=== PATIENT | male | born 1940 | race Caucasian/White ===

== ENCOUNTER 2019-08-05 12:11 | Inpatient (IN) | payer MEDICARE, OTHER ==
[2019-08-05] MEDS ORDERED: Albuterol/Ipratropium 3.0-0.5 MG/3 ML Neb Soln ONE (12:22)
[2019-08-05] MEDS ORDERED: Sodium Chloride 0.9% 10 ML Syringe FLUSH PRN (12:24)
[2019-08-05] MEDS ORDERED: Albuterol/Ipratropium 3.0-0.5 MG/3 ML Neb Soln NEB ONE (12:27)
--- NOTE | 2019-08-05 12:33 | EDM.PDOC ---
ED HPI GENERAL MEDICAL PROBLEM - General Chief Complaint: Respiratory Problem Stated Complaint: SHORTNESS OF BREATH Time Seen by Provider: 08/05/19 12:15 Source of Information: Reports: Patient, EMS History Limitations: Reports: No Limitations - History of Present Illness INITIAL COMMENTS - FREE TEXT/NARRATIVE: 79 YO WM presents to ER by EMS with progressive shortness of breath. Pt reports he began to develop upper respiratory tract symptoms 3 days ago with cough and congestion. Pt denies any known fever/chills. Pt reports he started taking Mucinex yesterday as the symptoms began to get worse. Pt with history of COPD/ asthma but states it's well controlled without medications. Pt denies chest pain , diaphoresis, no nausea/vomiting. Duration: Day(s): (3) Location: Reports: Generalized Severity: Moderate Improves with: Reports: Rest Worsens with: Reports: Movement Associated Symptoms: Reports: Cough, Shortness of Breath, Weakness. Denies: Chest Pain, Fever/Chills, Nausea/Vomiting - Related Data Allergies Allergy/AdvReac Type Severity Reaction Status Date / Time No Known Drug Allergies Allergy Cannot Verified 08/05/19 13:06 Remember Home Meds: Home Meds Calcium Carbonate/Vitamin D3 [Calcium 250+D] 2 tab PO BID 08/05/19 [History] Carbidopa/Levodopa [Carbidopa-Levodopa 10-100] 1 tab PO TID 08/05/19 [History] FLUoxetine HCl [Fluoxetine HCl] 40 mg PO QAM 08/05/19 [History] Isosorbide Mononitrate [Isosorbide Mononitrate ER] 30 mg PO QAM 08/05/19 [ History] LORazepam [Ativan] 0.5 mg PO BID PRN 08/05/19 [History] LORazepam [Ativan] 1 mg PO BEDTIME PRN 08/05/19 [History] Lisinopril [Zestril] 40 mg PO DAILY 08/05/19 [History] Polyethylene Glycol 3350 [Miralax] 17 gm PO BEDTIME 08/05/19 [History] Sennosides/Docusate Sodium [Senna Plus 8.6-50 mg Softgel] 2 tab PO BID 08/05/19 [History] Simvastatin 40 mg PO BEDTIME 08/05/19 [History] Tamsulosin HCl [Flomax] 0.4 mg PO DAILY 08/05/19 [History] amLODIPine Besylate [Norvasc] 10 mg PO DAILY 08/05/19 [History] hydrALAZINE HCl [Hydralazine HCl] 25 mg PO TID 08/05/19 [History] levETIRAcetam [Keppra] 500 mg PO BID 08/05/19 [History] metFORMIN HCl [Glucophage] 500 mg PO BID 08/05/19 [History] ED ROS GENERAL - Review of Systems Review Of Systems: See Below Constitutional: Reports: Weakness HEENT: Reports: Rhinitis Respiratory: Reports: Shortness of Breath, Cough Cardiovascular: Reports: No Symptoms Endocrine: Reports: No Symptoms GI/Abdominal: Reports: No Symptoms : Reports: No Symptoms Musculoskeletal: Reports: No Symptoms Skin: Reports: No Symptoms Neurological: Reports: No Symptoms Psychiatric: Reports: No Symptoms Hematologic/Lymphatic: Reports: No Symptoms Immunologic: Reports: No Symptoms ED EXAM, GENERAL - Physical Exam Exam: See Below Exam Limited By: No Limitations General Appearance: Alert, WD/WN, No Apparent Distress Nose: Normal Inspection, Normal Mucosa, No Blood Throat/Mouth: Normal Inspection, Normal Lips, Normal Teeth, Normal Gums, Normal Oropharynx, Normal Voice, No Airway Compromise Head: Atraumatic, Normocephalic Neck: Normal Inspection, Supple, Non-Tender, Full Range of Motion Respiratory/Chest: No Respiratory Distress, No Accessory Muscle Use, Wheezing Cardiovascular: Normal Peripheral Pulses, Regular Rate, Rhythm, No Edema, No Gallop, No JVD, No Murmur, No Rub GI/Abdominal: Normal Bowel Sounds, Soft, Non-Tender, No Organomegaly, No Distention, No Abnormal Bruit, No Mass Back Exam: Normal Inspection, Full Range of Motion, NT Extremities: Normal Inspection, Normal Range of Motion, Non-Tender, Normal Capillary Refill, No Pedal Edema Neurological: Alert, Oriented, CN II-XII Intact, Normal Cognition, Normal Gait, Normal Reflexes, No Motor/Sensory Deficits Psychiatric: Normal Affect, Normal Mood Skin Exam: Warm, Dry, Intact, Normal Color, No Rash Lymphatic: No Adenopathy EKG INTERPRETATION EKG Date: 08/05/19 Time: 12:34 Rhythm: NSR Rate (Beats/Min): 73 [place]: Normal P-Wave: Present QRS: RBBB ST-T: Normal QT: Normal Comparison: NA - No Prior EKG Course - Vital Signs Last Recorded V/S: Last Vital Signs Temp 37.1 C 08/05/19 12:37 Pulse 74 08/05/19 12:37 Resp 22 H 08/05/19 12:37 BP 143/58 H 08/05/19 12:37 Pulse Ox 85 L 08/05/19 12:37 - Orders/Labs/Meds Orders: Active Orders 24 hr Category Date Time Status EKG Documentation Completion [RC] ASDIRECTED Care 08/05/19 12:27 Active Oxygen Therapy [RC] PRN Care 08/05/19 12:24 Active Peripheral IV Care [RC] . DIRECTED Care 08/05/19 12:25 Active Pulse Oximetry [RC] CONTINUOUS Care 08/05/19 12:24 Active RT Aerosol Therapy [RC] ASDIRECTED Care 08/05/19 12:27 Active CULTURE BLOOD [BC] Stat Lab 08/05/19 12:30 Received CULTURE BLOOD [BC] Stat Lab 08/05/19 12:56 Received INFLUENZA A+B AG SCREEN [RM] Stat Lab 08/05/19 12:24 Received Sodium Chloride 0.9% [Saline Flush] Med 08/05/19 12:24 Active 10 ml FLUSH Q8HR PRN Blood Culture x2 Reflex Set [OM.PC] Stat Oth 08/05/19 12:26 Ordered Peripheral IV Insertion Adult [OM.PC] Urgent Oth 08/05/19 12:24 Ordered EKG 12 Lead [EK] Routine Ther 08/05/19 12:27 Ordered Medication Orders Sodium Chloride (Saline Flush) 10 ml FLUSH Q8HR PRN PRN Reason: keep vein open Labs: Laboratory Tests 08/05/19 08/05/19 Range/Units 12:30 12:30 WBC 7.15 (5.00-10.00) 10^3/uL RBC 4.25 L (4.50-6.00) 10^6/uL Hgb 13.3 (13.0-17.0) g/dL Hct 39.3 L (40.0-52.0) % MCV 92.5 H (82.0-92.0) fL MCH 31.3 H (27.0-31.0) pg MCHC 33.8 (32.0-36.0) g/dL RDW 13.6 (11.5-14.5) % Plt Count 172 (150-400) 10^3/uL MPV 9.6 (7.4-10.4) fL Immature Gran % (Auto) 0.3 (0.0-5.0) % Neut % (Auto) 74.5 H (50.0-70.0) % Lymph % (Auto) 14.8 L (20.0-40.0) % Dickson % (Auto) 10.1 H (2.0-8.0) % Eos % (Auto) 0.0 L (1.0-3.0) % Baso % (Auto) 0.3 (0.0-1.0) % Immature Gran # (Auto) 0.02 (0.00-0.50) 10^3/uL Neut # (Auto) 5.33 (2.50-7.00) 10^3/uL Lymph # (Auto) 1.06 (1.00-4.00) 10^3/uL Dickson # (Auto) 0.72 (0.10-0.80) 10^3/uL Eos # (Auto) 0.00 L (0.10-0.30) 10^3/uL Baso # (Auto) 0.02 (0.00-0.10) 10^3/uL Sodium 133 L (136-145) mmol/L Potassium 4.2 (3.3-5.3) mmol/L Chloride 96 L (98-115) mmol/L Carbon Dioxide 25.8 (21.0-32.0) mmol/L Anion Gap 15.4 H (5-15) mmol/L BUN 17 (6-25) mg/dL Creatinine 0.71 (0.51-1.17) mg/dL Est Cr Clr Drug Dosing 84.30 mL/min Estimated GFR (MDRD) > 60 mL/min Glucose 151 H (75 - 99) mg/dL Calcium 8.8 (8.7-10.3) mg/dL Total Bilirubin 0.3 (0.2-1.0) mg/dL AST 23 (15-37) U/L ALT 10 L (12-78) U/L Alkaline Phosphatase 43 L (46-116) IU/L Creatine Kinase 147 (26-276) U/L CK-MB (CK-2) 1.60 (0.00-4.30) ng/mL Troponin I 0.05 (0.00-0.070) ng/mL B-Natriuretic Peptide 564 H (0-100) pg/mL Total Protein 6.5 (6.4-8.2) g/dL Albumin 2.86 L (3.00-4.80) g/dL Meds: Medications Generic Name Dose Route Start Last Admin Trade Name Freq PRN Reason Stop Dose Admin Sodium Chloride 10 ml 08/05/19 12:24 Saline Flush FLUSH Q8HR PRN keep vein open Discontinued Medications Generic Name Dose Route Start Last Admin Trade Name Freq PRN Reason Stop Dose Admin Albuterol/Ipratropium Confirm 08/05/19 12:22 08/05/19 12:42 Duoneb 3.0-0.5 Mg/3 Ml Administered 08/05/19 12:23 Not Given Dose 3 ml .ROUTE .STK-MED ONE Albuterol/Ipratropium 3 ml 08/05/19 12:27 08/05/19 12:25 Duoneb 3.0-0.5 Mg/3 Ml NEB 08/05/19 12:28 3 ml ONETIME ONE Administration - Radiology Interpretation Free Text/Narrative:: CXR- small left pleural effusion - Re-Assessments/Exams Free Text/Narrative Re-Assessment/Exam: 08/05/19 13:32 admit to medicine- Will OLGUIN Departure - Departure Time of Disposition: 13:32 Disposition: Admitted As Inpatient 68 Condition: Fair Clinical Impression: COPD with exacerbation Congestive heart failure Qualifiers: Heart failure chronicity: unspecified - Discharge Information Referrals: Aylin Vasquez MD [Primary Care Provider] - Forms: ED Department Discharge Sepsis Event Note - Focused Exam Vital Signs: Vital Signs Temp Pulse Resp BP Pulse Ox Pulse Ox 08/05/19 12:37 37.1 C 74 22 H 143/58 H 85 L 08/05/19 12:35 75 22 H 142/61 H 97 08/05/19 12:24 94 L Date Exam was Performed: 08/05/19 Time Exam was Performed: 13:12 - My Orders Last 24 Hours: My Active Orders 08/05/19 12:24 Oxygen Therapy [RC] PRN Pulse Oximetry [RC] CONTINUOUS INFLUENZA A+B AG SCREEN [RM] Stat Sodium Chloride 0.9% [Saline Flush] 10 ml FLUSH Q8HR PRN Peripheral IV Insertion Adult [OM.PC] Urgent 08/05/19 12:25 Peripheral IV Care [RC] . DIRECTED 08/05/19 12:26 Blood Culture x2 Reflex Set [OM.PC] Stat 08/05/19 12:27 EKG Documentation Completion [RC] ASDIRECTED RT Aerosol Therapy [RC] ASDIRECTED EKG 12 Lead [EK] Routine 08/05/19 12:30 CULTURE BLOOD [BC] Stat 08/05/19 12:56 CULTURE BLOOD [BC] Stat - Assessment/Plan Last 24 Hours: My Active Orders 08/05/19 12:24 Oxygen Therapy [RC] PRN Pulse Oximetry [RC] CONTINUOUS INFLUENZA A+B AG SCREEN [RM] Stat Sodium Chloride 0.9% [Saline Flush] 10 ml FLUSH Q8HR PRN Peripheral IV Insertion Adult [OM.PC] Urgent 08/05/19 12:25 Peripheral IV Care [RC] . DIRECTED 08/05/19 12:26 Blood Culture x2 Reflex Set [OM.PC] Stat 08/05/19 12:27 EKG Documentation Completion [RC] ASDIRECTED RT Aerosol Therapy [RC] ASDIRECTED EKG 12 Lead [EK] Routine 08/05/19 12:30 CULTURE BLOOD [BC] Stat 08/05/19 12:56 CULTURE BLOOD [BC] Stat Assessment:: 1. COPD exacerbation 2. Mild CHF 3. Hypoxemia Plan: 1. admit to medicine- Will Hennessy 2. duonebs Q4 and PRN 3. lasix 40mg IV one time 4. repeat trop I Q6 x 1 5. oxygen 6. supportive care
[2019-08-05 13:07] LABS: ANION GAP 15.4 mmol/L (5-15); CHLORIDE,CL 96 mmol/L (98-115); SODIUM,NA 133 mmol/L (136-145)
--- NOTE | 2019-08-05 13:09 | CR ---
[id number] RAD/RAD Chest PA And Lateral EXAM: RAD Chest PA And Lateral INDICATION: SHORTNESS OF BREATH COMPARISON: None. DISCUSSION: Small left-sided pleural effusion, nonspecific in etiology. Right lung is clear. IMPRESSION: Small left pleural effusion uncertain etiology. Contrast-enhanced CT examination of the chest is recommended for further evaluation. Pasha Addison MD 08/05/19 [id number] Thank you for allowing us to participate in the care of your patient.
[2019-08-05] MEDS ORDERED: Furosemide 40 MG/4 ML VIAL ONE (13:23)
[2019-08-05] MEDS ORDERED: Furosemide 40 MG/4 ML VIAL IVPUSH ONE ×2 (13:39→18:10)
[2019-08-05] MEDS ORDERED: Albuterol/Ipratropium 3.0-0.5 MG/3 ML Neb Soln NEB SCH (13:45)
[2019-08-05] MEDS ORDERED: LORazepam 0.5 MG Tab PO PRN (16:30)
[2019-08-05 18:18] LABS: BASE EXCESS ARTERIAL 1 mmol/L (-2-3); BICARBONATE,ARTERIAL 26.7 mmol/L (22-26); O2 DELIVERY DEVICE NASAL CANNULA; O2 SATURATION ARTERIAL 92 % (95-98); PCO2 ARTERIAL 46 mmHG (35-45); PO2 ARTERIAL 66 mmHG (80-105)
[2019-08-05] MEDS: LORazepam 0.5 MG Tab PO PRN ×2 (18:19→21:51)
[2019-08-05] MEDS: Tamsulosin 0.4 MG Cap.ER PO SCH (18:30)
[2019-08-05] MEDS ORDERED: Potassium Chloride 20 MEQ Tab.ER PO ONE (19:00)
[2019-08-05] MEDS ORDERED: Bumetanide 1 MG/4 ML MDV IVPUSH STA (20:09)
[2019-08-05] MEDS: Albuterol/Ipratropium 3.0-0.5 MG/3 ML Neb Soln NEB SCH (20:47)
[2019-08-05] MEDS ORDERED: Furosemide 40 MG/4 ML VIAL IVPUSH SCH ×2 (21:30)
[2019-08-05] MEDS: Polyethylene Glycol 3350 Powder 17 GM Packet PO SCH (21:41)
[2019-08-05] MEDS: Simvastatin 20 MG Tab PO SCH (21:51)
[2019-08-05] MEDS: hydrALAZINE 50 MG Tab PO SCH (21:52)
[2019-08-05] MEDS: levETIRAcetam 500 MG Tab PO SCH (21:53)
[2019-08-05] MEDS: Carbidopa/Levodopa 10-100 MG Tab PO SCH (21:53)
[2019-08-05] MEDS: Furosemide 40 MG/4 ML VIAL IVPUSH SCH ×2 (22:01→23:08)
[2019-08-05] MEDS: Sodium Chloride 0.9% 10 ML Syringe FLUSH PRN (22:06)
[2019-08-06] MEDS: Albuterol/Ipratropium 3.0-0.5 MG/3 ML Neb Soln NEB SCH ×6 (00:34→20:03)
[2019-08-06] MEDS: Furosemide 40 MG/4 ML VIAL IVPUSH SCH (00:37)
[2019-08-06] MEDS: Sodium Chloride 0.9% 10 ML Syringe FLUSH PRN ×7 (00:50→19:56)
[2019-08-06] MEDS: Furosemide 40 MG/4 ML VIAL IV SCH ×6 (02:07→11:59)
[2019-08-06] MEDS: Acetaminophen 325 MG Tab PO PRN (02:17)
[2019-08-06 08:24] LABS: CHLORIDE,CL 97 mmol/L (98-115); SODIUM,NA 138 mmol/L (136-145)
[2019-08-06] MEDS ORDERED: Tamsulosin 0.4 MG Cap.ER PO SCH (09:00)
[2019-08-06] MEDS: Tamsulosin 0.4 MG Cap.ER PO SCH (09:32)
[2019-08-06] MEDS: Isosorbide Mononitrate 30 MG Tab.ER PO SCH (09:33)
[2019-08-06] MEDS: levETIRAcetam 500 MG Tab PO SCH ×2 (09:36→20:04)
[2019-08-06] MEDS: FLUoxetine 10 MG Cap PO SCH (09:36)
[2019-08-06] MEDS: hydrALAZINE 50 MG Tab PO SCH ×3 (09:37→20:05)
[2019-08-06] MEDS: Carbidopa/Levodopa 10-100 MG Tab PO SCH ×3 (09:37→20:05)
[2019-08-06] MEDS: amLODIPine 5 MG Tab PO SCH (09:37)
[2019-08-06] MEDS ORDERED: Sodium Chloride 0.9% 50 ML IV ONE (09:43)
[2019-08-06] MEDS ORDERED: Iopamidol 755 Mg/ML 100 ML Bottle IV ONE (09:43)
--- NOTE | 2019-08-06 09:48 | CT ---
[id number] CT/CT Chest W IV Exam: CT Chest W IV Clinical Data: SHORTNESS OF BREATH COMPARISON: CORRELATION IS MADE WITH YESTERDAY'S CHEST RADIOGRAPH FINDINGS: There is a small left pleural effusion There is a small left lung base There is no mediastinal mass There are subcentimeter lymph nodes in the mediastinum There are no pulmonary emboli There are atheromatous calcifications IMPRESSION: SMALL LEFT EFFUSION SMALL INFILTRATE LEFT BASE NO OTHER ACUTE ABNORMALITY FOLLOW-UP STUDIES SUGGESTED TO DOCUMENT RESOLUTION OF FINDINGS AT LEFT LUNG BASE Bobby Goodman MD 08/06/19 [id number] Thank you for allowing us to participate in the care of your patient.
[2019-08-06] MEDS: LORazepam 0.5 MG Tab PO PRN (09:58)
[2019-08-06] MEDS ORDERED: LORazepam 0.5 MG Tab PO PRN (10:17)
[2019-08-06] MEDS ORDERED: Potassium Chloride 20 MEQ in Premix Bag 1 BAG IV ONE ×2 (10:54→16:00)
[2019-08-06] MEDS ORDERED: Furosemide 40 MG/4 ML VIAL IV SCH (11:00)
[2019-08-06] MEDS: Furosemide 100 MG in Sodium Chloride 0.9% 90 ML IV SCH ×2 (11:27→21:40)
[2019-08-06] MEDS ORDERED: Potassium Bicarbonate 25 MEQ Tab.EFF PO ONE ×2 (12:00→17:00)
[2019-08-06] MEDS ORDERED: Potassium Bicarbonate 25 MEQ Tab.EFF PO SCH (12:00)
[2019-08-06] MEDS ORDERED: Sodium Chloride 0.9% 250 ML IV SCH (12:15)
[2019-08-06] MEDS: LORazepam 0.5 MG Tab PO SCH ×3 (12:16→20:11)
--- NOTE | 2019-08-06 12:58 | PCM.HP.2 ---
H&P History of Present Illness - General Date of Service: 08/06/19 Admit Problem/Dx: Admission Diagnosis/Problem Admission Diagnosis/Problem COPD, Mild chronic obstructive pulmonary disease Source of Information: Old Records, Provider, RN History Limitations: Reports: No Limitations - Related Data Allergies/Adverse Reactions: Allergies Allergy/AdvReac Type Severity Reaction Status Date / Time No Known Drug Allergies Allergy Cannot Verified 08/05/19 13:06 Remember Home Medications: Home Meds Calcium Carbonate/Vitamin D3 [Calcium 250+D] 2 tab PO BID 08/05/19 [History] Carbidopa/Levodopa [Carbidopa-Levodopa 10-100] 1 tab PO TID 08/05/19 [History] FLUoxetine HCl [Fluoxetine HCl] 40 mg PO QAM 08/05/19 [History] Isosorbide Mononitrate [Isosorbide Mononitrate ER] 30 mg PO QAM 08/05/19 [ History] LORazepam [Ativan] 0.5 mg PO BID PRN 08/05/19 [History] LORazepam [Ativan] 1 mg PO BEDTIME PRN 08/05/19 [History] Lisinopril [Zestril] 40 mg PO DAILY 08/05/19 [History] Polyethylene Glycol 3350 [Miralax] 17 gm PO BEDTIME 08/05/19 [History] Sennosides/Docusate Sodium [Senna Plus 8.6-50 mg Softgel] 2 tab PO BID 08/05/19 [History] Simvastatin 40 mg PO BEDTIME 08/05/19 [History] Tamsulosin HCl [Flomax] 0.4 mg PO DAILY 08/05/19 [History] amLODIPine Besylate [Norvasc] 10 mg PO DAILY 08/05/19 [History] hydrALAZINE HCl [Hydralazine HCl] 25 mg PO TID 08/05/19 [History] levETIRAcetam [Keppra] 500 mg PO BID 08/05/19 [History] metFORMIN HCl [Glucophage] 500 mg PO BID 08/05/19 [History] Past Medical History HEENT History: Reports: Hard of Hearing Other HEENT History: asymmetrical sensoneur hearing loss. subjective tinnitus Cardiovascular History: Reports: High Cholesterol, Hypertension, SOB on Exertion Respiratory History: Reports: COPD, Sleep Apnea, SOB Gastrointestinal History: Reports: Chronic Constipation, Colon Polyp Genitourinary History: Reports: None Musculoskeletal History: Reports: Arthritis, Back Pain, Chronic Neurological History: Reports: Brain Injury, Parkinson's Other Neuro History: subdural hematoma in 2013 with craniotomy , skull not replaced due to high infection possibility Psychiatric History: Reports: Anxiety, Depression Endocrine/Metabolic History: Reports: Diabetes, Type II, Obesity/BMI 30+ Other Oncologic History: squamous cell carcinoma of skin- face Dermatologic History: Reports: Eczema - Infectious Disease History Infectious Disease History: Reports: Chicken Pox - Past Surgical History Head Surgeries/Procedures: Reports: Craniotomy Cardiovascular Surgical History: Reports: None Respiratory Surgical History: Reports: None GI Surgical History: Reports: Colonoscopy, Hernia, Abdominal Endocrine Surgical History: Reports: None Neurological Surgical History: Reports: None Musculoskeletal Surgical History: Reports: None Dermatological Surgical History: Reports: None Social & Family History - Tobacco Use Smoking Status *Q: Former Smoker Years of Tobacco use: 50 Packs/Tins Daily: 3 Used Tobacco, but Quit: Yes Month/Year Tobacco Last Used: 10 - Caffeine Use Caffeine Use: Reports: Coffee, Soda - Recreational Drug Use Recreational Drug Use: No H&P Review of Systems - Review of Systems: Review Of Systems: See Below General: Reports: Malaise, Weight Loss. Denies: Night Sweats HEENT: Reports: No Symptoms Pulmonary: Reports: Shortness of Breath, Wheezing, Cough, Sputum. Denies: Pleuritic Chest Pain, Hemoptysis Cardiovascular: Reports: Dyspnea on Exertion, Orthopnea, Edema. Denies: Chest Pain, Palpitations, Lightheadedness, Blood Pressure Problem Genitourinary: Reports: Other (Rahseed catheter placement) Musculoskeletal: Reports: No Symptoms Skin: Reports: Dryness. Denies: Rash Psychiatric: Denies: Confusion Neurological: Denies: Confusion Hematologic/Lymphatic: Reports: No Symptoms Immunologic: Reports: No Symptoms Exam - Exam Exam: See Below - Vital Signs Vital Signs: Last Vital Signs Temp 97.5 F 08/06/19 11:00 Pulse 71 08/06/19 11:00 Resp 20 08/06/19 11:00 BP 145/75 H 08/06/19 11:00 Pulse Ox 87 L 08/06/19 11:00 Weight: 268 lb - Exam Quality Assessment: Supplemental Oxygen General: Alert, Oriented, Mild Distress HEENT: EACs Clear. No: Mucosa Moist & [place] Neck: JVD Lungs: Crackles, Rales, Wheezing. No: Clear to Auscultation, Normal Respiratory Effort Cardiovascular: Regular Rate, Regular Rhythm, Normal S1. No: Diastolic Murmur, Gallop/S3 GI/Abdominal Exam: No: Distended (Male) Exam: Deferred Rectal (Males) Exam: Deferred Back Exam: No: CVA Tenderness (L), CVA Tenderness (R) Extremities: Pedal Edema Skin: Dry Neurological: Cranial Nerves Intact, Reflexes Equal Bilateral Neuro Extensive - Mental Status: Alert, Oriented x3, Normal Mood/Affect, Normal Cognition Neuro Extensive - Motor, Sensory, Reflexes: CN II-XII Intact Psychiatric: Alert, Anxious. No: Depressed, Agitated - Patient Data Lab Results Last 24 hrs: Laboratory Results - last 24 hr 08/05/19 08/05/19 08/05/19 Range/Units 05:45 06:10 12:30 WBC (5.00-10.00) 10^3/uL RBC (4.50-6.00) 10^6/uL Hgb (13.0-17.0) g/dL Hct (40.0-52.0) % MCV (82.0-92.0) fL MCH (27.0-31.0) pg MCHC (32.0-36.0) g/dL RDW (11.5-14.5) % Plt Count (150-400) 10^3/uL MPV (7.4-10.4) fL Immature Gran % (Auto) (0.0-5.0) % Neut % (Auto) (50.0-70.0) % Lymph % (Auto) (20.0-40.0) % [place] % (Auto) (2.0-8.0) % Eos % (Auto) (1.0-3.0) % Baso % (Auto) (0.0-1.0) % Immature Gran # (Auto) (0.00-0.50) 10^3/uL Neut # (Auto) (2.50-7.00) 10^3/uL Lymph # (Auto) (1.00-4.00) 10^3/uL [place] # (Auto) (0.10-0.80) 10^3/uL Eos # (Auto) (0.10-0.30) 10^3/uL Baso # (Auto) (0.00-0.10) 10^3/uL ABG pH 7.37 (7.35-7.45) ABG pCO2 46 H (35-45) mmHG ABG pO2 66 L (80-105) mmHG ABG HCO3 26.7 H (22-26) mmol/L ABG Total CO2 28 H (23-27) mmol/L ABG O2 Saturation 92 L (95-98) % ABG Base Excess 1 (-2-3) mmol/L O2 Delivery Device Nasal cannula Sodium 133 L (136-145) mmol/L Potassium 4.2 (3.3-5.3) mmol/L Chloride 96 L (98-115) mmol/L Carbon Dioxide 25.8 (21.0-32.0) mmol/L Anion Gap 15.4 H (5-15) mmol/L BUN 17 (6-25) mg/dL Creatinine 0.71 (0.51-1.17) mg/dL Est Cr Clr Drug Dosing 84.30 mL/min Estimated GFR (MDRD) > 60 mL/min Glucose 151 H (75 - 99) mg/dL Calcium 8.8 (8.7-10.3) mg/dL Total Bilirubin 0.3 (0.2-1.0) mg/dL AST 23 (15-37) U/L ALT 10 L (12-78) U/L Alkaline Phosphatase 43 L (46-116) IU/L Creatine Kinase 147 (26-276) U/L CK-MB (CK-2) 1.60 (0.00-4.30) ng/mL Troponin I < 0.04 0.05 (0.00-0.070) ng/mL B-Natriuretic Peptide 564 H (0-100) pg/mL Total Protein 6.5 (6.4-8.2) g/dL Albumin 2.86 L (3.00-4.80) g/dL 08/06/19 08/06/19 Range/Units 07:26 07:26 WBC 7.08 (5.00-10.00) 10^3/uL RBC 4.38 L (4.50-6.00) 10^6/uL Hgb 13.5 (13.0-17.0) g/dL Hct 40.8 (40.0-52.0) % MCV 93.2 H (82.0-92.0) fL MCH 30.8 (27.0-31.0) pg MCHC 33.1 (32.0-36.0) g/dL RDW 13.6 (11.5-14.5) % Plt Count 212 (150-400) 10^3/uL MPV 9.6 (7.4-10.4) fL Immature Gran % (Auto) 0.4 (0.0-5.0) % Neut % (Auto) 71.4 H (50.0-70.0) % Lymph % (Auto) 17.1 L (20.0-40.0) % [place] % (Auto) 10.6 H (2.0-8.0) % Eos % (Auto) 0.1 L (1.0-3.0) % Baso % (Auto) 0.4 (0.0-1.0) % Immature Gran # (Auto) 0.03 (0.00-0.50) 10^3/uL Neut # (Auto) 5.05 (2.50-7.00) 10^3/uL Lymph # (Auto) 1.21 (1.00-4.00) 10^3/uL [place] # (Auto) 0.75 (0.10-0.80) 10^3/uL Eos # (Auto) 0.01 L (0.10-0.30) 10^3/uL Baso # (Auto) 0.03 (0.00-0.10) 10^3/uL ABG pH (7.35-7.45) ABG pCO2 (35-45) mmHG ABG pO2 (80-105) mmHG ABG HCO3 (22-26) mmol/L ABG Total CO2 (23-27) mmol/L ABG O2 Saturation (95-98) % ABG Base Excess (-2-3) mmol/L O2 Delivery Device Sodium 138 (136-145) mmol/L Potassium 3.2 L (3.3-5.3) mmol/L Chloride 97 L (98-115) mmol/L Carbon Dioxide 31.2 (21.0-32.0) mmol/L Anion Gap 13.0 (5-15) mmol/L BUN 12 (6-25) mg/dL Creatinine 0.70 (0.51-1.17) mg/dL Est Cr Clr Drug Dosing 85.50 mL/min Estimated GFR (MDRD) > 60 mL/min Glucose 128 H (75 - 99) mg/dL Calcium 7.9 L (8.7-10.3) mg/dL Total Bilirubin (0.2-1.0) mg/dL AST (15-37) U/L ALT (12-78) U/L Alkaline Phosphatase (46-116) IU/L Creatine Kinase (26-276) U/L CK-MB (CK-2) (0.00-4.30) ng/mL Troponin I (0.00-0.070) ng/mL B-Natriuretic Peptide 399 H (0-100) pg/mL Total Protein (6.4-8.2) g/dL Albumin (3.00-4.80) g/dL Result Diagrams: 08/06/19 07:26 08/06/19 07:26 Zachary Results Last 24 hrs: Microbiology 08/05/19 12:30 Aerobic Blood Culture - Preliminary Blood - Venous NO GROWTH AFTER 1 DAY Anaerobic Blood Culture - Preliminary NO GROWTH AFTER 1 DAY 08/05/19 12:24 Influenza Type A Antigen Screen - Final Nasal, Unspecified NEGATIVE INFLUENZA A VIRUS AG REFERENCE RANGE: NEGATIVE Influenza Type B Antigen Screen - Final NEGATIVE INFLUENZA B VIRUS AG REFERENCE RANGE: NEGATIVE Sepsis Event Note - Evaluation Sepsis Screening Result: No Definite Risk - Focused Exam Vital Signs: Vital Signs Temp Pulse Resp BP BP Pulse Ox Pulse Ox 08/06/19 11:00 97.5 F 71 20 145/75 H 87 L 08/06/19 09:37 140/60 08/06/19 09:33 140/70 08/06/19 06:38 98.2 F 67 24 H 145/72 H 94 L 08/06/19 04:20 65 94 L 08/06/19 03:00 97.9 F 68 24 H 156/74 H 93 L 08/06/19 00:50 74 94 L Date Exam was Performed: 08/06/19 Time Exam was Performed: 13:18 Problem List Initiated/Reviewed/Updated: Yes Orders Last 24hrs: Active Orders 24 hr Category Date Time Status Patient Status [ADT] Routine ADT 08/05/19 13:43 Active Cardiac Monitoring [RC] 0300,0700,1100,1500,1900,2300 Care 08/05/19 13:43 Active Insert Rasheed Catheter [Insert Urinary Catheter] [OM.PC] Care 08/05/19 20:15 Ordered Stat Oxygen Therapy [RC] PRN Care 08/05/19 13:43 Active Peripheral IV Care [RC] . DIRECTED Care 08/05/19 12:25 Inactive Pulse Oximetry [RC] PRN Care 08/05/19 13:43 Active RT Aerosol Therapy [RC] ASDIRECTED Care 08/05/19 13:44 Active Up With Assistance [RC] ASDIRECTED Care 08/05/19 13:43 Active Urinary Catheter Assessment [RC] ASDIRECTED Care 08/05/19 20:50 Active VTE/DVT Education [RC] PER UNIT ROUTINE Care 08/05/19 13:43 Active Vital Signs [RC] 0300,0700,1100,1500,1900,2300 Care 08/05/19 13:43 Active [employer] Diet [DIET] Diet 08/05/19 Lunch Active CULTURE BLOOD [BC] Stat Lab 08/05/19 12:30 Results CULTURE BLOOD [BC] Stat Lab 08/05/19 12:56 Received Acetaminophen [Tylenol] Med 08/05/19 13:43 Active 650 mg PO Q4H PRN Albuterol/Ipratropium [DuoNeb 3.0-0.5 MG/3 ML] Med 08/05/19 20:00 Active 3 ml NEB Q4H Carbidopa/Levodopa [Sinemet 10-100 mg] Med 08/05/19 21:00 Active 1 tab PO TID Docusate Sodium/Sennosides [Senna Plus] Med 08/05/19 21:00 Active 2 tab PO BID FLUoxetine [PROzac] Med 08/06/19 09:00 Active 40 mg PO DAILY Furosemide [Lasix] 100 mg Med 08/06/19 10:45 Active Sodium Chloride 0.9% [Normal Saline] 90 ml IV CONTINUOUS Isosorbide Mononitrate [Imdur] Med 08/06/19 09:00 Active 30 mg PO QAM LORazepam [Ativan] Med 08/06/19 10:17 Active 0.5 mg PO BEDTIME PRN LORazepam [Ativan] Med 08/06/19 12:00 Active 0.5 mg PO TID@0700,1200,1900 LORazepam [Ativan] Med 08/06/19 21:00 Active 1 mg PO BEDTIME Potassium Bicarbonate [Klor-Con EF] Med 08/06/19 17:00 Once 25 meq PO ONETIME ONE Potassium Chloride [KCL 20 MEQ in Water 100 ML] 20 meq Med 08/06/19 10:54 Active Premix Bag 1 bag IV ONETIME Potassium Chloride [KCL 20 MEQ in Water 100 ML] 20 meq Med 08/06/19 16:00 Active Premix Bag 1 bag IV ONETIME Simvastatin [Zocor] Med 08/05/19 21:00 Active 40 mg PO BEDTIME Sodium Chloride 0.9% [Normal Saline] 250 ml Med 08/06/19 12:15 Active IV ASDIRECTED Sodium Chloride 0.9% [Saline Flush] Med 08/05/19 13:43 Active 10 ml FLUSH Q8HR PRN Tamsulosin [Flomax] Med 08/05/19 18:00 Active 0.4 mg PO DAILY amLODIPine [Norvasc] Med 08/06/19 09:00 Active 10 mg PO DAILY hydrALAZINE [Apresoline] Med 08/05/19 21:00 Active 25 mg PO TID levETIRAcetam [Keppra] Med 08/05/19 21:00 Active 500 mg PO BID polyethylene glycoL 3350 [MiraLAX] Med 08/05/19 21:00 Active 17 gm PO BEDTIME Saline Lock Insert [OM.PC] Routine Oth 08/05/19 13:43 Ordered Resuscitation Status Routine Resus Stat 08/05/19 13:43 Ordered EKG 12 Lead [EK] Routine Ther 08/05/19 12:27 Stop Req Medication Orders Acetaminophen (Tylenol) 650 mg PO Q4H PRN PRN Reason: Pain (Mild 1-3)/fever Last Admin: 08/06/19 02:17 Dose: 650 mg Albuterol/Ipratropium (Duoneb 3.0-0.5 Mg/3 Ml) 3 ml NEB Q4H [facility] Last Admin: 08/06/19 12:39 Dose: 3 ml Admin: 08/06/19 09:49 Dose: 3 ml Admin: 08/06/19 04:06 Dose: 3 ml Admin: 08/06/19 00:34 Dose: 3 ml Admin: 08/05/19 20:47 Dose: 3 ml Amlodipine Besylate (Norvasc) 10 mg PO DAILY [facility] Last Admin: 08/06/19 09:37 Dose: 10 mg Carbidopa/Levodopa (Sinemet 10-100 Mg) 1 tab PO TID [facility] Last Admin: 08/06/19 09:37 Dose: 1 tab Admin: 08/05/19 21:53 Dose: 1 tab Fluoxetine HCl (Prozac) 40 mg PO DAILY [facility] Last Admin: 08/06/19 09:36 Dose: 40 mg Hydralazine HCl (Apresoline) 25 mg PO TID [facility] Last Admin: 08/06/19 09:37 Dose: 25 mg Admin: 08/05/19 21:52 Dose: 25 mg Furosemide 100 mg/ Sodium (Chloride) 100 mls @ 10 mls/hr IV CONTINUOUS [facility] Last Admin: 08/06/19 11:27 Dose: 10 mg/hr, 10 mls/hr Potassium Chloride 20 meq/ (Premix) 100 mls @ 50 mls/hr IV ONETIME ONE Stop: 08/06/19 12:53 Potassium Chloride 20 meq/ (Premix) 100 mls @ 50 mls/hr IV ONETIME ONE Stop: 08/06/19 17:59 Sodium Chloride (Normal Saline) 250 mls @ 100 mls/hr IV ASDIRECTED [facility] Isosorbide Mononitrate (Imdur) 30 mg PO QAM [facility] Last Admin: 08/06/19 09:33 Dose: 30 mg Levetiracetam (Keppra) 500 mg PO BID [facility] Last Admin: 08/06/19 09:36 Dose: 500 mg Admin: 08/05/19 21:53 Dose: 500 mg Lorazepam (Ativan) 0.5 mg PO TID@0700,1200,1900 [facility] Last Admin: 08/06/19 12:16 Dose: 0.5 mg Lorazepam (Ativan) 1 mg PO BEDTIME [facility] Lorazepam (Ativan) 0.5 mg PO BEDTIME PRN PRN Reason: Anxiety Polyethylene Glycol (Miralax) 17 gm PO BEDTIME [facility] Last Admin: 08/05/19 21:41 Dose: 17 gm Potassium Bicarbonate (Klor-Con Ef) 25 meq PO ONETIME ONE Stop: 08/06/19 17:01 Senna/Docusate Sodium (Senna Plus) 2 tab PO BID [facility] Last Admin: 08/06/19 09:37 Dose: 2 tab Admin: 08/05/19 21:51 Dose: 2 tab Simvastatin (Zocor) 40 mg PO BEDTIME [facility] Last Admin: 08/05/19 21:51 Dose: 40 mg Sodium Chloride (Saline Flush) 10 ml FLUSH Q8HR PRN PRN Reason: keep vein open Last Admin: 08/06/19 11:24 Dose: 10 ml Admin: 08/06/19 06:43 Dose: 10 ml Admin: 08/06/19 02:13 Dose: 10 ml Admin: 08/06/19 00:50 Dose: 10 ml Admin: 08/05/19 22:06 Dose: 10 ml Tamsulosin HCl (Flomax) 0.4 mg PO DAILY [facility] Last Admin: 08/06/19 09:32 Dose: 0.4 mg Admin: 08/05/19 18:30 Dose: 0.4 mg Assessment/Plan Comment:: History of present illness Mr. 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 Patient states he has had some sort of upper respiratory infection and has been sick for 3-4 days with cough and congestion ever did not have any documented fevers or chills. He was taken some OTC Mucinex however his symptoms seem to worsen. He had no chest pain however was short of breath upon entering the ED. Along with his obesity he does have a COPD/asthma component. Pertinent ED workup/findings Chest x-ray, small left pleural effusion BNP 565 Negative influenza A/B Blood cultures Shortly after accepting patient for hospital admission, nurses notified me concerning significant shortness of breath with hypoxia in the 70s upon standing and they were concerned the patient would not be able to make it through the night due to his significant laboring. I arrived at the hospital to examine the patient and therefore initiated furosemide drip--significant output throughout the night. prophylactic potassium supplementation given, ordered CT of the chest however the patient had eaten. ABG reassuring, orders were placed, Rasheed catheter placed. This morning on rounds patient in chair improved from overnight however far from baseline. Repeated BNP down to 400. Update; CT of the chest consistent with chest x-ray with pleural effusion left side however no other concerning findings Primary hospital problems Heart failure, clinical, significant fluid overload, no echo on file, request records from [place] Hypokalemia, supplementation Obesity, morbid, contributory Chronic/stable problems Hypertension, controlled, hold lisinopril Hyperlipidemia, statin therapy Obesity, morbid, confounding Seasonal allergies, controlled BPH, Flomax Anxiety/Depression, benzodiazepine dependent, Prozac Disposition/overall plan --Patient meets ongoing inpatient criteria --Gentle continuous furosemide infusion, daily weights --Ongoing potassium supplementation --Continue with Rasheed catheter for strict I/O 2/2 significant hypoxia upon standing --Oxygen support, TKS up to 93% --DVT prophylaxis, weightbased LMWH --Nursing, please obtain records from [place] --Mucinex - Mortality Measure Prognosis:: Good
[2019-08-06] MEDS: Enoxaparin 40 MG/0.4 ML Syringe SUBCUT SCH (13:58)
[2019-08-06] MEDS: guaiFENesin 600 MG Tab.ER PO SCH ×2 (13:59→20:10)
[2019-08-06] MEDS: Carboxymethylcellulose Sodium 0.5% Ophth Soln 15 ML Bottle EYEBOTH PRN (18:07)
[2019-08-06] MEDS: Polyethylene Glycol 3350 Powder 17 GM Packet PO SCH (20:04)
[2019-08-06] MEDS: Simvastatin 20 MG Tab PO SCH (20:09)
[2019-08-07] MEDS: Albuterol/Ipratropium 3.0-0.5 MG/3 ML Neb Soln NEB SCH ×6 (00:28→21:00)
[2019-08-07] MEDS: Enoxaparin 40 MG/0.4 ML Syringe SUBCUT SCH ×2 (00:30→13:23)
[2019-08-07] MEDS: Furosemide 100 MG in Sodium Chloride 0.9% 90 ML IV SCH (06:26)
[2019-08-07] MEDS: LORazepam 0.5 MG Tab PO SCH ×4 (06:29→21:03)
[2019-08-07 08:16] LABS: ANION GAP 23.8 mmol/L (5-15); CHLORIDE,CL 91 mmol/L (98-115); SODIUM,NA 146 mmol/L (136-145)
[2019-08-07] MEDS: FLUoxetine 10 MG Cap PO SCH (09:14)
[2019-08-07] MEDS: guaiFENesin 600 MG Tab.ER PO SCH ×2 (09:14→21:04)
[2019-08-07] MEDS: Tamsulosin 0.4 MG Cap.ER PO SCH (09:15)
[2019-08-07] MEDS: Isosorbide Mononitrate 30 MG Tab.ER PO SCH (09:15)
[2019-08-07] MEDS: hydrALAZINE 50 MG Tab PO SCH ×3 (09:15→21:01)
[2019-08-07] MEDS: levETIRAcetam 500 MG Tab PO SCH ×2 (09:15→21:04)
[2019-08-07] MEDS: amLODIPine 5 MG Tab PO SCH (09:16)
[2019-08-07] MEDS: Carbidopa/Levodopa 10-100 MG Tab PO SCH ×3 (09:16→21:04)
[2019-08-07] MEDS ORDERED: methylPREDNISolone Sodium Succinate 125 MG/2 ML SDV IVPUSH ONE (12:47)
[2019-08-07] MEDS ORDERED: Potassium Chloride 20 MEQ Tab.ER PO ONE (12:49)
[2019-08-07] MEDS ORDERED: Magnesium Oxide 500 MG Tab PO ONE (13:00)
[2019-08-07] MEDS ORDERED: Furosemide 40 MG/4 ML VIAL IVPUSH ONE (14:00)
--- NOTE | 2019-08-07 14:47 | PCM.PN ---
- General Info Date of Service: 08/07/19 Functional Status: Reports: Pain Controlled, Tolerating Diet, Ambulating, Urinating. Denies: New Symptoms - Review of Systems General: Reports: Weakness, Fatigue. Denies: Fever, Chills HEENT: Reports: Sinus Congestion. Denies: Headaches, Sore Throat Pulmonary: Reports: Shortness of Breath, Cough, Wheezing. Denies: Sputum Cardiovascular: Reports: Dyspnea on Exertion, Edema. Denies: Chest Pain Gastrointestinal: Denies: Abdominal Pain Genitourinary: Reports: No Symptoms Neurological: Reports: Weakness. Denies: Confusion, Dizziness, Headache Psychiatric: Reports: No Symptoms - Patient Data Vitals - Most Recent: Last Vital Signs Temp 96.9 F 08/07/19 11:00 Pulse 71 08/07/19 11:00 Resp 24 H 08/07/19 11:00 BP 139/72 08/07/19 13:35 Pulse Ox 92 L 08/07/19 13:00 Weight - Most Recent: 261 lb 5 oz I&O - Last 24 Hours: Intake & Output 08/06/19 08/07/19 08/07/19 22:59 06:59 14:59 Intake Total 1180 377 700 Output Total 2600 1100 700 Balance -1420 -723 0 Lab Results Last 24 Hours: Laboratory Results - last 24 hr 08/07/19 08/07/19 08/07/19 Range/Units 07:00 07:00 07:15 WBC 7.90 (5.00-10.00) 10^3/uL RBC 4.62 (4.50-6.00) 10^6/uL Hgb 14.2 (13.0-17.0) g/dL Hct 43.0 (40.0-52.0) % MCV 93.1 H (82.0-92.0) fL MCH 30.7 (27.0-31.0) pg MCHC 33.0 (32.0-36.0) g/dL RDW 13.5 (11.5-14.5) % Plt Count 225 (150-400) 10^3/uL MPV 9.8 (7.4-10.4) fL Immature Gran % (Auto) 0.5 (0.0-5.0) % Neut % (Auto) 70.2 H (50.0-70.0) % Lymph % (Auto) 19.6 L (20.0-40.0) % [place] % (Auto) 9.4 H (2.0-8.0) % Eos % (Auto) 0.0 L (1.0-3.0) % Baso % (Auto) 0.3 (0.0-1.0) % Immature Gran # (Auto) 0.04 (0.00-0.50) 10^3/uL Neut # (Auto) 5.55 (2.50-7.00) 10^3/uL Lymph # (Auto) 1.55 (1.00-4.00) 10^3/uL [place] # (Auto) 0.74 (0.10-0.80) 10^3/uL Eos # (Auto) 0.00 L (0.10-0.30) 10^3/uL Baso # (Auto) 0.02 (0.00-0.10) 10^3/uL Sodium 146 H (136-145) mmol/L Potassium 3.2 L (3.3-5.3) mmol/L Chloride 91 L (98-115) mmol/L Carbon Dioxide 34.4 H (21.0-32.0) mmol/L Anion Gap 23.8 H (5-15) mmol/L BUN 11 (6-25) mg/dL Creatinine 0.70 (0.51-1.17) mg/dL Est Cr Clr Drug Dosing 85.50 mL/min Estimated GFR (MDRD) > 60 mL/min Glucose 127 H (75 - 99) mg/dL Calcium 8.3 L (8.7-10.3) mg/dL Magnesium 1.7 L (1.8-2.4) mg/dL Zachary Results Last 24 Hours: Microbiology 08/05/19 12:56 Aerobic Blood Culture - Preliminary Blood - Venous - Lab Draw NO GROWTH AFTER 2 DAYS Anaerobic Blood Culture - Preliminary NO GROWTH AFTER 2 DAYS 08/05/19 12:30 Aerobic Blood Culture - Preliminary Blood - Venous NO GROWTH AFTER 2 DAYS Anaerobic Blood Culture - Preliminary NO GROWTH AFTER 2 DAYS Med Orders - Current: Current Medications Acetaminophen (Tylenol) 650 mg PO Q4H PRN PRN Reason: Pain (Mild 1-3)/fever Last Admin: 08/06/19 02:17 Dose: 650 mg Albuterol/Ipratropium (Duoneb 3.0-0.5 Mg/3 Ml) 3 ml NEB Q4H [facility] Last Admin: 08/07/19 13:26 Dose: Not Given Amlodipine Besylate (Norvasc) 10 mg PO DAILY [facility] Last Admin: 08/07/19 09:16 Dose: 10 mg Artificial Tears (Refresh Tears 0.5%) 0 ml EYEBOTH ASDIRECTED PRN PRN Reason: Dry Eyes Last Admin: 08/06/19 18:07 Dose: 1 drop Carbidopa/Levodopa (Sinemet 10-100 Mg) 1 tab PO TID [facility] Last Admin: 08/07/19 13:35 Dose: 1 tab Enoxaparin Sodium (Lovenox) 40 mg SUBCUT Q12H [facility] Last Admin: 08/07/19 13:23 Dose: 40 mg Fluoxetine HCl (Prozac) 40 mg PO DAILY [facility] Last Admin: 08/07/19 09:14 Dose: 40 mg Guaifenesin (Mucinex) 600 mg PO BID [facility] Last Admin: 08/07/19 09:14 Dose: 600 mg Hydralazine HCl (Apresoline) 25 mg PO TID [facility] Last Admin: 08/07/19 13:35 Dose: 25 mg Isosorbide Mononitrate (Imdur) 30 mg PO QAM [facility] Last Admin: 08/07/19 09:15 Dose: 30 mg Levetiracetam (Keppra) 500 mg PO BID [facility] Last Admin: 08/07/19 09:15 Dose: 500 mg Lorazepam (Ativan) 0.5 mg PO TID@0700,1200,1900 [facility] Last Admin: 08/07/19 11:53 Dose: 0.5 mg Lorazepam (Ativan) 1 mg PO BEDTIME [facility] Last Admin: 08/06/19 20:11 Dose: 1 mg Lorazepam (Ativan) 0.5 mg PO BEDTIME PRN PRN Reason: Anxiety Polyethylene Glycol (Miralax) 17 gm PO BEDTIME [facility] Last Admin: 08/06/19 20:04 Dose: 17 gm Senna/Docusate Sodium (Senna Plus) 2 tab PO BID [facility] Last Admin: 08/07/19 09:15 Dose: 2 tab Simvastatin (Zocor) 40 mg PO BEDTIME [facility] Last Admin: 08/06/19 20:09 Dose: 40 mg Sodium Chloride (Saline Flush) 10 ml FLUSH Q8HR PRN PRN Reason: keep vein open Last Admin: 08/06/19 19:56 Dose: 10 ml Tamsulosin HCl (Flomax) 0.4 mg PO DAILY [facility] Last Admin: 08/07/19 09:15 Dose: 0.4 mg Discontinued Medications Albuterol/Ipratropium (Duoneb 3.0-0.5 Mg/3 Ml) Confirm Administered Dose 3 ml .ROUTE .STK-MED ONE Stop: 08/05/19 12:23 Last Admin: 08/05/19 12:42 Dose: Not Given Albuterol/Ipratropium (Duoneb 3.0-0.5 Mg/3 Ml) 3 ml NEB ONETIME ONE Stop: 08/05/19 12:28 Last Admin: 08/05/19 12:25 Dose: 3 ml Albuterol/Ipratropium (Duoneb 3.0-0.5 Mg/3 Ml) 3 ml NEB Q4H [facility] Last Admin: 08/05/19 15:59 Dose: 3 ml Bumetanide (Bumex) 1 mg IVPUSH ONETIME STA Stop: 08/05/19 20:10 Last Admin: 08/05/19 20:48 Dose: Not Given Furosemide (Lasix) Confirm Administered Dose 40 mg .ROUTE .STK-MED ONE Stop: 08/05/19 13:24 Last Admin: 08/05/19 14:33 Dose: Not Given Furosemide (Lasix) 40 mg IVPUSH NOW ONE Stop: 08/05/19 13:40 Last Admin: 08/05/19 13:45 Dose: 40 mg Furosemide (Lasix) 40 mg IVPUSH ONETIME ONE Stop: 08/05/19 18:11 Last Admin: 08/05/19 18:12 Dose: 40 mg Furosemide (Lasix) 10 mg IVPUSH CONTINUOUS [facility] Furosemide (Lasix) 10 mg IVPUSH 5XDAY@0030,2130,2300 [facility] Stop: 08/06/19 06:00 Furosemide (Lasix) 10 mg IVPUSH TID@0030,2130,2300 [facility] Stop: 08/06/19 01:30 Last Admin: 08/06/19 00:37 Dose: 10 mg Furosemide (Lasix) 10 mg IV TID@0200,0330,0500 [facility] Stop: 08/06/19 06:00 Last Admin: 08/06/19 05:32 Dose: 10 mg Furosemide (Lasix) 10 mg IV TID@0630,0800,0930 [facility] Stop: 08/06/19 10:30 Last Admin: 08/06/19 11:59 Dose: Not Given Furosemide (Lasix) 10 mg IV BID@1100,1230 [facility] Stop: 08/06/19 13:30 Furosemide (Lasix) 40 mg IVPUSH NOW ONE Stop: 08/07/19 14:01 Last Admin: 08/07/19 13:23 Dose: 40 mg Sodium Chloride (Normal Saline) 50 mls @ 200 mls/min IV ONETIME ONE Stop: 08/06/19 09:44 Last Admin: 08/06/19 09:53 Dose: 200 mls/min Furosemide 100 mg/ Sodium (Chloride) 100 mls @ 10 mls/hr IV CONTINUOUS [facility] Last Admin: 08/07/19 06:26 Dose: 10 mg/hr, 10 mls/hr Potassium Chloride 20 meq/ (Premix) 100 mls @ 50 mls/hr IV ONETIME ONE Stop: 08/06/19 12:53 Last Admin: 08/06/19 13:20 Dose: 50 mls/hr Potassium Chloride 20 meq/ (Premix) 100 mls @ 50 mls/hr IV ONETIME ONE Stop: 08/06/19 17:59 Last Admin: 08/06/19 16:46 Dose: 50 mls/hr Sodium Chloride (Normal Saline) 250 mls @ 100 mls/hr IV ASDIRECTED [facility] Last Admin: 08/06/19 13:16 Dose: 100 mls/hr Iopamidol (Isovue-370 (76%)) 100 ml IV ONETIME ONE Stop: 08/06/19 09:44 Last Admin: 08/06/19 09:52 Dose: 100 ml Lorazepam (Ativan) 0.5 mg PO BID PRN PRN Reason: ANXIETY Last Admin: 08/06/19 09:58 Dose: 0.5 mg Lorazepam (Ativan) 1 mg PO BEDTIME PRN PRN Reason: ANXIETY Last Admin: 08/06/19 02:06 Dose: 1 mg Magnesium Oxide (Magnesium Oxide) 500 mg PO ONETIME ONE Stop: 08/07/19 13:01 Last Admin: 08/07/19 13:35 Dose: 500 mg Methylprednisolone Sodium Succinate (Solu-Medrol) 80 mg IVPUSH ONETIME ONE Stop: 08/07/19 12:48 Last Admin: 08/07/19 13:23 Dose: 80 mg Potassium Bicarbonate (Klor-Con Ef) 25 meq PO DAILY [facility] Potassium Bicarbonate (Klor-Con Ef) 25 meq PO ONETIME ONE Stop: 08/06/19 17:01 Last Admin: 08/06/19 16:45 Dose: 25 meq Potassium Bicarbonate (Klor-Con Ef) 25 meq PO ONETIME ONE Stop: 08/06/19 12:01 Last Admin: 08/06/19 12:17 Dose: 25 meq Potassium Chloride (Klor-Con M20) 20 meq PO ONETIME ONE Stop: 08/05/19 19:01 Last Admin: 08/05/19 19:57 Dose: 20 meq Potassium Chloride (Klor-Con M20) 40 meq PO ONETIME ONE Stop: 08/07/19 12:50 Last Admin: 08/07/19 13:35 Dose: 40 meq Sodium Chloride (Saline Flush) 10 ml FLUSH Q8HR PRN PRN Reason: keep vein open Tamsulosin HCl (Flomax) 0.4 mg PO DAILY [facility] - Exam Quality Assessment: Supplemental Oxygen (92 on 3 lpm nasal cannula), Urine Catheter (jolley-clear yellow returns), DVT Prophylaxis (on lovenox) General: Alert, Oriented, Cooperative, Mild Distress Lungs: Rhonchi (coarse throughout lung zepeda), Wheezing (expiratory wheezes throughout lung zepeda), Other (mild tachypnea without retractions, audible wheezes) Cardiovascular: Regular Rate, Regular Rhythm, No Murmurs Extremities: Other (trace edema to BLE) Skin: Warm, Dry Neurological: Normal Speech Psy/Mental Status: Alert, Normal Affect, Normal Mood Sepsis Event Note - Evaluation Sepsis Screening Result: No Definite Risk - Focused Exam Vital Signs: Vital Signs Temp Pulse Resp BP BP BP Pulse Ox 08/07/19 13:35 139/72 08/07/19 13:00 08/07/19 11:00 96.9 F 71 24 H 123/68 95 08/07/19 09:19 75 08/07/19 09:16 150/79 H 08/07/19 09:15 150/79 H 02/01/20 06:37 97.7 F 72 24 H 151/78 H 91 L 08/07/19 04:35 61 08/07/19 03:00 97.2 F 74 28 H 132/69 93 L Pulse Ox Pulse Ox 08/07/19 13:35 08/07/19 13:00 92 L 08/07/19 11:00 08/07/19 09:19 92 L 08/07/19 09:16 08/07/19 09:15 08/07/19 06:37 08/07/19 04:35 94 L 08/07/19 03:00 Date Exam was Performed: 08/07/19 Time Exam was Performed: 14:48 - Problem List Review Problem List Initiated/Reviewed/Updated: Yes - My Orders Last 24 Hours: My Active Orders 08/06/19 19:38 Daily Weight [Height and Weight] [RC] DAILY Intake and Output [RC] 1400,2200,0600 08/07/19 12:46 Accu Check [Blood Glucose Check, Bedside] [RC] 0730,1730 08/08/19 05:11 BASIC METABOLIC PANEL,BMP [CHEM] AM CBC WITH AUTO DIFF [HEME] AM MAGNESIUM [CHEM] AM - Assessment Assessment:: HPI: This is a 79 yo male who presented to the ED d/t progressive shortness of breath. Reportedly developed URI symptoms 3 days prior with cough and congestion. Started taking Mucinex, but symptoms progressively worsened prompting evaluation. Has known history of COPD, but doesn't take medications for it. Pertinent ED work-up: WBC 7.1 with neutrophilia Na 133 Troponin <0.04 BNP 564 Negative influenza swab CXR-small left pleural effusion recommend CT chest Lasix 40 mg IV x 1 Primary assessment/plan: Heart failure exacerbation, unspecified. No ECHO on file or available from [facility]. Down 7 pounds. Minimal edema. Discontinue IV lasix drip. Give lasix 40 mg IV at 1400 today. Continue daily weights and accurate I & O. Continue jolley catheter given poor respiratory status, however will likely remove tomorrow. Creatinine 0.70. COPD, exacerbation. Solumedrol 80 mg IV today. Continue DuoNebs q4h. Continue oxygen to keep saturations between 90-92%. Continue mucinex. Small left pleural effusion as noted on CT chest. Review of [place] records notes that patient required a thoracentesis in 2018 d/t a moderate left pleural effusion. Approximately 1100 mL drained with pathology negative for malignancy, however did note benign mesothelial cells and inflammatory cells. Small left base infiltrate. WBC 7.90 with nearly resolved neutrophilia. Afebrile. Preliminary BC x 2 negative. Hypernatremia. Na 146. Hypokalemia. K 3.2. Potassium 40 mEq po x 1 Hypomagnesemia. Mg 1.7. Magnesium 500 mg po x 1. Secondary assessment/plan: HTN. Continue norvasc, hydralazine. CAD. Continue Imdur. HLD. Continue simvastatin. Obesity. T2DM. Accu checks BID. Metformin on hold for 48 hours d/t CT. RESHMA. Noncompliant with CPAP. Parkinson's disease. Continue sinemet. Seizures. Continue Keppra. History of subdural hematoma. History of squamous cell carcinoma of skin. Depression. Continue prozac. Anxiety. Continue lorazepam. Environmental/seasonal allergies. Constipation. Continue Miralax, senna-S. BPH. Continue flomax. DVT prophylaxis. On lovenox. Overall plan: Discontinue lasix drip and give one time IV dose this afternoon. Give 1 time dose of solumedrol to see if this will improve respiratory status. Correct electrolyte abnormalities. Recheck labs in AM.
[2019-08-07] MEDS: Acetaminophen 325 MG Tab PO PRN (15:56)
[2019-08-07] MEDS: Sodium Chloride 0.9% 10 ML Syringe FLUSH PRN ×2 (21:04→21:06)
[2019-08-07] MEDS: Simvastatin 20 MG Tab PO SCH (21:04)
[2019-08-07] MEDS: Polyethylene Glycol 3350 Powder 17 GM Packet PO SCH (21:08)
[2019-08-08] MEDS: Albuterol/Ipratropium 3.0-0.5 MG/3 ML Neb Soln NEB SCH ×5 (01:18→23:20)
[2019-08-08] MEDS: Enoxaparin 40 MG/0.4 ML Syringe SUBCUT SCH ×2 (01:19→12:42)
[2019-08-08] MEDS: LORazepam 0.5 MG Tab PO SCH ×4 (06:17→21:15)
[2019-08-08 08:03] LABS: ANION GAP 9.2 mmol/L (5-15); CHLORIDE,CL 94 mmol/L (98-115); SODIUM,NA 134 mmol/L (136-145)
[2019-08-08] MEDS: FLUoxetine 10 MG Cap PO SCH (09:01)
[2019-08-08] MEDS: guaiFENesin 600 MG Tab.ER PO SCH ×2 (09:01→23:18)
[2019-08-08] MEDS: Carbidopa/Levodopa 10-100 MG Tab PO SCH ×3 (09:01→21:15)
[2019-08-08] MEDS: levETIRAcetam 500 MG Tab PO SCH ×2 (09:02→21:15)
[2019-08-08] MEDS: Tamsulosin 0.4 MG Cap.ER PO SCH (09:02)
[2019-08-08] MEDS: Isosorbide Mononitrate 30 MG Tab.ER PO SCH (09:03)
[2019-08-08] MEDS: amLODIPine 5 MG Tab PO SCH (09:03)
[2019-08-08] MEDS: hydrALAZINE 50 MG Tab PO SCH ×3 (09:03→21:14)
[2019-08-08] MEDS ORDERED: Furosemide 40 MG/4 ML VIAL IVPUSH ONE ×2 (09:54→14:00)
[2019-08-08] MEDS: Potassium Chloride 20 MEQ Tab.ER PO SCH (10:26)
[2019-08-08] MEDS: Carboxymethylcellulose Sodium 0.5% Ophth Soln 15 ML Bottle EYEBOTH PRN ×4 (10:26→21:13)
[2019-08-08] MEDS ORDERED: guaiFENesin/Dextromethorphan 100-10 MG/5 ML Soln 5 ML Cup PO PRN (11:02)
--- NOTE | 2019-08-08 11:48 | PCM.PN ---
- General Info Date of Service: 08/08/19 Functional Status: Reports: Pain Controlled, Tolerating Diet, Ambulating, Urinating (blood noted in jolley catheter) - Review of Systems General: Reports: Fatigue. Denies: Fever, Weakness, Chills HEENT: Denies: Headaches, Sinus Congestion Pulmonary: Reports: Shortness of Breath (improved), Cough, Sputum, Wheezing ( improved) Cardiovascular: Reports: Dyspnea on Exertion (improved). Denies: Chest Pain, Edema Gastrointestinal: Denies: Abdominal Pain, Constipation, Decreased Appetite, Diarrhea, Nausea, Vomiting Genitourinary: Reports: Hematuria. Denies: Dysuria, Incontinence Neurological: Denies: Dizziness, Headache Psychiatric: Reports: No Symptoms - Patient Data Vitals - Most Recent: Last Vital Signs Temp 97.6 F 08/08/19 11:00 Pulse 22 L 08/08/19 11:00 Resp 22 H 08/08/19 11:00 BP 125/68 08/08/19 11:00 Pulse Ox 86 L 08/08/19 11:00 Weight - Most Recent: 263 lb 4.8 oz I&O - Last 24 Hours: Intake & Output 08/07/19 08/08/19 08/08/19 22:59 06:59 14:59 Intake Total 450 150 Output Total 500 500 Balance -50 -350 Lab Results Last 24 Hours: Laboratory Results - last 24 hr 08/07/19 08/07/19 08/08/19 Range/Units 07:15 18:02 07:08 WBC 8.04 (5.00-10.00) 10^3/uL RBC 4.57 (4.50-6.00) 10^6/uL Hgb 14.0 (13.0-17.0) g/dL Hct 42.7 (40.0-52.0) % MCV 93.4 H (82.0-92.0) fL MCH 30.6 (27.0-31.0) pg MCHC 32.8 (32.0-36.0) g/dL RDW 13.1 (11.5-14.5) % Plt Count 242 (150-400) 10^3/uL MPV 9.5 (7.4-10.4) fL Immature Gran % (Auto) 1.4 (0.0-5.0) % Neut % (Auto) 81.4 H (50.0-70.0) % Lymph % (Auto) 10.3 L (20.0-40.0) % Mckinley % (Auto) 6.7 (2.0-8.0) % Eos % (Auto) 0.0 L (1.0-3.0) % Baso % (Auto) 0.2 (0.0-1.0) % Immature Gran # (Auto) 0.11 (0.00-0.50) 10^3/uL Neut # (Auto) 6.54 (2.50-7.00) 10^3/uL Lymph # (Auto) 0.83 L (1.00-4.00) 10^3/uL Mckinley # (Auto) 0.54 (0.10-0.80) 10^3/uL Eos # (Auto) 0.00 L (0.10-0.30) 10^3/uL Baso # (Auto) 0.02 (0.00-0.10) 10^3/uL Sodium (136-145) mmol/L Potassium (3.3-5.3) mmol/L Chloride (98-115) mmol/L Carbon Dioxide (21.0-32.0) mmol/L Anion Gap (5-15) mmol/L BUN (6-25) mg/dL Creatinine (0.51-1.17) mg/dL Est Cr Clr Drug Dosing mL/min Estimated GFR (MDRD) mL/min Glucose (75 - 99) mg/dL POC Glucose 179 H (74-106) mg/dl Calcium (8.7-10.3) mg/dL Magnesium 1.7 L (1.8-2.4) mg/dL 08/08/19 08/08/19 Range/Units 07:08 08:13 WBC (5.00-10.00) 10^3/uL RBC (4.50-6.00) 10^6/uL Hgb (13.0-17.0) g/dL Hct (40.0-52.0) % MCV (82.0-92.0) fL MCH (27.0-31.0) pg MCHC (32.0-36.0) g/dL RDW (11.5-14.5) % Plt Count (150-400) 10^3/uL MPV (7.4-10.4) fL Immature Gran % (Auto) (0.0-5.0) % Neut % (Auto) (50.0-70.0) % Lymph % (Auto) (20.0-40.0) % Mckinley % (Auto) (2.0-8.0) % Eos % (Auto) (1.0-3.0) % Baso % (Auto) (0.0-1.0) % Immature Gran # (Auto) (0.00-0.50) 10^3/uL Neut # (Auto) (2.50-7.00) 10^3/uL Lymph # (Auto) (1.00-4.00) 10^3/uL Mckinley # (Auto) (0.10-0.80) 10^3/uL Eos # (Auto) (0.10-0.30) 10^3/uL Baso # (Auto) (0.00-0.10) 10^3/uL Sodium 134 L D (136-145) mmol/L Potassium 3.6 (3.3-5.3) mmol/L Chloride 94 L (98-115) mmol/L Carbon Dioxide 34.4 H (21.0-32.0) mmol/L Anion Gap 9.2 (5-15) mmol/L BUN 17 (6-25) mg/dL Creatinine 0.58 (0.51-1.17) mg/dL Est Cr Clr Drug Dosing 103.19 mL/min Estimated GFR (MDRD) > 60 mL/min Glucose 229 H (75 - 99) mg/dL POC Glucose 223 H (74-106) mg/dl Calcium 8.6 L (8.7-10.3) mg/dL Magnesium 2.0 (1.8-2.4) mg/dL Zachary Results Last 24 Hours: Microbiology 08/05/19 12:56 Aerobic Blood Culture - Preliminary Blood - Venous - Lab Draw NO GROWTH AFTER 2 DAYS Anaerobic Blood Culture - Preliminary NO GROWTH AFTER 2 DAYS 08/05/19 12:30 Aerobic Blood Culture - Preliminary Blood - Venous NO GROWTH AFTER 2 DAYS Anaerobic Blood Culture - Preliminary NO GROWTH AFTER 2 DAYS Med Orders - Current: Current Medications Acetaminophen (Tylenol) 650 mg PO Q4H PRN PRN Reason: Pain (Mild 1-3)/fever Last Admin: 02/01/20 15:56 Dose: 650 mg Albuterol/Ipratropium (Duoneb 3.0-0.5 Mg/3 Ml) 3 ml NEB Q6HRRT [facility] Amlodipine Besylate (Norvasc) 10 mg PO DAILY [facility] Last Admin: 08/08/19 09:03 Dose: 10 mg Artificial Tears (Refresh Tears 0.5%) 0 ml EYEBOTH ASDIRECTED PRN PRN Reason: Dry Eyes Last Admin: 08/08/19 10:26 Dose: 1 drop Carbidopa/Levodopa (Sinemet 10-100 Mg) 1 tab PO TID [facility] Last Admin: 08/08/19 09:01 Dose: 1 tab Enoxaparin Sodium (Lovenox) 40 mg SUBCUT Q12H [facility] Last Admin: 08/08/19 01:19 Dose: 40 mg Fluoxetine HCl (Prozac) 40 mg PO DAILY [facility] Last Admin: 08/08/19 09:01 Dose: 40 mg Furosemide (Lasix) 40 mg IVPUSH NOW ONE Stop: 08/08/19 14:01 Furosemide (Lasix) 40 mg PO 0900,1400 [facility] Guaifenesin (Mucinex) 600 mg PO BID [facility] Last Admin: 08/08/19 09:01 Dose: 600 mg Guaifenesin/Phenylephrine HCl (Robitussin Dm) 10 ml PO Q4H PRN PRN Reason: Cough Hydralazine HCl (Apresoline) 25 mg PO TID [facility] Last Admin: 08/08/19 09:03 Dose: 25 mg Isosorbide Mononitrate (Imdur) 30 mg PO QAM [facility] Last Admin: 08/08/19 09:03 Dose: 30 mg Levetiracetam (Keppra) 500 mg PO BID [facility] Last Admin: 08/08/19 09:02 Dose: 500 mg Lorazepam (Ativan) 0.5 mg PO TID@0700,1200,1900 [facility] Last Admin: 08/08/19 06:17 Dose: 0.5 mg Lorazepam (Ativan) 1 mg PO BEDTIME [facility] Last Admin: 08/07/19 21:03 Dose: 1 mg Lorazepam (Ativan) 0.5 mg PO BEDTIME PRN PRN Reason: Anxiety Metformin HCl (Glucophage) 500 mg PO BID [facility] Nystatin (Nystop) 0 gm TOP BID [facility] Polyethylene Glycol (Miralax) 17 gm PO BEDTIME [facility] Last Admin: 08/07/19 21:08 Dose: 17 gm Potassium Chloride (Klor-Con M20) 20 meq PO DAILY [facility] Last Admin: 08/08/19 10:26 Dose: 20 meq Prednisone (Prednisone) 40 mg PO WITHBREAKFAST [facility] Senna/Docusate Sodium (Senna Plus) 2 tab PO BID [facility] Last Admin: 08/08/19 09:01 Dose: 2 tab Simvastatin (Zocor) 40 mg PO BEDTIME [facility] Last Admin: 08/07/19 21:04 Dose: 40 mg Sodium Chloride (Saline Flush) 10 ml FLUSH Q8HR PRN PRN Reason: keep vein open Last Admin: 08/07/19 21:06 Dose: 10 ml Tamsulosin HCl (Flomax) 0.4 mg PO DAILY [facility] Last Admin: 08/08/19 09:02 Dose: 0.4 mg Discontinued Medications Albuterol/Ipratropium (Duoneb 3.0-0.5 Mg/3 Ml) Confirm Administered Dose 3 ml .ROUTE .STK-MED ONE Stop: 08/05/19 12:23 Last Admin: 08/05/19 12:42 Dose: Not Given Albuterol/Ipratropium (Duoneb 3.0-0.5 Mg/3 Ml) 3 ml NEB ONETIME ONE Stop: 08/05/19 12:28 Last Admin: 08/05/19 12:25 Dose: 3 ml Albuterol/Ipratropium (Duoneb 3.0-0.5 Mg/3 Ml) 3 ml NEB Q4H [facility] Last Admin: 08/05/19 15:59 Dose: 3 ml Albuterol/Ipratropium (Duoneb 3.0-0.5 Mg/3 Ml) 3 ml NEB Q4H [facility] Last Admin: 08/08/19 08:50 Dose: 3 ml Bumetanide (Bumex) 1 mg IVPUSH ONETIME STA Stop: 08/05/19 20:10 Last Admin: 08/05/19 20:48 Dose: Not Given Furosemide (Lasix) Confirm Administered Dose 40 mg .ROUTE .STK-MED ONE Stop: 08/05/19 13:24 Last Admin: 08/05/19 14:33 Dose: Not Given Furosemide (Lasix) 40 mg IVPUSH NOW ONE Stop: 08/05/19 13:40 Last Admin: 08/05/19 13:45 Dose: 40 mg Furosemide (Lasix) 40 mg IVPUSH ONETIME ONE Stop: 08/05/19 18:11 Last Admin: 08/05/19 18:12 Dose: 40 mg Furosemide (Lasix) 10 mg IVPUSH CONTINUOUS [facility] Furosemide (Lasix) 10 mg IVPUSH 5XDAY@0030,2130,2300 [facility] Stop: 08/06/19 06:00 Furosemide (Lasix) 10 mg IVPUSH TID@0030,2130,2300 [facility] Stop: 08/06/19 01:30 Last Admin: 08/06/19 00:37 Dose: 10 mg Furosemide (Lasix) 10 mg IV TID@0200,0330,0500 [facility] Stop: 08/06/19 06:00 Last Admin: 08/06/19 05:32 Dose: 10 mg Furosemide (Lasix) 10 mg IV TID@0630,0800,0930 [facility] Stop: 08/06/19 10:30 Last Admin: 08/06/19 11:59 Dose: Not Given Furosemide (Lasix) 10 mg IV BID@1100,1230 [facility] Stop: 08/06/19 13:30 Furosemide (Lasix) 40 mg IVPUSH NOW ONE Stop: 08/07/19 14:01 Last Admin: 08/07/19 13:23 Dose: 40 mg Furosemide (Lasix) 40 mg IVPUSH NOW ONE Stop: 08/08/19 09:55 Last Admin: 08/08/19 10:26 Dose: 40 mg Sodium Chloride (Normal Saline) 50 mls @ 200 mls/min IV ONETIME ONE Stop: 08/06/19 09:44 Last Admin: 08/06/19 09:53 Dose: 200 mls/min Furosemide 100 mg/ Sodium (Chloride) 100 mls @ 10 mls/hr IV CONTINUOUS [facility] Last Admin: 08/07/19 06:26 Dose: 10 mg/hr, 10 mls/hr Potassium Chloride 20 meq/ (Premix) 100 mls @ 50 mls/hr IV ONETIME ONE Stop: 08/06/19 12:53 Last Admin: 08/06/19 13:20 Dose: 50 mls/hr Potassium Chloride 20 meq/ (Premix) 100 mls @ 50 mls/hr IV ONETIME ONE Stop: 08/06/19 17:59 Last Admin: 08/06/19 16:46 Dose: 50 mls/hr Sodium Chloride (Normal Saline) 250 mls @ 100 mls/hr IV ASDIRECTED [facility] Last Admin: 08/06/19 13:16 Dose: 100 mls/hr Iopamidol (Isovue-370 (76%)) 100 ml IV ONETIME ONE Stop: 08/06/19 09:44 Last Admin: 08/06/19 09:52 Dose: 100 ml Lorazepam (Ativan) 0.5 mg PO BID PRN PRN Reason: ANXIETY Last Admin: 08/06/19 09:58 Dose: 0.5 mg Lorazepam (Ativan) 1 mg PO BEDTIME PRN PRN Reason: ANXIETY Last Admin: 08/06/19 02:06 Dose: 1 mg Magnesium Oxide (Magnesium Oxide) 500 mg PO ONETIME ONE Stop: 08/07/19 13:01 Last Admin: 08/07/19 13:35 Dose: 500 mg Methylprednisolone Sodium Succinate (Solu-Medrol) 80 mg IVPUSH ONETIME ONE Stop: 08/07/19 12:48 Last Admin: 08/07/19 13:23 Dose: 80 mg Potassium Bicarbonate (Klor-Con Ef) 25 meq PO DAILY [facility] Potassium Bicarbonate (Klor-Con Ef) 25 meq PO ONETIME ONE Stop: 08/06/19 17:01 Last Admin: 08/06/19 16:45 Dose: 25 meq Potassium Bicarbonate (Klor-Con Ef) 25 meq PO ONETIME ONE Stop: 08/06/19 12:01 Last Admin: 08/06/19 12:17 Dose: 25 meq Potassium Chloride (Klor-Con M20) 20 meq PO ONETIME ONE Stop: 08/05/19 19:01 Last Admin: 08/05/19 19:57 Dose: 20 meq Potassium Chloride (Klor-Con M20) 40 meq PO ONETIME ONE Stop: 08/07/19 12:50 Last Admin: 08/07/19 13:35 Dose: 40 meq Prednisone (Prednisone) 40 mg PO WITHBREAKFAST [facility] Sodium Chloride (Saline Flush) 10 ml FLUSH Q8HR PRN PRN Reason: keep vein open Tamsulosin HCl (Flomax) 0.4 mg PO DAILY [facility] - Exam Quality Assessment: Supplemental Oxygen (94% on 3 lpm nasal cannula), Urine Catheter (clear yellow in tubing with hematuria noted in bag), DVT Prophylaxis ( lovenox) General: Alert, Oriented, Cooperative, No Acute Distress, Other (morbidly obese) Lungs: Wheezing (faint expiratory wheezes throughout lung zepeda), Other (mild tachypnea with intercostal retractions). No: Crackles, Rhonchi Cardiovascular: Regular Rate, Regular Rhythm, No Murmurs GI/Abdominal Exam: Normal Bowel Sounds, Soft, Non-Tender, No Distention Extremities: Other (1+ pitting edema to RLE, trace edema to LLE) Skin: Warm, Dry Neurological: Normal Speech Psy/Mental Status: Alert, Normal Affect, Normal Mood Sepsis Event Note - Evaluation Sepsis Screening Result: No Definite Risk - Focused Exam Vital Signs: Vital Signs Temp Pulse Resp BP BP BP Pulse Ox 08/08/19 11:00 97.6 F 22 L 22 H 125/68 86 L 08/08/19 09:08 69 08/08/19 09:03 141/72 H 08/08/19 05:14 96.1 F 64 20 146/72 H 94 L 08/08/19 01:23 97.5 F 63 20 156/76 H 94 L Pulse Ox 08/08/19 11:00 08/08/19 09:08 93 L 08/08/19 09:03 08/08/19 05:14 08/08/19 01:23 Date Exam was Performed: 08/08/19 Time Exam was Performed: 11:49 - Problem List Review Problem List Initiated/Reviewed/Updated: Yes - My Orders Last 24 Hours: My Active Orders 08/07/19 12:46 Accu Check [Blood Glucose Check, Bedside] [RC] 0730,1730 08/08/19 10:00 Potassium Chloride [Klor-Con M20] 20 meq PO DAILY 08/08/19 11:02 Dextromethorphan/guaiFENesin [Robitussin DM] 10 ml PO Q4H PRN 08/08/19 11:08 RT Aerosol Therapy [RC] ASDIRECTED 08/08/19 11:15 Nystatin [Nystop] 0 gm TOP BID 08/08/19 11:38 Vital Signs [RC] Q8H 08/08/19 12:00 predniSONE 40 mg PO WITHBREAKFAST 08/08/19 14:00 Furosemide [Lasix] 40 mg IVPUSH NOW ONE 08/08/19 17:00 Albuterol/Ipratropium [DuoNeb 3.0-0.5 MG/3 ML] 3 ml NEB Q6HRRT 08/09/19 05:11 BMP [BASIC METABOLIC PANEL,BMP] [CHEM] AM 08/09/19 09:00 Furosemide [Lasix] 40 mg PO 0900,1400 08/09/19 11:15 metFORMIN [Glucophage] 500 mg PO BID - Assessment Assessment:: HPI: This is a 79 yo male who presented to the ED d/t progressive shortness of breath. Reportedly developed URI symptoms 3 days prior with cough and congestion. Started taking Mucinex, but symptoms progressively worsened prompting evaluation. Has known history of COPD, but doesn't take medications for it. Pertinent ED work-up: WBC 7.1 with neutrophilia Na 133 Troponin <0.04 BNP 564 Negative influenza swab CXR-small left pleural effusion recommend CT chest Lasix 40 mg IV x 1 Primary assessment/plan: Heart failure exacerbation, unspecified, improving. No ECHO on file or available from [facility]. Up 2 pounds overnight. Lasix 40 mg IV 0900 & 1400, then switch to lasix 40 mg po BID tomorrow. Continue daily weights & accurate I & O. Discontinue jolley catheter. Creatinine 0.58. COPD, exacerbation, improving. Prednisone 40 mg po daily. DuoNebs QID. Continue oxygen to keep sats between 90-92%. Continue mucinex. Small left pleural effusion as noted on CT chest. [facility] notes that patient required a thoracentesis in 2018 d/t a moderate left pleural effusion. Approximately 1100 mL drained with pathology negative for malignancy, however did note benign mesothelial cells and inflammatory cells. Small left base infiltrate. WBC 8.0 with nearly resolved neutrophilia. Afebrile. Preliminary BC x 2 negative. Hypernatremia, resolved. Na 134. Hypokalemia, resolved. K 3.6. Potassium 20 mEq po daily. Hypomagnesemia, resolved. Mg 2.0. Hematuria with jolley, asymptomatic. DC jolley today and monitor for symptoms. If symptoms persist, will obtain UA. Secondary assessment/plan: HTN. Continue norvasc, hydralazine. CAD. Continue Imdur. HLD. Continue simvastatin. Obesity. T2DM. Accu checks TID. Metformin on hold for 48 hours d/t CT. Resume on 08/09/19 PM dose. Will give low dose novolog SS to cover steroid induced hyperglycemia. RESHMA. Noncompliant with CPAP. Parkinson's disease. Continue sinemet. Seizures. Continue Keppra. History of subdural hematoma. History of squamous cell carcinoma of skin. Depression. Continue prozac. Anxiety. Continue lorazepam. Environmental/seasonal allergies. Constipation. Continue Miralax, senna-S. BPH. Continue flomax. DVT prophylaxis. On lovenox. Overall plan: Patient had notable improvement in respiratory status after IV steroids. Transition this to oral prednisone today. Continue IV lasix x 1 more day, then transition to oral. Patient will need to be set up for home oxygen. He will also need close follow-up locally or [facility] as well as outpatient ECHO. Possible discharge in the AM pending clinical picture.
[2019-08-08] MEDS: predniSONE 20 MG Tab PO SCH (12:43)
[2019-08-08] MEDS: Nystatin Topical Powder 15 GM Bottle TOP SCH ×2 (12:52→21:13)
[2019-08-08] MEDS: Insulin Aspart 100 Units/ML 3 ML Pen SUBCUT SCH ×2 (13:08→17:56)
[2019-08-08] MEDS: Simvastatin 20 MG Tab PO SCH (21:14)
[2019-08-08] MEDS: Polyethylene Glycol 3350 Powder 17 GM Packet PO SCH (21:15)
[2019-08-08] MEDS: Sodium Chloride 0.9% 10 ML Syringe FLUSH PRN ×2 (23:21→23:24)
[2019-08-09] MEDS: Enoxaparin 40 MG/0.4 ML Syringe SUBCUT SCH ×2 (00:43→13:52)
[2019-08-09] MEDS: LORazepam 0.5 MG Tab PO SCH ×4 (06:19→20:30)
[2019-08-09] MEDS: Albuterol/Ipratropium 3.0-0.5 MG/3 ML Neb Soln NEB SCH ×4 (06:26→22:43)
[2019-08-09] MEDS: Carboxymethylcellulose Sodium 0.5% Ophth Soln 15 ML Bottle EYEBOTH PRN (06:51)
[2019-08-09] MEDS ORDERED: predniSONE 20 MG Tab PO SCH (08:00)
[2019-08-09 08:01] LABS: ANION GAP 6.2 mmol/L (5-15); CHLORIDE,CL 96 mmol/L (98-115); SODIUM,NA 131 mmol/L (136-145)
[2019-08-09] MEDS: Insulin Aspart 100 Units/ML 3 ML Pen SUBCUT SCH ×3 (08:05→18:06)
[2019-08-09] MEDS: metFORMIN 500 MG Tab PO SCH ×2 (08:06→20:31)
[2019-08-09] MEDS: levETIRAcetam 500 MG Tab PO SCH ×2 (08:06→20:30)
[2019-08-09] MEDS: Tamsulosin 0.4 MG Cap.ER PO SCH (08:06)
[2019-08-09] MEDS: Carbidopa/Levodopa 10-100 MG Tab PO SCH ×3 (08:06→20:30)
[2019-08-09] MEDS: FLUoxetine 10 MG Cap PO SCH (08:06)
[2019-08-09] MEDS: predniSONE 20 MG Tab PO SCH (08:06)
[2019-08-09] MEDS: Nystatin Topical Powder 15 GM Bottle TOP SCH ×2 (08:08→20:30)
[2019-08-09] MEDS: Furosemide 40 MG Tab PO SCH ×2 (09:06→13:52)
[2019-08-09] MEDS: amLODIPine 5 MG Tab PO SCH (09:06)
[2019-08-09] MEDS: guaiFENesin 600 MG Tab.ER PO SCH ×2 (09:06→20:28)
[2019-08-09] MEDS: Potassium Chloride 20 MEQ Tab.ER PO SCH (09:06)
[2019-08-09] MEDS: Isosorbide Mononitrate 30 MG Tab.ER PO SCH (09:07)
[2019-08-09] MEDS: hydrALAZINE 50 MG Tab PO SCH ×3 (09:07→20:28)
--- NOTE | 2019-08-09 10:43 | PCM.PN ---
- General Info Date of Service: 08/09/19 Functional Status: Reports: Pain Controlled, Tolerating Diet, Ambulating, Urinating. Denies: New Symptoms - Review of Systems General: Reports: Weakness, Fatigue. Denies: Fever, Chills HEENT: Denies: Headaches, Sinus Congestion Pulmonary: Reports: Shortness of Breath (improving), Cough, Wheezing. Denies: Pleuritic Chest Pain Cardiovascular: Reports: Dyspnea on Exertion. Denies: Chest Pain, Edema, Lightheadedness Gastrointestinal: Denies: Abdominal Pain, Constipation, Diarrhea, Nausea, Vomiting Genitourinary: Reports: No Symptoms. Denies: Hematuria Skin: Reports: Rash (under left breast) Neurological: Denies: Dizziness, Headache Psychiatric: Reports: No Symptoms - Patient Data Vitals - Most Recent: Last Vital Signs Temp 96.8 F 08/09/19 06:49 Pulse 65 08/09/19 06:49 Resp 22 H 08/09/19 06:49 BP 137/70 08/09/19 09:07 Pulse Ox 90 L 08/09/19 10:15 Weight - Most Recent: 261 lb 2 oz I&O - Last 24 Hours: Intake & Output 08/08/19 08/09/19 08/09/19 22:59 06:59 14:59 Intake Total 220 400 Output Total 400 700 Balance -180 -300 Lab Results Last 24 Hours: Laboratory Results - last 24 hr 08/08/19 08/08/19 08/09/19 Range/Units 13:02 17:42 07:06 Sodium 131 L (136-145) mmol/L Potassium 4.0 (3.3-5.3) mmol/L Chloride 96 L (98-115) mmol/L Carbon Dioxide 32.8 H (21.0-32.0) mmol/L Anion Gap 6.2 (5-15) mmol/L BUN 20 (6-25) mg/dL Creatinine 0.61 (0.51-1.17) mg/dL Est Cr Clr Drug Dosing 98.11 mL/min Estimated GFR (MDRD) > 60 mL/min Glucose 180 H (75 - 99) mg/dL POC Glucose 272 H 230 H (74-106) mg/dl Calcium 8.5 L (8.7-10.3) mg/dL 08/09/19 Range/Units 07:47 Sodium (136-145) mmol/L Potassium (3.3-5.3) mmol/L Chloride (98-115) mmol/L Carbon Dioxide (21.0-32.0) mmol/L Anion Gap (5-15) mmol/L BUN (6-25) mg/dL Creatinine (0.51-1.17) mg/dL Est Cr Clr Drug Dosing mL/min Estimated GFR (MDRD) mL/min Glucose (75 - 99) mg/dL POC Glucose 161 H (74-106) mg/dl Calcium (8.7-10.3) mg/dL Zachary Results Last 24 Hours: Microbiology 08/05/19 12:56 Aerobic Blood Culture - Final Blood - Venous - Lab Draw Anaerobic Blood Culture - Preliminary NO GROWTH AFTER 3 DAYS 08/05/19 12:30 Aerobic Blood Culture - Preliminary Blood - Venous NO GROWTH AFTER 3 DAYS Anaerobic Blood Culture - Preliminary NO GROWTH AFTER 3 DAYS Med Orders - Current: Current Medications Acetaminophen (Tylenol) 650 mg PO Q4H PRN PRN Reason: Pain (Mild 1-3)/fever Last Admin: 08/07/19 15:56 Dose: 650 mg Albuterol/Ipratropium (Duoneb 3.0-0.5 Mg/3 Ml) 3 ml NEB Q6HRRT [facility] Last Admin: 08/09/19 06:26 Dose: 3 ml Amlodipine Besylate (Norvasc) 10 mg PO DAILY [facility] Last Admin: 08/09/19 09:06 Dose: 10 mg Artificial Tears (Refresh Tears 0.5%) 0 ml EYEBOTH ASDIRECTED PRN PRN Reason: Dry Eyes Last Admin: 08/09/19 06:51 Dose: 1 drop Carbidopa/Levodopa (Sinemet 10-100 Mg) 1 tab PO TID [facility] Last Admin: 08/09/19 08:06 Dose: 1 tab Enoxaparin Sodium (Lovenox) 40 mg SUBCUT Q12H [facility] Last Admin: 08/09/19 00:43 Dose: 40 mg Fluoxetine HCl (Prozac) 40 mg PO DAILY [facility] Last Admin: 08/09/19 08:06 Dose: 40 mg Furosemide (Lasix) 40 mg PO 0900,1400 [facility] Last Admin: 08/09/19 09:06 Dose: 40 mg Guaifenesin (Mucinex) 600 mg PO BID [facility] Last Admin: 08/09/19 09:06 Dose: 600 mg Guaifenesin/Phenylephrine HCl (Robitussin Dm) 10 ml PO Q4H PRN PRN Reason: Cough Hydralazine HCl (Apresoline) 25 mg PO TID [facility] Last Admin: 08/09/19 09:07 Dose: 25 mg Insulin Aspart (Novolog) 0 unit SUBCUT TIDMEALS [facility]; Protocol Last Admin: 08/09/19 08:05 Dose: 1 units Isosorbide Mononitrate (Imdur) 30 mg PO QAM [facility] Last Admin: 08/09/19 09:07 Dose: 30 mg Levetiracetam (Keppra) 500 mg PO BID [facility] Last Admin: 08/09/19 08:06 Dose: 500 mg Lorazepam (Ativan) 0.5 mg PO TID@0700,1200,1900 [facility] Last Admin: 08/09/19 06:19 Dose: 0.5 mg Lorazepam (Ativan) 1 mg PO BEDTIME [facility] Last Admin: 08/08/19 21:15 Dose: 1 mg Lorazepam (Ativan) 0.5 mg PO BEDTIME PRN PRN Reason: Anxiety Metformin HCl (Glucophage) 500 mg PO BID [facility] Last Admin: 08/09/19 08:06 Dose: 500 mg Nystatin (Nystop) 0 gm TOP BID [facility] Last Admin: 08/09/19 08:08 Dose: Not Given Polyethylene Glycol (Miralax) 17 gm PO BEDTIME [facility] Last Admin: 08/08/19 21:15 Dose: 17 gm Potassium Chloride (Klor-Con M20) 20 meq PO DAILY [facility] Last Admin: 08/09/19 09:06 Dose: 20 meq Prednisone (Prednisone) 40 mg PO WITHBREAKFAST [facility] Last Admin: 08/09/19 08:06 Dose: 40 mg Senna/Docusate Sodium (Senna Plus) 2 tab PO BID [facility] Last Admin: 08/09/19 08:06 Dose: 2 tab Simvastatin (Zocor) 40 mg PO BEDTIME [facility] Last Admin: 08/08/19 21:14 Dose: 40 mg Sodium Chloride (Saline Flush) 10 ml FLUSH Q8HR PRN PRN Reason: keep vein open Last Admin: 08/08/19 23:24 Dose: 10 ml Tamsulosin HCl (Flomax) 0.4 mg PO DAILY [facility] Last Admin: 08/09/19 08:06 Dose: 0.4 mg Discontinued Medications Albuterol/Ipratropium (Duoneb 3.0-0.5 Mg/3 Ml) Confirm Administered Dose 3 ml .ROUTE .STK-MED ONE Stop: 08/05/19 12:23 Last Admin: 08/05/19 12:42 Dose: Not Given Albuterol/Ipratropium (Duoneb 3.0-0.5 Mg/3 Ml) 3 ml NEB ONETIME ONE Stop: 08/05/19 12:28 Last Admin: 08/05/19 12:25 Dose: 3 ml Albuterol/Ipratropium (Duoneb 3.0-0.5 Mg/3 Ml) 3 ml NEB Q4H [facility] Last Admin: 08/05/19 15:59 Dose: 3 ml Albuterol/Ipratropium (Duoneb 3.0-0.5 Mg/3 Ml) 3 ml NEB Q4H [facility] Last Admin: 08/08/19 08:50 Dose: 3 ml Bumetanide (Bumex) 1 mg IVPUSH ONETIME STA Stop: 08/05/19 20:10 Last Admin: 08/05/19 20:48 Dose: Not Given Furosemide (Lasix) Confirm Administered Dose 40 mg .ROUTE .STK-MED ONE Stop: 08/05/19 13:24 Last Admin: 08/05/19 14:33 Dose: Not Given Furosemide (Lasix) 40 mg IVPUSH NOW ONE Stop: 08/05/19 13:40 Last Admin: 08/05/19 13:45 Dose: 40 mg Furosemide (Lasix) 40 mg IVPUSH ONETIME ONE Stop: 08/05/19 18:11 Last Admin: 08/05/19 18:12 Dose: 40 mg Furosemide (Lasix) 10 mg IVPUSH CONTINUOUS [facility] Furosemide (Lasix) 10 mg IVPUSH 5XDAY@0030,2130,2300 [facility] Stop: 08/06/19 06:00 Furosemide (Lasix) 10 mg IVPUSH TID@0030,2130,2300 [facility] Stop: 08/06/19 01:30 Last Admin: 08/06/19 00:37 Dose: 10 mg Furosemide (Lasix) 10 mg IV TID@0200,0330,0500 [facility] Stop: 08/06/19 06:00 Last Admin: 08/06/19 05:32 Dose: 10 mg Furosemide (Lasix) 10 mg IV TID@0630,0800,0930 [facility] Stop: 08/06/19 10:30 Last Admin: 08/06/19 11:59 Dose: Not Given Furosemide (Lasix) 10 mg IV BID@1100,1230 [facility] Stop: 08/06/19 13:30 Furosemide (Lasix) 40 mg IVPUSH NOW ONE Stop: 08/07/19 14:01 Last Admin: 08/07/19 13:23 Dose: 40 mg Furosemide (Lasix) 40 mg IVPUSH NOW ONE Stop: 08/08/19 09:55 Last Admin: 08/08/19 10:26 Dose: 40 mg Furosemide (Lasix) 40 mg IVPUSH NOW ONE Stop: 08/08/19 14:01 Last Admin: 08/08/19 13:44 Dose: 40 mg Sodium Chloride (Normal Saline) 50 mls @ 200 mls/min IV ONETIME ONE Stop: 08/06/19 09:44 Last Admin: 08/06/19 09:53 Dose: 200 mls/min Furosemide 100 mg/ Sodium (Chloride) 100 mls @ 10 mls/hr IV CONTINUOUS [facility] Last Admin: 08/07/19 06:26 Dose: 10 mg/hr, 10 mls/hr Potassium Chloride 20 meq/ (Premix) 100 mls @ 50 mls/hr IV ONETIME ONE Stop: 08/06/19 12:53 Last Admin: 08/06/19 13:20 Dose: 50 mls/hr Potassium Chloride 20 meq/ (Premix) 100 mls @ 50 mls/hr IV ONETIME ONE Stop: 08/06/19 17:59 Last Admin: 08/06/19 16:46 Dose: 50 mls/hr Sodium Chloride (Normal Saline) 250 mls @ 100 mls/hr IV ASDIRECTED [facility] Last Admin: 08/06/19 13:16 Dose: 100 mls/hr Iopamidol (Isovue-370 (76%)) 100 ml IV ONETIME ONE Stop: 08/06/19 09:44 Last Admin: 08/06/19 09:52 Dose: 100 ml Lorazepam (Ativan) 0.5 mg PO BID PRN PRN Reason: ANXIETY Last Admin: 08/06/19 09:58 Dose: 0.5 mg Lorazepam (Ativan) 1 mg PO BEDTIME PRN PRN Reason: ANXIETY Last Admin: 08/06/19 02:06 Dose: 1 mg Magnesium Oxide (Magnesium Oxide) 500 mg PO ONETIME ONE Stop: 08/07/19 13:01 Last Admin: 08/07/19 13:35 Dose: 500 mg Methylprednisolone Sodium Succinate (Solu-Medrol) 80 mg IVPUSH ONETIME ONE Stop: 08/07/19 12:48 Last Admin: 08/07/19 13:23 Dose: 80 mg Potassium Bicarbonate (Klor-Con Ef) 25 meq PO DAILY [facility] Potassium Bicarbonate (Klor-Con Ef) 25 meq PO ONETIME ONE Stop: 08/06/19 17:01 Last Admin: 08/06/19 16:45 Dose: 25 meq Potassium Bicarbonate (Klor-Con Ef) 25 meq PO ONETIME ONE Stop: 08/06/19 12:01 Last Admin: 08/06/19 12:17 Dose: 25 meq Potassium Chloride (Klor-Con M20) 20 meq PO ONETIME ONE Stop: 08/05/19 19:01 Last Admin: 08/05/19 19:57 Dose: 20 meq Potassium Chloride (Klor-Con M20) 40 meq PO ONETIME ONE Stop: 08/07/19 12:50 Last Admin: 08/07/19 13:35 Dose: 40 meq Prednisone (Prednisone) 40 mg PO WITHBREAKFAST [facility] Sodium Chloride (Saline Flush) 10 ml FLUSH Q8HR PRN PRN Reason: keep vein open Tamsulosin HCl (Flomax) 0.4 mg PO DAILY [facility] - Exam Quality Assessment: Supplemental Oxygen (92% on 2 liters per nasal cannula), DVT Prophylaxis (on lovenox). No: Central Line/PICC, Urine Catheter General: Alert, Oriented, Cooperative, No Acute Distress Lungs: Normal Respiratory Effort, Decreased Breath Sounds (throughout), Wheezing (bilateral upper lobes) Cardiovascular: Regular Rate, Regular Rhythm, No Murmurs GI/Abdominal Exam: Normal Bowel Sounds, Soft, Non-Tender, No Distention Extremities: Other (trace edema to BLE) Skin: Warm, Dry, Intact Neurological: Normal Speech Psy/Mental Status: Alert, Normal Affect, Normal Mood Sepsis Event Note - Evaluation Sepsis Screening Result: No Definite Risk - Focused Exam Vital Signs: Vital Signs Temp Pulse Resp BP BP Pulse Ox Pulse Ox 08/09/19 10:15 90 L 08/09/19 09:07 137/70 08/09/19 09:06 137/70 08/09/19 06:49 96.8 F 65 22 H 142/70 H 92 L 08/09/19 06:26 72 93 L 08/09/19 06:25 08/08/19 23:24 96.7 F 67 22 H 146/76 H 93 L 08/08/19 23:20 68 93 L Pulse Ox 08/09/19 10:15 08/09/19 09:07 08/09/19 09:06 08/09/19 06:49 08/09/19 06:26 08/09/19 06:25 93 L 08/08/19 23:24 08/08/19 23:20 Date Exam was Performed: 08/09/19 Time Exam was Performed: 10:44 - Problem List Review Problem List Initiated/Reviewed/Updated: Yes - My Orders Last 24 Hours: My Active Orders 08/08/19 10:00 Potassium Chloride [Klor-Con M20] 20 meq PO DAILY 08/08/19 11:02 Dextromethorphan/guaiFENesin [Robitussin DM] 10 ml PO Q4H PRN 08/08/19 11:08 RT Aerosol Therapy [RC] .PRN 08/08/19 11:15 Nystatin [Nystop] 0 gm TOP BID 08/08/19 11:38 Vital Signs [RC] 0700,1500,2300 08/08/19 11:47 Accu Check [Blood Glucose Check, Bedside] [RC] TIDMEALS 08/08/19 12:00 Insulin Aspart [NovoLOG] See Protocol SUBCUT TIDMEALS predniSONE 40 mg PO WITHBREAKFAST 08/08/19 17:00 Albuterol/Ipratropium [DuoNeb 3.0-0.5 MG/3 ML] 3 ml NEB Q6HRRT 08/09/19 08:35 CULTURE BLOOD [BC] Routine 08/09/19 09:00 Furosemide [Lasix] 40 mg PO 0900,1400 metFORMIN [Glucophage] 500 mg PO BID 08/09/19 09:37 Evaluate for Home Oxygen [RT Evaluate for Home Oxygen] [RC] Click to Edit Evaluate for Home Oxygen [RT Oxygen Therapy w/Exercise] [RC] ASDIRECTED 08/10/19 05:11 BMP [BASIC METABOLIC PANEL,BMP] [CHEM] AM - Assessment Assessment:: HPI: This is a 79 yo male who presented to the ED d/t progressive shortness of breath. Reportedly developed URI symptoms 3 days prior with cough and congestion. Started taking Mucinex, but symptoms progressively worsened prompting evaluation. Has known history of COPD, but doesn't take medications for it. Pertinent ED work-up: WBC 7.1 with neutrophilia Na 133 Troponin <0.04 BNP 564 Negative influenza swab CXR-small left pleural effusion recommend CT chest Lasix 40 mg IV x 1 Primary assessment/plan: Heart failure exacerbation, unspecified, improving. No ECHO on file or available from [facility]. Down 7 lbs from admission. Started oral lasix 40 mg 0900 and 1400 today. Continue daily weights and accurate I & O. Creatinine 0.61. COPD, exacerbation, improving. Continue oral prednisone, DuoNebs QID. Continue oxygen to keep sats between 90-92%. RT to perform home oxygen evaluation today. He has a CPAP at home so oxygen order will need to specify if the oxygen should bleed into CPAP machine. Positive aerobic blood culture x 1, likely a contaminate. On day 3, one aerobic culture noted gram positive cocci. Patient has been afebrile and does not appear to be bacteremic. No antibiotics have been given. Repeat blood culture x 1 today. Will continue to monitor. Deconditioning. PT consult today. May benefit from outpatient PT for strengthening. Small left pleural effusion as noted on CT chest. [facility] that patient required a thoracent[facility] in 2018 d/t a moderate left pleural effusion. Approximately 1100 mL drained with pathology negative for malignancy, however did note benign mesothelial cells and inflammatory cells. Small left base infiltrate. Hyponatremia. Na 131. BMP in AM. Hypokalemia, resolved. K 4.0. Continue potassium 20 mEq po daily. Hypomagnesemia, resolved. Mg 2.0. Hematuria with jolley, asymptomatic, resolved. No further issues since jolley catheter was discontinued. T2DM. Accu checks TID. Will give low dose novolog SS to cover steroid induced hyperglycemia. Resume metformin on 08/09/19 PM dose. Secondary assessment/plan: HTN. Continue norvasc, hydralazine. CAD. Continue Imdur. HLD. Continue simvastatin. Obesity. RESHMA. Noncompliant with CPAP. Parkinson's disease. Continue sinemet. Seizures. Continue Keppra. History of subdural hematoma. History of squamous cell carcinoma of skin. Depression. Continue prozac. Anxiety. Continue lorazepam. Environmental/seasonal allergies. Constipation. Continue Miralax, senna-S. BPH. Continue flomax. DVT prophylaxis. On lovenox. Overall plan: Patient improving and is on oral medications. Patient's family not available to take him home today, so will discharge in the morning. Will have RT perform home oxygen evaluation and PT evaluate for possible outpatient PT. Discussed options of home health and public health with patient for which he declines both. Will also monitor for signs and symptoms of bacteremia given one positive blood culture, however likely a contaminate.
[2019-08-09] MEDS: Polyethylene Glycol 3350 Powder 17 GM Packet PO SCH (20:28)
[2019-08-09] MEDS: Simvastatin 20 MG Tab PO SCH (20:30)
[2019-08-10] MEDS: Enoxaparin 40 MG/0.4 ML Syringe SUBCUT SCH ×2 (01:07→12:42)
[2019-08-10] MEDS: Albuterol/Ipratropium 3.0-0.5 MG/3 ML Neb Soln NEB SCH ×4 (05:31→22:31)
[2019-08-10] MEDS: LORazepam 0.5 MG Tab PO SCH ×4 (06:41→20:35)
[2019-08-10 07:44] LABS: ANION GAP 15.4 mmol/L (5-15); CHLORIDE,CL 94 mmol/L (98-115); SODIUM,NA 137 mmol/L (136-145)
[2019-08-10] MEDS: Insulin Aspart 100 Units/ML 3 ML Pen SUBCUT SCH ×3 (08:40→18:05)
[2019-08-10] MEDS: FLUoxetine 10 MG Cap PO SCH (08:41)
[2019-08-10] MEDS: Carbidopa/Levodopa 10-100 MG Tab PO SCH ×3 (08:41→20:36)
[2019-08-10] MEDS: levETIRAcetam 500 MG Tab PO SCH ×2 (08:41→20:35)
[2019-08-10] MEDS: Potassium Chloride 20 MEQ Tab.ER PO SCH (08:42)
[2019-08-10] MEDS: predniSONE 20 MG Tab PO SCH (08:42)
[2019-08-10] MEDS: Isosorbide Mononitrate 30 MG Tab.ER PO SCH (08:43)
[2019-08-10] MEDS: amLODIPine 5 MG Tab PO SCH (08:43)
[2019-08-10] MEDS: guaiFENesin 600 MG Tab.ER PO SCH ×2 (08:43→20:35)
[2019-08-10] MEDS: Furosemide 40 MG Tab PO SCH ×2 (08:44→13:59)
[2019-08-10] MEDS: hydrALAZINE 50 MG Tab PO SCH ×3 (08:44→20:34)
[2019-08-10] MEDS: Nystatin Topical Powder 15 GM Bottle TOP SCH ×2 (08:45→20:35)
[2019-08-10] MEDS: metFORMIN 500 MG Tab PO SCH ×2 (09:23→20:35)
[2019-08-10] MEDS: Tamsulosin 0.4 MG Cap.ER PO SCH (09:23)
[2019-08-10] MEDS: Acetaminophen 325 MG Tab PO PRN (10:00)
--- NOTE | 2019-08-10 11:06 | PCM.PN ---
- General Info Date of Service: 08/10/19 Functional Status: Reports: Pain Controlled, Tolerating Diet, Urinating. Denies : Ambulating, New Symptoms - Review of Systems General: Reports: Weakness. Denies: Fever HEENT: Denies: Dysphasia, Post Nasal Drip Pulmonary: Reports: Shortness of Breath, Cough, Sputum Cardiovascular: Reports: Dyspnea on Exertion, Edema Gastrointestinal: Reports: No Symptoms Genitourinary: Denies: Incontinence Musculoskeletal: Reports: No Symptoms Skin: Reports: Dryness Neurological: Reports: Difficulty Walking, Gait Disturbance. Denies: Confusion , Syncope Psychiatric: Denies: Confusion, Agitation - Patient Data Vitals - Most Recent: Last Vital Signs Temp 97.1 F 08/10/19 06:33 Pulse 65 08/10/19 06:33 Resp 24 H 08/10/19 06:33 BP 157/78 H 08/10/19 08:44 Pulse Ox 98 08/10/19 06:33 Weight - Most Recent: 268 lb 9 oz I&O - Last 24 Hours: Intake & Output 08/09/19 08/10/19 08/10/19 22:59 06:59 14:59 Intake Total 670 400 Output Total 1400 600 Balance -730 -200 Lab Results Last 24 Hours: Laboratory Results - last 24 hr 08/09/19 08/09/19 08/10/19 Range/Units 12:02 17:56 07:00 Sodium 137 (136-145) mmol/L Potassium 4.1 (3.3-5.3) mmol/L Chloride 94 L (98-115) mmol/L Carbon Dioxide 31.7 (21.0-32.0) mmol/L Anion Gap 15.4 H (5-15) mmol/L BUN 16 (6-25) mg/dL Creatinine 0.60 (0.51-1.17) mg/dL Est Cr Clr Drug Dosing 99.75 mL/min Estimated GFR (MDRD) > 60 mL/min Glucose 160 H (75 - 99) mg/dL POC Glucose 195 H 288 H (74-106) mg/dl Calcium 8.2 L (8.7-10.3) mg/dL Zachary Results Last 24 Hours: Microbiology 08/09/19 08:35 Aerobic Blood Culture - Final Blood Gram Positive Cocci Anaerobic Blood Culture - Final 08/05/19 12:56 Aerobic Blood Culture - Final Blood - Venous - Lab Draw Anaerobic Blood Culture - Preliminary NO GROWTH AFTER 4 DAYS 08/05/19 12:30 Aerobic Blood Culture - Preliminary Blood - Venous NO GROWTH AFTER 4 DAYS Anaerobic Blood Culture - Preliminary NO GROWTH AFTER 4 DAYS Med Orders - Current: Current Medications Acetaminophen (Tylenol) 650 mg PO Q4H PRN PRN Reason: Pain (Mild 1-3)/fever Last Admin: 08/10/19 10:00 Dose: 650 mg Albuterol/Ipratropium (Duoneb 3.0-0.5 Mg/3 Ml) 3 ml NEB Q6HRRT [facility] Last Admin: 08/10/19 05:31 Dose: 3 ml Amlodipine Besylate (Norvasc) 10 mg PO DAILY [facility] Last Admin: 08/10/19 08:43 Dose: 10 mg Artificial Tears (Refresh Tears 0.5%) 0 ml EYEBOTH ASDIRECTED PRN PRN Reason: Dry Eyes Last Admin: 08/09/19 06:51 Dose: 1 drop Carbidopa/Levodopa (Sinemet 10-100 Mg) 1 tab PO TID [facility] Last Admin: 08/10/19 08:41 Dose: 1 tab Enoxaparin Sodium (Lovenox) 40 mg SUBCUT Q12H [facility] Last Admin: 08/10/19 01:07 Dose: 40 mg Fluoxetine HCl (Prozac) 40 mg PO DAILY [facility] Last Admin: 08/10/19 08:41 Dose: 40 mg Furosemide (Lasix) 40 mg PO 0900,1400 [facility] Last Admin: 08/10/19 08:44 Dose: 40 mg Guaifenesin (Mucinex) 600 mg PO BID [facility] Last Admin: 08/10/19 08:43 Dose: 600 mg Guaifenesin/Phenylephrine HCl (Robitussin Dm) 10 ml PO Q4H PRN PRN Reason: Cough Hydralazine HCl (Apresoline) 25 mg PO TID [facility] Last Admin: 08/10/19 08:44 Dose: 25 mg Insulin Aspart (Novolog) 0 unit SUBCUT TIDMEALS [facility]; Protocol Last Admin: 08/10/19 08:40 Dose: Not Given Isosorbide Mononitrate (Imdur) 30 mg PO QAM [facility] Last Admin: 08/10/19 08:43 Dose: 30 mg Levetiracetam (Keppra) 500 mg PO BID [facility] Last Admin: 08/10/19 08:41 Dose: 500 mg Lorazepam (Ativan) 0.5 mg PO TID@0700,1200,1900 [facility] Last Admin: 08/10/19 06:41 Dose: 0.5 mg Lorazepam (Ativan) 1 mg PO BEDTIME [facility] Last Admin: 08/09/19 20:30 Dose: 1 mg Lorazepam (Ativan) 0.5 mg PO BEDTIME PRN PRN Reason: Anxiety Metformin HCl (Glucophage) 500 mg PO BID [facility] Last Admin: 08/10/19 09:23 Dose: 500 mg Nystatin (Nystop) 0 gm TOP BID [facility] Last Admin: 08/10/19 08:45 Dose: 1 applic Polyethylene Glycol (Miralax) 17 gm PO BEDTIME [facility] Last Admin: 08/09/19 20:28 Dose: 17 gm Potassium Chloride (Klor-Con M20) 20 meq PO DAILY [facility] Last Admin: 08/10/19 08:42 Dose: 20 meq Prednisone (Prednisone) 40 mg PO WITHBREAKFAST [facility] Last Admin: 08/10/19 08:42 Dose: 40 mg Senna/Docusate Sodium (Senna Plus) 2 tab PO BID [facility] Last Admin: 08/10/19 08:43 Dose: 2 tab Simvastatin (Zocor) 40 mg PO BEDTIME [facility] Last Admin: 08/09/19 20:30 Dose: 40 mg Sodium Chloride (Saline Flush) 10 ml FLUSH Q8HR PRN PRN Reason: keep vein open Last Admin: 08/08/19 23:24 Dose: 10 ml Tamsulosin HCl (Flomax) 0.4 mg PO DAILY [facility] Last Admin: 08/10/19 09:23 Dose: 0.4 mg Discontinued Medications Albuterol/Ipratropium (Duoneb 3.0-0.5 Mg/3 Ml) Confirm Administered Dose 3 ml .ROUTE .STK-MED ONE Stop: 08/05/19 12:23 Last Admin: 08/05/19 12:42 Dose: Not Given Albuterol/Ipratropium (Duoneb 3.0-0.5 Mg/3 Ml) 3 ml NEB ONETIME ONE Stop: 08/05/19 12:28 Last Admin: 08/05/19 12:25 Dose: 3 ml Albuterol/Ipratropium (Duoneb 3.0-0.5 Mg/3 Ml) 3 ml NEB Q4H [facility] Last Admin: 08/05/19 15:59 Dose: 3 ml Albuterol/Ipratropium (Duoneb 3.0-0.5 Mg/3 Ml) 3 ml NEB Q4H [facility] Last Admin: 08/08/19 08:50 Dose: 3 ml Bumetanide (Bumex) 1 mg IVPUSH ONETIME STA Stop: 08/05/19 20:10 Last Admin: 08/05/19 20:48 Dose: Not Given Furosemide (Lasix) Confirm Administered Dose 40 mg .ROUTE .STK-MED ONE Stop: 08/05/19 13:24 Last Admin: 08/05/19 14:33 Dose: Not Given Furosemide (Lasix) 40 mg IVPUSH NOW ONE Stop: 08/05/19 13:40 Last Admin: 08/05/19 13:45 Dose: 40 mg Furosemide (Lasix) 40 mg IVPUSH ONETIME ONE Stop: 08/05/19 18:11 Last Admin: 08/05/19 18:12 Dose: 40 mg Furosemide (Lasix) 10 mg IVPUSH CONTINUOUS [facility] Furosemide (Lasix) 10 mg IVPUSH 5XDAY@0030,2130,2300 [facility] Stop: 08/06/19 06:00 Furosemide (Lasix) 10 mg IVPUSH TID@0030,2130,2300 [facility] Stop: 08/06/19 01:30 Last Admin: 08/06/19 00:37 Dose: 10 mg Furosemide (Lasix) 10 mg IV TID@0200,0330,0500 [facility] Stop: 08/06/19 06:00 Last Admin: 08/06/19 05:32 Dose: 10 mg Furosemide (Lasix) 10 mg IV TID@0630,0800,0930 [facility] Stop: 08/06/19 10:30 Last Admin: 08/06/19 11:59 Dose: Not Given Furosemide (Lasix) 10 mg IV BID@1100,1230 [facility] Stop: 08/06/19 13:30 Furosemide (Lasix) 40 mg IVPUSH NOW ONE Stop: 08/07/19 14:01 Last Admin: 08/07/19 13:23 Dose: 40 mg Furosemide (Lasix) 40 mg IVPUSH NOW ONE Stop: 08/08/19 09:55 Last Admin: 08/08/19 10:26 Dose: 40 mg Furosemide (Lasix) 40 mg IVPUSH NOW ONE Stop: 08/08/19 14:01 Last Admin: 08/08/19 13:44 Dose: 40 mg Sodium Chloride (Normal Saline) 50 mls @ 200 mls/min IV ONETIME ONE Stop: 08/06/19 09:44 Last Admin: 08/06/19 09:53 Dose: 200 mls/min Furosemide 100 mg/ Sodium (Chloride) 100 mls @ 10 mls/hr IV CONTINUOUS [facility] Last Admin: 08/07/19 06:26 Dose: 10 mg/hr, 10 mls/hr Potassium Chloride 20 meq/ (Premix) 100 mls @ 50 mls/hr IV ONETIME ONE Stop: 08/06/19 12:53 Last Admin: 08/06/19 13:20 Dose: 50 mls/hr Potassium Chloride 20 meq/ (Premix) 100 mls @ 50 mls/hr IV ONETIME ONE Stop: 08/06/19 17:59 Last Admin: 08/06/19 16:46 Dose: 50 mls/hr Sodium Chloride (Normal Saline) 250 mls @ 100 mls/hr IV ASDIRECTED [facility] Last Admin: 08/06/19 13:16 Dose: 100 mls/hr Iopamidol (Isovue-370 (76%)) 100 ml IV ONETIME ONE Stop: 08/06/19 09:44 Last Admin: 08/06/19 09:52 Dose: 100 ml Lorazepam (Ativan) 0.5 mg PO BID PRN PRN Reason: ANXIETY Last Admin: 08/06/19 09:58 Dose: 0.5 mg Lorazepam (Ativan) 1 mg PO BEDTIME PRN PRN Reason: ANXIETY Last Admin: 08/06/19 02:06 Dose: 1 mg Magnesium Oxide (Magnesium Oxide) 500 mg PO ONETIME ONE Stop: 08/07/19 13:01 Last Admin: 08/07/19 13:35 Dose: 500 mg Methylprednisolone Sodium Succinate (Solu-Medrol) 80 mg IVPUSH ONETIME ONE Stop: 08/07/19 12:48 Last Admin: 08/07/19 13:23 Dose: 80 mg Potassium Bicarbonate (Klor-Con Ef) 25 meq PO DAILY [facility] Potassium Bicarbonate (Klor-Con Ef) 25 meq PO ONETIME ONE Stop: 08/06/19 17:01 Last Admin: 08/06/19 16:45 Dose: 25 meq Potassium Bicarbonate (Klor-Con Ef) 25 meq PO ONETIME ONE Stop: 08/06/19 12:01 Last Admin: 08/06/19 12:17 Dose: 25 meq Potassium Chloride (Klor-Con M20) 20 meq PO ONETIME ONE Stop: 08/05/19 19:01 Last Admin: 08/05/19 19:57 Dose: 20 meq Potassium Chloride (Klor-Con M20) 40 meq PO ONETIME ONE Stop: 08/07/19 12:50 Last Admin: 08/07/19 13:35 Dose: 40 meq Prednisone (Prednisone) 40 mg PO WITHBREAKFAST [facility] Sodium Chloride (Saline Flush) 10 ml FLUSH Q8HR PRN PRN Reason: keep vein open Tamsulosin HCl (Flomax) 0.4 mg PO DAILY [facility] - Exam Quality Assessment: Supplemental Oxygen, DVT Prophylaxis General: Alert, Oriented, No Acute Distress Lungs: Rhonchi Cardiovascular: Regular Rate, Regular Rhythm GI/Abdominal Exam: Soft Back Exam: No: CVA Tenderness (L), CVA Tenderness (R) Extremities: Pedal Edema Skin: Dry Neurological: No New Focal Deficit Psy/Mental Status: Alert, Normal Affect, Normal Mood Sepsis Event Note - Evaluation Sepsis Screening Result: No Definite Risk - Focused Exam Vital Signs: Vital Signs Temp Pulse Resp BP BP Pulse Ox 08/10/19 08:44 157/78 H 08/10/19 08:43 157/78 H 08/10/19 06:33 97.1 F 65 24 H 157/78 H 98 Date Exam was Performed: 08/10/19 Time Exam was Performed: 10:45 - Problem List Review Problem List Initiated/Reviewed/Updated: Yes - Assessment Assessment:: History summary Mr. 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 Patient states he has had upper respiratory infection and has been sick for 3-4 days with cough and congestion howver no documented fevers or chills. He was taken OTC Mucinex however his symptoms seem to worsen. He had no chest pain however was short of breath upon entering the ED. Along with his obesity he does have a COPD/asthma component. Pertinent ED work-up: WBC 7.1 with neutrophilia Na 133 Troponin <0.04 BNP 564 Negative influenza swab CXR-small left pleural effusion recommend CT chest Lasix 40 mg IV x 1 CT of the chest consistent with chest x-ray with pleural effusion left side however no other concerning findings Primary assessment/plan: --Heart failure exacerbation, unspecified, improving. No ECHO on file or available from [facility]. Reviewed wts, ears unreliable as it shows 7 pound creeks 48 hours ago however 8 pound increase overnight today. Diuresed ~8,000 mL's since admission. Started oral lasix 40 mg 0900 and 1400 today. Continue daily weights and accurate I & O. Creatinine 0.61. Add low-sodium diet --COPD, important he bring in CPAP to the hospital. --Deconditioning, profound. PT for strengthening and assess the need for ongoing oxygen requirements --Positive aerobic blood culture x 1, likely a contaminate. On day 3, one aerobic culture noted gram positive cocci. Patient has been afebrile and does not appear to be bacteremic. No antibiotics have been given. Repeat blood culture pending. Will continue to monitor. --Small left pleural effusion as noted on CT chest. [facility] that patient required a thoracentesis in 2018 d/t a moderate left pleural effusion. Approximately 1100 mL drained with pathology negative for malignancy, however did note benign mesothelial cells and inflammatory cells. --Small left base infiltrate. T2DM. Accu checks TID. Will give low dose novolog SS to cover steroid induced hyperglycemia. Resumed metformin on 08/09/19 PM dose. Secondary assessment/plan: HTN. Continue norvasc, hydralazine. CAD. Continue Imdur. HLD. Continue simvastatin. Obesity. RESHMA. Noncompliant with CPAP, Parkinson's disease. Continue sinemet. Seizures. Continue Keppra. History of subdural hematoma. History of squamous cell carcinoma of skin. Depression. Continue prozac. Anxiety. Continue lorazepam. Environmental/seasonal allergies. Constipation. Continue Miralax, senna-S. BPH. Continue flomax. DVT prophylaxis. On lovenox until satisfactory ambulation Overall plan: Since patient is a will not qualify for SNF here, and would have considerable [id number] under Medicare part A, [facility] notified and [facility] for [facility] status. He will need aggressive physical therapy due to significant comorbidities and deconditioning far below the central unknown baseline. Still requiring oxygen however he has not ambulated since admission so unsafe to be discharged at this time due to high risk for readmission.
[2019-08-10] MEDS: Polyethylene Glycol 3350 Powder 17 GM Packet PO SCH (20:35)
[2019-08-10] MEDS: Simvastatin 20 MG Tab PO SCH (20:36)
[2019-08-11] MEDS: Enoxaparin 40 MG/0.4 ML Syringe SUBCUT SCH ×2 (00:34→13:36)
[2019-08-11] MEDS: Albuterol/Ipratropium 3.0-0.5 MG/3 ML Neb Soln NEB SCH ×4 (05:23→23:16)
[2019-08-11] MEDS: Acetaminophen 325 MG Tab PO PRN (06:03)
[2019-08-11] MEDS: LORazepam 0.5 MG Tab PO SCH ×4 (06:03→20:31)
[2019-08-11] MEDS: predniSONE 20 MG Tab PO SCH (08:18)
[2019-08-11] MEDS: FLUoxetine 10 MG Cap PO SCH (08:20)
[2019-08-11] MEDS: Potassium Chloride 20 MEQ Tab.ER PO SCH (08:20)
[2019-08-11] MEDS: metFORMIN 500 MG Tab PO SCH ×2 (08:20→20:31)
[2019-08-11] MEDS: Furosemide 40 MG Tab PO SCH ×2 (08:20→13:36)
[2019-08-11] MEDS: hydrALAZINE 50 MG Tab PO SCH ×3 (08:21→20:31)
[2019-08-11] MEDS: Tamsulosin 0.4 MG Cap.ER PO SCH (08:21)
[2019-08-11] MEDS: Isosorbide Mononitrate 30 MG Tab.ER PO SCH (08:21)
[2019-08-11] MEDS: amLODIPine 5 MG Tab PO SCH (08:22)
[2019-08-11] MEDS: levETIRAcetam 500 MG Tab PO SCH ×2 (08:22→20:32)
[2019-08-11] MEDS: guaiFENesin 600 MG Tab.ER PO SCH ×2 (08:22→20:31)
[2019-08-11] MEDS: Carbidopa/Levodopa 10-100 MG Tab PO SCH ×3 (08:22→20:31)
[2019-08-11] MEDS: Insulin Aspart 100 Units/ML 3 ML Pen SUBCUT SCH ×3 (08:28→18:03)
[2019-08-11] MEDS: Nystatin Topical Powder 15 GM Bottle TOP SCH ×2 (08:29→20:33)
--- NOTE | 2019-08-11 09:56 | CR ---
[id number] RAD/RAD Chest PA And Lateral EXAM: RAD Chest PA And Lateral INDICATION: SHORTNESS OF BREATH. COMPARISON: August 05, 2019. DISCUSSION: Cardiomediastinal silhouette is stable in size and contour. Small left pleural effusion. Pulmonary infiltrate at the left lung base. Subsegmental atelectasis at the right lung base. No pneumothorax. IMPRESSION: 1. A small left pleural effusion with pulmonary infiltrate at the left lung base. Overall these findings are not significantly changed when compared to the prior. Alexi Zuñiga DO 08/11/19 0955 Thank you for allowing us to participate in the care of your patient.
--- NOTE | 2019-08-11 10:12 | PCM.PN ---
- General Info Date of Service: 08/11/19 Functional Status: Reports: Pain Controlled, Tolerating Diet. Denies: Ambulating - Review of Systems General: Reports: Weakness, Fatigue. Denies: Fever, Chills, Night Sweats HEENT: Denies: Headaches, Post Nasal Drip, Sinus Congestion, Sore Throat Pulmonary: Reports: Shortness of Breath, Wheezing. Denies: Cough, Sputum Cardiovascular: Reports: Dyspnea on Exertion, Edema. Denies: Orthopnea, PND Gastrointestinal: Reports: No Symptoms Genitourinary: Reports: No Symptoms Musculoskeletal: Denies: Back Pain Skin: Reports: Dryness Neurological: Reports: Difficulty Walking, Weakness, Gait Disturbance. Denies: Confusion Psychiatric: Denies: Confusion, Agitation - Patient Data Vitals - Most Recent: Last Vital Signs Temp 97.2 F 08/11/19 06:04 Pulse 69 08/11/19 06:04 Resp 24 H 08/11/19 06:04 BP 130/70 08/11/19 08:22 Pulse Ox 91 L 08/11/19 06:04 Weight - Most Recent: 266 lb 7 oz I&O - Last 24 Hours: Intake & Output 08/10/19 08/11/19 08/11/19 22:59 06:59 14:59 Intake Total 370 425 Output Total 1600 900 Balance -1230 -475 Lab Results Last 24 Hours: Laboratory Results - last 24 hr 08/10/19 08/10/19 08/11/19 Range/Units 12:20 16:55 07:36 POC Glucose 203 H 229 H 147 H (74-106) mg/dl Zachary Results Last 24 Hours: Microbiology 08/05/19 12:56 Bacterial Identification - Preliminary Other - Hand, Left 08/05/19 12:56 Aerobic Blood Culture - Final Blood - Venous - Lab Draw Anaerobic Blood Culture - Final NO GROWTH AFTER 5 DAYS 08/05/19 12:30 Aerobic Blood Culture - Final Blood - Venous NO GROWTH AFTER 5 DAYS Anaerobic Blood Culture - Final NO GROWTH AFTER 5 DAYS 08/09/19 08:35 Aerobic Blood Culture - Final Blood Gram Positive Cocci Anaerobic Blood Culture - Final Med Orders - Current: Current Medications Acetaminophen (Tylenol) 650 mg PO Q4H PRN PRN Reason: Pain (Mild 1-3)/fever Last Admin: 08/11/19 06:03 Dose: 650 mg Albuterol/Ipratropium (Duoneb 3.0-0.5 Mg/3 Ml) 3 ml NEB Q6HRRT [facility] Last Admin: 08/11/19 05:23 Dose: 3 ml Amlodipine Besylate (Norvasc) 10 mg PO DAILY [facility] Last Admin: 08/11/19 08:22 Dose: 10 mg Artificial Tears (Refresh Tears 0.5%) 0 ml EYEBOTH ASDIRECTED PRN PRN Reason: Dry Eyes Last Admin: 08/09/19 06:51 Dose: 1 drop Carbidopa/Levodopa (Sinemet 10-100 Mg) 1 tab PO TID [facility] Last Admin: 08/11/19 08:22 Dose: 1 tab Enoxaparin Sodium (Lovenox) 40 mg SUBCUT Q12H [facility] Last Admin: 08/11/19 00:34 Dose: 40 mg Fluoxetine HCl (Prozac) 40 mg PO DAILY [facility] Last Admin: 08/11/19 08:20 Dose: 40 mg Furosemide (Lasix) 40 mg PO 0900,1400 [facility] Last Admin: 08/11/19 08:20 Dose: 40 mg Guaifenesin (Mucinex) 600 mg PO BID [facility] Last Admin: 08/11/19 08:22 Dose: 600 mg Guaifenesin/Phenylephrine HCl (Robitussin Dm) 10 ml PO Q4H PRN PRN Reason: Cough Hydralazine HCl (Apresoline) 25 mg PO TID [facility] Last Admin: 08/11/19 08:21 Dose: 25 mg Insulin Aspart (Novolog) 0 unit SUBCUT TIDMEALS [facility]; Protocol Last Admin: 08/11/19 08:28 Dose: 1 units Isosorbide Mononitrate (Imdur) 30 mg PO QAM [facility] Last Admin: 08/11/19 08:21 Dose: 30 mg Levetiracetam (Keppra) 500 mg PO BID [facility] Last Admin: 08/11/19 08:22 Dose: 500 mg Lorazepam (Ativan) 0.5 mg PO TID@0700,1200,1900 [facility] Last Admin: 08/11/19 06:03 Dose: 0.5 mg Lorazepam (Ativan) 1 mg PO BEDTIME [facility] Last Admin: 08/10/19 20:35 Dose: 1 mg Lorazepam (Ativan) 0.5 mg PO BEDTIME PRN PRN Reason: Anxiety Metformin HCl (Glucophage) 500 mg PO BID [facility] Last Admin: 08/11/19 08:20 Dose: 500 mg Nystatin (Nystop) 0 gm TOP BID [facility] Last Admin: 08/11/19 08:29 Dose: Not Given Polyethylene Glycol (Miralax) 17 gm PO BEDTIME [facility] Last Admin: 08/10/19 20:35 Dose: 17 gm Potassium Chloride (Klor-Con M20) 20 meq PO DAILY [facility] Last Admin: 08/11/19 08:20 Dose: 20 meq Prednisone (Prednisone) 40 mg PO WITHBREAKFAST [facility] Last Admin: 08/11/19 08:18 Dose: 40 mg Senna/Docusate Sodium (Senna Plus) 2 tab PO BID [facility] Last Admin: 08/11/19 08:22 Dose: 2 tab Simvastatin (Zocor) 40 mg PO BEDTIME [facility] Last Admin: 08/10/19 20:36 Dose: 40 mg Sodium Chloride (Saline Flush) 10 ml FLUSH Q8HR PRN PRN Reason: keep vein open Last Admin: 08/08/19 23:24 Dose: 10 ml Tamsulosin HCl (Flomax) 0.4 mg PO DAILY [facility] Last Admin: 08/11/19 08:21 Dose: 0.4 mg Discontinued Medications Albuterol/Ipratropium (Duoneb 3.0-0.5 Mg/3 Ml) Confirm Administered Dose 3 ml .ROUTE .STK-MED ONE Stop: 08/05/19 12:23 Last Admin: 08/05/19 12:42 Dose: Not Given Albuterol/Ipratropium (Duoneb 3.0-0.5 Mg/3 Ml) 3 ml NEB ONETIME ONE Stop: 08/05/19 12:28 Last Admin: 08/05/19 12:25 Dose: 3 ml Albuterol/Ipratropium (Duoneb 3.0-0.5 Mg/3 Ml) 3 ml NEB Q4H [facility] Last Admin: 08/05/19 15:59 Dose: 3 ml Albuterol/Ipratropium (Duoneb 3.0-0.5 Mg/3 Ml) 3 ml NEB Q4H [facility] Last Admin: 08/08/19 08:50 Dose: 3 ml Bumetanide (Bumex) 1 mg IVPUSH ONETIME STA Stop: 08/05/19 20:10 Last Admin: 08/05/19 20:48 Dose: Not Given Furosemide (Lasix) Confirm Administered Dose 40 mg .ROUTE .[email or web address] ONE Stop: 08/05/19 13:24 Last Admin: 08/05/19 14:33 Dose: Not Given Furosemide (Lasix) 40 mg IVPUSH NOW ONE Stop: 08/05/19 13:40 Last Admin: 08/05/19 13:45 Dose: 40 mg Furosemide (Lasix) 40 mg IVPUSH ONETIME ONE Stop: 08/05/19 18:11 Last Admin: 08/05/19 18:12 Dose: 40 mg Furosemide (Lasix) 10 mg IVPUSH CONTINUOUS [facility] Furosemide (Lasix) 10 mg IVPUSH 5XDAY@0030,2130,2300 [facility] Stop: 08/06/19 06:00 Furosemide (Lasix) 10 mg IVPUSH TID@0030,2130,2300 [facility] Stop: 08/06/19 01:30 Last Admin: 08/06/19 00:37 Dose: 10 mg Furosemide (Lasix) 10 mg IV TID@0200,0330,0500 [facility] Stop: 08/06/19 06:00 Last Admin: 08/06/19 05:32 Dose: 10 mg Furosemide (Lasix) 10 mg IV TID@0630,0800,0930 [facility] Stop: 08/06/19 10:30 Last Admin: 08/06/19 11:59 Dose: Not Given Furosemide (Lasix) 10 mg IV BID@1100,1230 [facility] Stop: 08/06/19 13:30 Furosemide (Lasix) 40 mg IVPUSH NOW ONE Stop: 08/07/19 14:01 Last Admin: 08/07/19 13:23 Dose: 40 mg Furosemide (Lasix) 40 mg IVPUSH NOW ONE Stop: 08/08/19 09:55 Last Admin: 08/08/19 10:26 Dose: 40 mg Furosemide (Lasix) 40 mg IVPUSH NOW ONE Stop: 08/08/19 14:01 Last Admin: 08/08/19 13:44 Dose: 40 mg Sodium Chloride (Normal Saline) 50 mls @ 200 mls/min IV ONETIME ONE Stop: 08/06/19 09:44 Last Admin: 08/06/19 09:53 Dose: 200 mls/min Furosemide 100 mg/ Sodium (Chloride) 100 mls @ 10 mls/hr IV CONTINUOUS [facility] Last Admin: 08/07/19 06:26 Dose: 10 mg/hr, 10 mls/hr Potassium Chloride 20 meq/ (Premix) 100 mls @ 50 mls/hr IV ONETIME ONE Stop: 08/06/19 12:53 Last Admin: 08/06/19 13:20 Dose: 50 mls/hr Potassium Chloride 20 meq/ (Premix) 100 mls @ 50 mls/hr IV ONETIME ONE Stop: 08/06/19 17:59 Last Admin: 08/06/19 16:46 Dose: 50 mls/hr Sodium Chloride (Normal Saline) 250 mls @ 100 mls/hr IV ASDIRECTED [facility] Last Admin: 08/06/19 13:16 Dose: 100 mls/hr Iopamidol (Isovue-370 (76%)) 100 ml IV ONETIME ONE Stop: 08/06/19 09:44 Last Admin: 08/06/19 09:52 Dose: 100 ml Lorazepam (Ativan) 0.5 mg PO BID PRN PRN Reason: ANXIETY Last Admin: 08/06/19 09:58 Dose: 0.5 mg Lorazepam (Ativan) 1 mg PO BEDTIME PRN PRN Reason: ANXIETY Last Admin: 08/06/19 02:06 Dose: 1 mg Magnesium Oxide (Magnesium Oxide) 500 mg PO ONETIME ONE Stop: 08/07/19 13:01 Last Admin: 08/07/19 13:35 Dose: 500 mg Methylprednisolone Sodium Succinate (Solu-Medrol) 80 mg IVPUSH ONETIME ONE Stop: 08/07/19 12:48 Last Admin: 08/07/19 13:23 Dose: 80 mg Potassium Bicarbonate (Klor-Con Ef) 25 meq PO DAILY [facility] Potassium Bicarbonate (Klor-Con Ef) 25 meq PO ONETIME ONE Stop: 08/06/19 17:01 Last Admin: 08/06/19 16:45 Dose: 25 meq Potassium Bicarbonate (Klor-Con Ef) 25 meq PO ONETIME ONE Stop: 08/06/19 12:01 Last Admin: 08/06/19 12:17 Dose: 25 meq Potassium Chloride (Klor-Con M20) 20 meq PO ONETIME ONE Stop: 08/05/19 19:01 Last Admin: 08/05/19 19:57 Dose: 20 meq Potassium Chloride (Klor-Con M20) 40 meq PO ONETIME ONE Stop: 08/07/19 12:50 Last Admin: 08/07/19 13:35 Dose: 40 meq Prednisone (Prednisone) 40 mg PO WITHBREAKFAST [facility] Sodium Chloride (Saline Flush) 10 ml FLUSH Q8HR PRN PRN Reason: keep vein open Tamsulosin HCl (Flomax) 0.4 mg PO DAILY [facility] - Exam Quality Assessment: Supplemental Oxygen, DVT Prophylaxis General: Alert, Oriented, Cooperative, No Acute Distress Neck: Supple, No JVD Lungs: Wheezing. No: Decreased Breath Sounds Cardiovascular: Regular Rate, Regular Rhythm GI/Abdominal Exam: Other (Large body habitus) Back Exam: No: CVA Tenderness (R) Extremities: No: Pedal Edema Peripheral Pulses: 2+: Radial (L), Radial (R) Skin: Dry Neurological: Normal Speech, Cranial Nerves Intact Psy/Mental Status: Alert, Normal Affect. No: Agitated Sepsis Event Note - Evaluation Sepsis Screening Result: No Definite Risk - Focused Exam Vital Signs: Vital Signs Temp Pulse Resp BP BP Pulse Ox Pulse Ox 08/11/19 08:22 130/70 08/11/19 08:21 130/70 08/11/19 06:04 97.2 F 69 24 H 136/70 91 L 08/11/19 05:23 64 96 08/11/19 05:21 96 08/10/19 23:00 96.8 F 66 24 H 136/69 95 08/10/19 22:32 66 Date Exam was Performed: 08/11/19 Time Exam was Performed: 10:53 - Problem List Review Problem List Initiated/Reviewed/Updated: Yes - My Orders Last 24 Hours: My Active Orders 08/10/19 10:45 Incentive Spirometry [RT Incentive Spirometry] [RC] Q1HWA 08/10/19 Dinner Low Sodium [Sodium Restricted Diet] [DIET] 08/11/19 09:00 Communication Order [RC] 0900 08/11/19 09:08 CXR [Chest 2V] [CR] Routine 08/11/19 09:45 BASIC METABOLIC PANEL,BMP [CHEM] Routine CBC WITH AUTO DIFF [HEME] Routine - Assessment Assessment:: History summary Mr. Santana is a severely obese 79-year-old gentleman [facility] due to shortness of breath. Patient states he has had upper respiratory infection and has been sick for 3-4 days with cough and congestion howver no documented fevers or chills. He was taken OTC Mucinex however his symptoms seem to worsen. He had no chest pain however was short of breath upon entering the ED. Along with his obesity he does have a COPD/asthma component. Pertinent ED work-up: WBC 7.1 with neutrophilia Na 133 Troponin <0.04 BNP 564 Negative influenza swab CXR-small left pleural effusion recommend CT chest Lasix 40 mg IV x 1 [address] of the chest consistent with chest x-ray with pleural effusion left side however no other concerning findings - Plan Plan:: History summary Mr. 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 Patient states he has had upper respiratory infection and has been sick for 3-4 days with cough and congestion howver no documented fevers or chills. He was taken OTC Mucinex however his symptoms seem to worsen. He had no chest pain however was short of breath upon entering the ED. Along with his obesity he does have a COPD/asthma component. Pertinent ED work-up: WBC 7.1 with neutrophilia Na 133 Troponin <0.04 BNP 564 Negative influenza swab CXR-small left pleural effusion recommend CT chest Lasix 40 mg IV x 1 Hospital course Day 1: Shortly after accepting patient for hospital admission, nurses notified me concerning significant shortness of breath with hypoxia in the 70s upon standing and they were concerned the patient would not be able to make it through the night due to his significant laboring. I arrived at the hospital to examine the patient and therefore initiated furosemide drip--significant output throughout the night. prophylactic potassium supplementation given, ordered CT of the chest however the patient had eaten. ABG reassuring, orders were placed, Rasheed catheter placed he had significant diuresing output that first night. Day 2: Rounds the patient was OOB in chair improved from his respiratory distressed from overnight however far from baseline. Repeated BNP down to 400. CT of the chest consistent with chest x-ray with pleural effusion left side however no other concerning findings. His Lasix drip was discontinued one time IV dose that afternoon of 40 mg was given. He was also given 1 time dose of solumedrol. K+ was given due to hypokalemia and his magnesium was replaced. Continue to diurese quite well. WBC 7.90 with nearly resolved neutrophilia. He was afebrile and his preliminary BC x 2 were negative. Metformin was held for 48 hours d/t CT. low dose novolog SS to cover steroid induced hyperglycemia. Day 3: He continued to diurese however had slight weight gain despite significant diuresing, his prednisone was changed to p.o. His first blood culture came back gram-positive cocci thought to be contaminant and since no fever, normal white count with improved clinical condition no antibiotics were started. At this time it was felt the patient likely could be discharged and was awaiting a ride however RT had yet to evaluate patient's for home oxygen CT had not yet seen the patient. Day 4: It was becoming quite evident that the patient would not be able to go home due to ongoing diuresing, the need for oxygen and the fact the [facility] was [facility] and would not [facility] for [facility] facility here have considerable expense on part A. [facility] and [facility] did agree to inpatient stay for physical therapy and oxygen therapy with ongoing diuresing. ~10,000 mL neg o/p Primary assessment/plan: --Bacteremia, without identifiable source, gram-positive cocci without known clusters, placed on vancomycin at this time until more identifiable ID from [facility]. --Heart failure exacerbation, unspecified, improving. No ECHO on file or available from [facility] records. Reviewed wts, unreliable as it shows 7 pound creeks 48 hours ago however 8 pound increase overnight today. Diuresed ~10,000 ml, neg o/p's since admission. On PO lasix 40 mg BID. Continue daily weights and accurate I & O. Creatinine 0.61. low-sodium diet, sodium adequate so will forego fluid restriction --COPD, important he bring in CPAP to the hospital. CT of the chest consistent with chest x-ray with pleural effusion left side however no other concerning findings --Deconditioning, profound. PT for strengthening and assess the need for ongoing oxygen requirements --Positive aerobic blood culture x 1, likely a contaminate. On day 3, one aerobic culture noted gram positive cocci. Patient has been afebrile and does not appear to be bacteremic. No antibiotics have been given. Repeat blood culture pending. Will continue to monitor. --Small left pleural effusion as noted on CT chest. [facility] that [facility] required a [facility]acent[facility] in 2018 d/t a moderate left pleural effusion. Approximately 1100 mL drained with pathology negative for malignancy, however did note benign mesothelial cells and inflammatory cells. --Small left base infiltrate. Incentive Spirometer --T2DM. Accu checks TID. low dose novolog SS to cover steroid induced hyperglycemia. Resumed metformin on 08/09/19 PM dose. Secondary assessment/plan: HTN. Continue norvasc, hydralazine. CAD. Continue Imdur. HLD. Continue simvastatin. Obesity. RESHMA. Noncompliant with CPAP, Parkinson's disease. Continue sinemet. Seizures. Continue Keppra. History of subdural hematoma. History of squamous cell carcinoma of skin. Depression. Continue prozac. Anxiety. Continue lorazepam. Environmental/seasonal allergies. Constipation. Continue Miralax, senna-S. BPH. Continue flomax. DVT prophylaxis. On lovenox until satisfactory ambulation Overall plan: Since patient is a will not qualify for SNF here, and would have considerable [id number] under Medicare part A, [facility] notified and [facility] agree for ongoing inpatient status. He will need aggressive physical therapy due to significant comorbidities and deconditioning far below his baseline. Still requiring oxygen however he has not ambulated very much since admission.
[2019-08-11 10:14] LABS: ANION GAP 11.7 mmol/L (5-15); CHLORIDE,CL 95 mmol/L (98-115); SODIUM,NA 134 mmol/L (136-145)
[2019-08-11] MEDS: Sodium Chloride 0.9% 100 ML IV SCH (13:39)
[2019-08-11] MEDS: Polyethylene Glycol 3350 Powder 17 GM Packet PO SCH (20:30)
[2019-08-11] MEDS: Simvastatin 20 MG Tab PO SCH (20:32)
[2019-08-12] MEDS: Enoxaparin 40 MG/0.4 ML Syringe SUBCUT SCH ×2 (02:21→12:38)
[2019-08-12] MEDS: Albuterol/Ipratropium 3.0-0.5 MG/3 ML Neb Soln NEB SCH ×4 (05:42→21:59)
[2019-08-12] MEDS: LORazepam 0.5 MG Tab PO SCH ×4 (06:26→22:01)
[2019-08-12] MEDS: predniSONE 20 MG Tab PO SCH (08:11)
[2019-08-12] MEDS: Carbidopa/Levodopa 10-100 MG Tab PO SCH ×3 (08:11→22:00)
[2019-08-12] MEDS: FLUoxetine 10 MG Cap PO SCH (08:11)
[2019-08-12] MEDS: metFORMIN 500 MG Tab PO SCH ×2 (08:12→21:59)
[2019-08-12] MEDS: Furosemide 40 MG Tab PO SCH ×2 (08:12→14:15)
[2019-08-12] MEDS: guaiFENesin 600 MG Tab.ER PO SCH ×2 (08:12→21:59)
[2019-08-12] MEDS: levETIRAcetam 500 MG Tab PO SCH ×2 (08:12→22:01)
[2019-08-12] MEDS: Potassium Chloride 20 MEQ Tab.ER PO SCH (08:12)
[2019-08-12] MEDS: Tamsulosin 0.4 MG Cap.ER PO SCH (08:13)
[2019-08-12] MEDS: hydrALAZINE 50 MG Tab PO SCH ×3 (08:13→22:00)
[2019-08-12] MEDS: Isosorbide Mononitrate 30 MG Tab.ER PO SCH (08:20)
[2019-08-12] MEDS: amLODIPine 5 MG Tab PO SCH (08:21)
[2019-08-12] MEDS: Insulin Aspart 100 Units/ML 3 ML Pen SUBCUT SCH ×3 (08:23→18:17)
--- NOTE | 2019-08-12 09:07 | PCM.PN ---
- General Info Date of Service: 08/12/19 Functional Status: Reports: Tolerating Diet, Ambulating, Incentive Spirometry ( Patient stated he uses incentive spirometer twice yesterday). Denies: New Symptoms - Review of Systems General: Reports: Weakness, Appetite. Denies: Fever, Malaise, Chills, Night Sweats HEENT: Reports: No Symptoms Pulmonary: Reports: Shortness of Breath. Denies: Cough, Sputum, Wheezing Cardiovascular: Reports: Dyspnea on Exertion, Edema. Denies: Chest Pain, Palpitations, Orthopnea, PND, Lightheadedness Gastrointestinal: Reports: No Symptoms Genitourinary: Reports: No Symptoms Skin: Reports: Dryness Neurological: Denies: Confusion Psychiatric: Denies: Confusion - Patient Data Vitals - Most Recent: Last Vital Signs Temp 96.7 F 08/12/19 06:20 Pulse 67 08/12/19 06:20 Resp 24 H 08/12/19 06:20 BP 130/75 08/12/19 08:21 Pulse Ox 91 L 08/12/19 06:20 Weight - Most Recent: 268 lb I&O - Last 24 Hours: Intake & Output 08/11/19 08/12/19 08/12/19 22:59 06:59 14:59 Intake Total 700 528 Output Total 1375 600 Balance -675 -72 Lab Results Last 24 Hours: Laboratory Results - last 24 hr 08/11/19 08/11/19 08/11/19 Range/Units 09:45 09:45 11:24 WBC 8.86 (5.00-10.00) 10^3/uL RBC 4.60 (4.50-6.00) 10^6/uL Hgb 14.0 (13.0-17.0) g/dL Hct 42.6 (40.0-52.0) % MCV 92.6 H (82.0-92.0) fL MCH 30.4 (27.0-31.0) pg MCHC 32.9 (32.0-36.0) g/dL RDW 13.1 (11.5-14.5) % Plt Count 290 (150-400) 10^3/uL MPV 9.2 (7.4-10.4) fL Add Manual Diff Yes Neutrophils % (Manual) 70 (50-70) % Lymphocytes % (Manual) 17 L (20-40) % Immat Monocytes % (Man) 2 Monocytes % (Manual) 11 H (2-8) % Absolute Neutrophils 6.2020 Lymphocytes # (Manual) 1.5062 Monocytes # (Manual) 0.9746 Sodium 134 L (136-145) mmol/L Potassium 4.2 (3.3-5.3) mmol/L Chloride 95 L (98-115) mmol/L Carbon Dioxide 31.5 (21.0-32.0) mmol/L Anion Gap 11.7 (5-15) mmol/L BUN 16 (6-25) mg/dL Creatinine 0.56 (0.51-1.17) mg/dL Est Cr Clr Drug Dosing 106.88 mL/min Estimated GFR (MDRD) > 60 mL/min Glucose 254 H (75 - 99) mg/dL POC Glucose 240 H (74-106) mg/dl Calcium 8.4 L (8.7-10.3) mg/dL 08/11/19 08/12/19 Range/Units 17:39 07:33 WBC (5.00-10.00) 10^3/uL RBC (4.50-6.00) 10^6/uL Hgb (13.0-17.0) g/dL Hct (40.0-52.0) % MCV (82.0-92.0) fL MCH (27.0-31.0) pg MCHC (32.0-36.0) g/dL RDW (11.5-14.5) % Plt Count (150-400) 10^3/uL MPV (7.4-10.4) fL Add Manual Diff Neutrophils % (Manual) (50-70) % Lymphocytes % (Manual) (20-40) % Immat Monocytes % (Man) Monocytes % (Manual) (2-8) % Absolute Neutrophils Lymphocytes # (Manual) Monocytes # (Manual) Sodium (136-145) mmol/L Potassium (3.3-5.3) mmol/L Chloride (98-115) mmol/L Carbon Dioxide (21.0-32.0) mmol/L Anion Gap (5-15) mmol/L BUN (6-25) mg/dL Creatinine (0.51-1.17) mg/dL Est Cr Clr Drug Dosing mL/min Estimated GFR (MDRD) mL/min Glucose (75 - 99) mg/dL POC Glucose 257 H 142 H (74-106) mg/dl Calcium (8.7-10.3) mg/dL Zachary Results Last 24 Hours: Microbiology 08/05/19 12:56 Bacterial Identification - Preliminary Other - Hand, Left Med Orders - Current: Current Medications Acetaminophen (Tylenol) 650 mg PO Q4H PRN PRN Reason: Pain (Mild 1-3)/fever Last Admin: 08/11/19 06:03 Dose: 650 mg Albuterol/Ipratropium (Duoneb 3.0-0.5 Mg/3 Ml) 3 ml NEB Q6HRRT [facility] Last Admin: 08/12/19 05:42 Dose: 3 ml Amlodipine Besylate (Norvasc) 10 mg PO DAILY [facility] Last Admin: 08/12/19 08:21 Dose: 10 mg Artificial Tears (Refresh Tears 0.5%) 0 ml EYEBOTH ASDIRECTED PRN PRN Reason: Dry Eyes Last Admin: 08/09/19 06:51 Dose: 1 drop Carbidopa/Levodopa (Sinemet 10-100 Mg) 1 tab PO TID [facility] Last Admin: 08/12/19 08:11 Dose: 1 tab Enoxaparin Sodium (Lovenox) 40 mg SUBCUT Q12H [facility] Last Admin: 08/12/19 02:21 Dose: 40 mg Fluoxetine HCl (Prozac) 40 mg PO DAILY [facility] Last Admin: 08/12/19 08:11 Dose: 40 mg Furosemide (Lasix) 40 mg PO 0900,1400 [facility] Last Admin: 08/12/19 08:12 Dose: 40 mg Guaifenesin (Mucinex) 600 mg PO BID [facility] Last Admin: 08/12/19 08:12 Dose: 600 mg Guaifenesin/Phenylephrine HCl (Robitussin Dm) 10 ml PO Q4H PRN PRN Reason: Cough Hydralazine HCl (Apresoline) 25 mg PO TID [facility] Last Admin: 08/12/19 08:13 Dose: 25 mg Vancomycin HCl 1.25 gm/ Sodium (Chloride) 250 mls @ 120 mls/hr IV Q12H [facility] Last Admin: 08/11/19 23:12 Dose: 120 mls/hr Sodium Chloride (Normal Saline) 100 mls @ 100 mls/hr IV ASDIRECTED [facility] Last Admin: 08/11/19 13:39 Dose: 100 mls/hr Insulin Aspart (Novolog) 0 unit SUBCUT TIDMEALS [facility]; Protocol Last Admin: 08/12/19 08:23 Dose: Not Given Isosorbide Mononitrate (Imdur) 30 mg PO QAM [facility] Last Admin: 08/12/19 08:20 Dose: 30 mg Levetiracetam (Keppra) 500 mg PO BID [facility] Last Admin: 08/12/19 08:12 Dose: 500 mg Lorazepam (Ativan) 0.5 mg PO TID@0700,1200,1900 [facility] Last Admin: 08/12/19 06:26 Dose: 0.5 mg Lorazepam (Ativan) 1 mg PO BEDTIME [facility] Last Admin: 08/11/19 20:31 Dose: 1 mg Lorazepam (Ativan) 0.5 mg PO BEDTIME PRN PRN Reason: Anxiety Metformin HCl (Glucophage) 500 mg PO BID [facility] Last Admin: 08/12/19 08:12 Dose: 500 mg Nystatin (Nystop) 0 gm TOP BID [facility] Last Admin: 08/11/19 20:33 Dose: Not Given Polyethylene Glycol (Miralax) 17 gm PO BEDTIME [facility] Last Admin: 08/11/19 20:30 Dose: 17 gm Potassium Chloride (Klor-Con M20) 20 meq PO DAILY [facility] Last Admin: 08/12/19 08:12 Dose: 20 meq Prednisone (Prednisone) 40 mg PO WITHBREAKFAST [facility] Last Admin: 08/12/19 08:11 Dose: 40 mg Senna/Docusate Sodium (Senna Plus) 2 tab PO BID [facility] Last Admin: 08/12/19 08:11 Dose: 2 tab Simvastatin (Zocor) 40 mg PO BEDTIME [facility] Last Admin: 08/11/19 20:32 Dose: 40 mg Sodium Chloride (Saline Flush) 10 ml FLUSH Q8HR PRN PRN Reason: keep vein open Last Admin: 08/08/19 23:24 Dose: 10 ml Tamsulosin HCl (Flomax) 0.4 mg PO DAILY [facility] Last Admin: 08/12/19 08:13 Dose: 0.4 mg Vancomycin HCl (Pharmacy To Dose - Vancomycin) 1 dose .XX ASDIRECTED [facility] Discontinued Medications Albuterol/Ipratropium (Duoneb 3.0-0.5 Mg/3 Ml) Confirm Administered Dose 3 ml .ROUTE .STK-MED ONE Stop: 08/05/19 12:23 Last Admin: 08/05/19 12:42 Dose: Not Given Albuterol/Ipratropium (Duoneb 3.0-0.5 Mg/3 Ml) 3 ml NEB ONETIME ONE Stop: 08/05/19 12:28 Last Admin: 08/05/19 12:25 Dose: 3 ml Albuterol/Ipratropium (Duoneb 3.0-0.5 Mg/3 Ml) 3 ml NEB Q4H [facility] Last Admin: 08/05/19 15:59 Dose: 3 ml Albuterol/Ipratropium (Duoneb 3.0-0.5 Mg/3 Ml) 3 ml NEB Q4H [facility] Last Admin: 08/08/19 08:50 Dose: 3 ml Bumetanide (Bumex) 1 mg IVPUSH ONETIME STA Stop: 08/05/19 20:10 Last Admin: 08/05/19 20:48 Dose: Not Given Furosemide (Lasix) Confirm Administered Dose 40 mg .ROUTE .STK-MED ONE Stop: 08/05/19 13:24 Last Admin: 08/05/19 14:33 Dose: Not Given Furosemide (Lasix) 40 mg IVPUSH NOW ONE Stop: 08/05/19 13:40 Last Admin: 08/05/19 13:45 Dose: 40 mg Furosemide (Lasix) 40 mg IVPUSH ONETIME ONE Stop: 08/05/19 18:11 Last Admin: 08/05/19 18:12 Dose: 40 mg Furosemide (Lasix) 10 mg IVPUSH CONTINUOUS [facility] Furosemide (Lasix) 10 mg IVPUSH 5XDAY@0030,2130,2300 [facility] Stop: 08/06/19 06:00 Furosemide (Lasix) 10 mg IVPUSH TID@0030,2130,2300 [facility] Stop: 08/06/19 01:30 Last Admin: 08/06/19 00:37 Dose: 10 mg Furosemide (Lasix) 10 mg IV TID@0200,0330,0500 [facility] Stop: 08/06/19 06:00 Last Admin: 08/06/19 05:32 Dose: 10 mg Furosemide (Lasix) 10 mg IV TID@0630,0800,0930 [facility] Stop: 08/06/19 10:30 Last Admin: 08/06/19 11:59 Dose: Not Given Furosemide (Lasix) 10 mg IV BID@1100,1230 [facility] Stop: 08/06/19 13:30 Furosemide (Lasix) 40 mg IVPUSH NOW ONE Stop: 08/07/19 14:01 Last Admin: 08/07/19 13:23 Dose: 40 mg Furosemide (Lasix) 40 mg IVPUSH NOW ONE Stop: 08/08/19 09:55 Last Admin: 08/08/19 10:26 Dose: 40 mg Furosemide (Lasix) 40 mg IVPUSH NOW ONE Stop: 08/08/19 14:01 Last Admin: 08/08/19 13:44 Dose: 40 mg Sodium Chloride (Normal Saline) 50 mls @ 200 mls/min IV ONETIME ONE Stop: 08/06/19 09:44 Last Admin: 08/06/19 09:53 Dose: 200 mls/min Furosemide 100 mg/ Sodium (Chloride) 100 mls @ 10 mls/hr IV CONTINUOUS [facility] Last Admin: 08/07/19 06:26 Dose: 10 mg/hr, 10 mls/hr Potassium Chloride 20 meq/ (Premix) 100 mls @ 50 mls/hr IV ONETIME ONE Stop: 08/06/19 12:53 Last Admin: 08/06/19 13:20 Dose: 50 mls/hr Potassium Chloride 20 meq/ (Premix) 100 mls @ 50 mls/hr IV ONETIME ONE Stop: 08/06/19 17:59 Last Admin: 08/06/19 16:46 Dose: 50 mls/hr Sodium Chloride (Normal Saline) 250 mls @ 100 mls/hr IV ASDIRECTED [facility] Last Admin: 08/06/19 13:16 Dose: 100 mls/hr Iopamidol (Isovue-370 (76%)) 100 ml IV ONETIME ONE Stop: 08/06/19 09:44 Last Admin: 08/06/19 09:52 Dose: 100 ml Lorazepam (Ativan) 0.5 mg PO BID PRN PRN Reason: ANXIETY Last Admin: 08/06/19 09:58 Dose: 0.5 mg Lorazepam (Ativan) 1 mg PO BEDTIME PRN PRN Reason: ANXIETY Last Admin: 08/06/19 02:06 Dose: 1 mg Magnesium Oxide (Magnesium Oxide) 500 mg PO ONETIME ONE Stop: 08/07/19 13:01 Last Admin: 08/07/19 13:35 Dose: 500 mg Methylprednisolone Sodium Succinate (Solu-Medrol) 80 mg IVPUSH ONETIME ONE Stop: 08/07/19 12:48 Last Admin: 08/07/19 13:23 Dose: 80 mg Potassium Bicarbonate (Klor-Con Ef) 25 meq PO DAILY [facility] Potassium Bicarbonate (Klor-Con Ef) 25 meq PO ONETIME ONE Stop: 08/06/19 17:01 Last Admin: 08/06/19 16:45 Dose: 25 meq Potassium Bicarbonate (Klor-Con Ef) 25 meq PO ONETIME ONE Stop: 08/06/19 12:01 Last Admin: 08/06/19 12:17 Dose: 25 meq Potassium Chloride (Klor-Con M20) 20 meq PO ONETIME ONE Stop: 08/05/19 19:01 Last Admin: 08/05/19 19:57 Dose: 20 meq Potassium Chloride (Klor-Con M20) 40 meq PO ONETIME ONE Stop: 08/07/19 12:50 Last Admin: 08/07/19 13:35 Dose: 40 meq Prednisone (Prednisone) 40 mg PO WITHBREAKFAST [facility] Sodium Chloride (Saline Flush) 10 ml FLUSH Q8HR PRN PRN Reason: keep vein open Tamsulosin HCl (Flomax) 0.4 mg PO DAILY [facility] - Exam Quality Assessment: Supplemental Oxygen (2.5 L nasal cannula), DVT Prophylaxis. No: Skin Breakdown General: Alert, Oriented, Cooperative, No Acute Distress Neck: No JVD Lungs: Rhonchi (Light rhonchus). No: Crackles, Rales, Rub Cardiovascular: Regular Rate, Regular Rhythm, No Murmurs GI/Abdominal Exam: Soft. No: Distended (Male) Exam: Deferred Back Exam: No: CVA Tenderness (L), CVA Tenderness (R) Extremities: No Pedal Edema. No: Pedal Edema, Samantha's Sign, Leg Pain, Redness Peripheral Pulses: 2+: Radial (L), Radial (R) Skin: Dry Psy/Mental Status: Alert, Normal Affect, Normal Mood Sepsis Event Note - Evaluation Sepsis Screening Result: No Definite Risk - Focused Exam Vital Signs: Vital Signs Temp Pulse Resp BP BP Pulse Ox Pulse Ox 08/12/19 08:21 130/75 08/12/19 08:20 130/75 08/12/19 08:13 130/75 08/12/19 06:20 96.7 F 67 24 H 137/71 91 L 08/12/19 05:42 68 95 08/12/19 05:40 95 08/11/19 23:30 67 08/11/19 23:00 96.8 F 68 20 130/67 93 L Pulse Ox 08/12/19 08:21 08/12/19 08:20 08/12/19 08:13 08/12/19 06:20 08/12/19 05:42 08/12/19 05:40 08/11/19 23:30 91 L 08/11/19 23:00 Date Exam was Performed: 08/12/19 Time Exam was Performed: 09:10 - Problem List Review Problem List Initiated/Reviewed/Updated: Yes - My Orders Last 24 Hours: My Active Orders 08/11/19 09:00 Communication Order [RC] 0900 08/11/19 11:00 Pharmacy to Dose - Vancomycin 1 dose .XX ASDIRECTED 08/11/19 12:00 Vancomycin 1.25 gm Sodium Chloride 0.9% [Normal Saline] 250 ml IV Q12H 08/11/19 12:30 Sodium Chloride 0.9% [Normal Saline] 100 ml IV ASDIRECTED 08/13/19 11:30 VANCOMYCIN TROUGH [CHEM] Routine - Plan Plan:: History summary Mr. Santana is a severely obese 79-year-old gentleman [facility] due to shortness of breath. Patient states he has had upper respiratory infection and has been sick for 3-4 days with cough and congestion howver no documented fevers or chills. He was taken OTC Mucinex however his symptoms seem to worsen. He had no chest pain however was short of breath upon entering the ED. Along with his obesity he does have a COPD/asthma component. Pertinent ED work-up: WBC 7.1 with neutrophilia Na 133 Troponin <0.04 BNP 564 Negative influenza swab CXR-small left pleural effusion recommend CT chest Lasix 40 mg IV x 1 Hospital course Day 1: Shortly after accepting patient for hospital admission, nurses notified me concerning significant shortness of breath with hypoxia in the 70s upon standing and they were concerned the patient would not be able to make it through the night due to his significant laboring. I arrived at the hospital to examine the patient and therefore initiated furosemide drip--significant output throughout the night. prophylactic potassium supplementation given, ordered CT of the chest however the patient had eaten. ABG reassuring, orders were placed, Rasheed catheter placed he had significant diuresing output that first night. Day 2: Rounds the patient was OOB in chair improved from his respiratory distressed from overnight however far from baseline. Repeated BNP down to 400. CT of the chest consistent with chest x-ray with pleural effusion left side however no other concerning findings. His Lasix drip was discontinued one time IV dose that afternoon of 40 mg was given. He was also given 1 time dose of solumedrol. K+ was given due to hypokalemia and his magnesium was replaced. Continue to diurese quite well. WBC 7.90 with nearly resolved neutrophilia. He was afebrile and his preliminary BC x 2 were negative. Metformin was held for 48 hours d/t CT. low dose novolog SS to cover steroid induced hyperglycemia. Day 3: He continued to diurese however had slight weight gain despite significant diuresing, his prednisone was changed to p.o. His first blood culture came back gram-positive cocci thought to be contaminant and since no fever, normal white count with improved clinical condition no antibiotics were started. At this time it was felt the patient likely could be discharged and was awaiting a ride however RT had yet to evaluate patient's for home oxygen CT had not yet seen the patient. Day 4: It was becoming quite evident that the patient would not be able to go home due to ongoing diuresing, the need for oxygen and the fact the [facility] was a [facility] and would not qualify for custodial facility here have considerable expense on part A. [facility] was consulted and they did agree to inpatient stay for physical therapy and oxygen therapy with ongoing diuresing. ~10,000 mL neg o/p Day 5: Ongoing diuresing without complications, -1000 cc yesterday, ~11,000 mL total neg o/p since admission, much less edema in lower extremities however likely not at dry weight, not using incentive spirometer as instructed needs more frequency, vital signs stable, still requiring 2.5 L oxygen, vancomycin started yesterday definitive identification pending--unknown if clusters or chains therefore vancomycin was started to cover both--however gram-positive cocci Primary assessment/plan: --Bacteremia, without identifiable source, gram-positive cocci without known clusters, on vancomycin at this time until more identifiable ID from [facility]. --Heart failure exacerbation, unspecified, improving. No ECHO on file or available from [facility] records. Reviewed wts, unreliable bu t2 pounds up from yesterday, Diuresed ~11,000 ml, neg o/p's since admission. On PO lasix 40 mg BID. Continue daily weights and accurate I & O. Will monitor Creatinine and electrolytes, low-sodium diet, sodium level adequate so will forego fluid restriction --COPD, important he bring in CPAP to the hospital. CT of the chest consistent with chest x-ray with pleural effusion left side however no other concerning findings --Deconditioning, profound. PT for strengthening and assess the need for ongoing oxygen requirements --Small left pleural effusion as noted on CT chest. [facility] notes that patient required a [facility]acentesis in 2018 d/t a moderate left pleural effusion. Approximately 1100 mL drained with pathology negative for malignancy, however did note benign mesothelial cells and inflammatory cells. --Small left base infiltrate. Incentive Spirometer, need to use more. --T2DM. Accu checks TID. Much better control. Resumed metformin on 08/09/19 PM dose. Secondary assessment/plan: HTN. Continue norvasc, hydralazine. CAD. Continue Imdur. HLD. Continue simvastatin. Obesity. RESHMA. Noncompliant with CPAP, Parkinson's disease. Continue sinemet. Seizures. Continue Keppra. History of subdural hematoma. History of squamous cell carcinoma of skin. Depression. Continue prozac. Anxiety. Continue lorazepam. Environmental/seasonal allergies. Constipation. Continue Miralax, senna-S. BPH. Continue flomax. DVT prophylaxis. On lovenox until satisfactory ambulation, refuses TEDS Overall plan: Ongoing diuresing until optimal dry weight, to her electrolytes, sodium level, continue with physical therapy. Since patient is a will not qualify for SNF here, and would have considerable [id number] under Medicare part A, [facility] notified and they agree for ongoing inpatient status. He will need aggressive physical therapy due to significant comorbidities and deconditioning far below his baseline. Reviewed PT notes, appears patient can tolerate being up and moving while on 3 L of oxygen however at very low intensity level. Further distance of ambulation he requires up to 5L to keep sats 88-90%. Have physical therapy discussed with patient regarding bring in CPAP in the hospital.
[2019-08-12] MEDS: Acetaminophen 325 MG Tab PO PRN (09:36)
[2019-08-12] MEDS: Nystatin Topical Powder 15 GM Bottle TOP SCH ×2 (09:37→22:05)
[2019-08-12] MEDS: Sodium Chloride 0.9% 100 ML IV SCH (12:43)
[2019-08-12] MEDS: Oseltamivir 75 MG Cap PO SCH (15:45)
[2019-08-12] MEDS: Polyethylene Glycol 3350 Powder 17 GM Packet PO SCH (21:59)
[2019-08-12] MEDS: Simvastatin 20 MG Tab PO SCH (22:01)
[2019-08-12] MEDS: Carboxymethylcellulose Sodium 0.5% Ophth Soln 15 ML Bottle EYEBOTH PRN (22:13)
[2019-08-13] MEDS: Enoxaparin 40 MG/0.4 ML Syringe SUBCUT SCH ×2 (00:21→12:42)
[2019-08-13] MEDS: Sodium Chloride 0.9% 10 ML Syringe FLUSH PRN ×2 (00:37→12:40)
[2019-08-13] MEDS: Albuterol/Ipratropium 3.0-0.5 MG/3 ML Neb Soln NEB SCH ×4 (05:26→23:23)
[2019-08-13] MEDS: LORazepam 0.5 MG Tab PO SCH ×4 (06:43→22:05)
[2019-08-13 07:54] LABS: ANION GAP 8.3 mmol/L (5-15); CHLORIDE,CL 97 mmol/L (98-115); SODIUM,NA 132 mmol/L (136-145)
[2019-08-13] MEDS: Insulin Aspart 100 Units/ML 3 ML Pen SUBCUT SCH ×3 (07:57→18:04)
[2019-08-13] MEDS: Oseltamivir 75 MG Cap PO SCH (08:26)
[2019-08-13] MEDS: Potassium Chloride 20 MEQ Tab.ER PO SCH (08:26)
[2019-08-13] MEDS: Carbidopa/Levodopa 10-100 MG Tab PO SCH ×3 (08:26→22:06)
[2019-08-13] MEDS: FLUoxetine 10 MG Cap PO SCH (08:26)
[2019-08-13] MEDS: predniSONE 20 MG Tab PO SCH (08:27)
[2019-08-13] MEDS: metFORMIN 500 MG Tab PO SCH ×2 (08:27→22:07)
[2019-08-13] MEDS: amLODIPine 5 MG Tab PO SCH (08:27)
[2019-08-13] MEDS: levETIRAcetam 500 MG Tab PO SCH ×2 (08:27→22:05)
[2019-08-13] MEDS: Furosemide 40 MG Tab PO SCH ×2 (08:27→15:00)
[2019-08-13] MEDS: Tamsulosin 0.4 MG Cap.ER PO SCH (08:27)
[2019-08-13] MEDS: guaiFENesin 600 MG Tab.ER PO SCH ×2 (08:27→22:02)
[2019-08-13] MEDS: hydrALAZINE 50 MG Tab PO SCH ×3 (08:27→22:01)
[2019-08-13] MEDS: Isosorbide Mononitrate 30 MG Tab.ER PO SCH (08:27)
[2019-08-13] MEDS: Nystatin Topical Powder 15 GM Bottle TOP SCH ×2 (08:31→22:09)
--- NOTE | 2019-08-13 09:37 | PCM.PN ---
- General Info Date of Service: 08/13/19 Functional Status: Reports: Pain Controlled, Tolerating Diet, Ambulating, Incentive Spirometry. Denies: New Symptoms - Review of Systems General: Reports: Fatigue. Denies: Fever, Malaise, Chills HEENT: Reports: No Symptoms Pulmonary: Reports: Shortness of Breath. Denies: Cough, Sputum Cardiovascular: Reports: Dyspnea on Exertion Gastrointestinal: Reports: No Symptoms Genitourinary: Reports: No Symptoms Musculoskeletal: Reports: No Symptoms Skin: Reports: Dryness. Denies: Rash Neurological: Denies: Confusion Psychiatric: Denies: Confusion - Patient Data Vitals - Most Recent: Last Vital Signs Temp 96.6 F 08/13/19 05:27 Pulse 64 08/13/19 05:27 Resp 20 08/13/19 05:27 BP 147/73 H 08/13/19 08:27 Pulse Ox 95 08/13/19 05:29 Weight - Most Recent: 267 lb 5 oz I&O - Last 24 Hours: Intake & Output 08/12/19 08/13/19 08/13/19 22:59 06:59 14:59 Intake Total 500 655 Output Total 1100 1500 Balance -600 -845 Lab Results Last 24 Hours: Laboratory Results - last 24 hr 08/12/19 08/12/19 08/13/19 Range/Units 11:40 17:38 07:19 WBC (5.00-10.00) 10^3/uL RBC (4.50-6.00) 10^6/uL Hgb (13.0-17.0) g/dL Hct (40.0-52.0) % MCV (82.0-92.0) fL MCH (27.0-31.0) pg MCHC (32.0-36.0) g/dL RDW (11.5-14.5) % Plt Count (150-400) 10^3/uL MPV (7.4-10.4) fL Add Manual Diff Neutrophils % (Manual) (50-70) % Band Neutrophils % (4-12) % Lymphocytes % (Manual) (20-40) % Monocytes % (Manual) (2-8) % Eosinophils % (Manual) (1-3) % Absolute Neutrophils Band Neutrophils # Lymphocytes # (Manual) Monocytes # (Manual) Eosinophils # (Manual) Sodium 132 L (136-145) mmol/L Potassium 4.0 (3.3-5.3) mmol/L Chloride 97 L (98-115) mmol/L Carbon Dioxide 30.7 (21.0-32.0) mmol/L Anion Gap 8.3 (5-15) mmol/L BUN 13 (6-25) mg/dL Creatinine 0.55 (0.51-1.17) mg/dL Est Cr Clr Drug Dosing 108.82 mL/min Estimated GFR (MDRD) > 60 mL/min Glucose 135 H (75 - 99) mg/dL POC Glucose 192 H 300 H (74-106) mg/dl Calcium 8.8 (8.7-10.3) mg/dL 08/13/19 08/13/19 Range/Units 07:19 07:38 WBC 12.31 H (5.00-10.00) 10^3/uL RBC 4.73 (4.50-6.00) 10^6/uL Hgb 14.5 (13.0-17.0) g/dL Hct 43.8 (40.0-52.0) % MCV 92.6 H (82.0-92.0) fL MCH 30.7 (27.0-31.0) pg MCHC 33.1 (32.0-36.0) g/dL RDW 13.0 (11.5-14.5) % Plt Count 254 (150-400) 10^3/uL MPV 9.5 (7.4-10.4) fL Add Manual Diff Yes Neutrophils % (Manual) 73 H (50-70) % Band Neutrophils % 3 L (4-12) % Lymphocytes % (Manual) 16 L (20-40) % Monocytes % (Manual) 7 (2-8) % Eosinophils % (Manual) 1 (1-3) % Absolute Neutrophils 8.99 Band Neutrophils # 0.37 Lymphocytes # (Manual) 1.97 Monocytes # (Manual) 0.86 Eosinophils # (Manual) 0.12 Sodium (136-145) mmol/L Potassium (3.3-5.3) mmol/L Chloride (98-115) mmol/L Carbon Dioxide (21.0-32.0) mmol/L Anion Gap (5-15) mmol/L BUN (6-25) mg/dL Creatinine (0.51-1.17) mg/dL Est Cr Clr Drug Dosing mL/min Estimated GFR (MDRD) mL/min Glucose (75 - 99) mg/dL POC Glucose 127 H (74-106) mg/dl Calcium (8.7-10.3) mg/dL Zachary Results Last 24 Hours: Microbiology 08/09/19 08:35 Bacterial Identification - Preliminary Blood - Venous Staphylococcus Coagulase Neg Med Orders - Current: Current Medications Acetaminophen (Tylenol) 650 mg PO Q4H PRN PRN Reason: Pain (Mild 1-3)/fever Last Admin: 08/12/19 09:36 Dose: 650 mg Albuterol/Ipratropium (Duoneb 3.0-0.5 Mg/3 Ml) 3 ml NEB Q6HRRT [facility] Last Admin: 08/13/19 05:26 Dose: 3 ml Amlodipine Besylate (Norvasc) 10 mg PO DAILY [facility] Last Admin: 08/13/19 08:27 Dose: 10 mg Artificial Tears (Refresh Tears 0.5%) 0 ml EYEBOTH ASDIRECTED PRN PRN Reason: Dry Eyes Last Admin: 08/12/19 22:13 Dose: 1 drop Carbidopa/Levodopa (Sinemet 10-100 Mg) 1 tab PO TID [facility] Last Admin: 08/13/19 08:26 Dose: 1 tab Enoxaparin Sodium (Lovenox) 40 mg SUBCUT Q12H [facility] Last Admin: 08/13/19 00:21 Dose: 40 mg Fluoxetine HCl (Prozac) 40 mg PO DAILY [facility] Last Admin: 08/13/19 08:26 Dose: 40 mg Furosemide (Lasix) 40 mg PO 0900,1400 [facility] Last Admin: 08/13/19 08:27 Dose: 40 mg Guaifenesin (Mucinex) 600 mg PO BID [facility] Last Admin: 08/13/19 08:27 Dose: 600 mg Guaifenesin/Phenylephrine HCl (Robitussin Dm) 10 ml PO Q4H PRN PRN Reason: Cough Hydralazine HCl (Apresoline) 25 mg PO TID [facility] Last Admin: 08/13/19 08:27 Dose: 25 mg Vancomycin HCl 1.25 gm/ Sodium (Chloride) 250 mls @ 120 mls/hr IV Q12H [facility] Last Admin: 08/13/19 00:30 Dose: 120 mls/hr Sodium Chloride (Normal Saline) 100 mls @ 100 mls/hr IV ASDIRECTED [facility] Last Admin: 08/12/19 12:43 Dose: 100 mls/hr Insulin Aspart (Novolog) 0 unit SUBCUT TIDMEALS [facility]; Protocol Last Admin: 08/13/19 07:57 Dose: Not Given Isosorbide Mononitrate (Imdur) 30 mg PO QAM [facility] Last Admin: 08/13/19 08:27 Dose: 30 mg Levetiracetam (Keppra) 500 mg PO BID [facility] Last Admin: 08/13/19 08:27 Dose: 500 mg Lorazepam (Ativan) 0.5 mg PO TID@0700,1200,1900 [facility] Last Admin: 08/13/19 06:43 Dose: 0.5 mg Lorazepam (Ativan) 1 mg PO BEDTIME [facility] Last Admin: 08/12/19 22:01 Dose: 1 mg Lorazepam (Ativan) 0.5 mg PO BEDTIME PRN PRN Reason: Anxiety Metformin HCl (Glucophage) 500 mg PO BID [facility] Last Admin: 08/13/19 08:27 Dose: 500 mg Nystatin (Nystop) 0 gm TOP BID [facility] Last Admin: 08/13/19 08:31 Dose: Not Given Oseltamivir Phosphate (Tamiflu) 75 mg PO DAILY [facility] Stop: 08/22/19 15:01 Last Admin: 08/13/19 08:26 Dose: 75 mg Polyethylene Glycol (Miralax) 17 gm PO BEDTIME [facility] Last Admin: 08/12/19 21:59 Dose: 17 gm Potassium Chloride (Klor-Con M20) 20 meq PO DAILY [facility] Last Admin: 08/13/19 08:26 Dose: 20 meq Prednisone (Prednisone) 40 mg PO WITHBREAKFAST [facility] Last Admin: 08/13/19 08:27 Dose: 40 mg Senna/Docusate Sodium (Senna Plus) 2 tab PO BID [facility] Last Admin: 08/13/19 08:31 Dose: 2 tab Simvastatin (Zocor) 40 mg PO BEDTIME [facility] Last Admin: 08/12/19 22:01 Dose: 40 mg Sodium Chloride (Saline Flush) 10 ml FLUSH Q8HR PRN PRN Reason: keep vein open Last Admin: 08/13/19 00:37 Dose: 10 ml Tamsulosin HCl (Flomax) 0.4 mg PO DAILY [facility] Last Admin: 08/13/19 08:27 Dose: 0.4 mg Vancomycin HCl (Pharmacy To Dose - Vancomycin) 1 dose .XX ASDIRECTED [facility] Discontinued Medications Albuterol/Ipratropium (Duoneb 3.0-0.5 Mg/3 Ml) Confirm Administered Dose 3 ml .ROUTE .STK-MED ONE Stop: 08/05/19 12:23 Last Admin: 08/05/19 12:42 Dose: Not Given Albuterol/Ipratropium (Duoneb 3.0-0.5 Mg/3 Ml) 3 ml NEB ONETIME ONE Stop: 08/05/19 12:28 Last Admin: 08/05/19 12:25 Dose: 3 ml Albuterol/Ipratropium (Duoneb 3.0-0.5 Mg/3 Ml) 3 ml NEB Q4H [facility] Last Admin: 08/05/19 15:59 Dose: 3 ml Albuterol/Ipratropium (Duoneb 3.0-0.5 Mg/3 Ml) 3 ml NEB Q4H [facility] Last Admin: 08/08/19 08:50 Dose: 3 ml Bumetanide (Bumex) 1 mg IVPUSH ONETIME STA Stop: 08/05/19 20:10 Last Admin: 08/05/19 20:48 Dose: Not Given Furosemide (Lasix) Confirm Administered Dose 40 mg .ROUTE .STK-MED ONE Stop: 08/05/19 13:24 Last Admin: 08/05/19 14:33 Dose: Not Given Furosemide (Lasix) 40 mg IVPUSH NOW ONE Stop: 08/05/19 13:40 Last Admin: 08/05/19 13:45 Dose: 40 mg Furosemide (Lasix) 40 mg IVPUSH ONETIME ONE Stop: 08/05/19 18:11 Last Admin: 08/05/19 18:12 Dose: 40 mg Furosemide (Lasix) 10 mg IVPUSH CONTINUOUS [facility] Furosemide (Lasix) 10 mg IVPUSH 5XDAY@0030,2130,2300 [facility] Stop: 08/06/19 06:00 Furosemide (Lasix) 10 mg IVPUSH TID@0030,2130,2300 [facility] Stop: 08/06/19 01:30 Last Admin: 08/06/19 00:37 Dose: 10 mg Furosemide (Lasix) 10 mg IV TID@0200,0330,0500 [facility] Stop: 08/06/19 06:00 Last Admin: 08/06/19 05:32 Dose: 10 mg Furosemide (Lasix) 10 mg IV TID@0630,0800,0930 [facility] Stop: 08/06/19 10:30 Last Admin: 08/06/19 11:59 Dose: Not Given Furosemide (Lasix) 10 mg IV BID@1100,1230 [facility] Stop: 08/06/19 13:30 Furosemide (Lasix) 40 mg IVPUSH NOW ONE Stop: 08/07/19 14:01 Last Admin: 08/07/19 13:23 Dose: 40 mg Furosemide (Lasix) 40 mg IVPUSH NOW ONE Stop: 08/08/19 09:55 Last Admin: 08/08/19 10:26 Dose: 40 mg Furosemide (Lasix) 40 mg IVPUSH NOW ONE Stop: 08/08/19 14:01 Last Admin: 08/08/19 13:44 Dose: 40 mg Sodium Chloride (Normal Saline) 50 mls @ 200 mls/min IV ONETIME ONE Stop: 08/06/19 09:44 Last Admin: 08/06/19 09:53 Dose: 200 mls/min Furosemide 100 mg/ Sodium (Chloride) 100 mls @ 10 mls/hr IV CONTINUOUS [facility] Last Admin: 08/07/19 06:26 Dose: 10 mg/hr, 10 mls/hr Potassium Chloride 20 meq/ (Premix) 100 mls @ 50 mls/hr IV ONETIME ONE Stop: 08/06/19 12:53 Last Admin: 08/06/19 13:20 Dose: 50 mls/hr Potassium Chloride 20 meq/ (Premix) 100 mls @ 50 mls/hr IV ONETIME ONE Stop: 08/06/19 17:59 Last Admin: 08/06/19 16:46 Dose: 50 mls/hr Sodium Chloride (Normal Saline) 250 mls @ 100 mls/hr IV ASDIRECTED [facility] Last Admin: 08/06/19 13:16 Dose: 100 mls/hr Iopamidol (Isovue-370 (76%)) 100 ml IV ONETIME ONE Stop: 08/06/19 09:44 Last Admin: 08/06/19 09:52 Dose: 100 ml Lorazepam (Ativan) 0.5 mg PO BID PRN PRN Reason: ANXIETY Last Admin: 08/06/19 09:58 Dose: 0.5 mg Lorazepam (Ativan) 1 mg PO BEDTIME PRN PRN Reason: ANXIETY Last Admin: 08/06/19 02:06 Dose: 1 mg Magnesium Oxide (Magnesium Oxide) 500 mg PO ONETIME ONE Stop: 08/07/19 13:01 Last Admin: 08/07/19 13:35 Dose: 500 mg Methylprednisolone Sodium Succinate (Solu-Medrol) 80 mg IVPUSH ONETIME ONE Stop: 08/07/19 12:48 Last Admin: 08/07/19 13:23 Dose: 80 mg Potassium Bicarbonate (Klor-Con Ef) 25 meq PO DAILY [facility] Potassium Bicarbonate (Klor-Con Ef) 25 meq PO ONETIME ONE Stop: 08/06/19 17:01 Last Admin: 08/06/19 16:45 Dose: 25 meq Potassium Bicarbonate (Klor-Con Ef) 25 meq PO ONETIME ONE Stop: 08/06/19 12:01 Last Admin: 08/06/19 12:17 Dose: 25 meq Potassium Chloride (Klor-Con M20) 20 meq PO ONETIME ONE Stop: 08/05/19 19:01 Last Admin: 08/05/19 19:57 Dose: 20 meq Potassium Chloride (Klor-Con M20) 40 meq PO ONETIME ONE Stop: 08/07/19 12:50 Last Admin: 08/07/19 13:35 Dose: 40 meq Prednisone (Prednisone) 40 mg PO WITHBREAKFAST [facility] Sodium Chloride (Saline Flush) 10 ml FLUSH Q8HR PRN PRN Reason: keep vein open Tamsulosin HCl (Flomax) 0.4 mg PO DAILY [facility] - Exam Quality Assessment: DVT Prophylaxis. No: Supplemental Oxygen General: Alert, Oriented, Cooperative, No Acute Distress Neck: No JVD Lungs: Rhonchi Cardiovascular: Regular Rate, Regular Rhythm. No: Tachycardia, Murmurs GI/Abdominal Exam: Soft, Other (large body hab) Back Exam: No: CVA Tenderness (L), CVA Tenderness (R) Extremities: No Pedal Edema Skin: Dry Neurological: Normal Speech, Normal Tone Psy/Mental Status: Alert, Normal Affect, Normal Mood Sepsis Event Note - Evaluation Sepsis Screening Result: No Definite Risk - Focused Exam Vital Signs: Vital Signs Temp Pulse Resp BP BP Pulse Ox Pulse Ox 08/13/19 08:27 147/73 H 08/13/19 05:29 95 08/13/19 05:27 96.6 F 64 20 148/81 H 95 08/12/19 22:08 97.2 F 64 24 H 137/72 96 08/12/19 22:00 137/72 Date Exam was Performed: 08/13/19 Time Exam was Performed: 16:16 - Problem List Review Problem List Initiated/Reviewed/Updated: Yes - My Orders Last 24 Hours: My Active Orders 08/12/19 15:00 Oseltamivir [Tamiflu] 75 mg PO DAILY 08/13/19 11:30 VANCOMYCIN TROUGH [CHEM] Routine - Plan Plan:: History summary Mr. 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 Patient states he has had upper respiratory infection and has been sick for 3-4 days with cough and congestion howver no documented fevers or chills. He was taken OTC Mucinex however his symptoms seem to worsen. He had no chest pain however was short of breath upon entering the ED. Along with his obesity he does have a COPD/asthma component. Pertinent ED work-up: WBC 7.1 with neutrophilia Na 133 Troponin <0.04 BNP 564 Negative influenza swab CXR-small left pleural effusion recommend CT chest Lasix 40 mg IV x 1 Hospital course Day 1: Shortly after accepting patient for hospital admission, nurses notified me concerning significant shortness of breath with hypoxia in the 70s upon standing and they were concerned the patient would not be able to make it through the night due to his significant laboring. I arrived at the hospital to examine the patient and therefore initiated furosemide drip--significant output throughout the night. prophylactic potassium supplementation given, ordered CT of the chest however the patient had eaten. ABG reassuring, orders were placed, Rasheed catheter placed he had significant diuresing output that first night. Day 2: Rounds the patient was OOB in chair improved from his respiratory distressed from overnight however far from baseline. Repeated BNP down to 400. CT of the chest consistent with chest x-ray with pleural effusion left side however no other concerning findings. His Lasix drip was discontinued one time IV dose that afternoon of 40 mg was given. He was also given 1 time dose of solumedrol. K+ was given due to hypokalemia and his magnesium was replaced. Continue to diurese quite well. WBC 7.90 with nearly resolved neutrophilia. He was afebrile and his preliminary BC x 2 were negative. Metformin was held for 48 hours d/t CT. low dose novolog SS to cover steroid induced hyperglycemia. Day 3: He continued to diurese however had slight weight gain despite significant diuresing, his prednisone was changed to p.o. His first blood culture came back gram-positive cocci thought to be contaminant and since no fever, normal white count with improved clinical condition no antibiotics were started. At this time it was felt the patient likely could be discharged and was awaiting a ride however RT had yet to evaluate patient's for home oxygen CT had not yet seen the patient. Day 4: It was becoming quite evident that the patient would not be able to go home due to ongoing diuresing, the need for oxygen and the fact the [facility] was a [facility] and would not qualify for half-way facility here have considerable expense on part A. [facility] was consulted and they did agree to inpatient stay for physical therapy and oxygen therapy with ongoing diuresing. ~10,000 mL neg o/p Day 5: Ongoing diuresing without complications, -1000 cc yesterday, ~11,000 mL total neg o/p since admission, much less edema in lower extremities however likely not at dry weight, not using incentive spirometer as instructed needs more frequency, vital signs stable, still requiring 2.5 L oxygen, vancomycin started yesterday definitive identification pending--unknown if clusters or chains therefore vancomycin was started to cover both--however gram-positive cocci Day 6: Ongoing diuresing without complications, -1270 cc op yesterday, ~12,000 mL total neg o/p since admission, much less edema in lower extremities however likely not at dry weight, not using incentive spirometer as instructed needs more frequency use, vital signs stable, still requiring 2.5 L oxygen, vancomycin was started BC gram-positive cocci has come back with coagulase negative so doubtful staphylococcal aureus. Likely staphylococcal epidermidis. influenza B exposure, staff certified nurse midwife positive for influenza B, started on prophylactic Tamiflu treatment Primary assessment/plan: --Bacteremia, without identifiable source, gram-positive cocci has come back with coagulase negative Suspect staphylococcal epidermidis. at this time we'll keep on vancomycin as possible methicillin resistant--will have lab communicate with NPL regarding this so de-escalation to PO Batrim may be considered. Will need BC surveillance since gram-positive --Heart failure exacerbation, unspecified, improving. No ECHO on file or available from [facility] records. Reviewed wts, unreliable bu t2 pounds up from yesterday, Diuresed ~12,000 ml, neg o/p's since admission. On PO lasix 40 mg BID. Continue daily weights and accurate I & O. Will monitor Creatinine and electrolytes, low-sodium diet, sodium level >130 so will forego fluid restriction --COPD, important he bring in CPAP to the hospital. CT of the chest consistent with chest x-ray with pleural effusion left side however no other concerning findings --Deconditioning, profound. PT for strengthening and assess the need for ongoing oxygen requirements --influenza B exposure, staff certified nurse midwife positive for influenza B, started on prophylactic Tamiflu treatment --Small left pleural effusion as noted on CT chest. [facility] notes that patient required a thoracentesis in 2018 d/t a moderate left pleural effusion. Approximately 1100 mL drained with pathology negative for malignancy, however did note benign mesothelial cells and inflammatory cells. --Small left base infiltrate. Incentive Spirometer, need to use more. --T2DM. Accu checks TID. Much better control. Resumed metformin on 08/09/19 PM dose. Secondary assessment/plan: HTN. Continue norvasc, hydralazine. CAD. Continue Imdur. HLD. Continue simvastatin. Obesity. RESHMA. Noncompliant with CPAP, Parkinson's disease. Continue sinemet. Seizures. Continue Keppra. History of subdural hematoma. History of squamous cell carcinoma of skin. Depression. Continue prozac. Anxiety. Continue lorazepam. Environmental/seasonal allergies. Constipation. Continue Miralax, senna-S. BPH. Continue flomax. DVT prophylaxis. On lovenox until satisfactory ambulation, will encourage Jabari Overall plan: Ongoing diuresing until optimal dry weight, to her electrolytes, sodium level, continue with physical therapy. Since patient is a will not qualify for SNF here, and would have considerable [id number] under Medicare part A, [facility] notified and they agree for ongoing inpatient status. He will need aggressive physical therapy due to significant comorbidities and deconditioning far below his baseline. Reviewed PT notes, appears patient can tolerate being up and moving while on 3 L of oxygen however at very low intensity level. Further distance of ambulation he requires up to 5L to keep sats 88-90%. Have physical therapy discussed with patient regarding bring in CPAP in the hospital. nursing staff please --have patient CPAP brought in --ROBBIE barone, counseled patient on this, 8-1200 OKif tolerates, longer if tolerates --incentive spirometer every hour must encourage, patient lacking on this --Blood culture surveillance --Have lab: at this time we'll keep on vancomycin as possible methicillin resistant--Have Lab inquire/call NPL
[2019-08-13] MEDS: Sodium Chloride 0.9% 100 ML IV SCH (12:40)
[2019-08-13] MEDS: Polyethylene Glycol 3350 Powder 17 GM Packet PO SCH (22:01)
[2019-08-13] MEDS: Simvastatin 20 MG Tab PO SCH (22:04)
[2019-08-14] MEDS: Enoxaparin 40 MG/0.4 ML Syringe SUBCUT SCH ×2 (01:11→14:35)
[2019-08-14] MEDS: Albuterol/Ipratropium 3.0-0.5 MG/3 ML Neb Soln NEB SCH ×4 (05:02→22:52)
[2019-08-14] MEDS: LORazepam 0.5 MG Tab PO SCH ×4 (07:49→21:35)
[2019-08-14] MEDS: Insulin Aspart 100 Units/ML 3 ML Pen SUBCUT SCH ×3 (07:51→18:04)
[2019-08-14] MEDS: predniSONE 20 MG Tab PO SCH (07:54)
[2019-08-14] MEDS: Nystatin Topical Powder 15 GM Bottle TOP SCH ×2 (08:05→21:37)
[2019-08-14] MEDS: FLUoxetine 10 MG Cap PO SCH (08:10)
[2019-08-14] MEDS: Isosorbide Mononitrate 30 MG Tab.ER PO SCH (08:10)
[2019-08-14] MEDS: Tamsulosin 0.4 MG Cap.ER PO SCH (08:10)
[2019-08-14] MEDS: Carbidopa/Levodopa 10-100 MG Tab PO SCH ×3 (08:10→21:38)
[2019-08-14] MEDS: Potassium Chloride 20 MEQ Tab.ER PO SCH (08:10)
[2019-08-14] MEDS: Oseltamivir 75 MG Cap PO SCH (08:10)
[2019-08-14] MEDS: metFORMIN 500 MG Tab PO SCH ×2 (08:10→21:36)
[2019-08-14] MEDS: guaiFENesin 600 MG Tab.ER PO SCH ×2 (08:10→21:37)
[2019-08-14] MEDS: levETIRAcetam 500 MG Tab PO SCH ×2 (08:10→21:36)
[2019-08-14] MEDS: Furosemide 40 MG Tab PO SCH ×2 (08:10→14:36)
[2019-08-14] MEDS: hydrALAZINE 50 MG Tab PO SCH ×3 (08:11→21:34)
[2019-08-14] MEDS: amLODIPine 5 MG Tab PO SCH (08:11)
[2019-08-14] MEDS: Sodium Chloride 0.9% 10 ML Syringe FLUSH PRN (13:13)
--- NOTE | 2019-08-14 14:16 | PN ---
08/14/2019 PATIENT NAME: EILEEN JOHN SUBJECTIVE: This is a 79-year-old patient who was at home and he was having a productive cough. He was becoming short of breath. He was sick at home with his cough for about 3 to 4 days and at that point, he did go to the emergency room. 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 Upon admission, he was found to have where his oxygen saturations were in the 80s with any activity. He was just short of breath. He has a long history of COPD with asthma component. He was not having any fever or chills at home. He was not having any chest pain. He was admitted at that time with hypoxia. Today, now, the patient states he is doing pretty good. He was up to the bathroom right before I came in to see him. The patient was actually doing his incentive spirometer when I came in the room. He denies any pain today. He says that his strength is little better. He can tell that he is down some weight. He still has been coughing. Denies any chest pain. Appetite has been good. OBJECTIVE: VITAL SIGNS: Today, his weight is 261 pounds, temperature is 97.6, pulse is 62, blood pressure is 135/85, oxygen saturations are 93% on 3 L nasal cannula, respiratory rate is 20. The patient did not have any lab work drawn today. GENERAL: This is an elderly white male in no acute distress. The patient is generally obese. HEENT: He does have a left eye that droops somewhat, that he says is always red. 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 LUNGS: Sounds are diminished at lower bases, probably due to body habitus. No crackles or rales notified on exam. HEART: Tones are regular rate and rhythm. No murmurs identified. They were distant. Pedal edema was very minimal on exam. ABDOMEN: Very large, obese, soft, nontender, nondistended. Bowel sounds present x4. IMPRESSION AND PLAN: 1. Acute bronchitis with exacerbation of his chronic obstructive pulmonary disease. Plan: We will continue to try to get him the IS every 2 hours when he is awake. We will continue with DuoNeb every 6 hours. We will continue him on steroid therapy of prednisone 40 mg daily. He did have a CT of his chest, which showed left pleural effusion. No other concerning infiltrates within his lungs. He can have some Robitussin as needed for cough. We will continue him on the oxygen 3-4 L, try to titrate that oxygen down as tolerated. 2. Possible bacteremia. The patient did have a positive blood culture with coag-negative staph. I am highly suspected that this is a contaminant. We are going to continue him on vancomycin IV, pharmacy to dose 1.5 g every 12 hours until we can get identification to see if this is an MRSA or not. The patient is having a vancomycin trough drawn today at 11:30 a.m. 3. Exacerbation of patient's congestive heart failure. According to the nursing staff, the patient is down 19 pounds since admission, which is really good. His lower extremities, very little edema left to his lower extremities. We will continue him on Lasix. Aggressive therapy. His kidney function seems to be maintaining well. We will continue him on Lasix 40 mg twice a day. He gets at 9 in the morning, 2 in the afternoon. We will continue with daily weights, accurate I's and O. Also with Lasix therapy, we will continue him on potassium supplement 20 mEq daily. The patient seems to be doing well. 4. Deconditioning. Plan: The patient does have physical therapy ordered. We will continue to encourage activity and continue to wean oxygen as tolerated. 5. Influenza exposure. Plan: The patient wanders here at the hospital, apparently had tested positive for influenza, so we are treating the patient with Tamiflu prophylactically. 6. Diabetes mellitus type 2. Plan: We will continue with Accu-Cheks 4 times a day. He is on low-dose sliding scale insulin. We will also continue with metformin 500 mg twice a day, ADA diet. 7. History of hypertension. Plan: Continue with hydralazine 25 mg 3 times a day. I did decrease his amlodipine from 10 mg to 5 mg daily. Hopefully, this will help with further episodes of swelling to his lower extremities. His blood pressure seems to be well controlled. If we can get away with it at 5 mg would be much better than 10 mg daily. 8. History of coronary artery disease. Plan: Continue with Imdur 30 mg daily. 9. History of hyperlipidemia. Plan: Continue with simvastatin 40 mg daily. 10.History of Parkinson disease. Plan: Continue with Sinemet 1 tab 3 times a day scheduled. 11.DVT prophylaxis. Plan: Continue with Lovenox 40 mg every 12 hours. As he gets up and more active, we can discontinue this. We will continue at this time. 12.History of depression. Plan: Continue with Prozac 40 mg daily. 13.Seizure disorder. Plan: Continue with Keppra 500 mg twice a day. 14.History of benign prostatic hypertrophy. Plan: Continue Flomax 0.4 mg daily. OVERALL PLAN: Not many changes today. I did decrease his amlodipine from 10 mg to 5 mg daily. Otherwise, we will continue current treatment. He seems to be diuresing well. His kidney function that we checked yesterday, his BUN was 13, creatinine was 0.55, so he is handling the diuretic well. We will try to increase activity and slowly wean oxygen as tolerated. /[id number]/MODL
[2019-08-14] MEDS: Sodium Chloride 0.9% 100 ML IV SCH (16:24)
[2019-08-14] MEDS: Polyethylene Glycol 3350 Powder 17 GM Packet PO SCH (21:37)
[2019-08-14] MEDS: Simvastatin 20 MG Tab PO SCH (21:38)
[2019-08-15] MEDS: Enoxaparin 40 MG/0.4 ML Syringe SUBCUT SCH ×2 (00:44→13:33)
[2019-08-15] MEDS: Albuterol/Ipratropium 3.0-0.5 MG/3 ML Neb Soln NEB SCH ×4 (05:45→22:15)
[2019-08-15] MEDS: Insulin Aspart 100 Units/ML 3 ML Pen SUBCUT SCH ×3 (07:50→18:07)
[2019-08-15] MEDS: LORazepam 0.5 MG Tab PO SCH ×4 (07:50→22:06)
[2019-08-15] MEDS: predniSONE 20 MG Tab PO SCH (07:50)
[2019-08-15] MEDS: Nystatin Topical Powder 15 GM Bottle TOP SCH ×3 (07:52→22:07)
[2019-08-15] MEDS: Furosemide 40 MG Tab PO SCH ×2 (08:23→14:51)
[2019-08-15] MEDS: levETIRAcetam 500 MG Tab PO SCH ×2 (08:23→22:07)
[2019-08-15] MEDS: Potassium Chloride 20 MEQ Tab.ER PO SCH (08:23)
[2019-08-15] MEDS: guaiFENesin 600 MG Tab.ER PO SCH ×2 (08:23→22:07)
[2019-08-15] MEDS: Tamsulosin 0.4 MG Cap.ER PO SCH (08:23)
[2019-08-15] MEDS: metFORMIN 500 MG Tab PO SCH ×2 (08:23→22:06)
[2019-08-15] MEDS: Oseltamivir 75 MG Cap PO SCH (08:24)
[2019-08-15] MEDS: amLODIPine 5 MG Tab PO SCH (08:24)
[2019-08-15] MEDS: Isosorbide Mononitrate 30 MG Tab.ER PO SCH (08:24)
[2019-08-15] MEDS: hydrALAZINE 50 MG Tab PO SCH ×3 (08:24→22:05)
[2019-08-15] MEDS: FLUoxetine 10 MG Cap PO SCH (08:24)
[2019-08-15] MEDS: Carbidopa/Levodopa 10-100 MG Tab PO SCH ×3 (08:24→22:08)
[2019-08-15] MEDS: Sodium Chloride 0.9% 10 ML Syringe FLUSH PRN (11:56)
--- NOTE | 2019-08-15 14:36 | PN ---
08/15/2019 PATIENT NAME: EILEEN JOHN SUBJECTIVE: This is a 79-year-old male patient, who usually is seen at the [facility] in [place]. The patient has a long history of COPD. He was at home having a productive cough with some shortness of breath. He was sick with this cough at home for about 3-4 days. Finally, he felt short of breath to the point where he came to the emergency room. At that time, he was found to have his oxygen saturations low in the 80s, so he was admitted at that time. The patient denied any fever or chills at home. He was not having any chest pain. He was just coughing on very short of breath. Today, the patient states that he is still coughing quite a bit, but it is nonproductive and getting better. He still gets short of breath when he uses the bathroom, but he denies any chest pain. He says the breathing is a lot better than it was. His appetite has been good. OBJECTIVE: VITAL SIGNS: Today, the patient's weight is 266. Not really sure if this is an accurate weight or not. We will try to re-weigh him tomorrow and see. Temperature is 97.8, pulse is 61, blood pressure is 136/69, respiratory rate is 20, oxygen saturation is 94% on 2.5 L nasal cannula. The patient did not have any lab work drawn today. GENERAL: This is a white male in no acute distress. He does have a drooping left eyelid that appears reddened eye. He also does have on the right skull. 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 The patient is obese. LUNGS: Sounds are coarse throughout lung zepeda, diminished at bilateral bases. HEART: Tones are regular rate and rhythm. No murmurs identified. ABDOMEN: Large, nontender, nondistended. Bowel sounds present x4. EXTREMITIES: Pedal edema seems to be improving. . IMPRESSION: 1. Exacerbation of chronic obstructive pulmonary disease with bronchitis. Plan: We will continue to have him try to use his incentive spirometer every 2 hours while awake. We will continue with DuoNeb every 6 hours. Continue with the prednisone therapy [address] of the chest did show a left pleural effusion. No concerning infiltrates in his lungs were found on the CT scan per Radiology. We will continue to have him use Robitussin as needed for his cough. We will continue with oxygen 2-4 L and try to titrate down as tolerated. Currently, he is on 2.5 L. He is doing okay. 2. Possible bacteremia, most likely contaminant. The patient had a blood culture that was positive for a coag-negative staph. He was on vancomycin for 5 days. I did discontinue the vancomycin today. He has had no fevers. He had a repeat blood culture drawn on Friday and he also had one drawn at about 11 a.m. yesterday. Those are pending at this time. 3. Exacerbation of patient's congestive heart failure. Patient's weight is not accurate at this time. Basically, he is at 266 today. We will weigh him again tomorrow and see what goes from there. His lower extremities are much less edematous than they were previously. We will continue with Lasix 40 mg orally twice a day. We will continue to diurese the patient as long as his kidney function maintained within normal limits. CMP in [facility]. We will continue with daily weights and accurate I and O. We will also continue with potassium supplement 20 mEq daily. 4. Deconditioning. Plan: The patient does have physical therapy ordered. We will encourage him to walk in the [place] and activity as tolerated. 5. Influenza exposure. Plan: We will continue with influenza prophylactically. Treatment with Tamiflu. 6. Diabetes mellitus type 2. Plan: Continue with Accu-Cheks 4 times a day, ADA diet. We will continue with metformin 500 mg twice a day. We do have him high blood sugars cover with low-dose sliding scale insulin, most likely from steroid therapy at this time. 7. History of hypertension. Plan: Continue with hydralazine 25 mg 3 times a day, amlodipine 5 mg daily. 8. History of coronary artery disease. Plan: Continue with Imdur 30 mg daily. 9. History of hyperlipidemia. Plan: Continue with simvastatin 40 mg daily. 10.History of Parkinson disease. Plan: Continue with Sinemet 1 tab 3 times a day as scheduled. 11.DVT prophylaxis. Plan: Continue with Lovenox 40 mg every 12 hours. As he increases activity, we may discontinue this. 12.History of depression. Plan: Continue with Prozac 40 mg daily. 13.History of seizure disorder. Plan: Continue with Keppra 500 mg twice a day. 14.History of BPH. Plan: Continue with Flomax 0.4 mg daily. OVERALL PLAN: We did discontinue the patient's vancomycin today. I will repeat patient's lab work tomorrow morning. /[id number]/MODL MTDD
[2019-08-15] MEDS: Polyethylene Glycol 3350 Powder 17 GM Packet PO SCH (22:07)
[2019-08-15] MEDS: Simvastatin 20 MG Tab PO SCH (22:08)
[2019-08-16] MEDS: Enoxaparin 40 MG/0.4 ML Syringe SUBCUT SCH ×3 (00:38→22:44)
[2019-08-16] MEDS: Albuterol/Ipratropium 3.0-0.5 MG/3 ML Neb Soln NEB SCH ×4 (04:47→22:46)
[2019-08-16] MEDS: LORazepam 0.5 MG Tab PO SCH ×4 (06:23→21:28)
[2019-08-16] MEDS: Insulin Aspart 100 Units/ML 3 ML Pen SUBCUT SCH ×3 (07:47→18:10)
[2019-08-16] MEDS: Furosemide 40 MG Tab PO SCH ×2 (08:10→13:05)
[2019-08-16] MEDS: guaiFENesin 600 MG Tab.ER PO SCH ×2 (08:10→21:21)
[2019-08-16] MEDS: amLODIPine 5 MG Tab PO SCH (08:10)
[2019-08-16] MEDS: Oseltamivir 75 MG Cap PO SCH (08:10)
[2019-08-16] MEDS: Isosorbide Mononitrate 30 MG Tab.ER PO SCH (08:10)
[2019-08-16] MEDS: Carbidopa/Levodopa 10-100 MG Tab PO SCH ×3 (08:10→21:21)
[2019-08-16] MEDS: metFORMIN 500 MG Tab PO SCH ×2 (08:11→21:21)
[2019-08-16] MEDS: hydrALAZINE 50 MG Tab PO SCH ×3 (08:11→21:22)
[2019-08-16] MEDS: predniSONE 20 MG Tab PO SCH (08:11)
[2019-08-16] MEDS: Tamsulosin 0.4 MG Cap.ER PO SCH (08:11)
[2019-08-16] MEDS: FLUoxetine 10 MG Cap PO SCH (08:12)
[2019-08-16] MEDS: Nystatin Topical Powder 15 GM Bottle TOP SCH ×2 (08:12→21:33)
[2019-08-16] MEDS: Potassium Chloride 20 MEQ Tab.ER PO SCH (08:12)
[2019-08-16] MEDS: levETIRAcetam 500 MG Tab PO SCH ×2 (08:12→21:22)
[2019-08-16 08:17] LABS: ANION GAP 15.2 mmol/L (5-15); CHLORIDE,CL 97 mmol/L (98-115); SODIUM,NA 139 mmol/L (136-145)
--- NOTE | 2019-08-16 11:16 | PN ---
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 The patient does have a long history of COPD. He states that he usually always has a rough cough all the time. The patient was having a productive cough that was worse than normal at home. He was having some shortness of breath. He just was not feeling good for about 3-4 days with this cough. The shortness of breath came to the point where he decided to go the emergency room. At that time, he was found to have his oxygen saturations in the 80s, so he was admitted at that time. The patient had denied any fever or chills. He denies any chest pain. Now today, the patient states that his cough is much better. He walked in the hur[place] yesterday. He states that went pretty good. He says his breathing was much better than it was in the past. His appetite been good. He says that overall he just feels better. OBJECTIVE: VITAL SIGNS: The patient's weight today is 264 pounds, he is losing about a pound a day. His weight on 08/13/2019 was 268, on 08/15/2019 it came down to 266, today it is down to 264. I believe that is around 15 pounds weight loss since admission. Temperature today is 97.3, pulse is 61, blood pressure is 144/77. The patient's respiratory rate is 20, oxygen saturations 94% on 2 L nasal cannula. GENERAL: This is an elderly obese white gentleman in no acute distress. LUNGS: Lung sounds still have some scattered rhonchi and wheezes scattered throughout. Left lung is worse than right. CARDIAC: Heart tones are distant. Regular rate and rhythm. No murmurs identified. ABDOMEN: Large, obese, soft, nontender. Bowel sounds present x4. Pedal edema is much improved from previous assessment. HEENT: The patient does have a droopy left eye that appears red with a red conjunctiva, which is normal for him. He also does have a skull depression on the right where a bone flap was not replaced after he had subdural hematoma years ago. LABORATORY DATA: The patient's lab work that was obtained today. CBC shows white count within normal range at 9.66, hemoglobin 14.0, platelet count at 222. Chemistry panel shows chloride slightly low at 97, calcium 8.6, albumin low at 2.63, total protein 5.7, alkaline phosphatase low at 37, otherwise everything is unremarkable. IMPRESSION AND PLAN: 1. Exacerbation of chronic obstructive pulmonary disease with acute bronchitis. Plan: We will continue to have him use his incentive spirometer every 2 hours while awake, DuoNebs every 6 hours, prednisone 40 mg daily. Start titrating this down tomorrow. The patient did have a CT of the chest early in his admission, which just showed a left pleural effusion. No concerning infiltrates in his lung zepeda were found per Radiology. I am going to have the patient continue using Robitussin as needed for his cough. We will continue with oxygen 2 L nasal cannula, he uses anywhere from about 2-4 L. Right now, He is on 2 L. he seems to be doing a little better. 2. Possible bacteremia. This is most likely contaminant. I still have not got back the identified agent, but it was a coag-negative Staph. He was on vancomycin for 5 days, that was discontinued yesterday. We have pending repeat blood cultures that have not come back yet. 3. Exacerbation of patient's heart failure. The patient's weight today continues to go down. He is at 264 pounds today, that is 2 pounds down from yesterday. We will continue with aggressive diuretic treatment of Lasix 40 mg twice a day. Kidney function is handling diuresis very well. We will continue with daily weights and accurate I's and O's. He also does take a potassium supplement 20 mEq daily. 4. Deconditioning. Plan: Continue with physical therapy and nursing staff to walk the patient in the [place]. He seems to be tolerating this activity well. 5. Influenza exposure. Plan: Continue with Tamiflu prophylactically. 6. Diabetes mellitus type 2. Plan: We will continue with blood sugar checks 4 times a day, ADA diet. Continue with metformin 500 mg twice a day. We will cover high blood sugars with a low-dose sliding scale insulin. He has been having some high blood sugar due to the steroid therapy. We will continue to monitor. 7. History of hypertension. Plan: Continue with hydralazine 25 mg 3 times a day, along with amlodipine 5 mg daily. I did decrease this down from 10 mg to help with pedal edema. 8. History of coronary artery disease. Plan: Continue with Imdur 30 mg daily. 9. History of hyperlipidemia. Plan: Continue with simvastatin 40 mg daily. 10.History of Parkinson disease. Plan: Continue with Sinemet 1 tab 3 times a day as scheduled. 11.Deep vein thrombosis prophylaxis. Plan: We will continue with Lovenox 40 mg every 12 hours. As he increases activity, we may discontinue the Lovenox. 12.History of depression. Plan: Continue with Prozac 40 mg daily. 13.History of seizure disorder. Plan: Continue with Keppra 500 mg twice a day. 14.History of benign prostatic hyperplasia. Plan: Continue with Flomax 0.4 mg daily. Overall plan: vancomycin was discontinued yesterday. Repeat lab work that was obtained today is unremarkable. Kidney function remains within normal limits. The patient continues to diurese well. His weight is down 2 pounds from yesterday. He states that his breathing is much better today. We have weaned him down over the weekend from 4 L nasal cannula to 2 L nasal cannula today and he states his breathing is improved. /[id number]/MODL MTDD
[2019-08-16] MEDS: Carboxymethylcellulose Sodium 0.5% Ophth Soln 15 ML Bottle EYEBOTH PRN (16:09)
[2019-08-16] MEDS: Acetaminophen 325 MG Tab PO PRN (18:16)
[2019-08-16] MEDS: Polyethylene Glycol 3350 Powder 17 GM Packet PO SCH (21:19)
[2019-08-16] MEDS: Simvastatin 20 MG Tab PO SCH (21:29)
[2019-08-17] MEDS: LORazepam 0.5 MG Tab PO SCH ×4 (06:02→20:52)
[2019-08-17] MEDS: Albuterol/Ipratropium 3.0-0.5 MG/3 ML Neb Soln NEB SCH ×4 (06:22→22:34)
[2019-08-17] MEDS: Insulin Aspart 100 Units/ML 3 ML Pen SUBCUT SCH ×3 (08:06→18:22)
[2019-08-17] MEDS: Carbidopa/Levodopa 10-100 MG Tab PO SCH ×3 (08:47→20:49)
[2019-08-17] MEDS: Tamsulosin 0.4 MG Cap.ER PO SCH (08:47)
[2019-08-17] MEDS: Furosemide 40 MG Tab PO SCH ×2 (08:47→14:30)
[2019-08-17] MEDS: FLUoxetine 10 MG Cap PO SCH (08:47)
[2019-08-17] MEDS: guaiFENesin 600 MG Tab.ER PO SCH ×2 (08:47→20:51)
[2019-08-17] MEDS: Potassium Chloride 20 MEQ Tab.ER PO SCH (08:48)
[2019-08-17] MEDS: Isosorbide Mononitrate 30 MG Tab.ER PO SCH (08:48)
[2019-08-17] MEDS: amLODIPine 5 MG Tab PO SCH (08:48)
[2019-08-17] MEDS: metFORMIN 500 MG Tab PO SCH ×2 (08:48→20:50)
[2019-08-17] MEDS: hydrALAZINE 50 MG Tab PO SCH ×3 (08:49→20:49)
[2019-08-17] MEDS: Oseltamivir 75 MG Cap PO SCH (08:50)
[2019-08-17] MEDS: levETIRAcetam 500 MG Tab PO SCH ×2 (08:50→20:50)
[2019-08-17] MEDS: Nystatin Topical Powder 15 GM Bottle TOP SCH ×2 (08:52→20:54)
[2019-08-17] MEDS: predniSONE 20 MG Tab PO SCH (08:58)
--- NOTE | 2019-08-17 10:59 | PCM.PN ---
- General Info Date of Service: 08/17/19 Functional Status: Reports: Pain Controlled, Tolerating Diet, Ambulating, Urinating, Incentive Spirometry. Denies: New Symptoms - Review of Systems General: Denies: Fever, Weakness, Fatigue, Malaise HEENT: Reports: No Symptoms Pulmonary: Denies: Sputum, Wheezing Cardiovascular: Reports: Dyspnea on Exertion Gastrointestinal: Reports: No Symptoms Genitourinary: Reports: No Symptoms Musculoskeletal: Reports: No Symptoms Skin: Reports: Dryness Neurological: Reports: No Symptoms Psychiatric: Reports: No Symptoms - Patient Data Vitals - Most Recent: Last Vital Signs Temp 96.7 F 08/17/19 06:18 Pulse 61 08/17/19 06:18 Resp 20 08/17/19 06:18 BP 143/71 H 08/17/19 08:49 Pulse Ox 95 08/17/19 06:18 Weight - Most Recent: 263 lb 5 oz I&O - Last 24 Hours: Intake & Output 08/16/19 08/17/19 08/17/19 22:59 06:59 14:59 Intake Total 550 150 Output Total 1000 550 Balance -450 -400 Lab Results Last 24 Hours: Laboratory Results - last 24 hr 08/16/19 08/16/19 08/17/19 Range/Units 11:38 17:33 08:04 POC Glucose 210 H 263 H 127 H (74-106) mg/dl Zachary Results Last 24 Hours: Microbiology 08/05/19 12:56 Bacterial Identification - Final Other - Hand, Left 08/14/19 11:45 Aerobic Blood Culture - Preliminary Blood - Venous - Lab Draw NO GROWTH AFTER 2 DAYS Anaerobic Blood Culture - Preliminary NO GROWTH AFTER 2 DAYS Med Orders - Current: Current Medications Acetaminophen (Tylenol) 650 mg PO Q4H PRN PRN Reason: Pain (Mild 1-3)/fever Last Admin: 08/16/19 18:16 Dose: 650 mg Albuterol/Ipratropium (Duoneb 3.0-0.5 Mg/3 Ml) 3 ml NEB Q6HRRT [facility] Last Admin: 08/17/19 06:22 Dose: 3 ml Amlodipine Besylate (Norvasc) [address] [facility] Last Admin: 08/17/19 08:48 Dose: 5 mg Artificial Tears (Refresh Tears 0.5%) 0 ml EYEBOTH ASDIRECTED PRN PRN Reason: Dry Eyes Last Admin: 08/16/19 16:09 Dose: 1 drop Carbidopa/Levodopa (Sinemet 10-100 Mg) [address] [facility] Last Admin: 08/17/19 08:47 Dose: 1 tab Enoxaparin Sodium (Lovenox) [address] [facility] Last Admin: 08/16/19 22:44 Dose: 40 mg Fluoxetine HCl (Prozac) [address] [facility] Last Admin: 08/17/19 08:47 Dose: 40 mg Furosemide (Lasix) [address] 0900,1400 [facility] Last Admin: 08/17/19 08:47 Dose: 40 mg Guaifenesin (Mucinex) [address] [facility] Last Admin: 08/17/19 08:47 Dose: 600 mg Guaifenesin/Phenylephrine HCl (Robitussin Dm) 10 ml PO Q4H PRN PRN Reason: Cough Hydralazine HCl (Apresoline) [address] [facility] Last Admin: 08/17/19 08:49 Dose: 25 mg Insulin Aspart (Novolog) [address] [facility]; Protocol Last Admin: 08/17/19 08:06 Dose: Not Given Isosorbide Mononitrate (Imdur) [address] [facility] Last Admin: 08/17/19 08:48 Dose: 30 mg Levetiracetam (Keppra) [address] [facility] Last Admin: 08/17/19 08:50 Dose: 500 mg Lorazepam (Ativan) 0.5 mg PO TID@0700,1200,1900 [facility] Last Admin: 08/17/19 06:02 Dose: 0.5 mg Lorazepam (Ativan) [address] [facility] Last Admin: 08/16/19 21:28 Dose: 1 mg Lorazepam (Ativan) 0.5 mg PO BEDTIME PRN PRN Reason: Anxiety Metformin HCl (Glucophage) [address] [facility] Last Admin: 08/17/19 08:48 Dose: 500 mg Nystatin (Nystop) [address] [facility] Last Admin: 08/17/19 08:52 Dose: 1 applic Oseltamivir Phosphate (Tamiflu) [address] [facility] Stop: 08/22/19 15:01 Last Admin: 08/17/19 08:50 Dose: 75 mg Polyethylene Glycol (Miralax) [address] [facility] Last Admin: 08/16/19 21:19 Dose: 17 gm Potassium Chloride (Klor-Con M20) [address] [facility] Last Admin: 08/17/19 08:48 Dose: 20 meq Prednisone (Prednisone) [address] [facility] Last Admin: 08/17/19 08:58 Dose: 40 mg Senna/Docusate Sodium (Senna Plus) [address] [facility] Last Admin: 08/17/19 08:48 Dose: 2 tab Simvastatin (Zocor) [address] [facility] Last Admin: 08/16/19 21:29 Dose: 40 mg Tamsulosin HCl (Flomax) 0.[address] [facility] Last Admin: 08/17/19 08:47 Dose: 0.4 mg Discontinued Medications Albuterol/Ipratropium (Duoneb 3.0-0.5 Mg/3 Ml) Confirm Administered Dose 3 ml .ROUTE .STK-MED ONE Stop: 08/05/19 12:23 Last Admin: 08/05/19 12:42 Dose: Not Given Albuterol/Ipratropium (Duoneb 3.0-0.5 Mg/3 Ml) 3 ml NEB ONETIME ONE Stop: 08/05/19 12:28 Last Admin: 08/05/19 12:25 Dose: 3 ml Albuterol/Ipratropium (Duoneb 3.0-0.5 Mg/3 Ml) [address] [facility] Last Admin: 08/05/19 15:59 Dose: 3 ml Albuterol/Ipratropium (Duoneb 3.0-0.5 Mg/3 Ml) [address] [facility] Last Admin: 08/08/19 08:50 Dose: 3 ml Amlodipine Besylate (Norvasc) [address] [facility] Last Admin: 08/14/19 08:11 Dose: 10 mg Bumetanide (Bumex) 1 mg IVPUSH ONETIME STA Stop: 08/05/19 20:10 Last Admin: 08/05/19 20:48 Dose: Not Given Enoxaparin Sodium (Lovenox) [address] [facility] Last Admin: 08/16/19 00:38 Dose: 40 mg Furosemide (Lasix) Confirm Administered Dose 40 mg .ROUTE .STK-MED ONE Stop: 08/05/19 13:24 Last Admin: 08/05/19 14:33 Dose: Not Given Furosemide (Lasix) 40 mg IVPUSH NOW ONE Stop: 08/05/19 13:40 Last Admin: 08/05/19 13:45 Dose: 40 mg Furosemide (Lasix) 40 mg IVPUSH ONETIME ONE Stop: 08/05/19 18:11 Last Admin: 08/05/19 18:12 Dose: 40 mg Furosemide (Lasix) 10 mg IVPUSH CONTINUOUS [facility] Furosemide (Lasix) 10 mg IVPUSH 5XDAY@0030,2130,2300 [facility] Stop: 08/06/19 06:00 Furosemide (Lasix) 10 mg IVPUSH TID@0030,2130,2300 [facility] Stop: 08/06/19 01:30 Last Admin: 08/06/19 00:37 Dose: 10 mg Furosemide (Lasix) 10 mg IV TID@0200,0330,0500 [facility] Stop: 08/06/19 06:00 Last Admin: 08/06/19 05:32 Dose: 10 mg Furosemide (Lasix) 10 mg IV TID@0630,0800,0930 [facility] Stop: 08/06/19 10:30 Last Admin: 08/06/19 11:59 Dose: Not Given Furosemide (Lasix) 10 mg IV BID@1100,1230 [facility] Stop: 08/06/19 13:30 Furosemide (Lasix) 40 mg IVPUSH NOW ONE Stop: 08/07/19 14:01 Last Admin: 08/07/19 13:23 Dose: 40 mg Furosemide (Lasix) 40 mg IVPUSH NOW ONE Stop: 08/08/19 09:55 Last Admin: 08/08/19 10:26 Dose: 40 mg Furosemide (Lasix) 40 mg IVPUSH NOW ONE Stop: 08/08/19 14:01 Last Admin: 08/08/19 13:44 Dose: 40 mg Sodium Chloride (Normal Saline) 50 mls @ 200 mls/min IV ONETIME ONE Stop: 08/06/19 09:44 Last Admin: 08/06/19 09:53 Dose: 200 mls/min Furosemide 100 mg/ Sodium (Chloride) 100 mls @ 10 mls/hr IV CONTINUOUS [facility] Last Admin: 02/01/20 06:26 Dose: 10 mg/hr, 10 mls/hr Potassium Chloride 20 meq/ (Premix) 100 mls @ 50 mls/hr IV ONETIME ONE Stop: 08/06/19 12:53 Last Admin: 08/06/19 13:20 Dose: 50 mls/hr Potassium Chloride 20 meq/ (Premix) 100 mls @ 50 mls/hr IV ONETIME ONE Stop: 08/06/19 17:59 Last Admin: 08/06/19 16:46 Dose: 50 mls/hr Sodium Chloride (Normal Saline) 250 mls @ 100 mls/hr IV ASDIRECTED [facility] Last Admin: 08/06/19 13:16 Dose: 100 mls/hr Vancomycin HCl 1.25 gm/ Sodium (Chloride) 250 mls @ 120 mls/hr IV Q12H [facility] Last Admin: 08/13/19 00:30 Dose: 120 mls/hr Sodium Chloride (Normal Saline) 100 mls @ 100 mls/hr IV ASDIRECTED [facility] Last Admin: 08/14/19 16:24 Dose: 100 mls/hr Vancomycin HCl 1.5 gm/ Sodium (Chloride) 250 mls @ 100 mls/hr IV Q12H [facility] Last Admin: 08/15/19 00:06 Dose: 100 mls/hr Iopamidol (Isovue-370 (76%)) 100 ml IV ONETIME ONE Stop: 08/06/19 09:44 Last Admin: 08/06/19 09:52 Dose: 100 ml Lorazepam (Ativan) 0.5 mg PO BID PRN PRN Reason: ANXIETY Last Admin: 08/06/19 09:58 Dose: 0.5 mg Lorazepam (Ativan) 1 mg PO BEDTIME PRN PRN Reason: ANXIETY Last Admin: 08/06/19 02:06 Dose: 1 mg Magnesium Oxide (Magnesium Oxide) 500 mg PO ONETIME ONE Stop: 08/07/19 13:01 Last Admin: 08/07/19 13:35 Dose: 500 mg Methylprednisolone Sodium Succinate (Solu-Medrol) 80 mg IVPUSH ONETIME ONE Stop: 08/07/19 12:48 Last Admin: 08/07/19 13:23 Dose: 80 mg Potassium Bicarbonate (Klor-Con Ef) 25 meq PO DAILY [facility] Potassium Bicarbonate (Klor-Con Ef) 25 meq PO ONETIME ONE Stop: 08/06/19 17:01 Last Admin: 08/06/19 16:45 Dose: 25 meq Potassium Bicarbonate (Klor-Con Ef) 25 meq PO ONETIME ONE Stop: 08/06/19 12:01 Last Admin: 08/06/19 12:17 Dose: 25 meq Potassium Chloride (Klor-Con M20) 20 meq PO ONETIME ONE Stop: 08/05/19 19:01 Last Admin: 08/05/19 19:57 Dose: 20 meq Potassium Chloride (Klor-Con M20) 40 meq PO ONETIME ONE Stop: 08/07/19 12:50 Last Admin: 08/07/19 13:35 Dose: 40 meq Prednisone (Prednisone) 40 mg PO WITHBREAKFAST [facility] Sodium Chloride (Saline Flush) 10 ml FLUSH Q8HR PRN PRN Reason: keep vein open Sodium Chloride (Saline Flush) 10 ml FLUSH Q8HR PRN PRN Reason: keep vein open Last Admin: 08/15/19 11:56 Dose: 10 ml Tamsulosin HCl (Flomax) 0.[address] [facility] Vancomycin HCl (Pharmacy To Dose - Vancomycin) 1 dose .XX ASDIRECTED [facility] - Exam Quality Assessment: Supplemental Oxygen, DVT Prophylaxis General: Alert, Oriented, Cooperative, No Acute Distress Neck: No JVD Lungs: Rhonchi. No: Crackles Cardiovascular: Regular Rate, Regular Rhythm GI/Abdominal Exam: Soft Back Exam: No: CVA Tenderness (L), CVA Tenderness (R) Extremities: No Pedal Edema. No: Slow Capillary Refill Peripheral Pulses: 2+: Radial (L), Radial (R) Skin: Dry Neurological: No New Focal Deficit Psy/Mental Status: Alert, Normal Affect, Normal Mood Sepsis Event Note - Evaluation Sepsis Screening Result: No Definite Risk - Focused Exam Vital Signs: Vital Signs Temp Pulse Resp BP BP Pulse Ox Pulse Ox 08/17/19 08:49 143/71 H 08/17/19 08:48 143/71 H 08/17/19 06:18 96.7 F 61 20 166/81 H 95 08/16/19 23:00 97.0 F 60 18 129/70 95 95 Date Exam was Performed: 08/17/19 Time Exam was Performed: 10:48 - Problem List Review Problem List Initiated/Reviewed/Updated: Yes - My Orders Last 24 Hours: My Active Orders 08/16/19 11:00 Enoxaparin [Lovenox] 40 mg SUBCUT Q12H - Plan Plan:: History summary Mr. 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 Patient states he has had upper respiratory infection and has been sick for 3-4 days with cough and congestion howver no documented fevers or chills. He was taken OTC Mucinex however his symptoms seem to worsen. He had no chest pain however was short of breath upon entering the ED. Along with his obesity he does have a COPD/asthma component. Pertinent ED work-up: WBC 7.1 with neutrophilia Na 133 Troponin <0.04 BNP 564 Negative influenza swab CXR-small left pleural effusion recommend CT chest Lasix 40 mg IV x 1 Hospital course Day 1: Shortly after accepting patient for hospital admission, nurses notified me concerning significant shortness of breath with hypoxia in the 70s upon standing and they were concerned the patient would not be able to make it through the night due to his significant laboring. I arrived at the hospital to examine the patient and therefore initiated furosemide drip--significant output throughout the night. prophylactic potassium supplementation given, ordered CT of the chest however the patient had eaten. ABG reassuring, orders were placed, Rasheed catheter placed he had significant diuresing output that first night. Day 2: Rounds the patient was OOB in chair improved from his respiratory distressed from overnight however far from baseline. Repeated BNP down to 400. CT of the chest consistent with chest x-ray with pleural effusion left side however no other concerning findings. His Lasix drip was discontinued one time IV dose that afternoon of 40 mg was given. He was also given 1 time dose of solumedrol. K+ was given due to hypokalemia and his magnesium was replaced. Continue to diurese quite well. WBC 7.90 with nearly resolved neutrophilia. He was afebrile and his preliminary BC x 2 were negative. Metformin was held for 48 hours d/t CT. low dose novolog SS to cover steroid induced hyperglycemia. Day 3: He continued to diurese however had slight weight gain despite significant diuresing, his prednisone was changed to p.o. His first blood culture came back gram-positive cocci thought to be contaminant and since no fever, normal white count with improved clinical condition no antibiotics were started. At this time it was felt the patient likely could be discharged and was awaiting a ride however RT had yet to evaluate patient's for home oxygen CT had not yet seen the patient. Day 4: It was becoming quite evident that the patient would not be able to go home due to ongoing diuresing, the need for oxygen and the fact the patient was [facility] and would not qualify for assisted facility here have considerable expense on part A. [facility] and [facility] did agree to [facility] stay for physical therapy and oxygen therapy with ongoing diuresing. ~10,000 mL neg o/p Day 5: Ongoing diuresing without complications, -1000 cc yesterday, ~11,000 mL total neg o/p since admission, much less edema in lower extremities however likely not at dry weight, not using incentive spirometer as instructed needs more frequency, vital signs stable, still requiring 2.5 L oxygen, vancomycin started yesterday definitive identification pending--unknown if clusters or chains therefore vancomycin was started to cover both--however gram-positive cocci Day 6: Ongoing diuresing without complications, -1270 cc op yesterday, ~12,000 mL total neg o/p since admission, much less edema in lower extremities however likely not at dry weight, not using incentive spirometer as instructed needs more frequency use, vital signs stable, still requiring 2.5 L oxygen, vancomycin was started BC gram-positive cocci has come back with coagulase negative so doubtful staphylococcal aureus. Likely staphylococcal epidermidis. influenza B exposure, medical staff specialist positive for influenza B, started on prophylactic Tamiflu treatment Day 7: Reviewed on-call providers notes, his amlodipine was decreased to 5 mg due to low blood pressure. Continue to diuresed well, Comycin was discontinued, Day 8: Ongoing diuresing, much less edema, continued with the Lasix 40 mg p.o. twice daily. Not much weight change, can use with Tamiflu prophylactically, Day 9: Continue with significant output and diuresing, creatinine normal, did have still requiring oxygen however much improved from baseline and initial admission, verifiable weight loss about a pound per day, afebrile, Day 10: TODAY, desires to go home however significant diuresing continues with normal creatinine levels, much wrinkling in skin, did not require oxygen while showering, total negative output approximately -20,000 cc since admission. Pt demonstrates improved activity tolerance but still unable to keep sats at 90% with ambulation. He has improved in ability to complete 2.0 MET activity for 15 min on 1-2L with sats >90%. Primary assessment/plan: --Deconditioning, profound on admissin, well above baseline, if we can get off oxygen completely today in order to plan for discharge planning. --Bacteremia, without identifiable source, gram-positive cocci has come back with coagulase negative Suspect staphylococcal epidermidis. Vancomycin was discontinued, cultures repeated pending --Heart failure exacerbation, unspecified, improving. No ECHO on file or available from [facility] records. Reviewed wts, appears 1# loss per day Diuresed ~20, 000 ml, neg o/p's since admission. On PO lasix 40 mg BID. Continue daily weights and accurate I & O. Will monitor Creatinine and electrolytes, low- sodium diet, sodium level >130 so will forego fluid restriction --COPD, CPAP to the hospital. CT of the chest consistent with chest x-ray with pleural effusion left side however no other concerning findings --influenza B exposure, medical staff specialist positive for influenza B, started on prophylactic Tamiflu treatment --Small left pleural effusion as noted on CT chest. [facility] that patient required a [facility]acent[facility] in 2018 d/t a moderate left pleural effusion. Approximately 1100 mL drained with pathology negative for malignancy, however did note benign mesothelial cells and inflammatory cells. --Small left base infiltrate. Incentive Spirometer, need to use more. --T2DM. Accu checks TID. Much better control. Resumed metformin on 08/09/19 PM dose. Secondary assessment/plan: HTN. Continue norvasc, hydralazine. CAD. Continue Imdur. HLD. Continue simvastatin. Obesity. RESHMA. Noncompliant with CPAP, Parkinson's disease. Continue sinemet. Seizures. Continue Keppra. History of subdural hematoma. History of squamous cell carcinoma of skin. Depression. Continue prozac. Anxiety. Continue lorazepam. Environmental/seasonal allergies. Constipation. Continue Miralax, senna-S. BPH. Continue flomax. DVT prophylaxis. On lovenox until satisfactory ambulation, will encourage Jabari Overall plan: --Ongoing diuresing until optimal dry weight, monitor electrolytes, sodium level , continue with physical therapy. --desires to go home however significant diuresing continues with normal creatinine levels, much wrinkling in skin, but getting quite close to dry weight , did not require oxygen while showering, total negative output approximately - 20,000 cc since admission. Yesterday the patient demonstrated improved activity tolerance but still unable to keep sats at 90% with ambulation-- He has improved in ability to complete 2.0 MET activity for 15 min on 1-2L with sats >90%. --Suspect discharge in a.m. with outpatient physical therapy. We will see if completely titrate off oxygen today since he is a [facility] and this would have to be set up at home if eligibility
[2019-08-17] MEDS: Enoxaparin 40 MG/0.4 ML Syringe SUBCUT SCH ×2 (11:37→22:34)
[2019-08-17] MEDS: Polyethylene Glycol 3350 Powder 17 GM Packet PO SCH (20:49)
[2019-08-17] MEDS: Simvastatin 20 MG Tab PO SCH (20:49)
[2019-08-17] MEDS: Carboxymethylcellulose Sodium 0.5% Ophth Soln 15 ML Bottle EYEBOTH PRN (20:53)
[2019-08-18] MEDS: Albuterol/Ipratropium 3.0-0.5 MG/3 ML Neb Soln NEB SCH ×2 (05:38→11:29)
[2019-08-18] MEDS: LORazepam 0.5 MG Tab PO SCH ×2 (06:00→11:55)
[2019-08-18] MEDS: Insulin Aspart 100 Units/ML 3 ML Pen SUBCUT SCH ×2 (07:40→11:54)
[2019-08-18] MEDS: predniSONE 20 MG Tab PO SCH (09:59)
[2019-08-18] MEDS: hydrALAZINE 50 MG Tab PO SCH ×2 (10:00→13:28)
[2019-08-18] MEDS: Tamsulosin 0.4 MG Cap.ER PO SCH (10:01)
[2019-08-18] MEDS: Isosorbide Mononitrate 30 MG Tab.ER PO SCH (10:02)
[2019-08-18] MEDS: metFORMIN 500 MG Tab PO SCH (10:02)
[2019-08-18] MEDS: levETIRAcetam 500 MG Tab PO SCH (10:03)
[2019-08-18] MEDS: Potassium Chloride 20 MEQ Tab.ER PO SCH (10:03)
[2019-08-18] MEDS: guaiFENesin 600 MG Tab.ER PO SCH (10:04)
[2019-08-18] MEDS: Furosemide 40 MG Tab PO SCH ×2 (10:04→13:28)
[2019-08-18] MEDS: amLODIPine 5 MG Tab PO SCH (10:04)
[2019-08-18] MEDS: FLUoxetine 10 MG Cap PO SCH (10:05)
[2019-08-18] MEDS: Carbidopa/Levodopa 10-100 MG Tab PO SCH ×2 (10:09→13:28)
[2019-08-18] MEDS: Oseltamivir 75 MG Cap PO SCH (10:10)
[2019-08-18] MEDS: Nystatin Topical Powder 15 GM Bottle TOP SCH (10:11)
--- NOTE | 2019-08-18 10:38 | PCM.DCSUM1 ---
Discharge Summary - Hospital Course Diagnosis: Stroke: No - Discharge Data Discharge Date: 08/18/19 Discharge Disposition: Home, Self-Care 01 Condition: Good - Referral to Home Health Primary Care Physician: PCP Not In Area - Patient Summary/Data Consults: Consultations 08/09/19 10:35 Consult to Physical Therapy [PT Evaluation and Treatment] [CONS] Routine - Patient Instructions Diet: Low Sodium (Limit total Salt to 1800 mg/day) Activity: As Tolerated, Cough & Deep Breathe Driving: May Drive Today Showering/Bathing: May Shower Notify Provider of: Fever Other/Special Instructions: --Weigh yourself every day same scale same time a day in the morning. --Notify clinic if weight is more than 2 pounds per day or 5 pounds in 1 week. --Use Your breathing machine as taught in hospital. -- Take your prednisone as directed. --Take your Lasix/water pill at 2:00 in the afternoon - Discharge Plan *PRESCRIPTION DRUG MONITORING PROGRAM REVIEWED*: Not Applicable *COPY OF PRESCRIPTION DRUG MONITORING REPORT IN PATIENT RODO: Not Applicable Prescriptions/Med Rec: Furosemide [Lasix] 40 mg PO 1400 #30 tablet Home Medications: Home Meds Calcium Carbonate/Vitamin D3 [Calcium 250+D] 2 tab PO BID 08/05/19 [History] Carbidopa/Levodopa [Carbidopa-Levodopa 10-100] 1 tab PO TID 08/05/19 [History] FLUoxetine HCl [Fluoxetine HCl] 40 mg PO QAM 08/05/19 [History] Isosorbide Mononitrate [Isosorbide Mononitrate ER] 30 mg PO QAM 08/05/19 [ History] LORazepam [Ativan] 0.5 mg PO BID PRN 08/05/19 [History] LORazepam [Ativan] 1 mg PO BEDTIME PRN 08/05/19 [History] Lisinopril [Zestril] 40 mg PO DAILY 08/05/19 [History] Polyethylene Glycol 3350 [Miralax] 17 gm PO BEDTIME 08/05/19 [History] Sennosides/Docusate Sodium [Senna Plus 8.6-50 mg Softgel] 2 tab PO BID 08/05/19 [History] Simvastatin 40 mg PO BEDTIME 08/05/19 [History] Tamsulosin HCl [Flomax] 0.4 mg PO DAILY 08/05/19 [History] amLODIPine Besylate [Norvasc] 10 mg PO DAILY 08/05/19 [History] hydrALAZINE HCl [Hydralazine HCl] 25 mg PO TID 08/05/19 [History] levETIRAcetam [Keppra] 500 mg PO BID 08/05/19 [History] metFORMIN HCl [Glucophage] 500 mg PO BID 08/05/19 [History] Furosemide [Lasix] 40 mg PO 1400 #30 tablet 08/18/19 [Rx] Referrals: Paulo Butcher PA-C [Physician Pedigree Tracer] - (Paulo or Charlene anytime next week Armstrong or Eugenio. ) - Discharge Summary/Plan Comment DC Time >30 min.: Yes Discharge Summary/Plan Comment: Final diagnosis --Bacteremia, without identifiable source, --Heart failure exacerbation, unspecified, improving. No ECHO on file or available from [facility]. ~22,000 mL neg output. --Deconditioning, profound on admissin, well above baseline, if we can get off oxygen completely today in order to plan for discharge planning. --COPD, stable --influenza B exposure, --Small left pleural effusion as noted on CT chest. [facility] notes that patient required a thoracentesis in 2018 d/t a moderate left pleural effusion. Approximately 1100 mL drained with pathology negative for malignancy, however did note benign mesothelial cells and inflammatory cells. --Small left base infiltrate. Incentive Spirometer, need to use more. --T2DM. metformin Secondary DX HTN. Continue norvasc, hydralazine. CAD. Continue Imdur. HLD. Continue simvastatin. Obesity. RESHMA. Noncompliant with CPAP, please stress compliant Parkinson's disease. Continue sinemet. Seizures. Continue Keppra. History of subdural hematoma. History of squamous cell carcinoma of skin. Depression. Continue prozac. Anxiety. Continue lorazepam. Environmental/seasonal allergies. Constipation. Continue Miralax, senna-S. BPH. Continue flomax. History summary Mr. Santana is a severely obese 79-year-old gentleman who [facility] through [facility] due to shortness of breath. Patient stated he has had upper respiratory infection and has been sick for 3-4 days with cough and congestion however no documented fevers or chills. He was taken OTC Mucinex however his symptoms seem to worsen. He had no chest pain however was short of breath upon entering the ED. Along with his obesity he does have a COPD/asthma component. He was admitted basically due to fluid overload Pertinent ED work-up: WBC 7.1 with neutrophilia Na 133 Troponin <0.04 BNP 564 Negative influenza swab CXR-small left pleural effusion recommend CT chest Lasix 40 mg IV x 1 Hospital course, ~22,000 mL neg urinary output. Day 1: Shortly after accepting patient for hospital admission, nurses notified me concerning significant shortness of breath with hypoxia in the 70s upon standing and they were concerned the patient would not be able to make it through the night due to his significant laboring. I arrived at the hospital to examine the patient and therefore initiated furosemide drip--significant output throughout the night. prophylactic potassium supplementation given, ordered CT of the chest however the patient had eaten. ABG reassuring, orders were placed, Rasheed catheter placed he had significant diuresing output that first night. Day 2: Rounds the patient was OOB in chair improved from his respiratory distressed from overnight however far from baseline. Repeated BNP down to 400. CT of the chest consistent with chest x-ray with pleural effusion left side however no other concerning findings. His Lasix drip was discontinued one time IV dose that afternoon of 40 mg was given. He was also given 1 time dose of solumedrol. K+ was given due to hypokalemia and his magnesium was replaced. Continue to diurese quite well. WBC 7.90 with nearly resolved neutrophilia. He was afebrile and his preliminary BC x 2 were negative. Metformin was held for 48 hours d/t CT. low dose novolog SS to cover steroid induced hyperglycemia. Day 3: He continued to diurese however had slight weight gain despite significant diuresing, his prednisone was changed to p.o. His first blood culture came back gram-positive cocci thought to be contaminant and since no fever, normal white count with improved clinical condition no antibiotics were started. At this time it was felt the patient likely could be discharged and was awaiting a ride however RT had yet to evaluate patient's for home oxygen CT had not yet seen the patient. Day 4: It was becoming quite evident that the patient would not be able to go home due to ongoing diuresing, the need for oxygen and the fact the patient was [facility] and would not qualify for sn[facility] facility here have considerable expense on part A. [facility] was consulted and they did agree to inpatient stay for physical therapy and oxygen therapy with ongoing diuresing. ~10,000 mL neg o/p Day 5: Ongoing diuresing without complications, -1000 cc yesterday, ~11,000 mL total neg o/p since admission, much less edema in lower extremities however likely not at dry weight, not using incentive spirometer as instructed needs more frequency, vital signs stable, still requiring 2.5 L oxygen, vancomycin started yesterday definitive identification pending--unknown if clusters or chains therefore vancomycin was started to cover both--however gram-positive cocci Day 6: Ongoing diuresing without complications, -1270 cc op yesterday, ~12,000 mL total neg o/p since admission, much less edema in lower extremities however likely not at dry weight, not using incentive spirometer as instructed needs more frequency use, vital signs stable, still requiring 2.5 L oxygen, vancomycin was started BC gram-positive cocci has come back with coagulase negative so doubtful staphylococcal aureus. Likely staphylococcal epidermidis. 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 Continue to diuresed well, Comycin was discontinued, Day 8: Ongoing diuresing, much less edema, continued with the Lasix 40 mg p.o. twice daily. Not much weight change, can use with Tamiflu prophylactically, Day 9: Continue with significant output and diuresing, creatinine normal, did have still requiring oxygen however much improved from baseline and initial admission, verifiable weight loss about a pound per day, afebrile, Day 10: Last day, significant diuresing continued with normal creatinine levels , much wrinkling in skin, did not require oxygen while showering, total negative output approximately -22,000 cc since admission. Pt demonstrated improved activity tolerance but still unable to keep sats at 90% with ambulation. He has improved in ability to complete 2.0 MET activity for 15 min on 1-2L with sats >90%. Medication changes/adjustments upon discharge --Lasix, 40 mg p.o. daily at 1400 (newly added) --Prednisone taper schedule Disposition/overall plan --Patient will be discharged from [facility] from inpatient status. Physical therapy outpatient --Weigh yourself every day same scale same time a day in the morning --Notify clinic if weight is more than 2 pounds per day or 5 pounds in 1 week --Use Your breathing machine as taught in hospital --Take your prednisone as directed --Take your Lasix/water pill at 2:00 in the afternoon Follow-up considerations --Monitor potassium levels --Monitor daily weights --Consider echocardiogram --Send discharge summary to the [facility] for records - General Info Functional Status: Reports: Pain Controlled, Tolerating Diet, Ambulating, Incentive Spirometry. Denies: New Symptoms - Review of Systems General: Denies: Weakness, Fatigue, Malaise HEENT: Reports: No Symptoms Pulmonary: Reports: No Symptoms Cardiovascular: Denies: Palpitations, Dyspnea on Exertion, Edema Genitourinary: Reports: No Symptoms Musculoskeletal: Reports: No Symptoms Skin: Reports: Dryness Neurological: Reports: No Symptoms Psychiatric: Reports: No Symptoms - Patient Data Vitals - Most Recent: Last Vital Signs Temp 96.6 F L 08/18/19 06:57 Pulse 60 08/18/19 06:57 Resp 16 08/18/19 06:57 BP 141/70 H 08/18/19 06:57 Pulse Ox 92 L 08/18/19 06:57 Weight - Most Recent: 263 lb 5 oz I&O - Last 24 hours: Intake & Output 08/17/19 08/18/19 08/18/19 22:59 06:59 14:59 Intake Total 820 200 Output Total 2100 450 Balance -1280 -250 Lab Results - Last 24 hrs: Laboratory Results - last 24 hr 08/17/19 08/17/19 08/18/19 Range/Units 11:39 17:16 05:59 POC Glucose 202 H 217 H 131 H (74-106) mg/dl TIMO Results - Last 24 hrs: Microbiology 08/14/19 11:45 Aerobic Blood Culture - Preliminary Blood - Venous - Lab Draw NO GROWTH AFTER 3 DAYS Anaerobic Blood Culture - Preliminary NO GROWTH AFTER 3 DAYS 08/05/19 12:56 Bacterial Identification - Final Other - Hand, Left Med Orders - Current: Current Medications Acetaminophen (Tylenol) 650 mg PO Q4H PRN PRN Reason: Pain (Mild 1-3)/fever Last Admin: 08/16/19 18:16 Dose: 650 mg Albuterol/Ipratropium (Duoneb 3.0-0.5 Mg/3 Ml) 3 ml NEB Q6HRRT [facility] Last Admin: 08/18/19 05:38 Dose: 3 ml Amlodipine Besylate (Norvasc) 5 mg PO DAILY [facility] Last Admin: 08/17/19 08:48 Dose: 5 mg Artificial Tears (Refresh Tears 0.5%) 0 ml EYEBOTH ASDIRECTED PRN PRN Reason: Dry Eyes Last Admin: 08/17/19 20:53 Dose: 1 drop Carbidopa/Levodopa (Sinemet 10-100 Mg) 1 tab PO TID [facility] Last Admin: 08/17/19 20:49 Dose: 1 tab Enoxaparin Sodium (Lovenox) 40 mg SUBCUT Q12H [facility] Last Admin: 08/17/19 22:34 Dose: 40 mg Fluoxetine HCl (Prozac) 40 mg PO DAILY [facility] Last Admin: 08/17/19 08:47 Dose: 40 mg Furosemide (Lasix) 40 mg PO 0900,1400 [facility] Last Admin: 08/17/19 14:30 Dose: 40 mg Guaifenesin (Mucinex) 600 mg PO BID [facility] Last Admin: 08/17/19 20:51 Dose: 600 mg Guaifenesin/Phenylephrine HCl (Robitussin Dm) 10 ml PO Q4H PRN PRN Reason: Cough Hydralazine HCl (Apresoline) 25 mg PO TID [facility] Last Admin: 08/17/19 20:49 Dose: 25 mg Insulin Aspart (Novolog) 0 unit SUBCUT TIDMEALS [facility]; Protocol Last Admin: 08/18/19 07:40 Dose: Not Given Isosorbide Mononitrate (Imdur) 30 mg PO QAM [facility] Last Admin: 08/17/19 08:48 Dose: 30 mg Levetiracetam (Keppra) 500 mg PO BID [facility] Last Admin: 08/17/19 20:50 Dose: 500 mg Lorazepam (Ativan) 0.5 mg PO TID@0700,1200,1900 [facility] Last Admin: 08/18/19 06:00 Dose: 0.5 mg Lorazepam (Ativan) 1 mg PO BEDTIME [facility] Last Admin: 08/17/19 20:52 Dose: 1 mg Lorazepam (Ativan) 0.5 mg PO BEDTIME PRN PRN Reason: Anxiety Metformin HCl (Glucophage) 500 mg PO BID [facility] Last Admin: 08/17/19 20:50 Dose: 500 mg Nystatin (Nystop) 0 gm TOP BID [facility] Last Admin: 08/17/19 20:54 Dose: Not Given Oseltamivir Phosphate (Tamiflu) 75 mg PO DAILY [facility] Stop: 08/22/19 15:01 Last Admin: 08/17/19 08:50 Dose: 75 mg Polyethylene Glycol (Miralax) 17 gm PO BEDTIME [facility] Last Admin: 08/17/19 20:49 Dose: 17 gm Potassium Chloride (Klor-Con M20) 20 meq PO DAILY [facility] Last Admin: 08/17/19 08:48 Dose: 20 meq Prednisone (Prednisone) 40 mg PO WITHBREAKFAST [facility] Last Admin: 08/17/19 08:58 Dose: 40 mg Senna/Docusate Sodium (Senna Plus) 2 tab PO BID [facility] Last Admin: 08/17/19 20:50 Dose: 2 tab Simvastatin (Zocor) 40 mg PO BEDTIME [facility] Last Admin: 08/17/19 20:49 Dose: 40 mg Tamsulosin HCl (Flomax) 0.4 mg PO DAILY [facility] Last Admin: 08/17/19 08:47 Dose: 0.4 mg Discontinued Medications Albuterol/Ipratropium (Duoneb 3.0-0.5 Mg/3 Ml) Confirm Administered Dose 3 ml .ROUTE .STK-MED ONE Stop: 08/05/19 12:23 Last Admin: 08/05/19 12:42 Dose: Not Given Albuterol/Ipratropium (Duoneb 3.0-0.5 Mg/3 Ml) 3 ml NEB ONETIME ONE Stop: 08/05/19 12:28 Last Admin: 08/05/19 12:25 Dose: 3 ml Albuterol/Ipratropium (Duoneb 3.0-0.5 Mg/3 Ml) 3 ml NEB Q4H [facility] Last Admin: 08/05/19 15:59 Dose: 3 ml Albuterol/Ipratropium (Duoneb 3.0-0.5 Mg/3 Ml) 3 ml NEB Q4H [facility] Last Admin: 08/08/19 08:50 Dose: 3 ml Amlodipine Besylate (Norvasc) 10 mg PO DAILY [facility] Last Admin: 08/14/19 08:11 Dose: 10 mg Bumetanide (Bumex) 1 mg IVPUSH ONETIME STA Stop: 08/05/19 20:10 Last Admin: 08/05/19 20:48 Dose: Not Given Enoxaparin Sodium (Lovenox) 40 mg SUBCUT Q12H [facility] Last Admin: 08/16/19 00:38 Dose: 40 mg Furosemide (Lasix) Confirm Administered Dose 40 mg .ROUTE .STK-MED ONE Stop: 08/05/19 13:24 Last Admin: 08/05/19 14:33 Dose: Not Given Furosemide (Lasix) 40 mg IVPUSH NOW ONE Stop: 08/05/19 13:40 Last Admin: 08/05/19 13:45 Dose: 40 mg Furosemide (Lasix) 40 mg IVPUSH ONETIME ONE Stop: 08/05/19 18:11 Last Admin: 08/05/19 18:12 Dose: 40 mg Furosemide (Lasix) 10 mg IVPUSH CONTINUOUS [facility] Furosemide (Lasix) 10 mg IVPUSH 5XDAY@0030,2130,2300 [facility] Stop: 08/06/19 06:00 Furosemide (Lasix) 10 mg IVPUSH TID@0030,2130,2300 [facility] Stop: 08/06/19 01:30 Last Admin: 08/06/19 00:37 Dose: 10 mg Furosemide (Lasix) 10 mg IV TID@0200,0330,0500 [facility] Stop: 08/06/19 06:00 Last Admin: 08/06/19 05:32 Dose: 10 mg Furosemide (Lasix) 10 mg IV TID@0630,0800,0930 [facility] Stop: 08/06/19 10:30 Last Admin: 08/06/19 11:59 Dose: Not Given Furosemide (Lasix) 10 mg IV BID@1100,1230 [facility] Stop: 08/06/19 13:30 Furosemide (Lasix) 40 mg IVPUSH NOW ONE Stop: 08/07/19 14:01 Last Admin: 08/07/19 13:23 Dose: 40 mg Furosemide (Lasix) 40 mg IVPUSH NOW ONE Stop: 08/08/19 09:55 Last Admin: 08/08/19 10:26 Dose: 40 mg Furosemide (Lasix) 40 mg IVPUSH NOW ONE Stop: 08/08/19 14:01 Last Admin: 08/08/19 13:44 Dose: 40 mg Sodium Chloride (Normal Saline) 50 mls @ 200 mls/min IV ONETIME ONE Stop: 08/06/19 09:44 Last Admin: 08/06/19 09:53 Dose: 200 mls/min Furosemide 100 mg/ Sodium (Chloride) 100 mls @ 10 mls/hr IV CONTINUOUS [facility] Last Admin: 08/07/19 06:26 Dose: 10 mg/hr, 10 mls/hr Potassium Chloride 20 meq/ (Premix) 100 mls @ 50 mls/hr IV ONETIME ONE Stop: 08/06/19 12:53 Last Admin: 08/06/19 13:20 Dose: 50 mls/hr Potassium Chloride 20 meq/ (Premix) 100 mls @ 50 mls/hr IV ONETIME ONE Stop: 08/06/19 17:59 Last Admin: 08/06/19 16:46 Dose: 50 mls/hr Sodium Chloride (Normal Saline) 250 mls @ 100 mls/hr IV ASDIRECTED [facility] Last Admin: 08/06/19 13:16 Dose: 100 mls/hr Vancomycin HCl 1.25 gm/ Sodium (Chloride) 250 mls @ 120 mls/hr IV Q12H [facility] Last Admin: 08/13/19 00:30 Dose: 120 mls/hr Sodium Chloride (Normal Saline) 100 mls @ 100 mls/hr IV ASDIRECTED [facility] Last Admin: 08/14/19 16:24 Dose: 100 mls/hr Vancomycin HCl 1.5 gm/ Sodium (Chloride) 250 mls @ 100 mls/hr IV Q12H [facility] Last Admin: 08/15/19 00:06 Dose: 100 mls/hr Iopamidol (Isovue-370 (76%)) 100 ml IV ONETIME ONE Stop: 08/06/19 09:44 Last Admin: 08/06/19 09:52 Dose: 100 ml Lorazepam (Ativan) 0.5 mg PO BID PRN PRN Reason: ANXIETY Last Admin: 08/06/19 09:58 Dose: 0.5 mg Lorazepam (Ativan) 1 mg PO BEDTIME PRN PRN Reason: ANXIETY Last Admin: 08/06/19 02:06 Dose: 1 mg Magnesium Oxide (Magnesium Oxide) 500 mg PO ONETIME ONE Stop: 08/07/19 13:01 Last Admin: 08/07/19 13:35 Dose: 500 mg Methylprednisolone Sodium Succinate (Solu-Medrol) 80 mg IVPUSH ONETIME ONE Stop: 08/07/19 12:48 Last Admin: 08/07/19 13:23 Dose: 80 mg Potassium Bicarbonate (Klor-Con Ef) 25 meq PO DAILY [facility] Potassium Bicarbonate (Klor-Con Ef) 25 meq PO ONETIME ONE Stop: 08/06/19 17:01 Last Admin: 08/06/19 16:45 Dose: 25 meq Potassium Bicarbonate (Klor-Con Ef) 25 meq PO ONETIME ONE Stop: 08/06/19 12:01 Last Admin: 08/06/19 12:17 Dose: 25 meq Potassium Chloride (Klor-Con M20) 20 meq PO ONETIME ONE Stop: 08/05/19 19:01 Last Admin: 08/05/19 19:57 Dose: 20 meq Potassium Chloride (Klor-Con M20) 40 meq PO ONETIME ONE Stop: 08/07/19 12:50 Last Admin: 08/07/19 13:35 Dose: 40 meq Prednisone (Prednisone) 40 mg PO WITHBREAKFAST [facility] Sodium Chloride (Saline Flush) 10 ml FLUSH Q8HR PRN PRN Reason: keep vein open Sodium Chloride (Saline Flush) 10 ml FLUSH Q8HR PRN PRN Reason: keep vein open Last Admin: 08/15/19 11:56 Dose: 10 ml Tamsulosin HCl (Flomax) 0.4 mg PO DAILY [facility] Vancomycin HCl (Pharmacy To Dose - Vancomycin) 1 dose .XX ASDIRECTED [facility] - Exam Quality Assessment: Denies: Supplemental Oxygen General: Reports: Alert, Oriented Neck: Reports: Supple Lungs: Reports: Rhonchi Cardiovascular: Reports: Regular Rate, Regular Rhythm GI/Abdominal Exam: Soft Extremities: No Pedal Edema Skin: Reports: Dry Psy/Mental Status: Reports: Alert, Normal Affect, Normal Mood
[2019-08-18] MEDS: Carboxymethylcellulose Sodium 0.5% Ophth Soln 15 ML Bottle EYEBOTH PRN ×2 (11:25→13:32)
== END 2019-08-18 14:45 | disposition home or self-care (01) | DRG 292 ==
LOC: KA.ED 12:11 → KA.MS 13:39
PROVIDERS: ADMIT Physician Assistant Medical; ATTEND Nurse Practitioner Family
DX: I11.0 Hypertensive heart disease with heart failure (principal); J44.1 Chronic obstructive pulmonary disease with (acute) exacerbation; R09.02 Hypoxemia; R78.81 Bacteremia; D68.9 Coagulation defect, unspecified; E87.1 Hypo-osmolality and hyponatremia; J44.0 Chronic obstructive pulmonary disease with (acute) lower respiratory infection; Z68.41 Body mass index [BMI] 40.0-44.9, adult; H91.90 Unspecified hearing loss, unspecified ear; E78.00 Pure hypercholesterolemia, unspecified; I50.9 Heart failure, unspecified; M54.9 Dorsalgia, unspecified; G89.29 Other chronic pain; M19.90 Unspecified osteoarthritis, unspecified site; F41.9 Anxiety disorder, unspecified; F32.9 Major depressive disorder, single episode, unspecified; E66.01 Morbid (severe) obesity due to excess calories; E83.42 Hypomagnesemia; E87.6 Hypokalemia; E78.5 Hyperlipidemia, unspecified; N40.0 Benign prostatic hyperplasia without lower urinary tract symptoms; I25.10 Atherosclerotic heart disease of native coronary artery without angina pectoris; G47.33 Obstructive sleep apnea (adult) (pediatric); R31.9 Hematuria, unspecified; E11.65 Type 2 diabetes mellitus with hyperglycemia; T38.0X5A Adverse effect of glucocorticoids and synthetic analogues, initial encounter; J20.9 Acute bronchitis, unspecified; G40.909 Epilepsy, unspecified, not intractable, without status epilepticus; G20 Parkinson's disease; Z20.828 Contact with and (suspected) exposure to other viral communicable diseases; Z79.899 Other long term (current) drug therapy; Z79.84 Long term (current) use of oral hypoglycemic drugs; Z85.828 Personal history of other malignant neoplasm of skin; Z87.891 Personal history of nicotine dependence; Z99.81 Dependence on supplemental oxygen
CPT/HCPCS: 36415; 36600; 51702; 71046; 71260; 80048; 80053; 80202; 82550; 82553; 82803; 82962; 83735; 83880; 84484; 85025; 87040; 87077; 87147; 87186; 87804; 93005; 94640; 97110-GP; 97162-GP; A9270-GY; J1650; J1815-GY; J1940; J2930; J3370; J3480; J7050; J7620-GY; Q9967

== ENCOUNTER 2021-01-04 12:05 | Emergency (ER) | payer MEDICARE, OTHER ==
--- NOTE | 2021-01-04 12:28 | EDM.PDOC ---
ED HPI GENERAL MEDICAL PROBLEM - General Chief Complaint: General Stated Complaint: FALL Time Seen by Provider: 01/04/21 12:05 Source of Information: Reports: Patient, Significant Other History Limitations: Reports: No Limitations - History of Present Illness INITIAL COMMENTS - FREE TEXT/NARRATIVE: Patient presents with left foot pain after falling in his home. He fell backwar d and hit his back and head lightly but has no pain there. Denies LOC, vision change, neck pain, vomiting. He says he has fallen probably 12 times in the last month. It is always shortly after standing up and walking. It never happens when he is on longer walks. He has CHF and is supposed to drink all the water he can, and takes Lasix daily. Each morning he weighs himself [facility]. He has been doing this for several months and his weight has always been stable; there have been no medication or treatment changes with the daily calls. He says he usually drinks 5-6 bottles of water daily. He thinks he usually gets at least 60 oz/day. When he gets up to walk he pauses briefly to see if he is lightheaded then proceeds, but he doesn't pause very long; less than 30 seconds. He uses a walker usually. - Related Data Allergies Allergy/AdvReac Type Severity Reaction Status Date / Time No Known Drug Allergies Allergy Cannot Verified 01/04/21 12:09 Remember Home Meds: Home Meds Calcium Carbonate/Vitamin D3 [Calcium 250+D] 2 tab PO BID 08/05/19 [History] Carbidopa/Levodopa [Carbidopa-Levodopa 10-100] 2 tab PO QID 08/05/19 [History] FLUoxetine HCl [Fluoxetine HCl] 40 mg PO QAM 08/05/19 [History] Isosorbide Mononitrate [Isosorbide Mononitrate ER] 30 mg PO QAM 08/05/19 [His tory] LORazepam [Ativan] 0.5 mg PO BID 08/05/19 [History] LORazepam [Ativan] 1 mg PO BEDTIME 08/05/19 [History] Sennosides/Docusate Sodium [Senna Plus 8.6-50 mg Softgel] 2 tab PO BID 08/05/19 [History] Tamsulosin HCl [Flomax] 0.4 mg PO DAILY 08/05/19 [History] amLODIPine Besylate [Norvasc] 5 mg PO DAILY 08/05/19 [History] levETIRAcetam [Keppra] 500 mg PO BID 08/05/19 [History] lisinopriL [Zestril] 20 mg PO DAILY 08/05/19 [History] metFORMIN HCl [Glucophage] 500 mg PO BIDMEALS 08/05/19 [History] polyethylene glycoL 3350 [Miralax] 17 gm PO BEDTIME 08/05/19 [History] Furosemide [Lasix] 40 mg PO 1400 #30 tablet 08/18/19 [Rx] Past Medical History HEENT History: Reports: Hard of Hearing Other HEENT History: asymmetrical sensoneur hearing loss. subjective tinnitus Cardiovascular History: Reports: High Cholesterol, Hypertension, SOB on Exertion Respiratory History: Reports: COPD, Sleep Apnea, SOB Gastrointestinal History: Reports: Chronic Constipation, Colon Polyp Genitourinary History: Reports: None Musculoskeletal History: Reports: Arthritis, Back Pain, Chronic Neurological History: Reports: Brain Injury, Parkinson's Other Neuro History: subdural hematoma in 2012 with craniotomy , skull not replaced due to high infection possibility Psychiatric History: Reports: Anxiety, Depression Endocrine/Metabolic History: Reports: Diabetes, Type II, Obesity/BMI 30+ Other Oncologic History: squamous cell carcinoma of skin- face Dermatologic History: Reports: Eczema - Infectious Disease History Infectious Disease History: Reports: Chicken Pox - Past Surgical History Head Surgeries/Procedures: Reports: Craniotomy Cardiovascular Surgical History: Reports: None Respiratory Surgical History: Reports: None GI Surgical History: Reports: Colonoscopy, Hernia, Abdominal Endocrine Surgical History: Reports: None Neurological Surgical History: Reports: None Musculoskeletal Surgical History: Reports: None Dermatological Surgical History: Reports: None Social & Family History - Caffeine Use Caffeine Use: Reports: Coffee, Soda ED ROS GENERAL - Review of Systems Review Of Systems: See Below Constitutional: Denies: Fever, Chills, Weakness HEENT: Reports: No Symptoms Respiratory: Denies: Shortness of Breath, Cough Cardiovascular: Reports: Lightheadedness. Denies: Chest Pain, Syncope GI/Abdominal: Denies: Abdominal Pain, Constipation, Diarrhea, Vomiting : Denies: Flank Pain Musculoskeletal: Reports: Foot Pain. Denies: Neck Pain, Shoulder Pain, Arm Pain, Back Pain, Hand Pain, Leg Pain Skin: Denies: Cyanosis, Jaundice, Mottled, Pallor Neurological: Reports: Dizziness. Denies: Confusion, Headache, Seizure, Syncope, Trouble Speaking, Difficulty Walking Psychiatric: Denies: Agitation, Anxiety, Confusion ED EXAM, GENERAL - Physical Exam Exam: See Below Exam Limited By: No Limitations General Appearance: Alert, WD/WN, No Apparent Distress Eye Exam: Bilateral Eye: EOMI, Normal Inspection, PERRL Ears: Normal External Exam, Hearing Grossly Normal Nose: Normal Inspection, No Blood Throat/Mouth: Normal Inspection, Normal Lips, Normal Voice, No Airway Compromise Head: Atraumatic, Normocephalic Neck: Normal Inspection, Supple, Non-Tender, Full Range of Motion. No: Tender Lateral, Tender Midline Respiratory/Chest: No Respiratory Distress, Lungs Clear, Normal Breath Sounds Cardiovascular: Regular Rate, Rhythm, No Murmur GI/Abdominal: Normal Bowel Sounds, Soft, Non-Tender, No Organomegaly, No Distention, No Abnormal Bruit Back Exam: Normal Inspection, Full Range of Motion. No: CVA Tenderness (L), CVA Tenderness (R), Paraspinal Tenderness, Vertebral Tenderness Extremities: Normal Range of Motion, No Pedal Edema, Normal Capillary Refill, Other (left foot is mildly tender to palpation of medial, plantar, midfoot to 1- 3 MTP joints; no deformity or crepitus. No toe pain.) Neurological: Alert, Oriented, CN II-XII Intact, Normal Cognition, No Motor/Sensory Deficits Psychiatric: Normal Affect, Normal Mood Skin Exam: Warm, Dry, Intact, Normal Color, No Rash Course - Vital Signs Last Recorded V/S: Last Vital Signs Temp 97.9 F 01/04/21 12:09 Pulse 65 01/04/21 15:30 Resp 16 01/04/21 15:30 BP 116/50 L 01/04/21 15:30 Pulse Ox 90 L 01/04/21 15:30 - Orders/Labs/Meds Orders: Active Orders 24 hr Category Date Time Status EKG Documentation Completion [RC] ASDIRECTED Care 01/04/21 15:48 Ordered EKG 12 Lead [EK] Stat Ther 01/04/21 15:47 Ordered Labs: Laboratory Tests 01/04/21 01/04/21 01/04/21 Range/Units 13:25 13:25 13:25 WBC 7.95 (5.00-10.00) 10^3/uL RBC 5.05 (4.50-6.00) 10^6/uL Hgb 14.9 (13.0-17.0) g/dL Hct 45.6 (40.0-52.0) % MCV 90.3 (82.0-92.0) fL MCH 29.5 (27.0-31.0) pg MCHC 32.7 (32.0-36.0) g/dL RDW 15.2 H (11.5-14.5) % Plt Count 218 (150-400) 10^3/uL MPV 9.8 (7.4-10.4) fL Immature Gran % (Auto) 0.5 (0.0-5.0) % Neut % (Auto) 77.8 H (50.0-70.0) % Lymph % (Auto) 13.7 L (20.0-40.0) % [place] % (Auto) 6.3 (2.0-8.0) % Eos % (Auto) 1.4 (1.0-3.0) % Baso % (Auto) 0.3 (0.0-1.0) % Neut # (Auto) 6.19 (2.50-7.00) 10^3/uL Lymph # (Auto) 1.09 (1.00-4.00) 10^3/uL [place] # (Auto) 0.50 (0.10-0.80) 10^3/uL Eos # (Auto) 0.11 (0.10-0.30) 10^3/uL Baso # (Auto) 0.02 (0.00-0.10) 10^3/uL Immature Gran # (Auto) 0.04 (0.00-0.50) 10^3/uL Sodium 137 (136-145) mmol/L Potassium 3.9 (3.5-5.1) mmol/L Chloride 100 (98-107) mmol/L Carbon Dioxide 31.5 (21.0-32.0) mmol/L Anion Gap 9.4 (5-15) mmol/L BUN 15 (7-18) mg/dL Creatinine 0.87 (0.51-1.17) mg/dL Est Cr Clr Drug Dosing 69.98 mL/min Estimated GFR (MDRD) > 60 mL/min Glucose 103 (70-140) mg/dL Calcium 8.7 (8.7-10.3) mg/dL Total Bilirubin 0.3 (0.2-1.0) mg/dL AST 14 L (15-37) U/L ALT 12 L (14-63) U/L Alkaline Phosphatase 80 (46-116) U/L Troponin I High Sens 12.200 (0-76.000) pg/mL Total Protein 6.8 (6.4-8.2) g/dL Albumin 3.25 L (3.40-5.00) g/dL - Re-Assessments/Exams Free Text/Narrative Re-Assessment/Exam: 01/04/21 12:55 Xrays of foot look okay; waiting on report. We did orthostatic blood pressures which vary significantly, confirming my suspicion of orthostatic hypotension. Even with the drop of nearly 50 points systolic pressure, patient didn't get lightheaded while we stood with him, suggesting possibly even greater drops on some occasions. Pressures as recorded in vitals. 01/04/21 15:49 Labs okay. Xray report shows no fracture. I discussed case with Dr. Brennan at the [facility] who will accept for transfer but wants Covid-PCR first. Since we don't have PCR Covid testing they will test him there. 01/04/21 16:19 EKG shows 1st degree AV block with PACs, RBBB, T-wave inversion in lateral leads; no ST elevation. 01/04/21 16:36 Troponin is normal. Departure - Departure Time of Disposition: 16:35 Disposition: DC[facility] Condition: Good Clinical Impression: Orthostatic hypotension, Frequent falls, On potassium wasting diuretic therapy CHF (congestive heart failure) Qualifiers: Heart failure chronicity: unspecified - Discharge Information Referrals: Gio Alegre MD [Primary Care Provider] - Forms: ED Department Discharge Sepsis Event Note (ED) - Evaluation Sepsis Screening Result: No Definite Risk - Focused Exam Vital Signs: Vital Signs Temp Pulse Resp BP Pulse Ox 01/04/21 15:30 65 16 116/50 L 90 L 01/04/21 14:55 59 L 18 103/61 92 L 01/04/21 14:30 57 L 18 113/62 93 L 01/04/21 14:15 51 L 16 110/55 L 93 L 01/04/21 14:00 56 L 18 105/46 L 95 01/04/21 13:45 62 18 119/56 L 94 L 01/04/21 13:30 59 L 18 113/56 L 92 L 01/04/21 13:15 53 L 16 115/67 91 L 01/04/21 13:00 57 L 18 117/56 L 91 L 01/04/21 12:51 57 L 96/51 L 01/04/21 12:45 59 L 18 109/63 90 L 01/04/21 12:30 54 L 16 143/77 H 91 L 01/04/21 12:15 58 L 18 149/74 H 94 L 01/04/21 12:09 97.9 F 57 L 18 140/74 93 L - My Orders Last 24 Hours: My Active Orders 01/04/21 15:47 EKG 12 Lead [EK] Stat 01/04/21 15:48 EKG Documentation Completion [RC] ASDIRECTED - Assessment/Plan Last 24 Hours: My Active Orders 01/04/21 15:47 EKG 12 Lead [EK] Stat 01/04/21 15:48 EKG Documentation Completion [RC] ASDIRECTED
--- NOTE | 2021-01-04 13:47 | CR ---
[id number] RAD/RAD Foot Left 3V Min EXAM: 3 VIEWS LEFT FOOT. INDICATION: FALL, PAIN. COMPARISON: None. DISCUSSION: No fracture, dislocation or other acute osseous abnormality. Advanced degenerative changes of the first metatarsal phalangeal joint. [id number] degenerative changes seen involving the interphalangeal joints. IMPRESSION: 1. No acute osseous abnormalities. Chronic changes as above. Alexi Zuñiga DO 01/04/21 1226 Thank you for allowing us to participate in the care of your patient.
[2021-01-04 14:02] LABS: ANION GAP 9.4 mmol/L (5-15); CHLORIDE,CL 100 mmol/L (98-107); SODIUM,NA 137 mmol/L (136-145)
[2021-01-04 15:32] VITALS: BP 116/50; PULSE 65
== END 2021-01-04 17:10 ==
LOC: KA.ED 12:05
DX: I95.1 Orthostatic hypotension (principal); I11.0 Hypertensive heart disease with heart failure; I50.9 Heart failure, unspecified; R29.6 Repeated falls; E78.00 Pure hypercholesterolemia, unspecified; J44.9 Chronic obstructive pulmonary disease, unspecified; E11.9 Type 2 diabetes mellitus without complications; E66.9 Obesity, unspecified; Z68.36 Body mass index [BMI] 36.0-36.9, adult; Z79.899 Other long term (current) drug therapy; Z79.84 Long term (current) use of oral hypoglycemic drugs
CPT/HCPCS: 36415; 73630-LT; 80053; 84484; 85025; 93005; 99285-25

== ENCOUNTER 2021-01-21 13:13 | Inpatient (IN) | payer OTHER ==
--- NOTE | 2021-01-21 13:15 | EDM.PDOC ---
ED HPI GENERAL MEDICAL PROBLEM - General Chief Complaint: General Stated Complaint: WEAKNESS Time Seen by Provider: 01/21/21 13:13 Source of Information: Reports: Patient, EMS History Limitations: Reports: No Limitations - History of Present Illness INITIAL COMMENTS - FREE TEXT/NARRATIVE: 80 YO WM PRESENTS TO ER COMPLAINING OF WORSENING SHORTNESS OF BREATH AND GENERALIZED WEAKNESS. PT REPORTS HE WAS HOSPITALIZED 01/04/2021 FOR SAME AND WAS DISCHARGED FROM THE HOSPITAL 9 DAYS AGO BUT HAS DETERIORATED SINCE THAT TIME. PT DENIES CHEST PAIN, DIZZINESS, DIAPHORESIS OR NAUSEA/VOMITING. PT DENIES COUGH, CONGESTION OR FEVER/CHILLS. PT REPORTS HE IS A [place] PATIENT AND WOULD LIKE TO BE TRANSFERRED TO THE [facility] IN [place] IF HE REQUIRES ADMISSION. PT DENIES NEURO DEFICITS. PT ABLE TO AMBULATE BUT STATES WALKING SHORT DISTANCES CAUSES HIM FATIGUE. Duration: Day(s): (9), Chronic Location: Reports: Chest, Generalized Severity: Moderate Improves with: Reports: Rest Worsens with: Reports: Movement Associated Symptoms: Reports: Shortness of Breath, Weakness. Denies: Confusion, Cough, cough w sputum, Diaphoresis, Fever/Chills, Nausea/Vomiting, Rash, Seizure, Syncope - Related Data Allergies Allergy/AdvReac Type Severity Reaction Status Date / Time No Known Drug Allergies Allergy Cannot Verified 01/21/21 15:16 Remember Home Meds: Home Meds Calcium Carbonate/Vitamin D3 [Calcium 250+D] 2 tab PO BID 08/05/19 [History] Carbidopa/Levodopa [Carbidopa-Levodopa 10-100] 2 tab PO QID 08/05/19 [History] FLUoxetine HCl [Fluoxetine HCl] 40 mg PO QAM 08/05/19 [History] Isosorbide Mononitrate [Isosorbide Mononitrate ER] 30 mg PO QAM 08/05/19 [History] LORazepam [Ativan] 0.5 mg PO BID 08/05/19 [History] LORazepam [Ativan] 1 mg PO BEDTIME 08/05/19 [History] Sennosides/Docusate Sodium [Senna Plus 8.6-50 mg Softgel] 2 tab PO BID 08/05/19 [History] Tamsulosin HCl [Flomax] 0.4 mg PO DAILY 08/05/19 [History] amLODIPine Besylate [Norvasc] 5 mg PO DAILY 08/05/19 [History] levETIRAcetam [Keppra] 500 mg PO BID 08/05/19 [History] lisinopriL [Zestril] 20 mg PO DAILY 08/05/19 [History] metFORMIN HCl [Glucophage] 500 mg PO BIDMEALS 08/05/19 [History] polyethylene glycoL 3350 [Miralax] 17 gm PO BEDTIME 08/05/19 [History] Furosemide [Lasix] 40 mg PO 1400 #30 tablet 08/18/19 [Rx] Past Medical History HEENT History: Reports: Hard of Hearing Other HEENT History: asymmetrical sensoneur hearing loss. subjective tinnitus Cardiovascular History: Reports: High Cholesterol, Hypertension, SOB on Exertion Respiratory History: Reports: COPD, Sleep Apnea, SOB Gastrointestinal History: Reports: Chronic Constipation, Colon Polyp Genitourinary History: Reports: None Musculoskeletal History: Reports: Arthritis, Back Pain, Chronic Neurological History: Reports: Brain Injury, Parkinson's Other Neuro History: subdural hematoma in 2012 with craniotomy , skull not replaced due to high infection possibility Psychiatric History: Reports: Anxiety, Depression Endocrine/Metabolic History: Reports: Diabetes, Type II, Obesity/BMI 30+ Other Oncologic History: squamous cell carcinoma of skin- face Dermatologic History: Reports: Eczema - Infectious Disease History Infectious Disease History: Reports: Chicken Pox - Past Surgical History Head Surgeries/Procedures: Reports: Craniotomy Cardiovascular Surgical History: Reports: None Respiratory Surgical History: Reports: None GI Surgical History: Reports: Colonoscopy, Hernia, Abdominal Endocrine Surgical History: Reports: None Neurological Surgical History: Reports: None Musculoskeletal Surgical History: Reports: None Dermatological Surgical History: Reports: None Social & Family History - Caffeine Use Caffeine Use: Reports: Coffee, Soda, Tea ED ROS GENERAL - Review of Systems Review Of Systems: See Below Constitutional: Reports: Weakness HEENT: Reports: No Symptoms Respiratory: Reports: Shortness of Breath Cardiovascular: Reports: Dyspnea on Exertion, Orthopnea Endocrine: Reports: No Symptoms GI/Abdominal: Reports: No Symptoms : Reports: No Symptoms Musculoskeletal: Reports: No Symptoms Skin: Reports: No Symptoms Neurological: Reports: No Symptoms Psychiatric: Reports: No Symptoms Hematologic/Lymphatic: Reports: No Symptoms Immunologic: Reports: No Symptoms ED EXAM, GENERAL - Physical Exam Exam: See Below Exam Limited By: No Limitations General Appearance: Alert, WD/WN, No Apparent Distress Head: Atraumatic, Normocephalic Neck: Normal Inspection, Supple, Non-Tender, Full Range of Motion Respiratory/Chest: No Respiratory Distress, Lungs Clear, No Accessory Muscle Use, Chest Non-Tender, Decreased Breath Sounds Cardiovascular: Normal Peripheral Pulses, Regular Rate, Rhythm, No Edema, No Gallop, No JVD, No Murmur, No Rub GI/Abdominal: Normal Bowel Sounds, Soft, Non-Tender, No Organomegaly, No Distention, No Abnormal Bruit, No Mass Back Exam: Normal Inspection, Full Range of Motion, NT Extremities: Normal Inspection, Normal Range of Motion, Non-Tender, Normal Capillary Refill, Pedal Edema Neurological: Alert, Oriented, CN II-XII Intact, Normal Cognition, Normal Gait, Normal Reflexes, No Motor/Sensory Deficits Psychiatric: Normal Affect, Normal Mood Skin Exam: Warm, Dry, Intact, Normal Color, No Rash Lymphatic: No Adenopathy #1 Interpretation EKG Date: 01/21/21 Time: 14:08 Rhythm: NSR Rate (Beats/Min): 47 QRS: RBBB ST-T: Normal QT: Normal Comparison: No Change (08/05/2020) Course - Vital Signs Last Recorded V/S: Last Vital Signs Temp 97.3 F 01/21/21 13:34 Pulse 54 L 01/21/21 13:34 Resp 17 01/21/21 13:34 BP 166/81 H 01/21/21 13:34 Pulse Ox 96 01/21/21 13:41 - Orders/Labs/Meds Orders: Active Orders 24 hr Category Date Time Status Cardiac Monitoring [RC] . DIRECTED Care 01/21/21 13:41 Active EKG Documentation Completion [RC] ASDIRECTED Care 01/21/21 13:42 Active Oxygen Therapy [RC] ASDIRECTED Care 01/21/21 13:41 Active Peripheral IV Care [RC] . DIRECTED Care 01/21/21 13:42 Active Sodium Chloride 0.9% [Saline Flush] Med 01/21/21 13:41 Active 10 ml FLUSH Q8HR PRN Peripheral IV Insertion Adult [OM.PC] Routine Oth 01/21/21 13:41 Ordered EKG 12 Lead [EK] Stat Ther 01/21/21 13:41 Ordered Medication Orders Sodium Chloride (Sodium Chloride 0.9% 10 Ml Syringe) 10 ml FLUSH Q8HR PRN PRN Reason: keep vein open Labs: Laboratory Tests 01/21/21 01/21/21 Range/Units 14:05 14:05 WBC 7.20 (5.00-10.00) 10^3/uL RBC 4.30 L (4.50-6.00) 10^6/uL Hgb 12.9 L D (13.0-17.0) g/dL Hct 39.1 L (40.0-52.0) % MCV 90.9 (82.0-92.0) fL MCH 30.0 (27.0-31.0) pg MCHC 33.0 (32.0-36.0) g/dL RDW 15.8 H (11.5-14.5) % Plt Count 236 (150-400) 10^3/uL MPV 9.2 (7.4-10.4) fL Immature Gran % (Auto) 0.3 (0.0-5.0) % Neut % (Auto) 69.3 (50.0-70.0) % Lymph % (Auto) 18.5 L (20.0-40.0) % [place] % (Auto) 9.0 H (2.0-8.0) % Eos % (Auto) 2.6 (1.0-3.0) % Baso % (Auto) 0.3 (0.0-1.0) % Neut # (Auto) 4.99 (2.50-7.00) 10^3/uL Lymph # (Auto) 1.33 (1.00-4.00) 10^3/uL [place] # (Auto) 0.65 (0.10-0.80) 10^3/uL Eos # (Auto) 0.19 (0.10-0.30) 10^3/uL Baso # (Auto) 0.02 (0.00-0.10) 10^3/uL Immature Gran # (Auto) 0.02 (0.00-0.50) 10^3/uL Sodium 136 (136-145) mmol/L Potassium 3.7 (3.5-5.1) mmol/L Chloride 100 (98-107) mmol/L Carbon Dioxide 26.9 (21.0-32.0) mmol/L Anion Gap 12.8 (5-15) mmol/L BUN 9 (7-18) mg/dL Creatinine 0.79 (0.51-1.17) mg/dL Est Cr Clr Drug Dosing TNP Estimated GFR (MDRD) > 60 mL/min Glucose 118 (70-140) mg/dL Calcium 8.5 L (8.7-10.3) mg/dL Total Bilirubin 0.5 (0.2-1.0) mg/dL AST 9 L (15-37) U/L ALT 15 (14-63) U/L Alkaline Phosphatase 73 (46-116) U/L Creatine Kinase 35 (26-276) U/L CK-MB (CK-2) 0.59 (0.00-3.60) ng/mL Troponin I High Sens 9.000 (0-76.000) pg/mL B-Natriuretic Peptide 448 H (0-100) pg/mL Total Protein 6.2 L (6.4-8.2) g/dL Albumin 3.05 L (3.40-5.00) g/dL Meds: Medications Generic Name Dose Route Start Last Admin Trade Name Freq PRN Reason Stop Dose Admin Sodium Chloride 10 ml 01/21/21 13:41 Sodium Chloride 0.9% 10 Ml Syringe FLUSH Q8HR PRN keep vein open - Radiology Interpretation Free Text/Narrative:: CXR- PULMONARY CONGESTION Departure - Departure Time of Disposition: 15:21 Disposition: Admitted As Inpatient 68 Condition: Poor Clinical Impression: CHF, Congestive heart failure, Bradycardia, Hypoxemia - Discharge Information Referrals: Will Hennessy [employer] [Primary Care Provider] - Forms: ED Department Discharge Sepsis Event Note (ED) - Focused Exam Vital Signs: Vital Signs Temp Pulse Resp BP Pulse Ox Pulse Ox 01/21/21 13:41 96 01/21/21 13:34 97.3 F 54 L 17 166/81 H 88 L - My Orders Last 24 Hours: My Active Orders 01/21/21 13:41 Cardiac Monitoring [RC] . DIRECTED Oxygen Therapy [RC] ASDIRECTED Sodium Chloride 0.9% [Saline Flush] 10 ml FLUSH Q8HR PRN Peripheral IV Insertion Adult [OM.PC] Routine EKG 12 Lead [EK] Stat 01/21/21 13:42 EKG Documentation Completion [RC] ASDIRECTED Peripheral IV Care [RC] . DIRECTED - Assessment/Plan Last 24 Hours: My Active Orders 01/21/21 13:41 Cardiac Monitoring [RC] . DIRECTED Oxygen Therapy [RC] ASDIRECTED Sodium Chloride 0.9% [Saline Flush] 10 ml FLUSH Q8HR PRN Peripheral IV Insertion Adult [OM.PC] Routine EKG 12 Lead [EK] Stat 01/21/21 13:42 EKG Documentation Completion [RC] ASDIRECTED Peripheral IV Care [RC] . DIRECTED Assessment:: 1. HYPOXEMIA 2. CHF EXACERBATION 3. ASYMPTOMATIC BRADYCARDIA Plan: 1. ADMIT TO MEDICINE- [facility] ACCEPTING @1504 2. LASIX 40MG IV NOW 3. SUPPLEMENTAL O2 4. SUPPORTIVE CARE
[2021-01-21] MEDS ORDERED: Sodium Chloride 0.9% 10 ML Syringe FLUSH PRN (13:41)
[2021-01-21 14:41] LABS: ANION GAP 12.8 mmol/L (5-15); CHLORIDE,CL 100 mmol/L (98-107); SODIUM,NA 136 mmol/L (136-145)
--- NOTE | 2021-01-21 15:06 | CR ---
[id number] RAD/RAD Chest PA or AP 1V EXAM: FRONTAL CHEST INDICATION: DYSPNEA. COMPARISON: August 11, 2019. DISCUSSION: There is stable cardiomegaly with borderline central vascular congestion. A small residual or recurrent left effusion has mildly decreased. Bibasilar atelectasis and/or infiltrates are similar to the prior study. IMPRESSION: 1. Bibasilar infiltrates and/or atelectasis are similar to the previous examination. 2. A small left pleural effusion has mildly decreased. Zane Nava MD 01/21/21 [id number] Thank you for allowing us to participate in the care of your patient.
[2021-01-21] MEDS ORDERED: Furosemide 40 MG/4 ML VIAL IVPUSH ONE (15:26)
--- NOTE | 2021-01-21 17:22 | PCM.HP.2 ---
H&P History of Present Illness - General Date of Service: 01/21/21 Admit Problem/Dx: Admission Diagnosis/Problem Admission Diagnosis/Problem Hypoxemia Source of Information: Patient - History of Present Illness Initial Comments - Free Text/Narative: 80 year old male presents via EMS to the ED with complaints of shortness of breath and progressive weakness. Recently hospitalized at [facility] [place] with discharge nine days ago due to frequent falls CAD, CHF and weakness. He reports they took many of his medications away and initially he was doing well, but over the past three days he has been increasingly weak with difficulty getting up and out of bed on his own. He denies chest pain, fevers/chills or cough. Admitted inpatient for CHF exac and deconditioning. - Related Data Allergies/Adverse Reactions: Allergies Allergy/AdvReac Type Severity Reaction Status Date / Time No Known Drug Allergies Allergy Cannot Verified 01/21/21 15:16 Remember Home Medications: Home Meds Calcium Carbonate/Vitamin D3 [Calcium 250+D] 2 tab PO BID 08/05/19 [History] FLUoxetine HCl [Fluoxetine HCl] 40 mg PO QAM 08/05/19 [History] LORazepam [Ativan] 0.5 mg PO BID PRN 08/05/19 [History] LORazepam [Ativan] 1 mg PO BEDTIME 08/05/19 [History] Sennosides/Docusate Sodium [Senna Plus 8.6-50 mg Softgel] 2 tab PO BID 08/05/19 [History] Tamsulosin HCl [Flomax] 0.4 mg PO DAILY 08/05/19 [History] levETIRAcetam [Keppra] 500 mg PO BID 08/05/19 [History] lisinopriL [Zestril] 20 mg PO DAILY 08/05/19 [History] polyethylene glycoL 3350 [Miralax] 17 gm PO BEDTIME 08/05/19 [History] Aspirin [Halfprin] 81 mg PO DAILY 01/21/21 [History] Cyanocobalamin (Vitamin B-12) [B-12] 1,000 mcg PO DAILY 01/21/21 [History] Dextran/Hypromellose/Glycerin [Genteal Tears 0.1%-0.2%-0.3%] 2 drop EYEBOTH Q4H PRN 01/21/21 [History] Furosemide [Lasix] 40 mg PO DAILY 01/21/21 [History] Potassium Chloride [Klor-Con M20] 20 meq PO DAILY 01/21/21 [History] atorvaSTATin [Lipitor] 40 mg PO BEDTIME 01/21/21 [History] metFORMIN HCl [Metformin HCl] 500 mg PO BID 01/21/21 [History] Past Medical History HEENT History: Reports: Hard of Hearing Other HEENT History: asymmetrical sensoneur hearing loss. subjective tinnitus Cardiovascular History: Reports: High Cholesterol, Hypertension, SOB on Exertion Respiratory History: Reports: COPD, Sleep Apnea, SOB Gastrointestinal History: Reports: Chronic Constipation, Colon Polyp Genitourinary History: Reports: None Musculoskeletal History: Reports: Arthritis, Back Pain, Chronic Neurological History: Reports: Brain Injury, Parkinson's Other Neuro History: subdural hematoma in 2013 with craniotomy , skull not replaced due to high infection possibility Psychiatric History: Reports: Anxiety, Depression Endocrine/Metabolic History: Reports: Diabetes, Type II, Obesity/BMI 30+ Other Oncologic History: squamous cell carcinoma of skin- face Dermatologic History: Reports: Eczema - Infectious Disease History Infectious Disease History: Reports: Chicken Pox - Past Surgical History Head Surgeries/Procedures: Reports: Craniotomy Cardiovascular Surgical History: Reports: None Respiratory Surgical History: Reports: None GI Surgical History: Reports: Colonoscopy, Hernia, Abdominal Endocrine Surgical History: Reports: None Neurological Surgical History: Reports: None Musculoskeletal Surgical History: Reports: None Dermatological Surgical History: Reports: None Social & Family History - Family History Neurological: Reports: Dementia Endocrine/Metabolic: Reports: Diabetes, type II - Tobacco Use Tobacco Use Status *Q: Former Tobacco User - Caffeine Use Caffeine Use: Reports: Coffee, Soda, Tea H&P Review of Systems - Review of Systems: Review Of Systems: See Below General: Reports: Weakness, Fatigue. Denies: Fever, Chills, Decreased Appetite HEENT: Denies: Dysphasia, Headaches, Sinus Congestion, Sore Throat, Visual Changes Pulmonary: Reports: Shortness of Breath. Denies: Wheezing, Cough Cardiovascular: Reports: Dyspnea on Exertion, Edema. Denies: Chest Pain, Palpitations, Lightheadedness Gastrointestinal: Reports: Constipation. Denies: Abdominal Pain, Black Stool, Bloody Stool, Diarrhea, Nausea, Vomiting Genitourinary: Reports: Frequency, Incontinence (at times). Denies: Dysuria, Urgency, Hematuria Musculoskeletal: Denies: Neck Pain, Back Pain, Leg Pain Skin: Denies: Bruising, Rash, Erythema Psychiatric: Denies: Confusion, Depression, Anxiety Neurological: Reports: Difficulty Walking (uses walker), Weakness. Denies: Confusion, Headache, Paresthesia, Tingling, Trouble Speaking, Change in Speech Exam - Exam Exam: See Below - Vital Signs Vital Signs: Last Vital Signs Temp 36.3 C 01/21/21 13:34 Pulse 54 L 01/21/21 13:34 Resp 17 01/21/21 13:34 BP 166/81 H 01/21/21 13:34 Pulse Ox 97 01/21/21 15:24 Weight: 114.759 kg - Exam Physical Exam Comments:: GENERAL: Frail-appearing adult in no acute distress. HEENT: Normocephalic, atraumatic. Conjunctiva clear. Nares patent without discharge. Mucous membranes moist, posterior pharynx unremarkable. NECK: Supple, no masses. CV: Liban rate and irregular rhythm, no murmurs, rubs, or gallops. 2+ radial pulses. PULMONARY: 2L/NC in place, Normal effort, clear to auscultation bilaterally, no wheezes, rales, or rhonchi. ABDOMEN: Positive bowel sounds, soft, nontender, nondistended. EXTREMITIES: Trace BLE edema, no cyanosis or clubbing. MUSCULOSKELETAL: Moves all extremities well. NEUROLOGICAL: No obvious deficits. DERMATOLOGIC: No rashes or suspicious lesions in exposed areas. PSYCHIATRIC: Alert, interactive, appropriate affect. - Patient Data Lab Results Last 24 hrs: Laboratory Results - last 24 hr 01/21/21 01/21/21 01/21/21 Range/Units 14:05 14:05 15:26 WBC 7.20 (5.00-10.00) 10^3/uL RBC 4.30 L (4.50-6.00) 10^6/uL Hgb 12.9 L D (13.0-17.0) g/dL Hct 39.1 L (40.0-52.0) % MCV 90.9 (82.0-92.0) fL MCH 30.0 (27.0-31.0) pg MCHC 33.0 (32.0-36.0) g/dL RDW 15.8 H (11.5-14.5) % Plt Count 236 (150-400) 10^3/uL MPV 9.2 (7.4-10.4) fL Immature Gran % (Auto) 0.3 (0.0-5.0) % Neut % (Auto) 69.3 (50.0-70.0) % Lymph % (Auto) 18.5 L (20.0-40.0) % [place] % (Auto) 9.0 H (2.0-8.0) % Eos % (Auto) 2.6 (1.0-3.0) % Baso % (Auto) 0.3 (0.0-1.0) % Neut # (Auto) 4.99 (2.50-7.00) 10^3/uL Lymph # (Auto) 1.33 (1.00-4.00) 10^3/uL [place] # (Auto) 0.65 (0.10-0.80) 10^3/uL Eos # (Auto) 0.19 (0.10-0.30) 10^3/uL Baso # (Auto) 0.02 (0.00-0.10) 10^3/uL Immature Gran # (Auto) 0.02 (0.00-0.50) 10^3/uL Sodium 136 (136-145) mmol/L Potassium 3.7 (3.5-5.1) mmol/L Chloride 100 (98-107) mmol/L Carbon Dioxide 26.9 (21.0-32.0) mmol/L Anion Gap 12.8 (5-15) mmol/L BUN 9 (7-18) mg/dL Creatinine 0.79 (0.51-1.17) mg/dL Est Cr Clr Drug Dosing TNP Estimated GFR (MDRD) > 60 mL/min Glucose 118 (70-140) mg/dL Calcium 8.5 L (8.7-10.3) mg/dL Total Bilirubin 0.5 (0.2-1.0) mg/dL AST 9 L (15-37) U/L ALT 15 (14-63) U/L Alkaline Phosphatase 73 (46-116) U/L Creatine Kinase 35 (26-276) U/L CK-MB (CK-2) 0.59 (0.00-3.60) ng/mL Troponin I High Sens 9.000 (0-76.000) pg/mL B-Natriuretic Peptide 448 H (0-100) pg/mL Total Protein 6.2 L (6.4-8.2) g/dL Albumin 3.05 L (3.40-5.00) g/dL SARS CoV-2 RNA Rapid GLORIA Negative (NEGATIVE) Result Diagrams: 01/21/21 14:05 01/21/21 14:05 Sepsis Event Note - Evaluation Sepsis Screening Result: No Definite Risk - Focused Exam Vital Signs: Vital Signs Temp Pulse Resp BP Pulse Ox Pulse Ox 01/21/21 15:24 97 01/21/21 13:41 96 01/21/21 13:34 36.3 C 54 L 17 166/81 H 88 L Problem List Initiated/Reviewed/Updated: Yes Orders Last 24hrs: Active Orders 24 hr Category Date Time Status Patient Status Manage Transfer [TRANSFER] Routine ADT 01/21/21 15:23 Active Patient Status [ADT] Routine ADT 01/21/21 15:24 Active Cardiac Monitoring [RC] . DIRECTED Care 01/21/21 13:41 Active EKG Documentation Completion [RC] ASDIRECTED Care 01/21/21 13:42 Active Oxygen Therapy [RC] PRN Care 01/21/21 15:24 Active Peripheral IV Care [RC] 09,21 Care 01/21/21 13:42 Active VTE/DVT Education [RC] PER UNIT ROUTINE Care 01/21/21 15:24 Active Vital Signs [RC] 03,07,11,15,19,23 Care 01/21/21 15:24 Active Sodium Chloride 0.9% [Saline Flush] Med 01/21/21 13:41 Active 10 ml FLUSH Q8HR PRN Peripheral IV Insertion Adult [OM.PC] Routine Oth 01/21/21 13:41 Ordered Resuscitation Status Routine Resus Stat 01/21/21 15:24 Ordered EKG 12 Lead [EK] Stat Ther 01/21/21 13:41 Ordered Medication Orders Sodium Chloride (Sodium Chloride 0.9% 10 Ml Syringe) 10 ml FLUSH Q8HR PRN PRN Reason: keep vein open Assessment/Plan Comment:: HPI summary: 80 year old male presents via EMS to the ED with complaints of shortness of b reath and progressive weakness. Recently hospitalized at [facility] in [place] with discharge nine days ago due to frequent falls CAD, CHF and weakness. He reports they took many of his medications away and initially he was doing well, but over the past three days he has been increasingly weak with difficulty getting up and out of bed on his own. He denies chest pain, fevers/chills or cough. Has not fallen since hospitalization. Admitted inpatient for CHF exac and deconditioning. ED course: VS: T97.3, R17, P 54, BP 166/81, o2 88%/RA, 96% on 2L/NC EKG: SB, rate 47, right bundle branch block, left anterior fascicular block; similar to previous CXR: stable cardiomegaly, bibasilar infiltrates and/or atelectasis are similar to previous exam, small left pleural effusion mildly decreased, borderline central vascular congestion Lab: WBC 7.2, RBC 4.3, Hgb 12.9, Hct 39.1 (normocytic, normochromic with elevated RDW 15.8), Na 136, K 3.7, CO2 26.9, anion gap 12.8, BUN 9, creatinine 0.79, GFR >60, trop neg, BNP 448, T protein 6.2, Alb 3.05 Med: IV Lasix 40mg x 1 Hospital course: 01/21/2021: Patient in room, lying in bed. Feeling better now with oxygen on. No new concerns. 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% on 10/18/2020 according to [facility], BNP NT-PRO when is [facility] [id number] 01/11/2021 -Will assess fluid status in the AM and decide on further IV diuresis, for now will restart patient's home furosemide 40mg daily and potassium replacement -Serial troponin #HTN -continue lisinopril #Anemia, iron vs B12 def.; DC hgb on 01/12/2021 13.7 -continue B12 -B12 level in the AM #Deconditioning -PT eval -SS/case management consult #Constipation, last BM two to three days ago -continue senna/docusate sodium, continue miralax -add MOM [place] Chronic, stable conditions: #possible ischemia on stress test 01/11/2021: small reversible defect in the apex consistent with possible ischemia, recommended upcoming cardiac cath after B12 level normalized #Type2 DM: hold metformin, blood glucose four times daily with low dose SS insulin #Hyperlipidemia: continue atorvastatin and ASA #Dry eyes: continue carboxymethylcellulose #Anxiety/depression: continue fluoxetine and lorazepam (patient has been [facility] this chron[facility] many [facility]) #Subdural hemorrhage hx: continue Keppra #BPH, continue tamsulosin #?disorder of the thyroid, last TSH 2.15 on 01/11/2021 #?Parkinsons #RESHMA: ?CPAP Hospitalization details: # FEN: oral, saline lock, electrolytes stable, ADA diet # PPX: ASA, h/o subdural hemorrhage # Code status: Full code, discussed with patient # Emergency contact: , Yumi, updated by nursing # Disposition: two to three midnights as uncertain at this time etiology of hy poxia; plan for possible SB stay vs fdc care setting, or possibly home with home health depending on PT eval and case management consult
[2021-01-21] MEDS ORDERED: Carboxymethylcellulose Sodium 0.5% Ophth Soln 15 ML Bottle EYEBOTH PRN (18:05)
[2021-01-21] MEDS ORDERED: 50% Dextrose in Water 50 ML Syringe IVPUSH PRN (18:18)
[2021-01-21] MEDS ORDERED: Glucagon,Human Recombinant 1 MG Vial IM PRN (18:18)
[2021-01-21] MEDS ORDERED: Magnesium Hydroxide 400 MG/5 ML Susp 30 ML Cup PO PRN (18:19)
[2021-01-21] MEDS: Polyethylene Glycol 3350 Powder 17 GM Packet PO SCH (21:06)
[2021-01-21] MEDS: atorvaSTATin 40 MG Tab PO SCH (21:07)
[2021-01-21] MEDS: LORazepam 0.5 MG Tab PO SCH (21:07)
[2021-01-21] MEDS: levETIRAcetam 500 MG Tab PO SCH (21:08)
[2021-01-21] MEDS: Calcium Citrate/Vitamin D3 315 MG-250 Unit Tab PO SCH (21:08)
[2021-01-21] MEDS: Insulin Aspart 100 Units/ML 3 ML Pen SUBCUT SCH (21:18)
[2021-01-22] MEDS: LORazepam 0.5 MG Tab PO PRN (01:38)
[2021-01-22] MEDS: Insulin Aspart 100 Units/ML 3 ML Pen SUBCUT SCH ×4 (07:32→21:10)
[2021-01-22] MEDS: Tamsulosin 0.4 MG Cap.ER PO SCH (08:19)
[2021-01-22] MEDS: Furosemide 40 MG Tab PO SCH (08:23)
[2021-01-22 08:24] LABS: ANION GAP 14.4 mmol/L (5-15); CHLORIDE,CL 99 mmol/L (98-107); SODIUM,NA 136 mmol/L (136-145)
[2021-01-22] MEDS: FLUoxetine 10 MG Cap PO SCH (08:24)
[2021-01-22] MEDS: Cyanocobalamin (Vitamin B12) 500 MCG Tab PO SCH (08:24)
[2021-01-22] MEDS: levETIRAcetam 500 MG Tab PO SCH ×2 (08:24→21:09)
[2021-01-22] MEDS: Aspirin 81 MG Tab.EC PO SCH (08:24)
[2021-01-22] MEDS: Potassium Chloride 20 MEQ Tab.ER PO SCH (08:24)
[2021-01-22] MEDS: Calcium Citrate/Vitamin D3 315 MG-250 Unit Tab PO SCH ×2 (08:24→21:08)
[2021-01-22] MEDS ORDERED: Lisinopril 20 MG Tab PO SCH (09:00)
[2021-01-22] MEDS ORDERED: Enoxaparin 40 MG/0.4 ML Syringe SUBCUT SCH (09:00)
[2021-01-22] MEDS: Acetaminophen 500 MG Tab PO PRN (10:41)
--- NOTE | 2021-01-22 11:43 | PCM.PN ---
- General Info Date of Service: 01/22/21 Subjective Update: Patient reports some improvement in weakness and dyspnea. No concerns. Functional Status: Reports: Pain Controlled, Tolerating Diet, Urinating - Review of Systems General: Reports: Weakness. Denies: Fever, Chills HEENT: Denies: Headaches, Sinus Congestion, Sore Throat Pulmonary: Denies: Shortness of Breath, Cough, Sputum, Wheezing Cardiovascular: Denies: Chest Pain, Edema, Lightheadedness Gastrointestinal: Denies: Abdominal Pain, Constipation, Diarrhea, Nausea, Vomiting Genitourinary: Denies: Dysuria, Frequency, Urgency, Hematuria Musculoskeletal: Denies: Neck Pain, Back Pain, Joint Pain Skin: Denies: Pallor, Bruising, Rash Neurological: Reports: Difficulty Walking, Weakness. Denies: Confusion, Headache, Trouble Speaking Psychiatric: Denies: Confusion, Depression, Anxiety - Patient Data Vitals - Most Recent: Last Vital Signs Temp 36.2 C 01/22/21 11:00 Pulse 50 L 01/22/21 11:00 Resp 20 01/22/21 11:00 BP 155/60 H 01/22/21 08:19 Pulse Ox 93 L 01/22/21 11:00 Weight - Most Recent: 114.305 kg I&O - Last 24 Hours: Intake & Output 01/21/21 01/22/21 01/22/21 22:59 06:59 14:59 Intake Total 700 300 Output Total 400 300 Balance 300 0 Lab Results Last 24 Hours: Laboratory Results - last 24 hr 01/21/21 01/21/21 01/21/21 Range/Units 14:05 14:05 15:26 WBC 7.20 (5.00-10.00) 10^3/uL RBC 4.30 L (4.50-6.00) 10^6/uL Hgb 12.9 L D (13.0-17.0) g/dL Hct 39.1 L (40.0-52.0) % MCV 90.9 (82.0-92.0) fL MCH 30.0 (27.0-31.0) pg MCHC 33.0 (32.0-36.0) g/dL RDW 15.8 H (11.5-14.5) % Plt Count 236 (150-400) 10^3/uL MPV 9.2 (7.4-10.4) fL Immature Gran % (Auto) 0.3 (0.0-5.0) % Neut % (Auto) 69.3 (50.0-70.0) % Lymph % (Auto) 18.5 L (20.0-40.0) % [place] % (Auto) 9.0 H (2.0-8.0) % Eos % (Auto) 2.6 (1.0-3.0) % Baso % (Auto) 0.3 (0.0-1.0) % Neut # (Auto) 4.99 (2.50-7.00) 10^3/uL Lymph # (Auto) 1.33 (1.00-4.00) 10^3/uL [place] # (Auto) 0.65 (0.10-0.80) 10^3/uL Eos # (Auto) 0.19 (0.10-0.30) 10^3/uL Baso # (Auto) 0.02 (0.00-0.10) 10^3/uL Immature Gran # (Auto) 0.02 (0.00-0.50) 10^3/uL Platelet Estimate Clumped Platelets Sodium 136 (136-145) mmol/L Potassium 3.7 (3.5-5.1) mmol/L Chloride 100 (98-107) mmol/L Carbon Dioxide 26.9 (21.0-32.0) mmol/L Anion Gap 12.8 (5-15) mmol/L BUN 9 (7-18) mg/dL Creatinine 0.79 (0.51-1.17) mg/dL Est Cr Clr Drug Dosing TNP Estimated GFR (MDRD) > 60 mL/min Glucose 118 (70-140) mg/dL POC Glucose (70-140) mg/dL Calcium 8.5 L (8.7-10.3) mg/dL Magnesium (1.8-2.4) mg/dL Total Bilirubin 0.5 (0.2-1.0) mg/dL AST 9 L (15-37) U/L ALT 15 (14-63) U/L Alkaline Phosphatase 73 (46-116) U/L Creatine Kinase 35 (26-276) U/L CK-MB (CK-2) 0.59 (0.00-3.60) ng/mL Troponin I High Sens 9.000 (0-76.000) pg/mL B-Natriuretic Peptide 448 H (0-100) pg/mL Total Protein 6.2 L (6.4-8.2) g/dL Albumin 3.05 L (3.40-5.00) g/dL Specimen Type Urine Color (YELLOW) Urine Appearance (CLEAR) Urine pH (5.0-9.0) Ur Specific [place] (1.005-1.030) Urine Protein (NEGATIVE) mg/dL Urine Glucose (UA) (NEGATIVE) mg/dL Urine Ketones (NEGATIVE) mg/dL Urine Occult Blood (NEGATIVE) Urine Nitrite (NEGATIVE) Urine Bilirubin (NEGATIVE) Urine Urobilinogen (0.2-1.0) E.U./dL Ur Leukocyte Esterase (NEGATIVE) Urine RBC (0-5) /HPF Urine WBC (0-5) /HPF Ur Epithelial Cells /LPF Urine Bacteria (NONE TO FEW) /HPF SARS CoV-2 RNA Rapid GLORIA Negative (NEGATIVE) 01/21/21 01/21/21 01/21/21 Range/Units 18:40 20:00 21:05 WBC (5.00-10.00) 10^3/uL RBC (4.50-6.00) 10^6/uL Hgb (13.0-17.0) g/dL Hct (40.0-52.0) % MCV (82.0-92.0) fL MCH (27.0-31.0) pg MCHC (32.0-36.0) g/dL RDW (11.5-14.5) % Plt Count (150-400) 10^3/uL MPV (7.4-10.4) fL Immature Gran % (Auto) (0.0-5.0) % Neut % (Auto) (50.0-70.0) % Lymph % (Auto) (20.0-40.0) % [place] % (Auto) (2.0-8.0) % Eos % (Auto) (1.0-3.0) % Baso % (Auto) (0.0-1.0) % Neut # (Auto) (2.50-7.00) 10^3/uL Lymph # (Auto) (1.00-4.00) 10^3/uL [place] # (Auto) (0.10-0.80) 10^3/uL Eos # (Auto) (0.10-0.30) 10^3/uL Baso # (Auto) (0.00-0.10) 10^3/uL Immature Gran # (Auto) (0.00-0.50) 10^3/uL Platelet Estimate Clumped Platelets Sodium (136-145) mmol/L Potassium (3.5-5.1) mmol/L Chloride (98-107) mmol/L Carbon Dioxide (21.0-32.0) mmol/L Anion Gap (5-15) mmol/L BUN (7-18) mg/dL Creatinine (0.51-1.17) mg/dL Est Cr Clr Drug Dosing Estimated GFR (MDRD) mL/min Glucose (70-140) mg/dL POC Glucose 160 H (70-140) mg/dL Calcium (8.7-10.3) mg/dL Magnesium (1.8-2.4) mg/dL Total Bilirubin (0.2-1.0) mg/dL AST (15-37) U/L ALT (14-63) U/L Alkaline Phosphatase (46-116) U/L Creatine Kinase (26-276) U/L CK-MB (CK-2) (0.00-3.60) ng/mL Troponin I High Sens 9.100 (0-76.000) pg/mL B-Natriuretic Peptide (0-100) pg/mL Total Protein (6.4-8.2) g/dL Albumin (3.40-5.00) g/dL Specimen Type Urinvoid Urine Color Yellow (YELLOW) Urine Appearance Clear (CLEAR) Urine pH 7.0 (5.0-9.0) Ur Specific [place] 1.020 (1.005-1.030) Urine Protein Negative (NEGATIVE) mg/dL Urine Glucose (UA) Negative (NEGATIVE) mg/dL Urine Ketones Negative (NEGATIVE) mg/dL Urine Occult Blood Negative (NEGATIVE) Urine Nitrite Negative (NEGATIVE) Urine Bilirubin Negative (NEGATIVE) Urine Urobilinogen 0.2 (0.2-1.0) E.U./dL Ur Leukocyte Esterase Negative (NEGATIVE) Urine RBC Not seen (0-5) /HPF Urine WBC Not seen (0-5) /HPF Ur Epithelial Cells Rare /LPF Urine Bacteria Not seen (NONE TO FEW) /HPF SARS CoV-2 RNA Rapid GLORIA (NEGATIVE) 01/22/21 01/22/21 Range/Units 07:10 07:10 WBC 8.21 (5.00-10.00) 10^3/uL RBC 5.01 (4.50-6.00) 10^6/uL Hgb 15.1 D (13.0-17.0) g/dL Hct 45.6 (40.0-52.0) % MCV 91.0 (82.0-92.0) fL MCH 30.1 (27.0-31.0) pg MCHC 33.1 (32.0-36.0) g/dL RDW 15.7 H (11.5-14.5) % Plt Count 164 (150-400) 10^3/uL MPV 11.0 H (7.4-10.4) fL Immature Gran % (Auto) 0.4 (0.0-5.0) % Neut % (Auto) 66.2 (50.0-70.0) % Lymph % (Auto) 22.3 (20.0-40.0) % [place] % (Auto) 7.4 (2.0-8.0) % Eos % (Auto) 3.5 H (1.0-3.0) % Baso % (Auto) 0.2 (0.0-1.0) % Neut # (Auto) 5.43 (2.50-7.00) 10^3/uL Lymph # (Auto) 1.83 (1.00-4.00) 10^3/uL [place] # (Auto) 0.61 (0.10-0.80) 10^3/uL Eos # (Auto) 0.29 (0.10-0.30) 10^3/uL Baso # (Auto) 0.02 (0.00-0.10) 10^3/uL Immature Gran # (Auto) 0.03 (0.00-0.50) 10^3/uL Platelet Estimate Adequate Clumped Platelets Occasional Sodium 136 (136-145) mmol/L Potassium 4.0 (3.5-5.1) mmol/L Chloride 99 (98-107) mmol/L Carbon Dioxide 26.6 (21.0-32.0) mmol/L Anion Gap 14.4 (5-15) mmol/L BUN 9 (7-18) mg/dL Creatinine 0.73 (0.51-1.17) mg/dL Est Cr Clr Drug Dosing 80.68 Estimated GFR (MDRD) > 60 mL/min Glucose 106 (70-140) mg/dL POC Glucose (70-140) mg/dL Calcium 8.9 (8.7-10.3) mg/dL Magnesium 2.1 (1.8-2.4) mg/dL Total Bilirubin 0.8 (0.2-1.0) mg/dL AST 16 (15-37) U/L ALT 14 (14-63) U/L Alkaline Phosphatase 89 (46-116) U/L Creatine Kinase (26-276) U/L CK-MB (CK-2) (0.00-3.60) ng/mL Troponin I High Sens 10.200 (0-76.000) pg/mL B-Natriuretic Peptide (0-100) pg/mL Total Protein 7.3 (6.4-8.2) g/dL Albumin 3.51 (3.40-5.00) g/dL Specimen Type Urine Color (YELLOW) Urine Appearance (CLEAR) Urine pH (5.0-9.0) Ur Specific [place] (1.005-1.030) Urine Protein (NEGATIVE) mg/dL Urine Glucose (UA) (NEGATIVE) mg/dL Urine Ketones (NEGATIVE) mg/dL Urine Occult Blood (NEGATIVE) Urine Nitrite (NEGATIVE) Urine Bilirubin (NEGATIVE) Urine Urobilinogen (0.2-1.0) E.U./dL Ur Leukocyte Esterase (NEGATIVE) Urine RBC (0-5) /HPF Urine WBC (0-5) /HPF Ur Epithelial Cells /LPF Urine Bacteria (NONE TO FEW) /HPF SARS CoV-2 RNA Rapid GLORIA (NEGATIVE) Med Orders - Current: Current Medications Acetaminophen (Acetaminophen 500 Mg Tab) 1,000 mg PO Q8H PRN PRN Reason: Pain Last Admin: 01/22/21 10:41 Dose: 1,000 mg Documented by: Artificial Tears (Carboxymethylcellulose Sodium 0.5% Ophth Soln 15 Ml Bottle) 0 ml EYEBOTH Q4H PRN PRN Reason: Dry Eyes Aspirin (Aspirin 81 Mg Tab.Ec) 81 mg PO DAILY [facility] Last Admin: 01/22/21 08:24 Dose: 81 mg Documented by: Atorvastatin Calcium (Atorvastatin 40 Mg Tab) 40 mg PO BEDTIME [facility] Last Admin: 01/21/21 21:07 Dose: 40 mg Documented by: Calcium Citrate (Calcium Citrate/Vitamin D3 315 Mg-250 Unit Tab) 2 tab PO BID [facility] Last Admin: 01/22/21 08:24 Dose: 2 tab Documented by: Cyanocobalamin (Cyanocobalamin (Vitamin B12) 500 Mcg Tab) 1,000 mcg PO DAILY [facility] Last Admin: 01/22/21 08:24 Dose: 1,000 mcg Documented by: Dextrose/Water (50% Dextrose In Water 50 Ml Syringe) 50 ml IVPUSH ASDIRECTED PRN PRN Reason: Hypoglycemia Fluoxetine HCl (Fluoxetine 10 Mg Cap) 40 mg PO QAM [facility] Last Admin: 01/22/21 08:24 Dose: 40 mg Documented by: Furosemide (Furosemide 40 Mg Tab) 40 mg PO DAILY [facility] Last Admin: 01/22/21 08:23 Dose: 40 mg Documented by: Glucagon (Glucagon,Human Recombinant 1 Mg Vial) 1 mg IM ASDIRECTED PRN PRN Reason: Hypoglycemia Insulin Aspart (Insulin Aspart 100 Units/Ml 3 Ml Pen) 0 unit SUBCUT WITHMEALSANDBED [facility]; Protocol Last Admin: 01/22/21 11:25 Dose: Not Given Documented by: Levetiracetam (Levetiracetam 500 Mg Tab) 500 mg PO BID [facility] Last Admin: 01/22/21 08:24 Dose: 500 mg Documented by: Lisinopril (Lisinopril 20 Mg Tab) 20 mg PO DAILY [facility] Last Admin: 01/22/21 08:19 Dose: 20 mg Documented by: Lorazepam (Lorazepam 0.5 Mg Tab) 0.5 mg PO BID PRN PRN Reason: Anxiety Last Admin: 01/22/21 01:38 Dose: 0.5 mg Documented by: Lorazepam (Lorazepam 0.5 Mg Tab) 1 mg PO BEDTIME [facility] Last Admin: 01/21/21 21:07 Dose: 1 mg Documented by: Magnesium Hydroxide (Magnesium Hydroxide 400 Mg/5 Ml Susp 30 Ml Cup) 30 ml PO BEDTIME PRN PRN Reason: Constipation Polyethylene Glycol (Polyethylene Glycol 3350 Powder 17 Gm Packet) 17 gm PO BEDTIME [facility] Last Admin: 01/21/21 21:06 Dose: 17 gm Documented by: Potassium Chloride (Potassium Chloride 20 Meq Tab.Er) 20 meq PO DAILY [facility] Last Admin: 01/22/21 08:24 Dose: 20 meq Documented by: Senna/Docusate Sodium (Docusate Sodium/Sennosides 50-8.6 Mg Tab) 2 tab PO BID [facility] Last Admin: 01/22/21 08:24 Dose: 2 tab Documented by: Tamsulosin HCl (Tamsulosin 0.4 Mg Cap.Er) 0.4 mg PO DAILY [facility] Last Admin: 01/22/21 08:19 Dose: 0.4 mg Documented by: Discontinued Medications Enoxaparin Sodium (Enoxaparin 40 Mg/0.4 Ml Syringe) 40 mg SUBCUT DAILY [facility] Furosemide (Furosemide 40 Mg/4 Ml Vial) 40 mg IVPUSH NOW ONE Stop: 01/21/21 15:27 Last Admin: 01/21/21 15:52 Dose: 40 mg Documented by: Sodium Chloride (Sodium Chloride 0.9% 10 Ml Syringe) 10 ml FLUSH Q8HR PRN PRN Reason: keep vein open - Exam Physical Findings Comments:: GENERAL: Frail-appearing adult in no acute distress. HEENT: Normocephalic, atraumatic. Conjunctiva clear. Nares patent without discharge. Mucous membranes moist, posterior pharynx unremarkable. NECK: Supple, no masses. CV: [place] rate and irregular rhythm, no murmurs, rubs, or gallops. 2+ radial pulses. PULMONARY: 2L/NC in place, Normal effort, clear to auscultation bilaterally, no wheezes, rales, or rhonchi. ABDOMEN: Positive bowel sounds, soft, nontender, nondistended. EXTREMITIES: Trace BLE edema, no cyanosis or clubbing. MUSCULOSKELETAL: Moves all extremities well. NEUROLOGICAL: No obvious deficits. DERMATOLOGIC: No rashes or suspicious lesions in exposed areas. PSYCHIATRIC: Alert, interactive, appropriate affect. - Patient Data Lab Results Last 24 hrs: Laboratory Results - last 24 hr 01/21/21 01/21/21 01/21/21 Range/Units 14:05 14:05 15:26 WBC 7.20 (5.00-10.00) 10^3/uL RBC 4.30 L (4.50-6.00) 10^6/uL Hgb 12.9 L D (13.0-17.0) g/dL Hct 39.1 L (40.0-52.0) % MCV 90.9 (82.0-92.0) fL MCH 30.0 (27.0-31.0) pg MCHC 33.0 (32.0-36.0) g/dL RDW 15.8 H (11.5-14.5) % Plt Count 236 (150-400) 10^3/uL MPV 9.2 (7.4-10.4) fL Immature Gran % (Auto) 0.3 (0.0-5.0) % Neut % (Auto) 69.3 (50.0-70.0) % Lymph % (Auto) 18.5 L (20.0-40.0) % [place] % (Auto) 9.0 H (2.0-8.0) % Eos % (Auto) 2.6 (1.0-3.0) % Baso % (Auto) 0.3 (0.0-1.0) % Neut # (Auto) 4.99 (2.50-7.00) 10^3/uL Lymph # (Auto) 1.33 (1.00-4.00) 10^3/uL [place] # (Auto) 0.65 (0.10-0.80) 10^3/uL Eos # (Auto) 0.19 (0.10-0.30) 10^3/uL Baso # (Auto) 0.02 (0.00-0.10) 10^3/uL Immature Gran # (Auto) 0.02 (0.00-0.50) 10^3/uL Platelet Estimate Clumped Platelets Sodium 136 (136-145) mmol/L Potassium 3.7 (3.5-5.1) mmol/L Chloride 100 (98-107) mmol/L Carbon Dioxide 26.9 (21.0-32.0) mmol/L Anion Gap 12.8 (5-15) mmol/L BUN 9 (7-18) mg/dL Creatinine 0.79 (0.51-1.17) mg/dL Est Cr Clr Drug Dosing TNP Estimated GFR (MDRD) > 60 mL/min Glucose 118 (70-140) mg/dL POC Glucose (70-140) mg/dL Calcium 8.5 L (8.7-10.3) mg/dL Magnesium (1.8-2.4) mg/dL Total Bilirubin 0.5 (0.2-1.0) mg/dL AST 9 L (15-37) U/L ALT 15 (14-63) U/L Alkaline Phosphatase 73 (46-116) U/L Creatine Kinase 35 (26-276) U/L CK-MB (CK-2) 0.59 (0.00-3.60) ng/mL Troponin I High Sens 9.000 (0-76.000) pg/mL B-Natriuretic Peptide 448 H (0-100) pg/mL Total Protein 6.2 L (6.4-8.2) g/dL Albumin 3.05 L (3.40-5.00) g/dL Specimen Type Urine Color (YELLOW) Urine Appearance (CLEAR) Urine pH (5.0-9.0) Ur Specific [place] (1.005-1.030) Urine Protein (NEGATIVE) mg/dL Urine Glucose (UA) (NEGATIVE) mg/dL Urine Ketones (NEGATIVE) mg/dL Urine Occult Blood (NEGATIVE) Urine Nitrite (NEGATIVE) Urine Bilirubin (NEGATIVE) Urine Urobilinogen (0.2-1.0) E.U./dL Ur Leukocyte Esterase (NEGATIVE) Urine RBC (0-5) /HPF Urine WBC (0-5) /HPF Ur Epithelial Cells /LPF Urine Bacteria (NONE TO FEW) /HPF SARS CoV-2 RNA Rapid GLORIA Negative (NEGATIVE) 01/21/21 01/21/21 01/21/21 Range/Units 18:40 20:00 21:05 WBC (5.00-10.00) 10^3/uL RBC (4.50-6.00) 10^6/uL Hgb (13.0-17.0) g/dL Hct (40.0-52.0) % MCV (82.0-92.0) fL MCH (27.0-31.0) pg MCHC (32.0-36.0) g/dL RDW (11.5-14.5) % Plt Count (150-400) 10^3/uL MPV (7.4-10.4) fL Immature Gran % (Auto) (0.0-5.0) % Neut % (Auto) (50.0-70.0) % Lymph % (Auto) (20.0-40.0) % [place] % (Auto) (2.0-8.0) % Eos % (Auto) (1.0-3.0) % Baso % (Auto) (0.0-1.0) % Neut # (Auto) (2.50-7.00) 10^3/uL Lymph # (Auto) (1.00-4.00) 10^3/uL [place] # (Auto) (0.10-0.80) 10^3/uL Eos # (Auto) (0.10-0.30) 10^3/uL Baso # (Auto) (0.00-0.10) 10^3/uL Immature Gran # (Auto) (0.00-0.50) 10^3/uL Platelet Estimate Clumped Platelets Sodium (136-145) mmol/L Potassium (3.5-5.1) mmol/L Chloride (98-107) mmol/L Carbon Dioxide (21.0-32.0) mmol/L Anion Gap (5-15) mmol/L BUN (7-18) mg/dL Creatinine (0.51-1.17) mg/dL Est Cr Clr Drug Dosing Estimated GFR (MDRD) mL/min Glucose (70-140) mg/dL POC Glucose 160 H (70-140) mg/dL Calcium (8.7-10.3) mg/dL Magnesium (1.8-2.4) mg/dL Total Bilirubin (0.2-1.0) mg/dL AST (15-37) U/L ALT (14-63) U/L Alkaline Phosphatase (46-116) U/L Creatine Kinase (26-276) U/L CK-MB (CK-2) (0.00-3.60) ng/mL Troponin I High Sens 9.100 (0-76.000) pg/mL B-Natriuretic Peptide (0-100) pg/mL Total Protein (6.4-8.2) g/dL Albumin (3.40-5.00) g/dL Specimen Type Urinvoid Urine Color Yellow (YELLOW) Urine Appearance Clear (CLEAR) Urine pH 7.0 (5.0-9.0) Ur Specific [place] 1.020 (1.005-1.030) Urine Protein Negative (NEGATIVE) mg/dL Urine Glucose (UA) Negative (NEGATIVE) mg/dL Urine Ketones Negative (NEGATIVE) mg/dL Urine Occult Blood Negative (NEGATIVE) Urine Nitrite Negative (NEGATIVE) Urine Bilirubin Negative (NEGATIVE) Urine Urobilinogen 0.2 (0.2-1.0) E.U./dL Ur Leukocyte Esterase Negative (NEGATIVE) Urine RBC Not seen (0-5) /HPF Urine WBC Not seen (0-5) /HPF Ur Epithelial Cells Rare /LPF Urine Bacteria Not seen (NONE TO FEW) /HPF SARS CoV-2 RNA Rapid GLORIA (NEGATIVE) 01/22/21 01/22/21 Range/Units 07:10 07:10 WBC 8.21 (5.00-10.00) 10^3/uL RBC 5.01 (4.50-6.00) 10^6/uL Hgb 15.1 D (13.0-17.0) g/dL Hct 45.6 (40.0-52.0) % MCV 91.0 (82.0-92.0) fL MCH 30.1 (27.0-31.0) pg MCHC 33.1 (32.0-36.0) g/dL RDW 15.7 H (11.5-14.5) % Plt Count 164 (150-400) 10^3/uL MPV 11.0 H (7.4-10.4) fL Immature Gran % (Auto) 0.4 (0.0-5.0) % Neut % (Auto) 66.2 (50.0-70.0) % Lymph % (Auto) 22.3 (20.0-40.0) % [place] % (Auto) 7.4 (2.0-8.0) % Eos % (Auto) 3.5 H (1.0-3.0) % Baso % (Auto) 0.2 (0.0-1.0) % Neut # (Auto) 5.43 (2.50-7.00) 10^3/uL Lymph # (Auto) 1.83 (1.00-4.00) 10^3/uL [place] # (Auto) 0.61 (0.10-0.80) 10^3/uL Eos # (Auto) 0.29 (0.10-0.30) 10^3/uL Baso # (Auto) 0.02 (0.00-0.10) 10^3/uL Immature Gran # (Auto) 0.03 (0.00-0.50) 10^3/uL Platelet Estimate Adequate Clumped Platelets Occasional Sodium 136 (136-145) mmol/L Potassium 4.0 (3.5-5.1) mmol/L Chloride 99 (98-107) mmol/L Carbon Dioxide 26.6 (21.0-32.0) mmol/L Anion Gap 14.4 (5-15) mmol/L BUN 9 (7-18) mg/dL Creatinine 0.73 (0.51-1.17) mg/dL Est Cr Clr Drug Dosing 80.68 Estimated GFR (MDRD) > 60 mL/min Glucose 106 (70-140) mg/dL POC Glucose (70-140) mg/dL Calcium 8.9 (8.7-10.3) mg/dL Magnesium 2.1 (1.8-2.4) mg/dL Total Bilirubin 0.8 (0.2-1.0) mg/dL AST 16 (15-37) U/L ALT 14 (14-63) U/L Alkaline Phosphatase 89 (46-116) U/L Creatine Kinase (26-276) U/L CK-MB (CK-2) (0.00-3.60) ng/mL Troponin I High Sens 10.200 (0-76.000) pg/mL B-Natriuretic Peptide (0-100) pg/mL Total Protein 7.3 (6.4-8.2) g/dL Albumin 3.51 (3.40-5.00) g/dL Specimen Type Urine Color (YELLOW) Urine Appearance (CLEAR) Urine pH (5.0-9.0) Ur Specific [place] (1.005-1.030) Urine Protein (NEGATIVE) mg/dL Urine Glucose (UA) (NEGATIVE) mg/dL Urine Ketones (NEGATIVE) mg/dL Urine Occult Blood (NEGATIVE) Urine Nitrite (NEGATIVE) Urine Bilirubin (NEGATIVE) Urine Urobilinogen (0.2-1.0) E.U./dL Ur Leukocyte Esterase (NEGATIVE) Urine RBC (0-5) /HPF Urine WBC (0-5) /HPF Ur Epithelial Cells /LPF Urine Bacteria (NONE TO FEW) /HPF SARS CoV-2 RNA Rapid GLORIA (NEGATIVE) Result Diagrams: 01/22/21 07:10 01/22/21 07:10 Sepsis Event Note - Evaluation Sepsis Screening Result: No Definite Risk - Focused Exam Vital Signs: Vital Signs Temp Pulse Resp BP BP Pulse Ox Pulse Ox 01/22/21 11:00 36.2 C 50 L 20 93 L 01/22/21 08:19 155/60 H 01/22/21 07:55 01/22/21 07:30 95 01/22/21 07:00 35.8 C L 50 L 16 177/80 H 92 L 01/22/21 03:00 36.8 C 48 L 16 155/72 H 92 L Pulse Ox 01/22/21 11:00 01/22/21 08:19 01/22/21 07:55 86 L 01/22/21 07:30 01/22/21 07:00 01/22/21 03:00 - Problem List Review Problem List Initiated/Reviewed/Updated: Yes - My Orders Last 24 Hours: My Active Orders 01/21/21 Dinner [place] Diet [DIET] 01/21/21 18:05 Carboxymethylcellulose Sodium [Refresh Tears 0.5%] 0 ml EYEBOTH Q4H PRN LORazepam [Ativan] 0.5 mg PO BID PRN 01/21/21 18:09 Blood Glucose Check, Bedside [RC] QIDACANDBED Height and Weight [RC] 07 Intake and Output [RC] 1400,2200,0600 Oxygen Therapy [RC] .PRN Up With Assistance [RC] ASDIRECTED 01/21/21 18:18 Dextrose 50% in Water 50 ml IVPUSH ASDIRECTED PRN Glucagon,Human Recombinant [GlucaGen] 1 mg IM ASDIRECTED PRN 01/21/21 18:19 Magnesium Hydroxide [Milk of Magnesia] 30 ml PO BEDTIME PRN 01/21/21 18:49 VTE Pharmacological Contraindications [AST] Click To Edit 01/21/21 21:00 Calcium Citrate/Vitamin D3 [Calcium Citrate + D] 2 tab PO BID Docusate Sodium/Sennosides [Senna Plus] 2 tab PO BID LORazepam [Ativan] 1 mg PO BEDTIME atorvaSTATin [Lipitor] 40 mg PO BEDTIME levETIRAcetam [Keppra] 500 mg PO BID polyethylene glycoL 3350 [MiraLAX] 17 gm PO BEDTIME 01/21/21 22:00 Insulin Aspart [NovoLOG] See Protocol SUBCUT WITHMEALSANDBED 01/22/21 05:11 Consult to Case Management/Senior Business Objects Developer [CONS] AM PT Evaluation and Treatment [CONS] AM Respiratory Care Assess and Treatment [CONS] AM 01/22/21 07:10 VITAMIN B12 [REF] AM 01/22/21 09:00 Aspirin [Halfprin] 81 mg PO DAILY Cyanocobalamin (Vitamin B12) [Vitamin B12] 1,000 mcg PO DAILY FLUoxetine [PROzac] 40 mg PO QAM Furosemide [Lasix] 40 mg PO DAILY Potassium Chloride [Klor-Con M20] 20 meq PO DAILY Tamsulosin [Flomax] 0.4 mg PO DAILY lisinopriL [Prinivil] 20 mg PO DAILY 01/22/21 10:21 Acetaminophen [Tylenol Extra Strength] 1,000 mg PO Q8H PRN - Plan Plan:: HPI summary: 80 year old male presents via EMS to the ED with complaints of shortness of breath and progressive weakness. [facility] at [facility] in [place] with discharge nine days ago due to frequent falls CAD, CHF and weakness. He reports they took many of his medications away and initially he was doing well, but over the past three days he has been increasingly weak with difficulty getting up and out of bed on his own. He denies chest pain, fevers/chills or cough. Has not fallen since hospitalization. Admitted inpatient for CHF exac and deconditioning. ED course: VS: T97.3, R17, P 54, BP 166/81, o2 88%/RA, 96% on 2L/NC EKG: SB, rate 47, right bundle branch block, left anterior fascicular block; similar to previous CXR: stable cardiomegaly, bibasilar infiltrates and/or atelectasis are similar to previous exam, small left pleural effusion mildly decreased, borderline central vascular congestion Lab: WBC 7.2, RBC 4.3, Hgb 12.9, Hct 39.1 (normocytic, normochromic with elev ated RDW 15.8), Na 136, K 3.7, CO2 26.9, anion gap 12.8, BUN 9, creatinine 0.79, GFR >60, trop neg, BNP 448, T protein 6.2, Alb 3.05 Med: IV Lasix 40mg x 1 Hospital course: 01/21/2021: Patient in room, lying in bed. Feeling better now with oxygen on. No new concerns. 01/22/2021: No overnight concerns. Patient was trialed off oxygen this AM and was 86% and he was placed back on oxygen. Troponin trends negative. No l eukocytosis or neutrophilia. Hgb 15.1, Hct 45.6 today. Urine is unremarkable for infection. BUN 9, cr 0.73, GFR >60. Mg 2.1, electrolytes stable. Vitamin B12 pending. Physical therapy in with patient this AM. SS discussed placement at [facility] and will look into availability. Hospitalization problems and plan: # Acute hypoxic respiratory failure, ?secondary to cardiac status or deconditioning -Oxygen to keep sat >92% -CBC and BMP in the AM #Combined diastolic and systolic heart failure, EF of 40-45% on 10/18/2020 according to [facility] records, BNP NT-PRO when is [facility] hosp 2749 01/11/2021 -continue oral furosemide #HTN -increase lisinopril to 40mg daily #Anemia, iron vs B12 def.; DC hgb on 01/12/2021 13.7 -continue B12 -B12 level in the AM #Deconditioning -Continue PT #Constipation, last BM three to four days ago -continue senna/docusate sodium, continue miralax -Dulcolax supp Chronic, stable conditions: #possible ischemia on stress test 01/11/2021: small reversible defect in the apex consistent with possible ischemia, recommended upcoming cardiac cath after B12 level normalized will plan for as outpt #Type2 DM: hold metformin, blood glucose four times daily with low dose SS insulin #Hyperlipidemia: continue atorvastatin and ASA #Dry eyes: continue carboxymethylcellulose #Anxiety/depression: continue fluoxetine and lorazepam ([facility]) #Subdural hemorrhage hx: continue Keppra #BPH, continue tamsulosin #?disorder of the thyroid, last TSH 2.15 on 01/11/2021 #?Parkinsons, no symptoms at this time #RESHMA: ?CPAP Hospitalization details: # FEN: oral, saline lock, electrolytes stable, ADA diet # PPX: ASA, h/o subdural hemorrhage # Code status: Full code, discussed with patient # Emergency contact: , Yumi, updated at bedside # Disposition: two to three midnights as uncertain at this time etiology of h ypoxia, hypertension adjustment of medication; plan for possible SB stay vs jail care setting, or possibly home with home health depending on status and availability
[2021-01-22] MEDS ORDERED: Bisacodyl 10 MG Supp RECTAL ONE (12:03)
[2021-01-22] MEDS ORDERED: Lisinopril 20 MG Tab PO ONE ×2 (13:00)
[2021-01-22] MEDS ORDERED: Lidocaine 2% 100 MG/5 ML Syringe IVPUSH PRN (19:27)
[2021-01-22] MEDS ORDERED: Nitroglycerin 0.4 MG Tab.SL SL PRN (19:27)
[2021-01-22] MEDS ORDERED: Atropine 0.1 MG/ML 10 ML Syringe IVPUSH PRN (19:27)
[2021-01-22] MEDS ORDERED: EPINEPHrine 1:10,000 1 MG/10 ML Syringe IVPUSH PRN (19:27)
[2021-01-22] MEDS ORDERED: Melatonin 3 MG Tab PO PRN (19:41)
[2021-01-22] MEDS: Polyethylene Glycol 3350 Powder 17 GM Packet PO SCH (21:08)
[2021-01-22] MEDS: LORazepam 0.5 MG Tab PO SCH (21:08)
[2021-01-22] MEDS: atorvaSTATin 40 MG Tab PO SCH (21:09)
[2021-01-23] MEDS: Acetaminophen 500 MG Tab PO PRN (01:14)
[2021-01-23] MEDS: LORazepam 0.5 MG Tab PO PRN ×2 (01:14→14:48)
[2021-01-23] MEDS: Insulin Aspart 100 Units/ML 3 ML Pen SUBCUT SCH ×4 (07:27→21:14)
[2021-01-23] MEDS: Aspirin 81 MG Tab.EC PO SCH (08:16)
[2021-01-23] MEDS: Cyanocobalamin (Vitamin B12) 500 MCG Tab PO SCH (08:16)
[2021-01-23] MEDS: FLUoxetine 10 MG Cap PO SCH (08:16)
[2021-01-23] MEDS: Potassium Chloride 20 MEQ Tab.ER PO SCH (08:16)
[2021-01-23] MEDS: Tamsulosin 0.4 MG Cap.ER PO SCH (08:17)
[2021-01-23] MEDS: levETIRAcetam 500 MG Tab PO SCH ×2 (08:17→21:49)
[2021-01-23] MEDS: Furosemide 40 MG Tab PO SCH (08:17)
[2021-01-23] MEDS: Lisinopril 20 MG Tab PO SCH (08:17)
[2021-01-23] MEDS: Calcium Citrate/Vitamin D3 315 MG-250 Unit Tab PO SCH ×2 (08:17→21:48)
[2021-01-23] MEDS ORDERED: Magnesium Hydroxide 400 MG/5 ML Susp 30 ML Cup PO ONE (10:31)
[2021-01-23] MEDS ORDERED: Melatonin 3 MG Tab PO PRN (11:15)
--- NOTE | 2021-01-23 11:15 | PCM.PN ---
- General Info Date of Service: 01/23/21 Subjective Update: Patient reports increased gas, still has not had a bowel movement. Breathing has improved, denies shortness of breath, cough, wheezing. States he felt a little bit dizzy/lightheaded this morning which has since resolved. Reports feeling that he has a lot to process while he considers options for discharge planning with recommendations for [facility] facility as well as the unexpected of his younger brother last night. Functional Status: Reports: Pain Controlled, Tolerating Diet, Urinating - Review of Systems General: Reports: No Symptoms HEENT: Reports: No Symptoms Pulmonary: Reports: No Symptoms. Denies: Shortness of Breath, Cough, Wheezing Cardiovascular: Reports: No Symptoms. Denies: Chest Pain, Palpitations, Edema Gastrointestinal: Reports: Constipation, Flatus. Denies: Abdominal Pain, Decreased Appetite, Diarrhea, Nausea, Vomiting Genitourinary: Reports: No Symptoms Musculoskeletal: Reports: No Symptoms Skin: Reports: No Symptoms Neurological: Reports: Dizziness (earlier this am, now resolved) Psychiatric: Reports: No Symptoms - Patient Data Vitals - Most Recent: Last Vital Signs Temp 96.7 F L 01/23/21 07:00 Pulse 57 L 01/23/21 07:00 Resp 20 01/23/21 07:00 BP 168/83 H 01/23/21 08:17 Pulse Ox 95 01/23/21 07:00 Weight - Most Recent: 253 lb I&O - Last 24 Hours: Intake & Output 01/22/21 01/23/21 01/23/21 22:59 06:59 14:59 Intake Total 1230 350 Balance 1230 350 Lab Results Last 24 Hours: Laboratory Results - last 24 hr 01/22/21 01/22/21 Range/Units 07:10 20:51 POC Glucose 162 H (70-140) mg/dL Vitamin B12 899 (180-914) pg/mL Med Orders - Current: Current Medications Acetaminophen (Acetaminophen 500 Mg Tab) 1,000 mg PO Q8H PRN PRN Reason: Pain Last Admin: 01/23/21 01:14 Dose: 1,000 mg Documented by: Artificial Tears (Carboxymethylcellulose Sodium 0.5% Ophth Soln 15 Ml Bottle) 0 ml EYEBOTH Q4H PRN PRN Reason: Dry Eyes Aspirin (Aspirin 81 Mg Tab.Ec) 81 mg PO DAILY [facility] Last Admin: 01/23/21 08:16 Dose: 81 mg Documented by: Atorvastatin Calcium (Atorvastatin 40 Mg Tab) 40 mg PO BEDTIME [facility] Last Admin: 01/22/21 21:09 Dose: 40 mg Documented by: Atropine Sulfate (Atropine 0.1 Mg/Ml 10 Ml Syringe) 0 mg IVPUSH ASDIRECTED PRN PRN Reason: Heart. Calcium Citrate (Calcium Citrate/Vitamin D3 315 Mg-250 Unit Tab) 2 tab PO BID [facility] Last Admin: 01/23/21 08:17 Dose: 2 tab Documented by: Cyanocobalamin (Cyanocobalamin (Vitamin B12) 500 Mcg Tab) 1,000 mcg PO DAILY [facility] Last Admin: 01/23/21 08:16 Dose: 1,000 mcg Documented by: Dextrose/Water (50% Dextrose In Water 50 Ml Syringe) 50 ml IVPUSH ASDIRECTED PRN PRN Reason: Hypoglycemia Epinephrine HCl (Epinephrine 1:10,000 1 Mg/10 Ml Syringe) 1 mg IVPUSH ASDIRECTED PRN PRN Reason: Heart. Fluoxetine HCl (Fluoxetine 10 Mg Cap) 40 mg PO QAM [facility] Last Admin: 01/23/21 08:16 Dose: 40 mg Documented by: Furosemide (Furosemide 40 Mg Tab) 40 mg PO DAILY [facility] Last Admin: 01/23/21 08:17 Dose: 40 mg Documented by: Glucagon (Glucagon,Human Recombinant 1 Mg Vial) 1 mg IM ASDIRECTED PRN PRN Reason: Hypoglycemia Insulin Aspart (Insulin Aspart 100 Units/Ml 3 Ml Pen) 0 unit SUBCUT WITHMEALSANDBED [facility]; Protocol Last Admin: 01/23/21 07:27 Dose: Not Given Documented by: Levetiracetam (Levetiracetam 500 Mg Tab) 500 mg PO BID [facility] Last Admin: 01/23/21 08:17 Dose: 500 mg Documented by: Lidocaine HCl (Lidocaine 2% 100 Mg/5 Ml Syringe) 0 mg IVPUSH ASDIRECTED PRN PRN Reason: Heart. Lisinopril (Lisinopril 20 Mg Tab) 40 mg PO DAILY [facility] Last Admin: 01/23/21 08:17 Dose: 40 mg Documented by: Lorazepam (Lorazepam 0.5 Mg Tab) 0.5 mg PO BID PRN PRN Reason: Anxiety Last Admin: 01/23/21 01:14 Dose: 0.5 mg Documented by: Lorazepam (Lorazepam 0.5 Mg Tab) 1 mg PO BEDTIME [facility] Last Admin: 01/22/21 21:08 Dose: 1 mg Documented by: Magnesium Hydroxide (Magnesium Hydroxide 400 Mg/5 Ml Susp 30 Ml Cup) 30 ml PO BEDTIME PRN PRN Reason: Constipation Melatonin (Melatonin 3 Mg Tab) 3 mg PO BEDTIME PRN PRN Reason: Insomnia Last Admin: 01/22/21 21:09 Dose: 3 mg Documented by: Nitroglycerin (Nitroglycerin 0.4 Mg Tab.Sl) 0.4 mg SL ASDIRECTED PRN PRN Reason: Heart. Polyethylene Glycol (Polyethylene Glycol 3350 Powder 17 Gm Packet) 17 gm PO BEDTIME [facility] Last Admin: 01/22/21 21:08 Dose: 17 gm Documented by: Potassium Chloride (Potassium Chloride 20 Meq Tab.Er) 20 meq PO DAILY [facility] Last Admin: 01/23/21 08:16 Dose: 20 meq Documented by: Senna/Docusate Sodium (Docusate Sodium/Sennosides 50-8.6 Mg Tab) 2 tab PO BID [facility] Last Admin: 01/23/21 08:16 Dose: 2 tab Documented by: Tamsulosin HCl (Tamsulosin 0.4 Mg Cap.Er) 0.4 mg PO DAILY [facility] Last Admin: 01/23/21 08:17 Dose: 0.4 mg Documented by: Discontinued Medications Bisacodyl (Bisacodyl 10 Mg Supp) 10 mg RECTAL ONETIME ONE Stop: 01/22/21 12:04 Last Admin: 01/22/21 12:44 Dose: 10 mg Documented by: Enoxaparin Sodium (Enoxaparin 40 Mg/0.4 Ml Syringe) 40 mg SUBCUT DAILY [facility] Furosemide (Furosemide 40 Mg/4 Ml Vial) 40 mg IVPUSH NOW ONE Stop: 01/21/21 15:27 Last Admin: 01/21/21 15:52 Dose: 40 mg Documented by: Lisinopril (Lisinopril 20 Mg Tab) 20 mg PO DAILY [facility] Last Admin: 01/22/21 08:19 Dose: 20 mg Documented by: Lisinopril (Lisinopril 20 Mg Tab) 20 mg PO DAILY ONE Stop: 01/22/21 13:01 Lisinopril (Lisinopril 20 Mg Tab) 20 mg PO ONETIME ONE Stop: 01/22/21 13:01 Last Admin: 01/22/21 12:44 Dose: 20 mg Documented by: Magnesium Hydroxide (Magnesium Hydroxide 400 Mg/5 Ml Susp 30 Ml Cup) 30 ml PO ONETIME ONE Stop: 01/23/21 10:32 Last Admin: 01/23/21 10:58 Dose: 30 ml Documented by: Sodium Chloride (Sodium Chloride 0.9% 10 Ml Syringe) 10 ml FLUSH Q8HR PRN PRN Reason: keep vein open - Exam Quality Assessment: Supplemental Oxygen General: Alert, Oriented, Cooperative, No Acute Distress HEENT: Pupils Equal, Mucous Membr. Moist/[place] Neck: Supple Lungs: Decreased Breath Sounds. No: Crackles, Rhonchi, Wheezing Cardiovascular: Regular Rhythm, No Murmurs, Bradycardia GI/Abdominal Exam: Normal Bowel Sounds, Soft, Non-Tender, No Distention (Male) Exam: Deferred Back Exam: Normal Inspection, Full Range of Motion Extremities: Normal Inspection, Normal Range of Motion, Non-Tender, No Pedal Edema, Normal Capillary Refill Peripheral Pulses: 2+: Dorsalis Pedis (L), Dorsalis Pedis (R) Skin: Warm, Dry, Intact Neurological: No New Focal Deficit Psy/Mental Status: Alert, Normal Affect, Depressed (appears mildly depressed this morning) - Patient Data Lab Results Last 24 hrs: Laboratory Results - last 24 hr 01/22/21 01/22/21 Range/Units 07:10 20:51 POC Glucose 162 H (70-140) mg/dL Vitamin B12 899 (180-914) pg/mL Result Diagrams: 01/22/21 07:10 01/22/21 07:10 Sepsis Event Note - Evaluation Sepsis Screening Result: No Definite Risk - Focused Exam Vital Signs: Vital Signs Temp Pulse Resp BP BP Pulse Ox Pulse Ox 01/23/21 08:17 168/83 H 01/23/21 07:00 96.7 F L 57 L 20 168/83 H 95 95 01/23/21 03:00 96.8 F L 52 L 20 150/68 H 95 - Problem List Review Problem List Initiated/Reviewed/Updated: Yes - Plan Plan:: HPI summary: 80 year old male presents via EMS to the ED with complaints of shortness of breath and progressive weakness. Recently hospitalized at the [facility] in [place] with discharge nine days ago due to frequent falls CAD, CHF and weakness. He reports they took many of his medications away and initially he was doing well, but over the past three days he has been increasingly weak with difficulty getting up and out of bed on his own. He denies chest pain, fevers/chills or cough. Has not fallen since hospitalization. Admitted inpatient for CHF exac and deconditioning. ED course: VS: T97.3, R17, P 54, BP 166/81, o2 88%/RA, 96% on 2L/NC EKG: SB, rate 47, right bundle branch block, left anterior fascicular block; similar to previous CXR: stable cardiomegaly, bibasilar infiltrates and/or atelectasis are similar to previous exam, small left pleural effusion mildly decreased, borderline central vascular congestion Lab: WBC 7.2, RBC 4.3, Hgb 12.9, Hct 39.1 (normocytic, normochromic with elevated RDW 15.8), Na 136, K 3.7, CO2 26.9, anion gap 12.8, BUN 9, creatinine 0.79, GFR >60, trop neg, BNP 448, T protein 6.2, Alb 3.05 Med: IV Lasix 40mg x 1 Hospital course: 01/21/2021: Patient in room, lying in bed. Feeling better now with oxygen on. No new concerns. 01/22/2021: No overnight concerns. Patient was trialed off oxygen this AM and was 86% and he was placed back on oxygen. Troponin trends negative. No leukocytosis or neutrophilia. Hgb 15.1, Hct 45.6 today. Urine is unremarkable for infection. BUN 9, cr 0.73, GFR >60. Mg 2.1, electrolytes stable. Vitamin B12 pending. Physical therapy in with patient this AM. SS discussed placement at [facility] and will look into availability. 01/23/21: No calls overnight. No results from supp yesterday, will give MOM as last BM was 3-4 days ago. Labs stable. B12 normal at 899. coming to discuss discharge planning. Patient has been recommended to go to SNF, patient reluctant. Of note, patient's younger brother rather unexpectedly last night. Patient indicates he has a lot to think about and process this morning and needs some time to consider recommended discharge plans. Hospitalization problems and plan: # Acute hypoxic respiratory failure; improving. O2 titrated down to 1L this morning on rounds. -Oxygen to keep sat >92% -Repeat CBC and BMP in the AM # HFrEF, EF of 40-45% on 10/18/[address] records, BNP NT-PRO when is [facility] hosp [id number] 01/11/2021. BNP 448 in ER. -continue oral furosemide 40mg PO daily #HTN - Lisinopril increased to 40mg PO yesterday (01/22) -Continue lisinopril to 40mg daily #Deconditioning -Continue PT #Constipation, last BM three to four days ago; dulcolax supp given 01/22 without results - continue senna/docusate sodium and miralax daily - Will give MOM today #Anemia; resolved. Hgb 15.1 today, B12 899. -continue B12 supplementation daily Chronic, stable conditions: # possible ischemia on stress test 01/11/[address]: small reversible defect in the apex consistent with possible ischemia, recommended upcoming cardiac cath after B12 level normalized CT planning for this as outpt # Hyperlipidemia: continue atorvastatin and ASA # Hx of Subdural hemorrhage: continue Keppra # DM Type II: hold metformin, blood glucose four times daily with low dose SS insulin # Anxiety/depression: continue fluoxetine and lorazepam (patient has been on this chronically for many years per the CT records) # BPH: continue tamsulosin # Dry eyes: continue carboxymethylcellulose # Hx of Parkinsons; stable. No current medications; no symptoms at this time # ?disorder of the thyroid, last TSH 2.15 on 01/11/2021 # RESHMA: ?CPAP Hospitalization details: # FEN: PO fluids, electrolytes stable, Diabetic diet # PPX: ASA, h/o subdural hemorrhage # Code status: Full code # Emergency contact: , Yumi updated per nursing, outreach and education social worker # Disposition: family services worker continuing to work on discharge planning, patient was denied by [facility], has been accepted for admission to [place]; outreach and education social worker to discuss recommendations for SNF with patient and today as patient reluctant. Continuing PT services. Will administer additional laxatives today due to lack of bowel movement. Likely discharge to SNF tomorrow if patient agreeable to plan.
[2021-01-23] MEDS ORDERED: Bisacodyl 10 MG Supp RECTAL PRN (15:19)
[2021-01-23] MEDS: Nystatin Topical Powder 15 GM Bottle TOP SCH ×2 (16:05→21:48)
[2021-01-23] MEDS: Polyethylene Glycol 3350 Powder 17 GM Packet PO SCH (21:00)
[2021-01-23] MEDS: LORazepam 0.5 MG Tab PO SCH (21:48)
[2021-01-23] MEDS: atorvaSTATin 40 MG Tab PO SCH (21:49)
[2021-01-24] MEDS: LORazepam 0.5 MG Tab PO PRN ×2 (01:22→13:06)
[2021-01-24] MEDS: Acetaminophen 500 MG Tab PO PRN (01:23)
[2021-01-24] MEDS: Insulin Aspart 100 Units/ML 3 ML Pen SUBCUT SCH ×2 (07:55→11:38)
[2021-01-24] MEDS: Tamsulosin 0.4 MG Cap.ER PO SCH (08:14)
[2021-01-24] MEDS: Lisinopril 20 MG Tab PO SCH (08:14)
[2021-01-24] MEDS: Potassium Chloride 20 MEQ Tab.ER PO SCH (08:15)
[2021-01-24] MEDS: Calcium Citrate/Vitamin D3 315 MG-250 Unit Tab PO SCH (08:15)
[2021-01-24] MEDS: Furosemide 40 MG Tab PO SCH (08:15)
[2021-01-24] MEDS: levETIRAcetam 500 MG Tab PO SCH (08:15)
[2021-01-24] MEDS: FLUoxetine 10 MG Cap PO SCH (08:15)
[2021-01-24] MEDS: Nystatin Topical Powder 15 GM Bottle TOP SCH (08:16)
[2021-01-24] MEDS: Aspirin 81 MG Tab.EC PO SCH (08:16)
[2021-01-24] MEDS: Cyanocobalamin (Vitamin B12) 500 MCG Tab PO SCH (08:16)
[2021-01-24 08:34] LABS: ANION GAP 12.1 mmol/L (5-15); CHLORIDE,CL 100 mmol/L (98-107); SODIUM,NA 135 mmol/L (136-145)
--- NOTE | 2021-01-24 10:58 | PCM.DCSUM1 ---
Discharge Summary - Hospital Course Free Text/Narrative:: Date of admission: 01/21/21 Date of discharge: 01/24/21 Admission diagnoses: # Acute hypoxic respiratory failure # HFrEF # HTN # Deconditioning # Constipation # Anemia Discharge diagnoses: # HFrEF - EF of 40-45% per recent ECHO at the [facility]; continue lasix 40mg PO BID. # HTN - Continue lisinopril - dose increased back to 40mg PO daily during this hospitalization at [facility] due to HTN # possible cardiac ischemia on stress test 01/11/2021 at the [facility]: small reversible defect in the apex consistent with possible ischemia # Hyperlipidemia: continue atorvastatin and ASA # Hx of Subdural hemorrhage: continue Keppra # DM Type II: hold metformin, blood glucose four times daily with low dose SS insulin # Anxiety/depression: continue fluoxetine and lorazepam (patient has been on this chronically for many years per the [facility] records) # BPH: continue tamsulosin # Dry eyes: continue carboxymethylcellulose # Deconditioning - continue PT and add OT at SNF # Environmental allergies - continue claritin 10mg PO daily # Constipation - continue docusate/senna BID, miralax daily # Anemia - continue B12 supplementation daily # Hx of Parkinsons; stable. No current medications; no symptoms at this time. Meds DC'd at the [facility] hospital due to frequent falls # Hx of disorder of the thyroid; last TSH 2.15 on 01/11/2021. No current medications # Hx of RESHMA HPI summary: 80 year old male presents via EMS to the ED with complaints of shortness of breath and progressive weakness. [facility] [place] with discharge nine days ago due to frequent falls CAD, CHF and weakness. He reports they took many of his medications away and initially he was doing well, but over the past three days he has been increasingly weak with difficulty getting up and out of bed on his own. He denies chest pain, fevers/chills or cough. Has not fallen since hospitalization. Admitted inpatient for CHF exac and deconditioning. ED course: VS: T97.3, R17, P 54, BP 166/81, o2 88%/RA, 96% on 2L/NC EKG: SB, rate 47, right bundle branch block, left anterior fascicular block; similar to previous CXR: stable cardiomegaly, bibasilar infiltrates and/or atelectasis are similar to previous exam, small left pleural effusion mildly decreased, borderline central vascular congestion Lab: WBC 7.2, RBC 4.3, Hgb 12.9, Hct 39.1 (normocytic, normochromic with elevated RDW 15.8), Na 136, K 3.7, CO2 26.9, anion gap 12.8, BUN 9, creatinine 0.79, GFR >60, trop neg, BNP 448, T protein 6.2, Alb 3.05 Med: IV Lasix 40mg x 1 Hospital Course: 01/21/2021: Patient in room, lying in bed. Feeling better now with oxygen on. No new concerns. 01/22/2021: No overnight concerns. Patient was trialed off oxygen this AM and was 86% and he was placed back on oxygen. Troponin trends negative. No leukocytosis or neutrophilia. Hgb 15.1, Hct 45.6 today. Urine is unremarkable for infection. BUN 9, cr 0.73, GFR >60. Mg 2.1, electrolytes stable. Vitamin B12 pending. Physical therapy in with patient this AM. SS discussed placement at [facility] and will look into availability. 01/23/21: No calls overnight. No results from supp yesterday, will give MOM as last BM was 3-4 days ago. Labs stable. B12 normal at 899. coming to discuss discharge planning. Patient has been recommended to go to SNF, patient reluctant. Of note, patient's younger brother rather unexpectedly last night. Patient indicates he has a lot to think about and process this morning and needs some time to consider recommended discharge plans. 01/24/21: Nystatin added for redness, irritation of groin, status improved this morning with topical medication. Blood pressure improved with increased lisinopril dosing to 40mg daily. Patient on room air with stable oxygen saturation; denies shortness of breath. Mild edema of bilateral lower extremities; lasix to be increased today to BID dosing [facility] mmend[facility]. WBC increased slightly to 12.0 today, no known source of infection. CRP unimpressive at 2.5, suspect mild elevation of WBC likely related to stress response given planned discharge to the jail and recent of his younger brother. Patient responded to laxatives with two bowel movements last night. Discharge and follow-up recommendations: - Discharge to [facility] today - New medications at discharge: Lisinopril increased to 40mg PO daily, Lasix increased to 40mg PO BID per [facility] DC recommendations for CHF, Melatonin 9mg HS PRN for insomnia, Nystatin topical to groin BID. Stop Ativan per Dr Lancaster based on [facility] criteria. - Follow-up on jail rounds with Nely Trinidad, [employer], [employer] DES[employer]. Repeat CBC, BMP on 01/26/21 Plan for cardiac cath on outpatient basis per [facility] discharge instructions - B12 normalized to 899. - Discharge Data Discharge Date: 01/24/21 Discharge Disposition: DC/Tfer to SNF 03 Condition: Good - Referral to Home Health Primary Care Physician: Will Hennessy NP - Patient Summary/Data Consults: Consultations 01/22/21 05:11 Consult to Case Management/[employer] Technician [CONS] AM PT Evaluation and Treatment [CONS] AM Respiratory Care Assess and Treatment [CONS] AM - Patient Instructions Diet: Heart Healthy Diet, Diabetic Diet Driving: Do Not Drive Showering/Bathing: May Shower - Discharge Plan *PRESCRIPTION DRUG MONITORING PROGRAM REVIEWED*: Not Applicable *COPY OF PRESCRIPTION DRUG MONITORING REPORT IN PATIENT RODO: Not Applicable Prescriptions/Med Rec: Melatonin 9 mg PO BEDTIME PRN #30 tablet PRN Reason: Insomnia Nystatin [Nystop] 1 gm TOP BID #1 bottle Acetaminophen [Tylenol Extra Strength] 1,000 mg PO Q8H PRN #60 tablet PRN Reason: Pain Home Medications: Home Meds Calcium Carbonate/Vitamin D3 [Calcium 250+D] 2 tab PO BID 08/05/19 [History] FLUoxetine HCl [Fluoxetine HCl] 40 mg PO QAM 08/05/19 [History] Sennosides/Docusate Sodium [Senna Plus 8.6-50 mg Softgel] 2 tab PO BID 08/05/19 [History] Tamsulosin HCl [Flomax] 0.4 mg PO DAILY 08/05/19 [History] levETIRAcetam [Keppra] 500 mg PO BID 08/05/19 [History] polyethylene glycoL 3350 [Miralax] 17 gm PO BEDTIME 08/05/19 [History] Aspirin [Halfprin] 81 mg PO DAILY 01/21/21 [History] Cyanocobalamin (Vitamin B-12) [B-12] 1,000 mcg PO DAILY 01/21/21 [History] Dextran/Hypromellose/Glycerin [Genteal Tears 0.1%-0.2%-0.3%] 2 drop EYEBOTH Q4H PRN 01/21/21 [History] Potassium Chloride [Klor-Con M20] 20 meq PO DAILY 01/21/21 [History] atorvaSTATin [Lipitor] 40 mg PO BEDTIME 01/21/21 [History] metFORMIN HCl [Metformin HCl] 500 mg PO BID 01/21/21 [History] Acetaminophen [Tylenol Extra Strength] 1,000 mg PO Q8H PRN #60 tablet 01/24/21 [Rx] Furosemide [Lasix] 40 mg PO BID #0 01/24/21 [Rx] Melatonin 9 mg PO BEDTIME PRN #30 tablet 01/24/21 [Rx] Nystatin [Nystop] 1 gm TOP BID #1 bottle 01/24/21 [Rx] lisinopriL [Zestril] 40 mg PO DAILY #0 01/24/21 [Rx] Oxygen Therapy Mode: Room Air Referrals: [facility] [Outside] (Follow-up on jail rounds) - Discharge Summary/Plan Comment DC Time >30 min.: Yes - General Info Date of Service: 01/24/21 Subjective Update: Patient reports he is tired this morning, had results from the laxatives given and was up in the bathroom a few times last night. He denies SOB, CP. Endorses occasional cough. Functional Status: Reports: Pain Controlled, Tolerating Diet, Urinating. Denies: New Symptoms - Review of Systems General: Reports: No Symptoms HEENT: Reports: No Symptoms Pulmonary: Reports: Cough (occasional non-productive). Denies: Shortness of Breath, Sputum, Wheezing Cardiovascular: Reports: Edema (mild to lower legs). Denies: Chest Pain, Palpitations, Dyspnea on Exertion Gastrointestinal: Reports: No Symptoms. Denies: Abdominal Pain, Constipation, Diarrhea, Nausea, Vomiting Genitourinary: Reports: No Symptoms, Urgency (with lasix). Denies: Dysuria Musculoskeletal: Reports: No Symptoms Skin: Reports: No Symptoms Neurological: Reports: No Symptoms Psychiatric: Reports: No Symptoms - Patient Data Vitals - Most Recent: Last Vital Signs Temp 97.4 F 01/24/21 05:41 Pulse 65 01/24/21 05:41 Resp 20 01/24/21 05:41 BP 147/69 H 01/24/21 08:14 Pulse Ox 91 L 01/24/21 06:00 Weight - Most Recent: 246 lb 4 oz I&O - Last 24 hours: Intake & Output 01/23/21 01/24/21 01/24/21 22:59 06:59 14:59 Intake Total 800 300 Balance 800 300 Lab Results - Last 24 hrs: Laboratory Results - last 24 hr 01/23/21 01/24/21 01/24/21 Range/Units 21:03 08:10 08:10 WBC 12.00 H (5.00-10.00) 10^3/uL RBC 4.57 (4.50-6.00) 10^6/uL Hgb 13.7 (13.0-17.0) g/dL Hct 41.6 (40.0-52.0) % MCV 91.0 (82.0-92.0) fL MCH 30.0 (27.0-31.0) pg MCHC 32.9 (32.0-36.0) g/dL RDW 15.7 H (11.5-14.5) % Plt Count 228 (150-400) 10^3/uL MPV 9.4 (7.4-10.4) fL Immature Gran % (Auto) 0.3 (0.0-5.0) % Neut % (Auto) 80.8 H (50.0-70.0) % Lymph % (Auto) 10.4 L (20.0-40.0) % [place] % (Auto) 8.0 (2.0-8.0) % Eos % (Auto) 0.2 L (1.0-3.0) % Baso % (Auto) 0.3 (0.0-1.0) % Neut # (Auto) 9.71 H (2.50-7.00) 10^3/uL Lymph # (Auto) 1.25 (1.00-4.00) 10^3/uL [place] # (Auto) 0.96 H (0.10-0.80) 10^3/uL Eos # (Auto) 0.02 L (0.10-0.30) 10^3/uL Baso # (Auto) 0.03 (0.00-0.10) 10^3/uL Immature Gran # (Auto) 0.03 (0.00-0.50) 10^3/uL Sodium 135 L (136-145) mmol/L Potassium 4.3 (3.5-5.1) mmol/L Chloride 100 (98-107) mmol/L Carbon Dioxide 27.2 (21.0-32.0) mmol/L Anion Gap 12.1 (5-15) mmol/L BUN 7 (7-18) mg/dL Creatinine 0.71 (0.51-1.17) mg/dL Est Cr Clr Drug Dosing 82.96 mL/min Estimated GFR (MDRD) > 60 mL/min Glucose 140 (70-140) mg/dL POC Glucose 148 H (70-140) mg/dL Calcium 8.7 (8.7-10.3) mg/dL C-Reactive Protein (0.0-0.9) mg/dL 01/24/21 Range/Units 08:10 WBC (5.00-10.00) 10^3/uL RBC (4.50-6.00) 10^6/uL Hgb (13.0-17.0) g/dL Hct (40.0-52.0) % MCV (82.0-92.0) fL MCH (27.0-31.0) pg MCHC (32.0-36.0) g/dL RDW (11.5-14.5) % Plt Count (150-400) 10^3/uL MPV (7.4-10.4) fL Immature Gran % (Auto) (0.0-5.0) % Neut % (Auto) (50.0-70.0) % Lymph % (Auto) (20.0-40.0) % [place] % (Auto) (2.0-8.0) % Eos % (Auto) (1.0-3.0) % Baso % (Auto) (0.0-1.0) % Neut # (Auto) (2.50-7.00) 10^3/uL Lymph # (Auto) (1.00-4.00) 10^3/uL [place] # (Auto) (0.10-0.80) 10^3/uL Eos # (Auto) (0.10-0.30) 10^3/uL Baso # (Auto) (0.00-0.10) 10^3/uL Immature Gran # (Auto) (0.00-0.50) 10^3/uL Sodium (136-145) mmol/L Potassium (3.5-5.1) mmol/L Chloride (98-107) mmol/L Carbon Dioxide (21.0-32.0) mmol/L Anion Gap (5-15) mmol/L BUN (7-18) mg/dL Creatinine (0.51-1.17) mg/dL Est Cr Clr Drug Dosing mL/min Estimated GFR (MDRD) mL/min Glucose (70-140) mg/dL POC Glucose (70-140) mg/dL Calcium (8.7-10.3) mg/dL C-Reactive Protein 2.5 H (0.0-0.9) mg/dL Med Orders - Current: Current Medications Acetaminophen (Acetaminophen 500 Mg Tab) 1,000 mg PO Q8H PRN PRN Reason: Pain Last Admin: 01/24/21 01:23 Dose: 1,000 mg Documented by: Artificial Tears (Carboxymethylcellulose Sodium 0.5% Ophth Soln 15 Ml Bottle) 0 ml EYEBOTH Q4H PRN PRN Reason: Dry Eyes Aspirin (Aspirin 81 Mg Tab.Ec) 81 mg PO DAILY [facility] Last Admin: 01/24/21 08:16 Dose: 81 mg Documented by: Atorvastatin Calcium (Atorvastatin 40 Mg Tab) 40 mg PO BEDTIME [facility] Last Admin: 01/23/21 21:49 Dose: 40 mg Documented by: Atropine Sulfate (Atropine 0.1 Mg/Ml 10 Ml Syringe) 0 mg IVPUSH ASDIRECTED PRN PRN Reason: Heart. Bisacodyl (Bisacodyl 10 Mg Supp) 10 mg RECTAL BEDTIME PRN PRN Reason: Constipation Last Admin: 01/23/21 20:00 Dose: 10 mg Documented by: Calcium Citrate (Calcium Citrate/Vitamin D3 315 Mg-250 Unit Tab) 2 tab PO BID [facility] Last Admin: 01/24/21 08:15 Dose: 2 tab Documented by: Cyanocobalamin (Cyanocobalamin (Vitamin B12) 500 Mcg Tab) 1,000 mcg PO DAILY [facility] Last Admin: 01/24/21 08:16 Dose: 1,000 mcg Documented by: Dextrose/Water (50% Dextrose In Water 50 Ml Syringe) 50 ml IVPUSH ASDIRECTED PRN PRN Reason: Hypoglycemia Epinephrine HCl (Epinephrine 1:10,000 1 Mg/10 Ml Syringe) 1 mg IVPUSH ASDIRECTED PRN PRN Reason: Heart. Fluoxetine HCl (Fluoxetine 10 Mg Cap) 40 mg PO QAM [facility] Last Admin: 01/24/21 08:15 Dose: 40 mg Documented by: Furosemide (Furosemide 40 Mg Tab) 40 mg PO DAILY [facility] Last Admin: 01/24/21 08:15 Dose: 40 mg Documented by: Glucagon (Glucagon,Human Recombinant 1 Mg Vial) 1 mg IM ASDIRECTED PRN PRN Reason: Hypoglycemia Insulin Aspart (Insulin Aspart 100 Units/Ml 3 Ml Pen) 0 unit SUBCUT WITHMEALSANDBED [facility]; Protocol Last Admin: 01/24/21 07:55 Dose: Not Given Documented by: Levetiracetam (Levetiracetam 500 Mg Tab) 500 mg PO BID [facility] Last Admin: 01/24/21 08:15 Dose: 500 mg Documented by: Lidocaine HCl (Lidocaine 2% 100 Mg/5 Ml Syringe) 0 mg IVPUSH ASDIRECTED PRN PRN Reason: Heart. Lisinopril (Lisinopril 20 Mg Tab) 40 mg PO DAILY [facility] Last Admin: 01/24/21 08:14 Dose: 40 mg Documented by: Lorazepam (Lorazepam 0.5 Mg Tab) 0.5 mg PO BID PRN PRN Reason: Anxiety Last Admin: 01/24/21 01:22 Dose: 0.5 mg Documented by: Lorazepam (Lorazepam 0.5 Mg Tab) 1 mg PO BEDTIME [facility] Last Admin: 01/23/21 21:48 Dose: 1 mg Documented by: Magnesium Hydroxide (Magnesium Hydroxide 400 Mg/5 Ml Susp 30 Ml Cup) 30 ml PO BEDTIME PRN PRN Reason: Constipation Melatonin (Melatonin 3 Mg Tab) 9 mg PO BEDTIME PRN PRN Reason: Insomnia Last Admin: 01/23/21 21:49 Dose: 9 mg Documented by: Nitroglycerin (Nitroglycerin 0.4 Mg Tab.Sl) 0.4 mg SL ASDIRECTED PRN PRN Reason: Heart. Nystatin (Nystatin Topical Powder 15 Gm Bottle) 1 gm TOP BID [facility] Last Admin: 01/24/21 08:16 Dose: 1 applic Documented by: Polyethylene Glycol (Polyethylene Glycol 3350 Powder 17 Gm Packet) 17 gm PO BEDTIME [facility] Last Admin: 01/23/21 21:00 Dose: 17 gm Documented by: Potassium Chloride (Potassium Chloride 20 Meq Tab.Er) 20 meq PO DAILY [facility] Last Admin: 01/24/21 08:15 Dose: 20 meq Documented by: Senna/Docusate Sodium (Docusate Sodium/Sennosides 50-8.6 Mg Tab) 2 tab PO BID [facility] Last Admin: 01/24/21 08:15 Dose: 2 tab Documented by: Tamsulosin HCl (Tamsulosin 0.4 Mg Cap.Er) 0.4 mg PO DAILY [facility] Last Admin: 01/24/21 08:14 Dose: 0.4 mg Documented by: Discontinued Medications Bisacodyl (Bisacodyl 10 Mg Supp) 10 mg RECTAL ONETIME ONE Stop: 01/22/21 12:04 Last Admin: 01/22/21 12:44 Dose: 10 mg Documented by: Enoxaparin Sodium (Enoxaparin 40 Mg/0.4 Ml Syringe) 40 mg SUBCUT DAILY [facility] Furosemide (Furosemide 40 Mg/4 Ml Vial) 40 mg IVPUSH NOW ONE Stop: 01/21/21 15:27 Last Admin: 01/21/21 15:52 Dose: 40 mg Documented by: Lisinopril (Lisinopril 20 Mg Tab) 20 mg PO DAILY [facility] Last Admin: 01/22/21 08:19 Dose: 20 mg Documented by: Lisinopril (Lisinopril 20 Mg Tab) 20 mg PO DAILY ONE Stop: 01/22/21 13:01 Lisinopril (Lisinopril 20 Mg Tab) 20 mg PO ONETIME ONE Stop: 01/22/21 13:01 Last Admin: 01/22/21 12:44 Dose: 20 mg Documented by: Magnesium Hydroxide (Magnesium Hydroxide 400 Mg/5 Ml Susp 30 Ml Cup) 30 ml PO ONETIME ONE Stop: 01/23/21 10:32 Last Admin: 01/23/21 10:58 Dose: 30 ml Documented by: Melatonin (Melatonin 3 Mg Tab) 3 mg PO BEDTIME PRN PRN Reason: Insomnia Last Admin: 01/22/21 21:09 Dose: 3 mg Documented by: Sodium Chloride (Sodium Chloride 0.9% 10 Ml Syringe) 10 ml FLUSH Q8HR PRN PRN Reason: keep vein open - Exam Quality Assessment: Denies: Supplemental Oxygen General: Reports: Alert, Oriented, Cooperative, No Acute Distress HEENT: Reports: Pupils Equal, Pupils Reactive, Mucous Membr. Moist/[place] Neck: Reports: Supple, Trachea Midline Lungs: Reports: Decreased Breath Sounds, Rhonchi (few). Denies: Crackles, Wheezing Cardiovascular: Reports: Regular Rhythm, No Murmurs, Bradycardia GI/Abdominal Exam: Normal Bowel Sounds, Soft, Non-Tender, No Distention (Male) Exam: Deferred Rectal (Males) Exam: Deferred Back Exam: Reports: Normal Inspection, Full Range of Motion Extremities: Normal Inspection, Non-Tender, Pedal Edema (trace to +1 bilaterally) Skin: Reports: Warm, Dry, Intact Neurological: Reports: No New Focal Deficit Psy/Mental Status: Reports: Alert, Normal Affect, Normal Mood *Q Meaningful Use (DIS) - VTE *Q VTE Pharmacological Contraindications *Q: Cerebral Hemorrhag Infarc
== END 2021-01-24 13:13 | DRG 291 ==
LOC: KA.ED 13:13 → KA.MS 15:23
PROVIDERS: ADMIT Physician Assistant Medical; ATTEND Nurse Practitioner Family
DX: I11.0 Hypertensive heart disease with heart failure (principal); I50.9 Heart failure, unspecified; R09.02 Hypoxemia; R00.1 Bradycardia, unspecified; J96.01 Acute respiratory failure with hypoxia; I50.43 Acute on chronic combined systolic (congestive) and diastolic (congestive) heart failure; D64.9 Anemia, unspecified; G47.30 Sleep apnea, unspecified; E78.5 Hyperlipidemia, unspecified; M19.90 Unspecified osteoarthritis, unspecified site; G89.29 Other chronic pain; M54.9 Dorsalgia, unspecified; E11.9 Type 2 diabetes mellitus without complications; F32.9 Major depressive disorder, single episode, unspecified; F41.9 Anxiety disorder, unspecified; N40.0 Benign prostatic hyperplasia without lower urinary tract symptoms; H04.123 Dry eye syndrome of bilateral lacrimal glands; G20 Parkinson's disease; G47.33 Obstructive sleep apnea (adult) (pediatric); Z20.822 Contact with and (suspected) exposure to COVID-19; I25.10 Atherosclerotic heart disease of native coronary artery without angina pectoris; H91.90 Unspecified hearing loss, unspecified ear; H90.5 Unspecified sensorineural hearing loss; E78.00 Pure hypercholesterolemia, unspecified; J44.9 Chronic obstructive pulmonary disease, unspecified; K59.09 Other constipation; Z86.010 Personal history of colon polyps; Z79.82 Long term (current) use of aspirin; Z79.899 Other long term (current) drug therapy; Z79.84 Long term (current) use of oral hypoglycemic drugs; Z85.828 Personal history of other malignant neoplasm of skin; Z87.891 Personal history of nicotine dependence
CPT/HCPCS: 36415; 71045; 80048; 80053; 81001; 82550; 82553; 82607; 82947; 83735; 83880; 84484; 85025; 86140; 93005; 97161-GP; 99284; 99285-25; A9270-GY; J1815-GY; J1940; U0002

== ENCOUNTER 2021-04-23 05:48 | Inpatient (IN) | payer OTHER ==
[2021-04-23] MEDS ORDERED: Sodium Chloride 0.9% 10 ML Syringe FLUSH PRN (05:55)
--- NOTE | 2021-04-23 06:06 | EDM.PDOC ---
ED HPI GENERAL MEDICAL PROBLEM - General Chief Complaint: Neuro Symptoms/Deficits Stated Complaint: ALTERED MENTAL STATUS Time Seen by Provider: 04/23/21 05:50 Source of Information: Reports: EMS, [facility] Records History Limitations: Reports: Altered Mental Status - History of Present Illness INITIAL COMMENTS - FREE TEXT/NARRATIVE: 80 YO WM PRESENTS TO ER WITH SLURRED SPEECH WITH CONFUSION. SNF REPORTS PT WAS LAST SEEN NORMAL AT BEDTIME, AROUND 11PM. PT ALERT WITH INCOHERENT SPEECH. NO OBVIOUS FACIAL DROOP. PT UNABLE TO FOLLOW COMMANDS. PT APPEARS WEAKER ON LEFT SIDE WITH BOTH UPPER AND LOWER EXTREMITIES. PT WITHOUT LEFT OR RIGHT SIDED NEGLECT. PT ABLE TO HANDLE ORAL SECRETIONS AND ABLE TO PROTECT AIRWAY AT THIS TIME. SAO2-99% RA, BP-189/97, P-75, AFEBRILE. PT IS A FULL CODE PER SNF RECORDS. NIH SCALE- 11 Duration: Hour(s): (7 HOURS AGO) Location: Reports: Generalized Severity: Moderate Improves with: Reports: None Worsens with: Reports: None Associated Symptoms: Reports: Confusion. Denies: Cough, Nausea/Vomiting, Shortness of Breath, Syncope - Related Data Allergies Allergy/AdvReac Type Severity Reaction Status Date / Time No Known Drug Allergies Allergy Cannot Verified 04/23/21 06:05 Remember Home Meds: Home Meds Calcium Carbonate/Vitamin D3 [Calcium 250+D] 2 tab PO BID 08/05/19 [History] FLUoxetine HCl [Fluoxetine HCl] 40 mg PO QAM 08/05/19 [History] Sennosides/Docusate Sodium [Senna Plus 8.6-50 mg Softgel] 2 tab PO BID 08/05/19 [History] Tamsulosin HCl [Flomax] 0.4 mg PO DAILY 08/05/19 [History] levETIRAcetam [Keppra] 500 mg PO BID 08/05/19 [History] polyethylene glycoL 3350 [Miralax] 17 gm PO BEDTIME 08/05/19 [History] Aspirin [Halfprin] 81 mg PO DAILY 01/21/21 [History] Cyanocobalamin (Vitamin B-12) [B-12] 1,000 mcg PO DAILY 01/21/21 [History] Dextran/Hypromellose/Glycerin [Genteal Tears 0.1%-0.2%-0.3%] 2 drop EYEBOTH Q4H PRN 01/21/21 [History] Potassium Chloride [Klor-Con M20] 20 meq PO DAILY 01/21/21 [History] atorvaSTATin [Lipitor] 40 mg PO BEDTIME 01/21/21 [History] metFORMIN HCl [Metformin HCl] 500 mg PO BID 01/21/21 [History] Acetaminophen [Tylenol Extra Strength] 1,000 mg PO Q8H PRN #60 tablet 01/24/21 [Rx] Furosemide [Lasix] 40 mg PO BID #0 01/24/21 [Rx] Melatonin 9 mg PO BEDTIME PRN #30 tablet 01/24/21 [Rx] Nystatin [Nystop] 1 gm TOP BID #1 bottle 01/24/21 [Rx] lisinopriL [Zestril] 40 mg PO DAILY #0 01/24/21 [Rx] Past Medical History HEENT History: Reports: Hard of Hearing Other HEENT History: asymmetrical sensoneur hearing loss. subjective tinnitus Cardiovascular History: Reports: Heart Failure, High Cholesterol, Hypertension, SOB on Exertion Respiratory History: Reports: COPD, Sleep Apnea, SOB Gastrointestinal History: Reports: Chronic Constipation, Colon Polyp Genitourinary History: Reports: None Musculoskeletal History: Reports: Arthritis, Back Pain, Chronic Neurological History: Reports: Brain Injury, Parkinson's Other Neuro History: subdural hematoma in 2013 with craniotomy , skull not replaced due to high infection possibility Psychiatric History: Reports: Anxiety, Depression Endocrine/Metabolic History: Reports: Diabetes, Type II, Obesity/BMI 30+ Hematologic History: Reports: B12 Deficiency Oncologic (Cancer) History: Reports: Squamous Cell Carcinoma, Other (See Below) Other Oncologic History: squamous cell carcinoma of skin- face Dermatologic History: Reports: Eczema - Infectious Disease History Infectious Disease History: Reports: Chicken Pox - Past Surgical History Head Surgeries/Procedures: Reports: Craniotomy Cardiovascular Surgical History: Reports: None Respiratory Surgical History: Reports: None GI Surgical History: Reports: Colonoscopy, Hernia, Abdominal Endocrine Surgical History: Reports: None Neurological Surgical History: Reports: None Musculoskeletal Surgical History: Reports: None Dermatological Surgical History: Reports: None Social & Family History - Family History Family Medical History: No Pertinent Family History Neurological: Reports: Dementia Endocrine/Metabolic: Reports: Diabetes, type II - Caffeine Use Caffeine Use: Reports: Coffee, Soda ED ROS GENERAL - Review of Systems Review Of Systems: Comprehensive ROS is negative, except as noted in HPI. Constitutional: Denies: Fever Respiratory: Reports: No Symptoms Cardiovascular: Reports: No Symptoms GI/Abdominal: Reports: No Symptoms. Denies: Nausea, Vomiting Skin: Reports: No Symptoms Neurological: Reports: Confusion, Trouble Speaking, Difficulty Walking, Weakness, Change in Speech Psychiatric: Reports: No Symptoms ED EXAM, NEURO - Physical Exam Exam: See Below Exam Limited By: Altered Mental Status General Appearance: Alert, WD/WN, Mild Distress Eye Exam: Bilateral Eye: EOMI, PERRL Throat/Mouth: Normal Inspection, Normal Lips, Normal Teeth, Normal Gums, Normal Oropharynx, Normal Voice, No Airway Compromise Head Exam: Atraumatic Neck: Normal Inspection, Supple, Non-Tender, Full Range of Motion Respiratory/Chest: No Respiratory Distress, Lungs Clear, Normal Breath Sounds, No Accessory Muscle Use, Chest Non-Tender Cardiovascular: Normal Peripheral Pulses, Regular Rate, Rhythm, No Edema, No Gallop, No JVD, No Murmur, No Rub GI/Abdominal: Normal Bowel Sounds, Soft, Non-Tender, No Organomegaly, No Distention, No Abnormal Bruit, No Mass Neurological: Alert, Withdraws to Pain, Abnormal Motor Back Exam: Normal Inspection, Full Range of Motion, NT Extremities: Normal Inspection, Normal Range of Motion, Non-Tender, No Pedal Edema, Normal Capillary Refill Skin Exam: Warm, Dry, Intact, Normal Color, No Rash #1 Interpretation EKG Date: 04/23/21 Time: 06:10 Rhythm: NSR Rate (Beats/Min): 75 [place]: LAD-Left [place] Deviation P-Wave: Present QRS: RBBB QT: Normal Course - Vital Signs Last Recorded V/S: Last Vital Signs Temp 97.6 F 04/23/21 06:06 Pulse 62 04/23/21 06:54 Resp 18 04/23/21 06:54 BP 183/83 H 04/23/21 06:54 Pulse Ox 93 L 04/23/21 06:54 - Orders/Labs/Meds Orders: Active Orders 24 hr Category Date Time Status Cardiac Monitoring [RC] . DIRECTED Care 04/23/21 05:55 Active Peripheral IV Care [RC] . DIRECTED Care 04/23/21 05:56 Active Chest 1V Frontal [CR] Stat Exams 04/23/21 05:55 Ordered Head wo Cont [CT] Stat Exams 04/23/21 05:55 Ordered Sodium Chloride 0.9% [Saline Flush] Med 04/23/21 05:55 Active 10 ml FLUSH Q8HR PRN Peripheral IV Insertion Adult [OM.PC] Routine Oth 04/23/21 05:55 Ordered EKG 12 Lead [EK] Stat Ther 04/23/21 05:55 Ordered Medication Orders Sodium Chloride (Sodium Chloride 0.9% 10 Ml Syringe) 10 ml FLUSH Q8HR PRN PRN Reason: keep vein open Labs: Laboratory Tests 04/23/21 04/23/21 04/23/21 Range/Units 05:55 05:55 05:55 WBC 6.94 (5.00-10.00) 10^3/uL RBC 4.76 (4.50-6.00) 10^6/uL Hgb 14.7 (13.0-17.0) g/dL Hct 44.1 (40.0-52.0) % MCV 92.6 H (82.0-92.0) fL MCH 30.9 (27.0-31.0) pg MCHC 33.3 (32.0-36.0) g/dL RDW 14.4 (11.5-14.5) % Plt Count 164 (150-400) 10^3/uL MPV 10.8 H (7.4-10.4) fL Immature Gran % (Auto) 0.3 (0.0-5.0) % Neut % (Auto) 65.1 (50.0-70.0) % Lymph % (Auto) 22.5 (20.0-40.0) % [place] % (Auto) 8.8 H (2.0-8.0) % Eos % (Auto) 2.7 (1.0-3.0) % Baso % (Auto) 0.6 (0.0-1.0) % Neut # (Auto) 4.52 (2.50-7.00) 10^3/uL Lymph # (Auto) 1.56 (1.00-4.00) 10^3/uL [place] # (Auto) 0.61 (0.10-0.80) 10^3/uL Eos # (Auto) 0.19 (0.10-0.30) 10^3/uL Baso # (Auto) 0.04 (0.00-0.10) 10^3/uL Immature Gran # (Auto) 0.02 (0.00-0.50) 10^3/uL PT 9.9 (9.2-11.2) SEC INR 1.0 (0.9-1.1) APTT 24.7 (22.8-31.4) SEC Sodium 142 (136-145) mmol/L Potassium 4.2 (3.5-5.1) mmol/L Chloride 104 (98-107) mmol/L Carbon Dioxide 28.6 (21.0-32.0) mmol/L Anion Gap 13.6 (5-15) mmol/L BUN 12 (7-18) mg/dL Creatinine 0.73 (0.51-1.17) mg/dL Est Cr Clr Drug Dosing 94.25 mL/min Estimated GFR (MDRD) > 60 mL/min Glucose 116 (70-140) mg/dL Calcium 8.8 (8.7-10.3) mg/dL Total Bilirubin 0.6 (0.2-1.0) mg/dL AST 17 (15-37) U/L ALT 19 (14-63) U/L Alkaline Phosphatase 53 (46-116) U/L Troponin I High Sens 15.200 (0-76.000) pg/mL B-Natriuretic Peptide 413 H (0-100) pg/mL Total Protein 6.9 (6.4-8.2) g/dL Albumin 3.51 (3.40-5.00) g/dL Meds: Medications Generic Name Dose Route Start Last Admin Trade Name Freq PRN Reason Stop Dose Admin Sodium Chloride 10 ml 04/23/21 05:55 Sodium Chloride 0.9% 10 Ml Syringe FLUSH Q8HR PRN keep vein open - Radiology Interpretation Free Text/Narrative:: CT HEAD- NO BLEEDING, NO CVA CXR- Departure - Departure Time of Disposition: 07:07 Disposition: Admitted As Inpatient 68 Condition: Serious Clinical Impression: Dysarthria, Expressive aphasia - Discharge Information Forms: ED Department Discharge Sepsis Event Note (ED) - Focused Exam Vital Signs: Vital Signs Temp Pulse Resp BP Pulse Ox 04/23/21 06:54 62 18 183/83 H 93 L 04/23/21 06:30 61 17 183/82 H 92 L 04/23/21 06:15 64 15 178/81 H 94 L 04/23/21 06:06 97.6 F 75 16 189/97 H 92 L - My Orders Last 24 Hours: My Active Orders 04/23/21 05:55 Cardiac Monitoring [RC] . DIRECTED Chest 1V Frontal [CR] Stat Head wo Cont [CT] Stat Sodium Chloride 0.9% [Saline Flush] 10 ml FLUSH Q8HR PRN Peripheral IV Insertion Adult [OM.PC] Routine EKG 12 Lead [EK] Stat 04/23/21 05:56 Peripheral IV Care [RC] . DIRECTED - Assessment/Plan Last 24 Hours: My Active Orders 04/23/21 05:55 Cardiac Monitoring [RC] . DIRECTED Chest 1V Frontal [CR] Stat Head wo Cont [CT] Stat Sodium Chloride 0.9% [Saline Flush] 10 ml FLUSH Q8HR PRN Peripheral IV Insertion Adult [OM.PC] Routine EKG 12 Lead [EK] Stat 04/23/21 05:56 Peripheral IV Care [RC] . DIRECTED Assessment:: 1. EXPRESSIVE APHASIA/DYSARTHRIA 2. HYPERTENSION Plan: 1. DISCUSSED CASE WITH NEUROLOGY- DR MALIK- DYSARTHRIA WITH EXPRESSIVE APHASIA AND NO OTHER FOCAL DEFICITS WITH LAST KNOWN NORMAL AT 11PM LAST NIGHT- DOES NOT RECOMMEND TPA OR TRANSFER AT THIS TIME. NEUROLOGIST BELIEVES THIS MAYBE RELATED TO POST-ICTAL SEIZURE (COULD LAST UP TO 72 HOURS). IF SYMPTOMS CONTINUE TO EVOLVE, RECOMMENDATION WOULD BE FOR MRI OF BRAIN. NO BEDS AVAILABLE FOR TRANSFER TO [facility] AT THIS TIME. @[id number] 2. DISCUSSED CASE WITH LINDY OLGUIN- WILL ADMIT TO MEDICINE FOR NEURO CHECKS AND CONTINUATION OF MONITORING HIS SYMPTOMS 3. SUPPORTIVE CARE 4. ADDITIONAL ORDERS PER MEDICINE
[2021-04-23 06:41] LABS: ANION GAP 13.6 mmol/L (5-15); CHLORIDE,CL 104 mmol/L (98-107); SODIUM,NA 142 mmol/L (136-145)
[2021-04-23 06:50] LABS: PTT,PARTIAL THROMBOPLSTIN TIME 24.7 SEC (22.8-31.4)
--- NOTE | 2021-04-23 09:29 | PCM.HP.2 ---
H&P History of Present Illness - General Date of Service: 04/23/21 Admit Problem/Dx: Admission Diagnosis/Problem Admission Diagnosis/Problem Dysarthria - Related Data Allergies/Adverse Reactions: Allergies Allergy/AdvReac Type Severity Reaction Status Date / Time No Known Drug Allergies Allergy Cannot Verified 04/23/21 06:05 Remember Home Medications: Home Meds FLUoxetine HCl [Fluoxetine HCl] 40 mg PO QAM 08/05/19 [History] Tamsulosin HCl [Flomax] 0.4 mg PO DAILY 08/05/19 [History] levETIRAcetam [Keppra] 500 mg PO BID 08/05/19 [History] polyethylene glycoL 3350 [Miralax] 17 gm PO DAILY 08/05/19 [History] Aspirin [Halfprin] 81 mg PO DAILY 01/21/21 [History] Cyanocobalamin (Vitamin B-12) [B-12] 1,000 mcg PO DAILY 01/21/21 [History] Dextran/Hypromellose/Glycerin [Genteal Tears 0.1%-0.2%-0.3%] 2 drop EYEBOTH Q4H PRN 01/21/21 [History] Potassium Chloride [Klor-Con M20] 20 meq PO DAILY 01/21/21 [History] atorvaSTATin [Lipitor] 40 mg PO BEDTIME 01/21/21 [History] metFORMIN HCl [Metformin HCl] 500 mg PO DAILY 01/21/21 [History] Furosemide [Lasix] 40 mg PO BID #0 01/24/21 [Rx] Melatonin 9 mg PO BEDTIME PRN #30 tablet 01/24/21 [Rx] Nystatin [Nystop] 1 gm TOP BID #1 bottle 01/24/21 [Rx] lisinopriL [Zestril] 40 mg PO DAILY #0 01/24/21 [Rx] Acetaminophen 650 mg PO Q6H 04/23/21 [History] Calcium Carbonate/Vitamin D3 [Calcium 600-Vit D3 400 Tablet] 1 each PO DAILY 04/23/21 [History] LORazepam [Ativan] 0.5 mg PO TID 04/23/21 [History] Magnesium Hydroxide [Milk of Magnesia] 30 ml PO DAILY PRN 04/23/21 [History] Past Medical History HEENT History: Reports: Hard of Hearing Other HEENT History: asymmetrical sensoneur hearing loss. subjective tinnitus Cardiovascular History: Reports: Heart Failure, High Cholesterol, Hypertension, SOB on Exertion Respiratory History: Reports: COPD, Sleep Apnea, SOB Gastrointestinal History: Reports: Chronic Constipation, Colon Polyp Genitourinary History: Reports: None Musculoskeletal History: Reports: Arthritis, Back Pain, Chronic Neurological History: Reports: Brain Injury, Parkinson's Other Neuro History: subdural hematoma in 2013 with craniotomy , skull not replaced due to high infection possibility Psychiatric History: Reports: Anxiety, Depression Endocrine/Metabolic History: Reports: Diabetes, Type II, Obesity/BMI 30+ Hematologic History: Reports: B12 Deficiency Oncologic (Cancer) History: Reports: Squamous Cell Carcinoma, Other (See Below) Other Oncologic History: squamous cell carcinoma of skin- face Dermatologic History: Reports: Eczema - Infectious Disease History Infectious Disease History: Reports: Chicken Pox - Past Surgical History Head Surgeries/Procedures: Reports: Craniotomy Cardiovascular Surgical History: Reports: None Respiratory Surgical History: Reports: None GI Surgical History: Reports: Colonoscopy, Hernia, Abdominal Endocrine Surgical History: Reports: None Neurological Surgical History: Reports: None Musculoskeletal Surgical History: Reports: None Oncologic Surgical History: Reports: None Dermatological Surgical History: Reports: None Social & Family History - Family History Family Medical History: No Pertinent Family History Neurological: Reports: Dementia Endocrine/Metabolic: Reports: Diabetes, type II - Tobacco Use Tobacco Use Status *Q: Former Tobacco User Used Tobacco, but Quit: Yes Month/Year Tobacco Last Used: 1999 - Caffeine Use Caffeine Use: Reports: Coffee - Recreational Drug Use Recreational Drug Use: No H&P Review of Systems - Review of Systems: Review Of Systems: Unable To Obtain (garbled speech, expressive aphasia) Reason Not Obtained: expressive aphasia, garbled speech Exam - Exam Exam: See Below - Vital Signs Vital Signs: Last Vital Signs Temp 98.6 F 04/23/21 07:09 Pulse 60 04/23/21 07:09 Resp 19 04/23/21 07:09 BP 172/84 H 04/23/21 07:09 Pulse Ox 94 L 04/23/21 07:09 Weight: 249 lb 9.6 oz - Exam Quality Assessment: Supplemental Oxygen General: Mild Distress HEENT: Conjunctiva Clear, Mucosa Moist & [place], Pupils Equal Neck: Supple, Trachea Midline Lungs: Crackles (left base) Cardiovascular: Regular Rate, Regular Rhythm GI/Abdominal Exam: Normal Bowel Sounds, Soft, Non-Tender (Male) Exam: Deferred Rectal (Males) Exam: Deferred Extremities: Normal Inspection, Non-Tender, Pedal Edema (+1 bilaterally) Peripheral Pulses: 2+: Dorsalis Pedis (L), Dorsalis Pedis (R) Skin: Warm, Dry, Intact Neuro Extensive - Mental Status: No: Nl Response to Commands Neuro Extensive - Motor, Sensory, Reflexes: Dysarthria, Expressive Aphasia Psychiatric: Alert Physical Exam Comments:: Neuro exam limited due to patient's inability to follow commands as well as expressive aphasia and garbled speech. - Patient Data Lab Results Last 24 hrs: Laboratory Results - last 24 hr 04/23/21 04/23/21 04/23/21 Range/Units 05:55 05:55 05:55 WBC 6.94 (5.00-10.00) 10^3/uL RBC 4.76 (4.50-6.00) 10^6/uL Hgb 14.7 (13.0-17.0) g/dL Hct 44.1 (40.0-52.0) % MCV 92.6 H (82.0-92.0) fL MCH 30.9 (27.0-31.0) pg MCHC 33.3 (32.0-36.0) g/dL RDW 14.4 (11.5-14.5) % Plt Count 164 (150-400) 10^3/uL MPV 10.8 H (7.4-10.4) fL Immature Gran % (Auto) 0.3 (0.0-5.0) % Neut % (Auto) 65.1 (50.0-70.0) % Lymph % (Auto) 22.5 (20.0-40.0) % [place] % (Auto) 8.8 H (2.0-8.0) % Eos % (Auto) 2.7 (1.0-3.0) % Baso % (Auto) 0.6 (0.0-1.0) % Neut # (Auto) 4.52 (2.50-7.00) 10^3/uL Lymph # (Auto) 1.56 (1.00-4.00) 10^3/uL Stark # (Auto) 0.61 (0.10-0.80) 10^3/uL Eos # (Auto) 0.19 (0.10-0.30) 10^3/uL Baso # (Auto) 0.04 (0.00-0.10) 10^3/uL Immature Gran # (Auto) 0.02 (0.00-0.50) 10^3/uL PT 9.9 (9.2-11.2) SEC INR 1.0 (0.9-1.1) APTT 24.7 (22.8-31.4) SEC Sodium 142 (136-145) mmol/L Potassium 4.2 (3.5-5.1) mmol/L Chloride 104 (98-107) mmol/L Carbon Dioxide 28.6 (21.0-32.0) mmol/L Anion Gap 13.6 (5-15) mmol/L BUN 12 (7-18) mg/dL Creatinine 0.73 (0.51-1.17) mg/dL Est Cr Clr Drug Dosing 94.25 mL/min Estimated GFR (MDRD) > 60 mL/min Glucose 116 (70-140) mg/dL Calcium 8.8 (8.7-10.3) mg/dL Total Bilirubin 0.6 (0.2-1.0) mg/dL AST 17 (15-37) U/L ALT 19 (14-63) U/L Alkaline Phosphatase 53 (46-116) U/L Troponin I High Sens 15.200 (0-76.000) pg/mL B-Natriuretic Peptide 413 H (0-100) pg/mL Total Protein 6.9 (6.4-8.2) g/dL Albumin 3.51 (3.40-5.00) g/dL SARS CoV-2 RNA Rapid GLORIA (NEGATIVE) 04/23/21 Range/Units 07:15 WBC (5.00-10.00) 10^3/uL RBC (4.50-6.00) 10^6/uL Hgb (13.0-17.0) g/dL Hct (40.0-52.0) % MCV (82.0-92.0) fL MCH (27.0-31.0) pg MCHC (32.0-36.0) g/dL RDW (11.5-14.5) % Plt Count (150-400) 10^3/uL MPV (7.4-10.4) fL Immature Gran % (Auto) (0.0-5.0) % Neut % (Auto) (50.0-70.0) % Lymph % (Auto) (20.0-40.0) % Stark % (Auto) (2.0-8.0) % Eos % (Auto) (1.0-3.0) % Baso % (Auto) (0.0-1.0) % Neut # (Auto) (2.50-7.00) 10^3/uL Lymph # (Auto) (1.00-4.00) 10^3/uL Stark # (Auto) (0.10-0.80) 10^3/uL Eos # (Auto) (0.10-0.30) 10^3/uL Baso # (Auto) (0.00-0.10) 10^3/uL Immature Gran # (Auto) (0.00-0.50) 10^3/uL PT (9.2-11.2) SEC INR (0.9-1.1) APTT (22.8-31.4) SEC Sodium (136-145) mmol/L Potassium (3.5-5.1) mmol/L Chloride (98-107) mmol/L Carbon Dioxide (21.0-32.0) mmol/L Anion Gap (5-15) mmol/L BUN (7-18) mg/dL Creatinine (0.51-1.17) mg/dL Est Cr Clr Drug Dosing mL/min Estimated GFR (MDRD) mL/min Glucose (70-140) mg/dL Calcium (8.7-10.3) mg/dL Total Bilirubin (0.2-1.0) mg/dL AST (15-37) U/L ALT (14-63) U/L Alkaline Phosphatase (46-116) U/L Troponin I High Sens (0-76.000) pg/mL B-Natriuretic Peptide (0-100) pg/mL Total Protein (6.4-8.2) g/dL Albumin (3.40-5.00) g/dL SARS CoV-2 RNA Rapid GLORIA Negative (NEGATIVE) Result Diagrams: 04/23/21 05:55 04/23/21 05:55 Sepsis Event Note - Evaluation Sepsis Screening Result: No Definite Risk - Focused Exam Vital Signs: Vital Signs Temp Pulse Resp BP Pulse Ox Pulse Ox 04/23/21 07:09 98.6 F 60 19 172/84 H 94 L 94 L 04/23/21 06:54 62 18 183/83 H 93 L 04/23/21 06:30 61 17 183/82 H 92 L 04/23/21 06:15 64 15 178/81 H 94 L 04/23/21 06:06 97.6 F 75 16 189/97 H 92 L Problem List Initiated/Reviewed/Updated: Yes Orders Last 24hrs: Active Orders 24 hr Category Date Time Status Patient Status [ADT] Routine ADT 04/23/21 07:09 Active Bedrest Bedside Commode [RC] ASDIRECTED Care 04/23/21 07:09 Active Cardiac Monitoring [RC] 03,07,11,15,19,23 Care 04/23/21 07:10 Active Neuro Check [RC] Q1HR Care 04/23/21 07:10 Active Oxygen Therapy [RC] PRN Care 04/23/21 07:09 Active VTE/DVT Education [RC] PER UNIT ROUTINE Care 04/23/21 07:09 Active Vital Signs [RC] 03,07,11,15,19,23 Care 04/23/21 07:09 Active Nothing per Oral Now Diet [DIET] Diet 04/23/21 Breakfast Active Chest 1V Frontal [CR] Stat Exams 04/23/21 05:55 Stop Req Head wo Cont [CT] Stat Exams 04/23/21 05:55 Stop Req Peripheral IV Insertion Adult [OM.PC] Routine Oth 04/23/21 05:55 Ordered Resuscitation Status Routine Resus Stat 04/23/21 07:09 Ordered EKG 12 Lead [EK] Stat Ther 04/23/21 05:55 Stop Req Assessment/Plan Comment:: HPI summary: Jacob is a 80yM who was recently admitted to [facility] in [place], [place]. Last known well time per nursing 2300 last evening, 0345 per at bedside. Patient was acting normally last evening without concern for confusion or difficulty speaking. Around 0415 this morning, nursing noted confusion, expressive aphasia and garbled speech. On-call provider, Jahaira Shultz APRN, [employer]IST[employer] contacted by nursing staff regarding need to transfer patient by EMS for evaluation in ER given change in mental status and speech. ED course: Upon arrival to ED, patient alert with incoherent speech, unable to follow commands, no obvious facial droop. Appeared to be weaker on the left side to both upper and lower extremities. Patient found to be able to manage his own oral secretions and airway patent. BP 189/97, HR 75. NIH stroke scale = 11. EKG: Sinus bradycardia with 1st degree A-V block ; Right bundle branch block, Left anterior fascicular block, Bifascicular block , T wave abnormality, consider inferolateral ischemia. Head CT negative for acute intracranial process. CXR indicates left mild to moderate pleural effusion. ER provider called [facility] this morning and case discussed with Dr Ackerman who did not recommend TPA or transfer at that time. Possible postictal state following seizure. MRI to be considered if symptoms evolve or persist. Patient admitted for neuro checks and further monitoring of speech per Jahaira Shultz APRN, WILLEM who recommended observation status, admission entered as inpatient. Hospital course: 04/23/21: On rounds this morning, patient visibly frustrated and unable to express himself verbally, slurred, garbled speech and expressive aphasia. and daughter present at bedside. indicates patient has had progressive weakness and she has noticed that he has been slumping in the chair more than prior. He was up to the bathroom around 0345 this morning and then around 0415 she states he started screaming and hollering which prompted evaluation by the nurses at [facility] who noted an acute change in verbalization and cognition. BP elevated 172/84 this morning, will allow for permissive hypertension given possible CVA. Unable to complete comprehensive neuro exam as unable to follow commands. Mild R sided weakness appreciated from limited exam. HR regular rate and rhythm. Crackles to left base on auscultation. Mild edema of bilateral lower extremities. Called [facility] to express concerns regarding possible CVA as no known history of seizures, no loss of bowel or bladder function. Dr Ackerman with neurology recommends transferring patient to [facility] ER for MRI and additional workup as indicated. Hospitalization problems and plan: # Expressive aphasia - Head CT negative for acute intracranial process; NO KNOWN HISTORY OF SEIZURES - patient on keppra for seizure ppx. # Garbled speech # Inability to follow commands # Hypertension - Will allow for permissive hypertension given expressive aphasia symptoms - Plan to transfer patient to [facility] ER for MRI and additional workup to rule out CVA - Home dose of Keppra to be given prior to transfer by ambulance # HFrEF - BNP 413; - Echo 04/13/21 - EF 40%; marked dilation of R ventricle # PAH - severe per echo 04/13/21 # Mild to moderate left pleural effusion - Will hold lasix due to ambulance transfer to [place] - O2 by nasal cannula to maintain O2 sat > 90% Chronic, stable conditions: # HTN - hold lisinopril # DM TII: hold metformin # Hyperlipidemia: continue atorvastatin and ASA # Dry eyes: continue carboxymethylcellulose # Anxiety/depression: continue fluoxetine and lorazepam (patient has been on this chronically for many years per the [facility] records) # Hx of Subdural hemorrhage with craniotomy (2012) : continue Keppra for seizure ppx # BPH, continue tamsulosin # Hx of thyroid dysfunction # Hx of possible Parkinsons; medications stopped earlier this year at [facility] # RESHMA: ?CPAP Hospitalization details: # FEN: NPO for now. No IV fluids due to CHF, pleural effusion. # PPX: Transferring to ER # Code status: FULL CODE # Emergency contact: and daughter at bedside this morning # Disposition: Will give home dose of keppra prior to transfer to [facility] ER for further workup including MRI for possible stroke due to inability to follow commands and expressive aphasia, slurred speech
[2021-04-23] MEDS ORDERED: levETIRAcetam 500 MG Tab PO SCH (10:45)
--- NOTE | 2021-04-23 10:57 | PCM.DCSUM1 ---
Discharge Summary - Hospital Course Free Text/Narrative:: Date of admission: 04/23/21 Date of discharge: 04/23/21 Admission diagnoses: # Expressive aphasia - Head CT negative for acute intracranial process; NO KNOWN HISTORY OF SEIZURES - patient on keppra for seizure ppx. # Garbled speech # Inability to follow commands # Hypertension - Will allow for permissive hypertension given expressive aphasia symptoms - Plan to transfer patient to [facility] ER for MRI and additional workup to rule out CVA - Home dose of Keppra to be given prior to transfer by ambulance # HFrEF - BNP 413; - Echo 04/13/21 - EF 40%; marked dilation of R ventricle # PAH - severe per echo 04/13/21 # Mild to moderate left pleural effusion - Will hold lasix due to ambulance transfer to [place] - O2 by nasal cannula to maintain O2 sat > 90% Discharge diagnoses: # HTN - hold lisinopril # DM TII: hold metformin # Hyperlipidemia: continue atorvastatin and ASA # Dry eyes: continue carboxymethylcellulose # Anxiety/depression: continue fluoxetine and lorazepam (patient has been [facility] this chron[facility]) # Hx of Subdural hemorrhage with craniotomy (2012) : continue Keppra for seizure ppx # BPH, continue tamsulosin # Hx of thyroid dysfunction # Hx of possible Parkinsons; medications stopped earlier this year at [facility] # RESHMA: ?CPAP HPI summary: Jacob is a 80yM who was recently admitted to [facility] in [place], [place]. Last known well time per nursing 2300 last evening, 0345 per at bedside. Patient was acting normally last evening without concern for confusion or difficulty speaking. Around 0415 this morning, nursing noted confusion, expressive aphasia and garbled speech. On-call provider, Jahaira Shultz APRN, JUDICIAL ADMINISTRATIVE ASSISTANT contacted by nursing staff regarding need to transfer patient by EMS for evaluation in ER given change in mental status and speech. ED course: Upon arrival to ED, patient alert with incoherent speech, unable to follow commands, no obvious facial droop. Appeared to be weaker on the left side to both upper and lower extremities. Patient found to be able to manage his own oral secretions and airway patent. BP 189/97, HR 75. NIH stroke scale = 11. EKG: Sinus bradycardia with 1st degree A-V block ; Right bundle branch block, Left anterior fascicular block, Bifascicular block , T wave abnormal ity, consider inferolateral ischemia. Head CT negative for acute intracranial process. CXR indicates left mild to moderate pleural effusion. ER provider called [facility] this morning and case discussed with Dr Ackerman who did not recommend TPA or transfer at that time. Possible postictal state following seizure. MRI to be considered if symptoms evolve or persist. Patient admitted for neuro checks and further monitoring of speech per Jahaira Shultz APRN, JUDICIAL ADMINISTRATIVE ASSISTANT who recommended observation status, admission entered as inpatient. Hospital course: 04/23/21: On rounds this morning, patient visibly frustrated and unable to express himself verbally, slurred, garbled speech and expressive aphasia. and daughter present at bedside. indicates patient has had progressive weakness and she has noticed that he has been slumping in the chair more than prior. He was up to the bathroom around 0345 this morning and then around 0415 she states he started screaming and hollering which prompted evaluation by the nurses at [facility] who noted an acute change in verbalization and cognition. BP elevated 172/84 this morning, will allow for permissive hypertension given possible CVA. Unable to complete comprehensive neuro exam as unable to follow commands. Mild R sided weakness appreciated from limited exam. HR regular rate and rhythm. Crackles to left base on auscultation. Mild edema of bilateral lower extremities. Called [facility] to express concerns regarding possible CVA as no known history of seizures, no loss of bowel or bladder function. Dr Ackerman with neurology recommends transferring patient to [facility] ER for MRI and additional workup as indicated. This is a same day admission and discharge - please see H&P for full details of ROS, physical exam Discharge and follow-up recommendations: - Discharge to [facility] ER with [facility] for MRI and additional neurological workup - New medications at discharge: No med changes - Follow-up as directed by [facility] based on findings - Discharge Data Discharge Date: 04/23/21 ([facility] ER with [place] ambulance) Discharge Disposition: DC/Tfer to Other 70 Condition: Good - Referral to Home Health Primary Care Physician: Will Hennessy NP - Patient Instructions Other/Special Instructions: Patient to discharge with ground ambulance crew from [facility] for transfer to [facility] ER for further workup and MRI for expressive aphasia and difficulty following commands. Patient to be admitted to [facility] or transferred back to [place] based on MRI findings and ER workup. - Discharge Plan *PRESCRIPTION DRUG MONITORING PROGRAM REVIEWED*: Not Applicable *COPY OF PRESCRIPTION DRUG MONITORING REPORT IN PATIENT RODO: Not Applicable Home Medications: Home Meds FLUoxetine HCl [Fluoxetine HCl] 40 mg PO QAM 08/05/19 [History] Tamsulosin HCl [Flomax] 0.4 mg PO DAILY 08/05/19 [History] levETIRAcetam [Keppra] 500 mg PO BID 08/05/19 [History] polyethylene glycoL 3350 [Miralax] 17 gm PO DAILY 08/05/19 [History] Aspirin [Halfprin] 81 mg PO DAILY 01/21/21 [History] Cyanocobalamin (Vitamin B-12) [B-12] 1,000 mcg PO DAILY 01/21/21 [History] Dextran/Hypromellose/Glycerin [Genteal Tears 0.1%-0.2%-0.3%] 2 drop EYEBOTH Q4H PRN 01/21/21 [History] Potassium Chloride [Klor-Con M20] 20 meq PO DAILY 01/21/21 [History] atorvaSTATin [Lipitor] 40 mg PO BEDTIME 01/21/21 [History] metFORMIN HCl [Metformin HCl] 500 mg PO DAILY 01/21/21 [History] Furosemide [Lasix] 40 mg PO BID #0 01/24/21 [Rx] Melatonin 9 mg PO BEDTIME PRN #30 tablet 01/24/21 [Rx] Nystatin [Nystop] 1 gm TOP BID #1 bottle 01/24/21 [Rx] lisinopriL [Zestril] 40 mg PO DAILY #0 01/24/21 [Rx] Acetaminophen 650 mg PO Q6H 04/23/21 [History] Calcium Carbonate/Vitamin D3 [Calcium 600-Vit D3 400 Tablet] 1 each PO DAILY 04/23/21 [History] LORazepam [Ativan] 0.5 mg PO TID 04/23/21 [History] Magnesium Hydroxide [Milk of Magnesia] 30 ml PO DAILY PRN 04/23/21 [History] Oxygen Therapy Mode: Nasal Cannula Oxygen Flow Rate (L/min): 2 - Discharge Summary/Plan Comment DC Time >30 min.: Yes Total # of Minutes for Discharge Time: 35 - General Info Date of Service: 04/23/21 Subjective Update: Please see H&P as same day admission and discharge - Patient Data Vitals - Most Recent: Last Vital Signs Temp 99 F 04/23/21 10:22 Pulse 65 04/23/21 10:22 Resp 18 04/23/21 10:22 BP 188/83 H 04/23/21 10:22 Pulse Ox 93 L 04/23/21 10:22 Weight - Most Recent: 249 lb 9.6 oz Lab Results - Last 24 hrs: Laboratory Results - last 24 hr 04/23/21 04/23/21 04/23/21 Range/Units 05:55 05:55 05:55 WBC 6.94 (5.00-10.00) 10^3/uL RBC 4.76 (4.50-6.00) 10^6/uL Hgb 14.7 (13.0-17.0) g/dL Hct 44.1 (40.0-52.0) % MCV 92.6 H (82.0-92.0) fL MCH 30.9 (27.0-31.0) pg MCHC 33.3 (32.0-36.0) g/dL RDW 14.4 (11.5-14.5) % Plt Count 164 (150-400) 10^3/uL MPV 10.8 H (7.4-10.4) fL Immature Gran % (Auto) 0.3 (0.0-5.0) % Neut % (Auto) 65.1 (50.0-70.0) % Lymph % (Auto) 22.5 (20.0-40.0) % [place] % (Auto) 8.8 H (2.0-8.0) % Eos % (Auto) 2.7 (1.0-3.0) % Baso % (Auto) 0.6 (0.0-1.0) % Neut # (Auto) 4.52 (2.50-7.00) 10^3/uL Lymph # (Auto) 1.56 (1.00-4.00) 10^3/uL [place] # (Auto) 0.61 (0.10-0.80) 10^3/uL Eos # (Auto) 0.19 (0.10-0.30) 10^3/uL Baso # (Auto) 0.04 (0.00-0.10) 10^3/uL Immature Gran # (Auto) 0.02 (0.00-0.50) 10^3/uL PT 9.9 (9.2-11.2) SEC INR 1.0 (0.9-1.1) APTT 24.7 (22.8-31.4) SEC Sodium 142 (136-145) mmol/L Potassium 4.2 (3.5-5.1) mmol/L Chloride 104 (98-107) mmol/L Carbon Dioxide 28.6 (21.0-32.0) mmol/L Anion Gap 13.6 (5-15) mmol/L BUN 12 (7-18) mg/dL Creatinine 0.73 (0.51-1.17) mg/dL Est Cr Clr Drug Dosing 94.25 mL/min Estimated GFR (MDRD) > 60 mL/min Glucose 116 (70-140) mg/dL POC Glucose (70-140) mg/dL Calcium 8.8 (8.7-10.3) mg/dL Total Bilirubin 0.6 (0.2-1.0) mg/dL AST 17 (15-37) U/L ALT 19 (14-63) U/L Alkaline Phosphatase 53 (46-116) U/L Troponin I High Sens 15.200 (0-76.000) pg/mL B-Natriuretic Peptide 413 H (0-100) pg/mL Total Protein 6.9 (6.4-8.2) g/dL Albumin 3.51 (3.40-5.00) g/dL SARS CoV-2 RNA Rapid GLORIA (NEGATIVE) 04/23/21 04/23/21 Range/Units 07:15 10:21 WBC (5.00-10.00) 10^3/uL RBC (4.50-6.00) 10^6/uL Hgb (13.0-17.0) g/dL Hct (40.0-52.0) % MCV (82.0-92.0) fL MCH (27.0-31.0) pg MCHC (32.0-36.0) g/dL RDW (11.5-14.5) % Plt Count (150-400) 10^3/uL MPV (7.4-10.4) fL Immature Gran % (Auto) (0.0-5.0) % Neut % (Auto) (50.0-70.0) % Lymph % (Auto) (20.0-40.0) % [place] % (Auto) (2.0-8.0) % Eos % (Auto) (1.0-3.0) % Baso % (Auto) (0.0-1.0) % Neut # (Auto) (2.50-7.00) 10^3/uL Lymph # (Auto) (1.00-4.00) 10^3/uL [place] # (Auto) (0.10-0.80) 10^3/uL Eos # (Auto) (0.10-0.30) 10^3/uL Baso # (Auto) (0.00-0.10) 10^3/uL Immature Gran # (Auto) (0.00-0.50) 10^3/uL PT (9.2-11.2) SEC INR (0.9-1.1) APTT (22.8-31.4) SEC Sodium (136-145) mmol/L Potassium (3.5-5.1) mmol/L Chloride (98-107) mmol/L Carbon Dioxide (21.0-32.0) mmol/L Anion Gap (5-15) mmol/L BUN (7-18) mg/dL Creatinine (0.51-1.17) mg/dL Est Cr Clr Drug Dosing mL/min Estimated GFR (MDRD) mL/min Glucose (70-140) mg/dL POC Glucose 111 (70-140) mg/dL Calcium (8.7-10.3) mg/dL Total Bilirubin (0.2-1.0) mg/dL AST (15-37) U/L ALT (14-63) U/L Alkaline Phosphatase (46-116) U/L Troponin I High Sens (0-76.000) pg/mL B-Natriuretic Peptide (0-100) pg/mL Total Protein (6.4-8.2) g/dL Albumin (3.40-5.00) g/dL SARS CoV-2 RNA Rapid GLORIA Negative (NEGATIVE) Med Orders - Current: Current Medications Levetiracetam (Levetiracetam 500 Mg Tab) 500 mg PO BID [place] Discontinued Medications Sodium Chloride (Sodium Chloride 0.9% 10 Ml Syringe) 10 ml FLUSH Q8HR PRN PRN Reason: keep vein open Comments:: Please see H&P as same day admission and discharge
--- NOTE | 2021-04-23 17:11 | CR ---
[id number] RAD/RAD Chest PA or AP 1V EXAM: RAD Chest PA or AP 1V INDICATION: AMS. COMPARISON: July 2019. DISCUSSION/IMPRESSION: Left lung base extends beyond the field of view of this examination there appears to be persistent small effusion. Effusion is likely chronic as it was present on examination from July 2019. Mild cardiomegaly and central vascular congestion, similar to the prior examination. No new findings. Pasha Addison MD 04/23/21 0999 Thank you for allowing us to participate in the care of your patient.
--- NOTE | 2021-04-23 17:16 | CT ---
[id number] CT/CT Head WO IV EXAM: NONCONTRAST HEAD CT INDICATION: AMS. COMPARISON: Prior imaging from 2013 is not currently available for review. DISCUSSION: Prior right craniotomy with a missing component of the frontal calvarium. Mild to moderate generalized atrophy. Chronic subdural hematomas or hygromas along the frontal convexities, left greater than right and the parafalcine aspect of both frontal lobes, left greater than right. On the left the parafalcine component measures up to 13 mm and on the right to 8 mm. Mild associated effacement of the sulci. No midline shift or other evidence of impending herniation. There is also a small hygroma or chronic subdural along the inferior aspect of the right falx measuring up to 4 mm in thickness. Mild chronic small vessel ischemic changes. No acute hemorrhage or territorial infarct. Dolichoectasia of the vertebrobasilar system. Fluid and mucosal thickening in the left maxillary sinus with osseous hypertrophy suggesting acute on chronic sinusitis. IMPRESSION: 1. No acute intracranial findings. 2. Chronic bilateral subdural hematomas or hygromas. Zane Nava MD 04/23/21 1909 Thank you for allowing us to participate in the care of your patient.
== END 2021-04-23 11:20 | disposition other institution (70) | DRG 92 ==
LOC: KA.ED 05:48 → KA.MS 07:08
PROVIDERS: ADMIT Physician Assistant Medical; ATTEND Nurse Practitioner Family
DX: R47.1 Dysarthria and anarthria (principal); I50.22 Chronic systolic (congestive) heart failure; H90.5 Unspecified sensorineural hearing loss; I50.9 Heart failure, unspecified; J90 Pleural effusion, not elsewhere classified; R47.01 Aphasia; R47.89 Other speech disturbances; I11.0 Hypertensive heart disease with heart failure; M19.90 Unspecified osteoarthritis, unspecified site; I27.21 Secondary pulmonary arterial hypertension; E78.5 Hyperlipidemia, unspecified; H04.123 Dry eye syndrome of bilateral lacrimal glands; F32.9 Major depressive disorder, single episode, unspecified; F41.9 Anxiety disorder, unspecified; E11.9 Type 2 diabetes mellitus without complications; I10 Essential (primary) hypertension; E53.8 Deficiency of other specified B group vitamins; Z85.828 Personal history of other malignant neoplasm of skin; F32.A Depression, unspecified; N40.0 Benign prostatic hyperplasia without lower urinary tract symptoms; G47.33 Obstructive sleep apnea (adult) (pediatric); Z20.822 Contact with and (suspected) exposure to COVID-19; R29.711 NIHSS score 11; H91.90 Unspecified hearing loss, unspecified ear; E78.00 Pure hypercholesterolemia, unspecified; K59.09 Other constipation; M54.9 Dorsalgia, unspecified; G89.29 Other chronic pain; G20 Parkinson's disease; J44.9 Chronic obstructive pulmonary disease, unspecified; G47.30 Sleep apnea, unspecified; Z79.82 Long term (current) use of aspirin; Z79.899 Other long term (current) drug therapy; Z79.84 Long term (current) use of oral hypoglycemic drugs; Z87.891 Personal history of nicotine dependence; Z87.820 Personal history of traumatic brain injury
CPT/HCPCS: 36415; 70450; 71045; 80053; 82947; 83880; 84484; 85025; 85610; 85730; 93005; 99285-25; A9270-GY; U0002

== ENCOUNTER 2022-04-22 12:10 | Observation (INO) | payer OTHER ==
[~2022-04-22 12:10] MED LIST: LORazepam 0.5 MG Tab PO ONE
[2022-04-22] MEDS ORDERED: Furosemide 40 MG/4 ML VIAL IVPUSH ONE (13:43)
[2022-04-22] MEDS ORDERED: levETIRAcetam 500 MG Tab PO ONE (21:45)
[2022-04-22] MEDS ORDERED: Gabapentin 100 MG Cap PO ONE (21:45)
[2022-04-22] MEDS ORDERED: atorvaSTATin 40 MG Tab PO ONE (21:45)
[2022-04-22] MEDS ORDERED: LORazepam 0.5 MG Tab PO ONE (22:50)
[2022-04-23] MEDS ORDERED: metFORMIN 500 MG Tab PO ONE (08:11)
[2022-04-23] MEDS ORDERED: Tamsulosin 0.4 MG Cap.ER PO ONE (08:11)
[2022-04-23] MEDS ORDERED: LORazepam 0.5 MG Tab PO ONE (08:11)
[2022-04-23] MEDS ORDERED: FLUoxetine 10 MG Cap PO ONE (08:11)
[2022-04-23] MEDS ORDERED: Lisinopril 20 MG Tab PO ONE (08:11)
[2022-05-06 13:15] LABS: ANION GAP 8.6 mmol/L (5-15); CHLORIDE,CL 102 mmol/L (98-115); ESTIMATED GFR 91 mL/min (>=60); SODIUM,NA 138 mmol/L (136-145)
[2022-05-08 08:45] LABS: ANION GAP 9.4 mmol/L (5-15); CHLORIDE,CL 101 mmol/L (98-107); SODIUM,NA 137 mmol/L (136-145)
[2022-05-08 08:46] LABS: ESTIMATED GFR 93 mL/min (>=60)
== END 2022-04-23 13:55 ==
LOC: KA.ED 12:10 → KA.ZCENSUS 13:57
PROVIDERS: ADMIT Physician Assistant Medical; ATTEND Student in an Organized Health Care Education/Training Program
DX: J96.01 Acute respiratory failure with hypoxia (principal); I11.0 Hypertensive heart disease with heart failure; E78.00 Pure hypercholesterolemia, unspecified; S06.5XAA Traumatic subdural hemorrhage with loss of consciousness status unknown, initial encounter; E66.9 Obesity, unspecified; F32.9 Major depressive disorder, single episode, unspecified; F41.9 Anxiety disorder, unspecified; N40.1 Benign prostatic hyperplasia with lower urinary tract symptoms; I50.43 Acute on chronic combined systolic (congestive) and diastolic (congestive) heart failure; G47.33 Obstructive sleep apnea (adult) (pediatric); R00.1 Bradycardia, unspecified; K59.01 Slow transit constipation; G47.00 Insomnia, unspecified; H04.129 Dry eye syndrome of unspecified lacrimal gland; M19.90 Unspecified osteoarthritis, unspecified site; E87.6 Hypokalemia; Z79.899 Other long term (current) drug therapy; Z87.891 Personal history of nicotine dependence; Z68.39 Body mass index [BMI] 39.0-39.9, adult
CPT/HCPCS: 36415; 71045; 80048; 80053; 83735; 83880; 84484; 85025; 93005; A9270-GY; J1940

== ENCOUNTER 2024-01-08 12:44 | Emergency (ER) | payer OTHER, MEDICARE, MEDICAID ==
[2024-01-08 13:16] LABS: BASOPHILS ABSOLUTE AUTO 0.03 10^3/uL (0.00-0.10); BASOPHILS PERCENT AUTO 0.6 % (0.0-1.0); EOSINOPHILS ABSOLUTE AUTO 0.21 10^3/uL (0.10-0.30); EOSINOPHILS PERCENT AUTO 4.1 % (1.0-3.0); HEMATOCRIT 38.5 % (40.0-52.0); HEMOGLOBIN 12.6 g/dL (13.0-17.0); IMMATURE GRAN ABSOLUTE AUTO 0.01 10^3/uL (0.00-0.50); IMMATURE GRAN PERCENT AUTO 0.2 % (0.0-5.0); LYMPHOCYTES PERCENT AUTO 25.3 % (20.0-40.0); MEAN CORPUSCULAR HEMOGLOBIN 31.3 pg (27.0-31.0); MEAN CORPUSCULAR HGB CONC 32.7 g/dL (32.0-36.0); MEAN CORPUSCULAR VOLUME 95.8 fL (82.0-92.0); MEAN PLATELET VOLUME 11.7 fL (7.4-10.4); MONOCYTES ABSOLUTE AUTO 0.46 10^3/uL (0.10-0.80); MONOCYTES PERCENT AUTO 8.9 % (2.0-8.0); NEUTROPHILS ABSOLUTE AUTO 3.13 10^3/uL (2.50-7.00); NEUTROPHILS PERCENT AUTO 60.9 % (50.0-70.0); PLATELET COUNT,PLT 99 10^3/uL (150-400); RED BLOOD CELL COUNT 4.02 10^6/uL (4.50-6.00); WHITE BLOOD CELL COUNT,WBC 5.14 10^3/uL (5.00-10.00)
[2024-01-08 14:16] LABS: ALBUMIN 3.18 g/dL (3.40-5.00); ANION GAP 13.4 mmol/L (5-15); BILIRUBIN TOTAL 0.7 mg/dL (0.2-1.0); CALCIUM 9.7 mg/dL (8.7-10.3); CARBON DIOXIDE,CO2 31.2 mmol/L (21.0-32.0); CREATININE 1.45 mg/dL (0.51-1.17); EST CRCL DRUG DOSING (CG) 37.36 mL/min; POTASSIUM,K 4.6 mmol/L (3.5-5.1); PROTEIN TOTAL,TP 7.5 g/dL (6.4-8.2)
[2024-01-08] MEDS: Azithromycin 250 MG Tab PO ONE (15:10)
[2024-01-08] MEDS: cefTRIAXone 2 GM Vial IVPUSH ONE (15:13)
== END 2024-01-08 16:57 ==
LOC: KA.ED 12:44
DX: J18.9 Pneumonia, unspecified organism (principal); I50.9 Heart failure, unspecified; R09.02 Hypoxemia; I42.9 Cardiomyopathy, unspecified; I51.7 Cardiomegaly; R00.1 Bradycardia, unspecified; I11.0 Hypertensive heart disease with heart failure; J44.9 Chronic obstructive pulmonary disease, unspecified; M19.90 Unspecified osteoarthritis, unspecified site; E78.00 Pure hypercholesterolemia, unspecified; E66.9 Obesity, unspecified; E11.9 Type 2 diabetes mellitus without complications; Z79.82 Long term (current) use of aspirin; Z79.84 Long term (current) use of oral hypoglycemic drugs; Z79.899 Other long term (current) drug therapy; Z68.42 Body mass index [BMI] 45.0-49.9, adult
CPT/HCPCS: 36415; 71045; 80053; 83605; 83880; 84484; 85025; 87040; 96374; 99284; A9270; J0696

== ENCOUNTER 2024-03-16 09:36 | Emergency (ER) | payer MEDICARE, MEDICAID ==
[2024-03-16] MEDS ORDERED: Sodium Chloride 0.9% 10 ML Syringe FLUSH PRN (09:55)
[2024-03-16 10:08] LABS: BASOPHILS ABSOLUTE AUTO 0.03 10^3/uL (0.00-0.10); BASOPHILS PERCENT AUTO 0.5 % (0.0-1.0); EOSINOPHILS ABSOLUTE AUTO 0.35 10^3/uL (0.10-0.30); EOSINOPHILS PERCENT AUTO 5.7 % (1.0-3.0); HEMATOCRIT 38.6 % (40.0-52.0); HEMOGLOBIN 12.5 g/dL (13.0-17.0); IMMATURE GRAN ABSOLUTE AUTO 0.02 10^3/uL (0.00-0.50); IMMATURE GRAN PERCENT AUTO 0.3 % (0.0-5.0); LYMPHOCYTES ABSOLUTE AUTO 1.76 10^3/uL (1.00-4.00); LYMPHOCYTES PERCENT AUTO 28.8 % (20.0-40.0); MEAN CORPUSCULAR HEMOGLOBIN 31.6 pg (27.0-31.0); MEAN CORPUSCULAR HGB CONC 32.4 g/dL (32.0-36.0); MEAN CORPUSCULAR VOLUME 97.5 fL (82.0-92.0); MEAN PLATELET VOLUME 9.9 fL (7.4-10.4); MONOCYTES ABSOLUTE AUTO 0.62 10^3/uL (0.10-0.80); MONOCYTES PERCENT AUTO 10.1 % (2.0-8.0); NEUTROPHILS ABSOLUTE AUTO 3.34 10^3/uL (2.50-7.00); NEUTROPHILS PERCENT AUTO 54.6 % (50.0-70.0); PLATELET COUNT,PLT 126 10^3/uL (150-400); RED BLOOD CELL COUNT 3.96 10^6/uL (4.50-6.00); RED CELL DISTRIBUTION WIDTH 14.9 % (11.5-14.5); WHITE BLOOD CELL COUNT,WBC 6.12 10^3/uL (5.00-10.00)
[2024-03-16 10:28] LABS: B-TYPE NATRIURETIC PEPTIDE,BNP 716 pg/mL (0-100)
[2024-03-16 10:29] LABS: ALANINE AMINOTRANSFERASE,ALT 17 U/L (14-63); ALBUMIN 3.03 g/dL (3.40-5.00); ALKALINE PHOSPHATASE 153 U/L (46-116); ANION GAP 11.8 mmol/L (5-15); ASPARTATE AMNIOTRANSFERASE,AST 14 U/L (15-37); BILIRUBIN TOTAL 0.5 mg/dL (0.2-1.0); CALCIUM 9.6 mg/dL (8.7-10.3); CARBON DIOXIDE,CO2 32.6 mmol/L (21.0-32.0); CHLORIDE,CL 101 mmol/L (98-107); CREATININE 1.52 mg/dL (0.51-1.17); GLUCOSE RANDOM 111 mg/dL (70-140); POTASSIUM,K 4.4 mmol/L (3.5-5.1); SODIUM,NA 141 mmol/L (136-145)
[2024-03-16 10:31] LABS: BLOOD UREA NITROGEN,BUN 64 mg/dL (7-18); ESTIMATED GFR 46 mL/min (>=60); LACTIC ACID 1.1 mmol/L (0.4-2.0)
[2024-03-16 10:45] VITALS: BP 118/58; PULSE 50
[2024-03-16] MEDS: Sodium Chloride 0.9% 1,000 ML IV ONE (11:00)
[2024-03-16 11:56] LABS: APPEARANCE,URINE CLEAR (CLEAR); BILIRUBIN,URINE NEGATIVE (NEGATIVE); COLOR,URINE YELLOW (YELLOW); GLUCOSE,URINE NEGATIVE (NEGATIVE); KETONES,URINE NEGATIVE (NEGATIVE); LEUKOCYTE ESTERASE,URINE TRACE (NEGATIVE); NITRITE,URINE NEGATIVE (NEGATIVE); OCCULT BLOOD,URINE NEGATIVE (NEGATIVE); PH,URINE 6.5 (5.0-9.0); PROTEIN,URINE NEGATIVE (NEGATIVE); UROBILINOGEN,URINE 0.2 E.U./dL (0.2-1.0)
[2024-03-16 12:05] LABS: BACTERIA,URINE RARE /HPF (NONE TO FEW); EPITHELIAL CELLS,URINE RARE /LPF; RBC,URINE 0-5 /HPF (0-5); WBC,URINE 0-5 /HPF (0-5)
== END 2024-03-16 14:57 ==
LOC: KA.ED 09:36
DX: J18.9 Pneumonia, unspecified organism (principal); I95.2 Hypotension due to drugs; N28.9 Disorder of kidney and ureter, unspecified; I11.0 Hypertensive heart disease with heart failure; I50.9 Heart failure, unspecified; E78.00 Pure hypercholesterolemia, unspecified; J44.9 Chronic obstructive pulmonary disease, unspecified; E11.9 Type 2 diabetes mellitus without complications; E66.9 Obesity, unspecified; Z79.899 Other long term (current) drug therapy; Z79.84 Long term (current) use of oral hypoglycemic drugs; Z79.82 Long term (current) use of aspirin; Z79.1 Long term (current) use of non-steroidal anti-inflammatories (NSAID); Z91.048 Other nonmedicinal substance allergy status
CPT/HCPCS: 36415; 71045; 80053; 81001; 83605; 83880; 84484; 85025; 87040; 87077; 87186; 93005; 93010; 96360; 96361; 99284; 99285-25; J7030